=== PATIENT | female | born 1990 | race Caucasian/White ===

== ENCOUNTER → 2020-07-23 14:39 | Outpatient (CLI) | payer BC, MEDICAID, SELFPAY ==
--- NOTE | 2020-07-23 14:48 | RAD_ITS ---
STUDY: X-RAY - PELVIS REASON FOR EXAM: Female, 30 years old. CHECK IUD PLACEMENT TECHNIQUE: One view of the pelvis was obtained. COMPARISON: None. FINDINGS: There is a non-specific bowel gas pattern. Normal visualized soft tissue structures. IUD is noted in the mid pelvis. Normal bilateral iliac wings, sacroiliac joints and visualized sacrum. Normal visualized bilateral superior and inferior pubic rami. Normal pubic symphysis. Normal ischial tuberosities. Normal visualized right femoral head. Normal right acetabulum. Normal right hip joint. Normal visualized left femoral head. Normal left acetabulum. Normal left hip joint. RAD/Pelvis 1 or 2 Views IMPRESSION: IUD noted in the mid pelvis. Electronically Signed: Eamon Ham MD at 22:26 EDT , Service support ,
== END ==
PROVIDERS: PCP Nurse Practitioner Family; Referring Provider Obstetrics & Gynecology; Visit Provider Obstetrics & Gynecology
DX: T83.32XA Displacement of intrauterine contraceptive device, initial encounter (principal)
CPT/HCPCS: 72170

== ENCOUNTER → 2025-08-27 | Outpatient (CLI) | payer BC, SELFPAY ==
[2025-08-27 11:15] LABS: Hematocrit 39.8 % (37-47); Hemoglobin 12.7 g/dL (12.0-15.0); Mean Corp Hgb Conc 31.9 g/dL (32-36); Mean Corpuscular Volume 89.6 fL (81-99); Mean Platelet Vol. 10.9 fl (6.2-12.0); Platelet Count 305 K/mm3 (150-450); RBC Distribution Width CV 13.7 % (11.6-14.6); RBC Distribution Width SD 44.4 fl (35.1-43.9); Red Blood Count 4.44 M/mm3 (4.2-5.4); White Blood Count 8.4 K/mm3 (4.4-11.0)
[2025-08-27 11:50] LABS: AST(SGOT) 18 U/L (<=31); Alanine Aminotransfer ALT/SGPT 17 U/L (<=34); Albumin, Serum 3.8 g/dL (3.5-5.0); Alkaline Phosphatase 64 U/L (35-104); Anion Gap 12 (5-15); BUN 9 mg/dL (4-19); BUN/Creat Ratio 12.9 RATIO (10-20); Calcium,Total 9.4 mg/dL (7.6-11.0); Carbon Dioxide 22.8 mmol/L (21.0-32.0); Chloride 104 mmol/L (98-108); Globulin 3.3 g/dL (2.2-4.2); Glucose 113 mg/dL (70-99); Microalbumin,Random Urine < 12.0 mg/L (<20 mg/L); Potassium 4.2 mmol/L (3.3-5.1)
== END | disposition home or self-care (01) ==
LOC: VSLAB 09:45
PROVIDERS: PCP Nurse Practitioner Family; Visit Provider Nurse Practitioner Family
DX: I10 Essential (primary) hypertension (principal)
CPT/HCPCS: 36415; 80053; 82043; 84443; 85027

== ENCOUNTER → 2025-09-16 | Outpatient (CLI) | payer BC, SELFPAY ==
--- OUTSIDE RECORDS SUMMARY | 2025-09-16 13:35 | XMS RPT_ITS | CCD ---
Author Organization [facility] Care Team Providers Care Ball Point Splitter Name Role Phone ROSEMARIE CHAVEZ Consulting Unavailable ROSEMARIE CHAVZE Attending Unavailable PHYSICIAN, NOT RECORDED Primary Care Physician U vi PENNY MD, DR DAWNA Kothari Admitting Unavailable SUDHIR PLATA, DR DAWNA Kothari Attending Unavailable RODDY PIERCE DO Consulting Unavail able PHYSICIAN, NOT RECORDED Primary Care UnavailSASHA Briseno MD Consulting Unavailable MIKAYLA PLATA, SHARIF Bowman Consulting Unavailable JAMES BETANCOURT MD Consulting Unavailable Sharif Mcfarlane Consulting Unavailable ABBEY NEWTON MD Consulting Unavailable VICTORINO HERNANDEZ MD Consulting Unavailable PHYSICIAN, NOT RECORDED Primary Care UnavailSNEHA Loving MD Attending Unavailable REAGAN LARKIN DO Attending Unavailable PHYSICIAN, NOT RECORDED Primary Care Unavaila july PHYSICIAN, NOT RECORDED Primary Care UnavailSNEHA Loving MD Attending Unavailable Unavailable Primary Care Provider Unavailhernesto Hernandez BUCKLE STRAP PUNCHER, Lucía Primary Care Provider [phone] PAUL ALVARADO MD Attending Unavailable PAUL ALVARADO MD Primary Care Unavailable PAUL ALVARADO MD Admitting Unavailable SERA DUMONT DO Admitting Unavailable JANET BAUMAN CNP Consulting Unavailable SERA DUMONT DO Attending Unavailable SERA DUMONT DO Primary Care Unavailable PROVIDER, UNKNOWN Consulting Unavailable PROVIDER, UNKNOWN Consulting Unavailable JANET BAUMAN CNP Consulting Unavailable JANET BAUMAN CNP Primary Care Unavailable JANET BAUMAN CNP Admitting Unavailable JANET BAUMAN CNP Attending Unavailable PROVIDER, UNKNOWN Consulting Unavailable PROVIDER, UNKNOWN Consulting Unavailable JANET BAUMAN CNP Consulting Unavailable DENNIS BRADLEY Admitting Unavailable DENNIS BRADLEY Attending Unavailable DENNIS BRADLEY Primary Care Unavailable PROVIDER, UNKNOWN Consulting Unavailable PROVIDER, UNKNOWN Consulting Unavailable BRADLEY SUH DO Admitting Unavailable JANET BAUMAN CNP Consulting Unavailable JANET BAUMAN CNP Referring Unavailable BRADLEY SUH DO Attending Unavailable BRADLEY SUH DO Primary Care Unavailable PROVIDER, UNKNOWN Consulting Unavailable PROVIDER, UNKNOWN Consulting Unavailable JANET BAUMAN CNP Consulting Unavailable SYMONE ESCALANTE MD Admitting Unavailable SYMONE ESCALANTE MD Attending Unavailable SYMONE ESCALANTE MD Primary Care Unavailable PROVIDER, UNKNOWN Consulting Unavailable PROVIDER, UNKNOWN Consulting Unavailable BRYCE YOUSSEF Referring Unavailable PATRICIAMANDIELUCÍA [facility] Attending Unavailabl e [facility], Lucía Primary Care Unavailabl e Allergies Allergy Classification Reported Allergen(s) Allergy Type Date of Onset Reaction(s) Facility (3 sources) Morphine; Translations: [morphine] Drug Allergy 4 [facility] (disorder), [facility] (2 sources) Morphine Drug Allergy [facility] (2 sources) CONTRAST MEDIA, IODINE RELATED Drug allergy (disorder) [facility] (1 source) Morphine Drug Allergy 5 [facility] Rep[facility] Medications Current Medications Medication Drug Class(es) Dates Sig (Normalized) Sig (Original) Albuterol (3 sources) beta2-Adrenergic Agonist Start: 05-26-2022 ALBUTEROL INHALATION 0 Refill(s) 05/26/2022 Active Start: 05-26-2022 albuterol 0 Re fill(s) Start Date: 05/26/22 Status: Ordered cetirizine hydrochloride 10 mg oral tablet (1 source) Histamine-1 Receptor Antagonist Start: 05-26-2022 Zyrtec 10 mg oral tablet Dose : 10 mg = 1 tab(s), Oral, qDay, # 30 tab(s), 0 Refill(s) Start Date: 05/26/22 Status: Ordered 0.4 ml enoxaparin sodium 100 mg/ml prefilled syringe (1 source) Low Molecular Weight Heparin Start: 05-29-2022 End: 06-26-2022 Lovenox 40 mg/0.4 mL injectable solution Dose : 40 mg = 0.4 mL, Subcutaneous, q12h, Please supply sufficient quantity of needles, syringes, alcohol swabs and a sharps container, # 22.4 mL, 0 Refill(s), [id number] 170.2, cm, 05/24/22 18:25:00 EDT, Height, kg, 05/24/22 18:25... Start Date: 05/29/22 Stop Date: 06/26/22 Status: Ordered FLUoxetine 20 mg oral tablet (1 source) Serotonin Reuptake Inhibitor Start: 05-29-2022 FLUoxetine (Eqv-Sarafem) 20 mg oral tablet Dose : 20 mg = 1 tab(s), Oral, qDay, # 30 tab(s), 2 Refill(s), [id number], 170.2, cm, 05/24/22 18:25:00 EDT, Height, kg, 05/24/22 18:25:00 EDT, Dosing Weight Start Date: 05/29/22 Status: Ordered ibuprofen 600 mg oral tablet (1 source) Nonsteroidal Anti-inflammatory Drug Start: 05-29-2022 ibuprofen 600 mg oral tablet Dose : 600 mg = 1 tab(s), Oral, q6h, PRN Pain, scale 1-3, # 60 tab(s), 1 Refill(s), [id number] 170.2, cm, 05/24/22 18:25:00 EDT, Height, kg, 05/24/22 18:25:00 EDT, Dosing Weight Start Date: 05/29/22 Status: Ordered minocycline 100 mg injection (2 sources) Tetracycline-class Drug minocycline (MINOCIN) 100 mg injection Active NIFEdipine 30 mg osmotic 24 hr extended release oral tablet (1 source) Dihydropyridine Calcium Channel Abhinav Start: 05-29-2022 Procardia XL 30 mg oral tablet, extended release Dose : 30 mg = 1 tab(s), Oral, qDay, # 30 tab(s), 2 Refill(s), [id number] 170.2, cm, 05/24/22 18:25:00 EDT, Height, kg, 05/24/22 18:25:00 EDT, Dosing Weight Start Date: 05/29/22 Status: Ordered [place]-3 1000 mg oral capsule (1 source) Start: 05-26-2022 [place]-3 1000 mg oral capsule Dose : 1,000 mg = 1 cap(s), Oral, qDay, 0 Refill(s) Start Date: 05/26/22 Status: Ordered ondansetron 4 mg disintegrating oral tablet (1 source) Serotonin-3 Receptor Antagonist Start: 05-29-2022 ondansetron 4 mg oral tablet, disintegrating Dose : 4 mg = 1 tab(s), Oral, q6h, # 30 tab(s), 1 Refill(s), [facility]: [id number], 170.2, cm, 05/24/22 18:25:00 EDT, Height, kg, 05/24/22 18:25:00 EDT, Dosing Weight Start Date: 05/29/22 Status: Ordered oxyCODONE hydrochloride 5 mg oral tablet (1 source) Opioid Agonist Start: 05-29-2022 End: 06-05-2022 oxyCODONE 5 mg oral tablet ( IMMEDIATE release ) Dose : 5 mg = 1 tab(s), Oral, q4h, PRN Pain, scale 4-6, # 28 tab(s), 0 Refill(s), Pharmacy: [id number], Post-op pain, 170.2, cm, 05/24/22 18:25:00 EDT, Height, 198, kg, 05/24/22 18:25:00 EDT, Dosing Weight Start Date: 05/29/22 Stop Date: 06/05/22 Status: Ordered PARoxetine hydrochloride 10 mg oral tablet (2 sources) Serotonin Reuptake Inhibitor Start: 07-05-2024 PARoxetine (PAXIL) 10 mg tablet 07/05/2024 Active polyethylene glycol 3350 298443 mg / potassium chloride 2970 mg / sodium bicarbonate 6740 mg / sodium chloride 5860 mg / sodium sulfate 98392 mg powder for oral solution (2 sources) Osmotic Laxative Start: 07-12-2024 End: 07-12-2024 peg 3350-Electrolytes (GOLYTELY) 236-22.74-6.74 -5.86 gram suspension Indications: IBD (inflammatory bowel disease) Take 4,000 mL by mouth one time only for 1 dose. Refer to printed prep instructions from your provider. 4000 mL 0 07/12/2024 07/12/2024 Active Multivitamins with Vitamin B Complex, Vitamin C, Minerals and L-Methylfolate oral capsule (1 source) Start: 05-26-2022 take 1 capsule by mouth once daily Multivitamins with Vitamin B Complex, Vitamin C, Minerals and L-Methylfolate oral capsule Dose = 1 cap(s), Oral, Daily, 0 Refill(s) Start Date: 05/26/22 Status: Ordered sennosides, group home 8.6 mg oral tablet (1 source) Start: 05-29-2022 senna (sennosides) 8.6 mg oral tablet Dose : 8.6 mg = 1 tab(s), Oral, qHS, # 30 tab(s), 1 Refill(s), [facility]: [id number], 170.2, cm, 05/24/22 18:25:00 EDT, Height, kg, 05/24/22 18:25:00 EDT, Dosing Weight Start Date: 05/29/22 Status: Ordered sertraline 50 mg oral tablet (2 sources) Serotonin Reuptake Inhibitor Start: 05-03-2024 take 1 tablet by mouth once sertraline (ZOLOFT) 50 mg tablet Take 1 tablet by mouth every afternoon. 05/03/2024 Active spironolactone 100 mg oral tablet (2 sources) Aldosterone Antagonist Start: 01-06-2024 spironolactone (ALDACTONE) 100 mg tablet 01/06/2024 Active sulfamethoxazole 800 mg / trimethoprim 160 mg oral tablet (1 source) Dihydrofolate Reductase Inhibitor Antibacterial, Sulfonamide Antimicrobial Start: 05-29-2022 End: 06-05-2022 take 1 tablet by mouth twice daily sulfamethoxazole-t rimethoprim 800 mg-160 mg oral tablet Dose = 1 tab(s), Oral, BID, X 7 day(s), # 14 tab(s), 0 Refill(s), [facility]: [id number], 170.2, cm, 05/24/22 18:25:00 EDT, Height, 198, kg, 05/24/22 18:25:00 EDT, Dosing Weight Start Date: 05/29/22 Stop Date: 06/05/22 Status: Ordered Problems Active Problems Problem Classification Problem Date Documented Da te Episodic/Chronic Acute posthemorrhagic anemia (1 source) Acute posthemorrhagic anemia; Translations: [Acute posthemorrhagic anemia] Episodic Anxiety disorders (3 sources) Mixed anxiety and depressive disorder; Translations: [Anxiety disorder, unspecified] Onset: 07-24-2024 07-24-2024 Chronic Asthma (6 sources) Asthma; Translations: [Unspecified asthma, uncomplicated] Onset: 05-24-2022 Chronic Diabetes or abnormal glucose tolerance complicating ; childbirth; or the puerperium (5 sources) Gestational diabetes mellitus complicating ; Translations: [Gestational diabetes mellitus in , unspecified control] Onset: 05-24-2022 Episodic Fluid and electrolyte disorders (1 source) Acidosis; Translations: [Acidosis] Episodic Genitourinary symptoms and ill-defined conditions (3 sources) Dysuria; Translations: [Dysuria] Onset: 07-06-2025 Episodic Hypertension complicating ; childbirth and the puerperium (1 source) Pre-existing hypertension complicating AND/OR reason for care during ; Translations: [Unspecified pre-existing hypertension complicating , second trimester] Chronic Other complications of ; puerperium affecting management of mother (1 source) Obesity in mother complicating childbirth; Translations: [Obesity complicating childbirth] Chronic Other complications of ; puerperium affecting management of mother (1 source) Anemia in mother complicating childbirth; Translations: [Anemia complicating childbirth] Chronic Other complications of (2 sources) Finding related to ; Translations: [Other specified related conditions, unspecified trimester] Onset: 05-24-2022 Episodic Other complications of (3 sources) Placenta accreta; Translations: [Placenta accreta, unspecified trimester] Onset: 05-24-2022 Episodic Other complications of (1 source) Supervision of high risk done; Translations: [Supervision of with grand multiparity, second trimester] Episodic Other complications of (1 source) Vomiting of ; Translations: [Vomiting of , unspecified] Episodic Other connective tissue disease (1 source) Leg swelling symptom Onset: 03-18-2019 Episodic Other female genital disorders (1 source) Abnormal uterine bleeding; Translations: [Abnormal uterine and vaginal bleeding, unspecified] Chronic Other gastrointestinal disorders (1 source) Ascites; Translations: [Other ascites] Onset: 05-25-2022 Episodic Other nutritional; endocrine; and metabolic disorders (4 sources) Morbid obesity; Translations: [Morbid (severe) obesity due to excess calories] Onset: 03-08-2022 Chronic Other nutritional; endocrine; and metabolic disorders (2 sources) Body mass index 40+ - severely obese; Translations: [Body mass index (BMI) 60.0-69.9, adult] Chronic Other nutritional; endocrine; and metabolic disorders (1 source) Morbid (severe) obesity due to excess calories; Translations: [Morbid (severe) obesity due to excess calories] Onset: 02-14-2025 Chronic Regional enteritis and ulcerative colitis (3 sources) Crohn's disease; Translations: [Crohn's disease, unspecified, without complications] Onset: 05-24-2022 Chronic Residual codes; unclassified (1 source) Previous uterine surgical scar; Translations: [History of uterine scar from previous surgery] Onset: 05-24-2022 Episodic Respiratory failure; insufficiency; arrest (adult) (1 source) Acute respiratory failure; Translations: [Acute respiratory failure, unspecified whether with hypoxia or hypercapnia] Episodic Shock (1 source) Shock; Translations: [Other shock] Episodic Substance-related disorders (4 sources) Smoker; Translations: [Nicotine dependence, unspecified, uncomplicated] Onset: 07-24-2024 07-24-2024 Chronic Past or Other Problems Problem Classification Problem Date Documented Date Episodic/Chronic Hemorrhage during ; abruptio placenta; placenta previa (6 sources) Placenta previa without hemorrhage; Translations: [Complete placenta previa NOS or without hemorrhage, unspecified trimester] Onset: 05-24-2022 Episodic Immunizations and screening for infectious disease (2 sources) Encounter for screening for human papillomavirus (HPV); Translations: [Encounter for screening for human papillomavirus (HPV)] Onset: 05-10-2022 Episodic Noninfectious gastroenteritis (4 sources) Inflammatory bowel disease; Translations: [Noninfective gastroenteritis and colitis, unspecified] Onset: 07-24-2024 07-12-2024 Episodic Other aftercare (2 sources) Encounter for removal of sutures; Translations: [Encounter for removal of sutures] Onset: 06-04-2022 Episodic Other complications of (2 sources) Depressive disorder in mother complicating ; Translations: [Other mental disorders complicating , unspecified trimester] Onset: 03-08-2022 07-24-2024 Episodic Other and delivery including normal (1 source) Onset: 01-13-2022 05-24-2022 Episodic Other screening for suspected conditions (not mental disorders or infectious disease) (3 sources) Encounter for screening for malignant neoplasm of cervix; Translations: [Encounter for screening for lipoid disorders] Onset: 05-10-2022 Episodic Other skin disorders (3 sources) Hidradenitis suppurativa; Translations: [Hidradenitis suppurativa] Onset: 07-24-2024 07-24-2024 Episodic Results Test Name Value Interpretation Reference Range Facility CBC-Complete Blood Cnt No Di ffon 08-27-2025 Erythrocyte distribution width (RBC) [Ratio] 13.7 % Normal 11.6-14.6 [facility] Comment on above: Performed By: #### L 502.0500, L100.0500, L501.9520, L500.4050 #### [facility] [address] [place], [address] Hematocrit (Bld) [Volume fraction] 39.8 % Normal 37-47 [facility] Comment on above: Performed By: #### L 502.0500, L100.0500, L501.9520, L500.4050 #### [facility] [address] [place], [address] Hemoglobin (Bld) [Mass/Vol] 12.7 g/dL Normal 12.0-15.0 [facility] Comment on above: Performed By: #### L 502.0500, L100.0500, [id number], L500.4050 #### [facility] [address] [place], [address] MCH (RBC) [Entitic mass] 28.6 pg Normal 27.0-32.0 [facility] Comment on above: Performed By: #### L 502.0500, L100.0500, [id number], L500.4050 #### [facility] [address] [place], [address] MCHC (RBC) [Mass/Vol] 31.9 g/dL Low 32-36 [facility] Comment on above: Performed By: #### L 502.0500, L100.0500, [id number], L500.4050 #### [facility] [address] [place], [address] MCV (RBC) [Entitic vol] 89.6 fL Normal 81-99 [facility] Comment on above: Performed By: #### L 502.0500, L100.0500, L501.9520, L500.4050 #### [facility] [address] [place], [address] Platelet mean volume (Bld) [Entitic vol] 10.9 fL Normal 6.2-12.0 [facility] Comment on above: Performed By: #### L 502.0500, L100.0500, L501.9520, L500.4050 #### [facility] [address] [place], [address] Platelets (Bld) [#/Vol] 305 10*3/uL Normal 150-450 [facility] Comment on above: Performed By: #### L 502.0500, L100.0500, [id number], L500.4050 #### [facility] [address] [place], [address] RBC (Bld) [#/Vol] 4.44 10*6/uL Normal 4.2-5.4 [facility] Comment on above: Performed By: #### L 502.0500, L100.0500, [id number], L500.4050 #### [facility] [address] [place], [address] RDW SD 44.4 fl High 35.1-43.9 [facility] Comment on above: Performed By: #### L 502.0500, L100.0500, [id number], L500.4050 #### [facility] [address] [place], [address] WBC (Bld) [#/Vol] 8.4 10*3/uL Normal 4.4-11.0 [facility] Comment on above: Performed By: #### L 502.0500, L100.0500, [id number], L500.4050 #### [facility] [address] [place], [address] [facility] 08-27-2025 Albumin [Mass/Vol] 3.8 g/dL Normal 3.5-5.0 [facility] Comment on above: Performed By: #### L 502.0500, L100.0500, L501.9520, L500.4050 #### [facility] [address] [place], [address] Albumin/Globulin [Mass ratio] 1.2 {ratio} Normal 0.9-2.4 [facility] Comment on above: Performed By: #### L 502.0500, L100.0500, L501.9520, L500.4050 #### [facility] [address] [place], [address] ALK PHOS 64 U/L Normal 35-104 [facility] Comment on above: Performed By: #### L 502.0500, L100.0500, L501.9520, L500.4050 #### [facility] [address] [place], [address] ALT [Catalytic activity/Vol] 17 U/L Normal <=34 [facility] Comment on above: Performed By: #### L 502.0500, L100.0500, L501.9520, L500.4050 #### [facility] [address] [place], [address] AST [Catalytic activity/Vol] 18 U/L Normal <=31 [facility] Comment on above: Performed By: #### L 502.0500, L100.0500, L501.9520, L500.4050 #### [facility] [address] [place], [address] Bilirubin [Mass/Vol] 0.30 mg/dL Normal 0.00-1.30 [facility] Comment on above: Performed By: #### L 502.0500, L100.0500, L501.9520, L500.4050 #### [facility] [address] [place], [address] BUN/CRE 12.9 RATIO Normal 10-20 [facility] Comment on above: Performed By: #### L 502.0500, L100.0500, [id number], L500.4050 #### [facility] [address] [place], [address] Calcium [Mass/Vol] 9.4 mg/dL Normal 7.6-11.0 [facility] Comment on above: Performed By: #### L 502.0500, L100.0500, L501.9520, L500.4050 #### [facility] [address] [place], [address] Chloride [Moles/Vol] 104 mmol/L Normal 98-108 [facility] Comment on above: Performed By: #### L 502.0500, L100.0500, L501.9520, L500.4050 #### [facility] [address] [place], [address] CO2 [Moles/Vol] 22.8 mmol/L Normal 21.0-32.0 [facility] Comment on above: Performed By: #### L 502.0500, L100.0500, [id number], L500.4050 #### [facility] [address] [place], [address] Creatinine [Mass/Vol] 0.72 mg/dL Normal 0.70-1.20 [facility] Comment on above: Performed By: #### L 502.0500, L100.0500, L501.9520, L500.4050 #### [facility] [address] [place], [address] GAP 12 Normal 5-15 [facility] Comment on above: Performed By: #### L 502.0500, L100.0500, L501.9520, L500.4050 #### [facility] [address] [place], [address] GFR/1.73 sq M.predicted among non-blacks MDRD (S/P/Bld) [Vol rate/Area] 112 mL/min/{1.73_m2} Normal >60 [facility] Comment on above: Result Comment: mL/m in/1.73m2 CKD-EPI Creatinine Equation (2020) Performed By: #### L 502.0500, L100.0500, L501.9520, L500.4050 #### [facility] [address] [place], [address] Globulin (S) [Mass/Vol] 3.3 g/dL Normal 2.2-4.2 [facility] Comment on above: Performed By: #### L 502.0500, L100.0500, L501.9520, L500.4050 #### [facility] [address] [place], [address] Glucose [Mass/Vol] 113 mg/dL High 70-99 [facility] Comment on above: Performed By: #### L 502.0500, L100.0500, L501.9520, L500.4050 #### [facility] [address] [place], [address] Potassium [Moles/Vol] 4.2 mmol/L Normal 3.3-5.1 [facility] Comment on above: Performed By: #### L 502.0500, L100.0500, L501.9520, L500.4050 #### [facility] [address] [place], [address] Sodium [Moles/Vol] 139 mmol/L Normal 133-145 [facility] Comment on above: Performed By: #### L 502.0500, L100.0500, L501.9520, L500.4050 #### [facility] [address] [place], [address] T PROT 7.1 g/dL Normal 5.9-8.4 [facility] Comment on above: Performed By: #### L 502.0500, L100.0500, L501.9520, L500.4050 #### [facility] [address] [place], [address] Urea nitrogen [Mass/Vol] 9 mg/dL Normal 4-19 [facility] Comment on above: Performed By: #### L 502.0500, L100.0500, L501.9520, L500.4050 #### [facility] [address] [place], [address] Microalbumin,Random Urineon 08-27-2025 MICROALBUMIN,UR < 12.0 Normal <20 mg/L [facility] Comment on above: Performed By: #### L 502.0500, L100.0500, L501.9520, L500.4050 #### [facility] [address] [place], [address] Thyroid Stim Hormone (TSH)on 08-27-2025 TSH 2.130 uIU/mL Normal 0.300-4.200 [facility] Comment on above: Performed By: #### L 502.0500, L100.0500, L501.9520, L500.4050 #### [facility] [address] [place], [address] ED MED ADMINISTRATION DETAIL on 07-13-2025 ED MED ADMINISTRATION DETAIL City Controller - JUDE CARLSON : 1990, , Medication Administration Record [place] [address] [place] [address] [id number] 07/12/2025 Patient: JUDE CARLSON Sex: Female : 1990 Age: 35y MEASUREMENTS: Wt: 181.4 kg, Ht/Brendan: 68.0 in, BMI: 60.82 ALLERGIES: iv contrast, morphine Medication Ordered Medication Administration Date/Time IV NS 0.9 % 1000 22:15 07/12 IV NS 0.9 % 1000 mL started in bag#1 1000 mL at Started mL at 999 mL/hr 999 mL/hr via Site# 1. Allergies verified and confirmed 5 rights. IV 22:15 07/12/2025 (NOW x1) patency established. IV site checked: no pain, redness, or swelling. Korey Wagner IV flushed thoroughly pre-medication administration. Information E.M.T.-P. reviewed with patient. Verbalizes understanding. Completed per Stopped protocol. - 22:15 Maranda Bundy-P. 23:30 07/12/2025 Coby Dugan R.N. 23:30 07/12 Medication Discontinued: bag #1 infused. Total Scanned amount infused: 1000 mL. - 02:47 Coby Dugan R.N. KetorOLAC 22:17 08 KetorOLAC (Toradol) IVP 15 mg given via Site# 1. Given (Toradol) IVP 15 mg Allergies verified and confirmed 5 rights. IV patency established. IV 22:17 07/12/2025 (NOW x1) site checked: no pain, redness, or swelling. IV flushed thoroughly Korey Wagner pre-medication administration. IVP given by EMT-P. Information E.M.T.-P. reviewed with patient. Verbalizes understanding. Vitals: 22:12 Scanned 07/12/2025 BP: 162/90 MAP: 114 mmHg. HR: 75 bpm. Medication Wastage: 15 mg wasted. - 22:18 Suzanne BundyT.-P. 00:35 07/13 Medication Response: Pain is improving. Symptoms have improved. The patient feels better. - 00:35 Coby Dugan R.N. 1 of 3 City Controller - JUDE CARLSON, : 1990, , Medication Ordered Medication Administration Date/Time Ondansetron IVP 4 22:17 07/12 Ondansetron IVP 4 mg given via Site# 1. Allergies Given mg (NOW x1) verified and confirmed 5 rights. IV patency established. IV site 22:17 07/12/2025 checked: no pain, redness, or swelling. IV flushed thoroughly Korey Wagner, pre-medication administration. IVP given by EMT-P. Information E.M.T.-P. reviewed with patient. Verbalizes understanding. - 22:17 Marnada Miller-P. 00:40 07/13 Medication Response: No adverse reaction. Pain is improving. Symptoms have improved. The patient feels better. - 00:40 Coby Dugan R.N. Eye Kit 1 kit (place 23:52 07/12 Eye Kit 1 kit given. Given in the left eye. Allergies Given at bedside, NOW verified and confirmed 5 rights. Information reviewed with patient 23:52 07/12/2025 x1) including reason for taking this medication, signs of allergic reaction Marcie and precautions. Verbalizes understanding. - 00:17 Kaitlynn Hawthorne R.N. Not Scanned cefTRIAXone 23:42 07/12 cefTRIAXone (Rocephin) IVPB 1gm/50ml NS 1 g Started (Rocephin) IVPB started at 100 mL/hr diluted in sodium chloride IVPB 0.9 % 23:42 07/12/2025 1gm/50ml NS 1 g Minibag+ 50 mL via Site# 1. Allergies verified and confirmed 5 Marcie diluted in sodium rights. Via dial-a-flow. IV patency established. IV site checked: no Kaitlynn Grimes chloride IVPB 0.9 % pain, redness, or swelling. IV flushed thoroughly pre-medication Stopped Minibag+ 50 mL at administration. Information reviewed with patient including reason 00:34 07/13/2025 100 mL/hr (NOW x1) for taking this medication, signs of allergic reaction and precautions. Coby Dugan R.N. Verbalizes understanding. - 23:43 Marcie Grimes R.N. Scanned 00:34 07/13 Medication Discontinued: IV infused. Total amount infused: 50 mL. IV patency established. IV site checked: no pain, redness, or swelling. IV flushed thoroughly post-medication administration. - 00:34 Coby Dugan R.N. 2 of 3 City Controller - GLORIA JUDE, : 1990, , Medication Ordered Medication Administration Date/Time HYDROmorphone 23:56 07/12 HYDROmorphone (Dilaudid) IVP 0.5 mg given via Given (Dilaudid) IVP 0.5 Site# 1. Allergies verified and confirmed 5 rights. IV patency 23:56 07/12/2025 mg (NOW x1, HIGH established. IV site checked: no pain, redness, or swelling. IV Marcie ALERT flushed thoroughly pre-medication administration. IVP given by Kaitlynn Grimes MEDICATION) nurse. Information reviewed with patient including reason for taking Scanned this medication, signs of allergic reaction, precautions and sedative warning. Verbalizes understanding. Medication Wastage: 0.5 mg wasted. - 23:57 Marcie Grimes R.N. 01:00 07/13 Medication Response: Pain is improving. Symptoms have improved. - 02:48 Coby Dugan R.N. Erythromycin Eye 00:10 07/13 Erythromycin Eye Ointment 1 applic given. Given in Given Ointment 1 applic the left eye. Allergies verified and confirmed 5 rights. (more content not included)... [facility] ED NURSES CLINICAL NOTEon ED NURSES CLINICAL NOTE Nurse Narrative - JUDE CARLSON, : 1990, , Nurse Clinical Narrative [address] [place] [address] [phone] 07/12/2025 19:40:00 Patient: JUDE CARLSON Sex: Female : 1990 Age: 35y Disposition: Discharge to Home Disposition Decision Time: 02:17 07/13/2025 Departure Time: 02:45 07/13/2025 TRIAGE Arrived by private vehicle. Historian: (patient). Accompanied by friend. Primary physician (Chiquita/ Lucía Hernandez). ( urgent care on Tuesday, was given Cephalexin for UTI (7days). Blood vessel busted in left eye yesterday causing headache). Triage time: 19:48 07/12/2025. Acuity: LEVEL 4. Chief Complaint: EYE IRRITATION and BACK PAIN. The patient has had fever, weakness and difficulty breathing. Reports muscle aches. SEPSIS SCREEN: NEGATIVE. SIRS criteria negative. No possible sources of infection. -- 19:55 07/12/25 AJ Castro R.N. 19:51 07/12/25. BP: 155/90 MAP: 108 mmHg. HR: 87 bpm. -- 19:55 07/12/25 AJ Castro R.N. 19:55 07/12/25. HR: 86 bpm. O2 saturation: 98%. -- 19:55 07/12/25 AJ Castro R.N. 19:55 07/12/25. RR: 18. Temperature: 97.5 F. Pain level now 6/10. -- 19:55 07/12/25 AJ Castro R.N. Measurements: 19:54 07/12/25 Wt: 181.4 kg, Ht/Brendan: 68.0 in, BMI: 60.82 -- 19:54 07/12/25 AJ Castro R.N. Medications: hydrOXYzine pamoate 25 mg capsule: 25 mg twice a day as needed. -- 19:57 07/12/25 AJ Castro R.N. 1 of 5 Nurse Narrative - JUDE CARLSON, : 1990, , cephALEXin 500 mg capsule: 500 mg three times a day . -- 19:58 07/12/25 AJ Castro R.N. minocycline 100 mg tablet: 100 mg once a day . -- 19:59 07/12/25 AJ Castro R.N. PARoxetine 10 mg tablet: 10 mg once a day . -- 19:59 07/12/25 AJ Castro R.N. omeprazole 40 mg capsule,delayed release: 40 mg once a day . -- 20:00 07/12/25 AJ Castro R.N. loratadine 10 mg tablet: 10 mg once a day . -- 20:00 07/12/25 AJ Castro R.N. metFORMIN 500 mg tablet: 500 mg once a day . -- 20:00 07/12/25 AJ Castro R.N. spironolactone 100 mg tablet: 100 mg once a day . -- 20:00 07/12/25 AJ Castro R.N. Allergies: morphine -- 19:51 07/12/25 AJ Castro R.N. iv contrast -- 19:51 07/12/25 AJ Castro R.N. Problems: Crohn's Disease -- 19:51 07/12/25 AJ Castro R.N. Ulcerative Colitis -- 19:51 07/12/25 AJ Castro R.N. Gestational diabetes mellitus -- 19:52 07/12/25 AJ Castro R.N. Appendectomy (procedure) -- 19:52 07/12/25 AJ Castro R.N. pre-diabetic -- 19:53 07/12/25 AJ Castro R.N. Hidradenitis Suppurativa -- 20:02 07/12/25 AJ Castro R.N. Surgeries: Hysterectomy -- 19:52 07/12/25 AJ Castro R.N. -- 19:52 07/12/25 AJ Castro R.N. Cholecystectomy -- 19:52 07/12/25 AJ Castro R.N. History 19:48 07/12/25. SOCIAL HX: Light tobacco smoker (cigarette)- less than 1/2 a pack per day. No alcohol use or drug use. The patient has not traveled outside the [place] Infectious disease exposure: No infectious disease exposure. ABUSE ASSESSMENT: The patient answered "yes" to the question(s) "Do you feel safe in your home?" and "no" to the question(s) "Are you afraid to go home?". SELF HARM ASSESSMENT: Self harm assessment was performed. The patient answered "no" to the 2 of 5 Nurse Narrative - GLORIA JUDE, : 1990, , question(s) "Have you recently felt down, depressed, or hopeless?" and "Do you have thoughts of harming or killing yourself?". FALL RISK ASSESSMENT: Fall risk assessment completed. No risk factors identified. -- 19:55 07/12/25 EDT Yulissa Castro R.N. 19:55 07/12/25. PAST MEDICAL HX: LNMP: Last normal menstrual period unknown. Denies current . -- 19:55 07/12/25 JYOTHIT Yulissa Castro R.N. Interventions 19:48 07/12/25. Identification band and allergy band on patient. -- 19:55 07/12/25 JYOTHIT Yulissa Castro R.N. PHYSICAL ASSESSMENT 20:30 07/12/25. Ambulatory to room. GENERAL / NEURO / PSYCH: Alert. Oriented X 4. HEENT: Pupils equal, round and reactive to light. No facial asymmetry noted. RESPIRATORY: Respirations not labored. CVS: Pulses within normal limits. GI / : ( c/o pain to right flank area.). SKIN: Skin is warm and dry. -- 20:55 07/12/25 EDT Coby Dugan R.N. NURSING PROGRESS NOTES 21:54 07/12/25. Site #1 started in the right antecubital space with an 18g needle with aseptic technique and good blood return; 1 attempt. Blood drawn: rainbow set and soares tube(s). Labeled in the presence of the patient and sent to the lab. Saline lock flushed with 10 mL saline. -- 22:03 07/12/25 EDT Korey Wagner E.M.T.-P. 21:58 07/12/25. Patient ID band checked for patient name, birthdate and medi (more content not included)... [facility] ED ORDER SHEET (CPOE ONLY)on 07-13-2025 ED ORDER SHEET (CPOE ONLY) Order Sheet - JUDE CARLSON : 1990, , Order Sheet [address] [address] [id number] 07/12/2025 Patient: JUDE CARLSON Sex: Female : 1990 Age: 35y MEASUREMENTS: Wt: 181.4 kg, Ht/Brendan: 68.0 in, BMI: 60.82 ALLERGIES: iv contrast, morphine MEDICATION/IV/DRIP/FL UID ORDERS Order Description Priority Entered Acknowledged Completed IV NS 0.9 %1000 mL at 999 21:23 07/12/2025 21:40 22:15 mL/hr (NOW x1) Bradley Suh D.O. 07/12/2025 07/12/2025 Korey Hartley R.N. E.M.T.-P. KetorOLAC (Toradol) IVP15 mg 22:05 07/12/2025 22:06 22:18 (NOW x1) Bradley Suh D.O. 07/12/2025 07/12/2025 Korey Bundy E.M.T.-P. E.M.T.-P. Reason for ordering with alerts: Clinical consideration given --22:05 07/12/2025 Bradley Suh D.O. Ondansetron IVP4 mg (NOW x1) 22:05 07/12/2025 22:06 22:17 Bradley Suh D.O. 07/12/2025 07/12/2025 Korey Bundy E.M.T.-P. E.M.T.-P. Reason for ordering with alerts: Clinical consideration given --22:05 07/12/2025 Bradley Suh D.O. Eye Kit1 kit (place at bedside, 22:28 07/12/2025 22:31 00:17 1 of 4 Order Sheet - JUDE CARLSON DOB: 1990, , NOW x1) Bradley Suh D.O. 07/12/2025 07/13/2025 Marcie Bundy E.M.T.-P., R.N. cefTRIAXone (Rocephin) IVPB 23:11 07/12/2025 23:33 23:43 1gm/50ml NS1 g diluted in Bradley Suh D.O. 07/12/2025 07/12/2025 sodium chloride IVPB 0.9 % Marcie Hartley Minibag+ 50 mL at 100 mL/hr Kaitlynn Grimes, (NOW x1) Kaitlynn HYDROmorphone (Dilaudid) 23:51 07/12/2025 23:51 23:57 IVP0.5 mg (NOW x1, HIGH Bradley Suh D.O. 07/12/2025 07/12/2025 ALERT MEDICATION) Cornelio Guerrero R.NSantosh R.NSantosh Reason for ordering with alerts: Clinical consideration given --23:51 07/12/2025 Bradley Suh D.O. Erythromycin Eye Ointment1 23:57 07/12/2025 00:04 00:10 applic (NOW x1) Bradley Suh D.O. 07/13/2025 07/13/2025 Cornelio Guerrero R.NSantosh R.NSantosh LAB ORDERS Order Description Priority Entered Acknowledged Collected Completed CBC w Diff Stat Stat 21:23 07/12/2025 21:40 07/12/2025 21:41 07/12/2025 Stiven Craig Debra Schrock, R.N. R.NSantosh CMP Stat Stat 21:23 07/12/2025 21:40 07/12/2025 21:41 07/12/2025 Stiven Craig Debra Schrock, R.N. RSantoshN. Lactate, Serum Stat Stat 21:23 07/12/2025 21:40 07/12/2025 21:41 07/12/2025 Stiven Craig Debra Schrock, R.N. R.N. 2 of 4 Order Sheet - JUDE CARLSON, : 1990, , Urinalysis Stat Stat 21:23 07/12/2025 21:40 07/12/2025 21:41 07/12/2025 Stiven Craig Debra Schrock, R.N. R.N. HCG, Qual Serum Stat Stat 21:23 07/12/2025 21:40 07/12/2025 21:41 07/12/2025 Stiven Craig Debra Schrock, R.N. R.N. Flu Swab (Influenzae Stat 21:24 07/12/2025 21:40 07/12/2025 21:41 07/12/2025 AAg) Stat Stiven Craig Debra Schrock, R.N. R.N. Rapid COVID (SARS) Stat 21:24 07/12/2025 21:40 07/12/2025 21:41 07/12/2025 ANTIGEN TEST Stat Stiven Craig Debra Schrock, R.N. R.N. Urine Culture [CCL] Stat Stat 23:11 07/12/2025 23:31 07/12/2025 23:31 07/12/2025 Stiven Craig Deusenberry, R.N. REstephanie visual acuity 23:56 07/12/2025 00:23 07/13/2025 02:47 07/13/2025 Stiven Craig Debra Schrock, R.N. R.N. DIAGNOSTIC STUDY ORDERS Order Description Priority Entered Acknowledged Completed CT ABD/PEL w Cont Stat Stat 21:23 07/12/2025 Cancelled: Wrong Patient Bradley Suh D.O. 21:31 EDT Bradley Suh D.O. Reason for Study: low back pain CT ABD/PEL wo Cont Stat Stat 21:30 07/12/2025 21:40 21:41 Bradley Suh D.O. 07/12/2025 07/12/2025 Coby Hartley R.N. R.N. 3 of 4 Order Sheet - JUDE CARLSON, : 1990, , Reason for Study: low back pain STAFF ORDERS Order Description Priority Entered Acknowledged Collected Completed Vital Signs every 30 21:23 07/12/2025 21:40 07/12/2025 21:41 07/12/2025 minutes Stiven Craig Debra Schrock, R.N. R.N. Drip Molder 21:23 07/12/2025 21:40 07/12/2025 21:41 07/12/2025 Stiven Craig Debra Schrock, R.N. R.N. Oxygen titrate to 92% 21:23 07/12/2025 21:40 07/12/2025 21:41 07/12/2025 Stiven Craig Debra Schrock, R.N. R.N. [Electronically signed by Bradley Suh D.O. (07/13/2025 02:53 EDT)] 4 of 4 [facility] ED PHYSICIAN CLINICAL REPORT on 07-13-2025 ED PHYSICIAN CLINICAL REPORT Narrative - JUDE CARLSON, : 1990, , Physician Clinical Narrative [address] [address] [id number] 07/12/2025 19:40:00 Patient: JUDE CARLSON Sex: Female : 1990 Age: 35y Disposition: Discharge to Home Disposition Decision Time: 02:17 07/13/2025 Departure Time: 02:45 07/13/2025 Measurements Wt: 181.4 kg, Ht/Brendan: 68.0 in, BMI: 60.82 Initial Vital Sign Measured Time BP MAP HR RR O2Sat ETCO2 Temp Pain GCS RTS 19:50 07/12/2025 96 97% Time Seen: 20:56 07/12/2025. Arrived- By private vehicle. Historian- patient. HISTORY OF PRESENT ILLNESS Chief Complaint: BACK PAIN. It is described as being in the area of the right upper lumbar spine and right flank. Onset- 1 weeks ago; Was seen at [facility] proximally 5 days ago and diagnosed with a urinary tract infection. Put on Keflex but symptoms persist. Mainly his low back pain. and it is still present. No other injury. Similar symptoms previously. None. Recent medical care: The patient was seen recently in a clinic. REVIEW OF SYSTEMS 1 of 12 JUDE Amaya, : 1990, , CVS: No chest pain. RESPIRATORY: No cough. The patient has had difficulty breathing. THROAT: No sore throat. PSYCHIATRIC: No depression. CONSTITUTIONAL: The patient has had fever and chills. EYES: The patient has had eye irritation. : No difficulty with urination, urinary frequency or hematuria. NEUROLOGICAL: The patient has had a headache. GI: No abdominal pain, nausea, vomiting or diarrhea. PAST HISTORY See nurses notes. Appendectomy (procedure) Crohn's Disease Gestational diabetes mellitus Hidradenitis Suppurativa pre-diabetic Ulcerative Colitis Surgeries: Cholecystectomy Hysterectomy Medications: cephALEXin 500 mg capsule: 500 mg three times a day . hydrOXYzine pamoate 25 mg capsule: 25 mg twice a day as needed. loratadine 10 mg tablet: 10 mg once a day . metFORMIN 500 mg tablet: 500 mg once a day . minocycline 100 mg tablet: 100 mg once a day . omeprazole 40 mg capsule,delayed release: 40 mg once a day . PARoxetine 10 mg tablet: 10 mg once a day . spironolactone 100 mg tablet: 100 mg once a day . Allergies: iv contrast morphine SOCIAL HISTORY Heavy tobacco smoker- less than 1 pack per day. No alcohol use or drug use. 2 of 12 JUDE Amaya, : 1990, , ADDITIONAL NOTES The nursing notes have been reviewed. PHYSICAL EXAM Appearance: Alert. Appears to be in pain. Eyes: Pupils equal, round and reactive to light. ENT: (Some mild conjunctival injection noted to the lateral aspect of the left sclera. Pupils are equal and react to light. No hyphema. No periorbital redness or swelling. Extraocular muscles are intact. Tonometer reading left eye -- 35). Neck: Normal inspection. Neck nontender. Painless ROM. CVS: Heart sounds normal. Pulses normal. Respiratory: No respiratory distress. Painless inspiration. Breath sounds normal. Abdomen: No visible injury. Soft. Moderate tenderness in the right side of the abdomen with guarding present. No rebound tenderness. Bowel sounds normal. No organomegaly. No mass. Obese. Back: Moderate CVA tenderness on the right. Skin: Skin warm and dry. No rash. Extremities: Extremities exhibit normal ROM. Extremities nontender. Neuro: Oriented X 3. Mood/affect normal. No motor deficit. No sensory deficit. LABS, X-RAYS, AND EKG CT Abdomen, Pelvis: 7.2 cm right upper pole kidney exophytic fluid attenuating circumscribed lesions suggesting a cyst. Further evaluation with ultrasound may be obtained. Left lower pole kidney hypodense bilobed 4.5 cm lesion measuring fluid attenuation. No hydronephrosis or nephrolithiasis bilaterally. Surgically absent gallbladder. Appendix not appreciated. Abdomen - pelvic CT performed with IV contrast. The study was interpreted by the radiologist. Interpretation time: 23:41 07/13/2025. Laboratory Tests: CBC + DIFF Final MU: 07/12/2025 21:54:00 EDT MsgRcvd: 07/12/2025 22:35 EDT Lab Test Result Reference Status Received 3 of 12 Narrative - JUDE CARLSON, : 1990, , Lab Test Result Reference Status Received 07/12/2025 22:35 CBC + DIFF Final EDT CBC-COMPLETE BLOOD COUNT 07/12/2025 22:35 WBC 9.8 x 10/UL 4.5 - 10.8 Final EDT 07/12/2025 22:35 RBC 4.57 x 10/UL 4.10 - 5.30 Final EDT 07/12/2025 22:35 HEMOGLOBIN 13.9 g/dl 12.0 - 16.0 Final EDT 07/12/2025 22:35 HEMATOCRIT 39.7 % 34.0 - 46.0 Final EDT 07/12/2025 22:35 MCV 87 fl 80 - 99 Final EDT 07/12/2025 22:35 MCH 31 pg 27 - 33 Final EDT 07/12/2025 22:35 MCHC 35 X10 3 32 - 36 Final EDT 07/12/2025 22:35 (more content not included)... [facility] ED SUPER BILLon 07-13-2025 ED SUPER BILL [facility] - JUDE CARLSON, : 1990, , [place] [address] [place] [address] [phone] 07/12/2025 Patient: JUDE CARLSON Sex: Female : 1990 Age: 35y Item Facility Professional Category Description Code Code Quantity Fee Total Drugs Normal Saline 358201 1 $0.00 $0.00 1000cc (376161) Nurse/E/M EMERGENCY 287041 1 $0.00 $0.00 DEPARTMENT VISIT HIGH/URGENT SEVERITY (07293-33) Nurse/IV/IM/Infusions Drip/IVPB initial 593087 1 $0.00 $0.00 (45478) Nurse/IV/IM/Infusions Hydration 950673 1 $0.00 $0.00 additional hour (44182) Nurse/IV/IM/Infusions IVP additional 602668 3 $0.00 $0.00 push (48463) Grand Total $0.00 Providers Bradley Suh D.O. 1 of 2 [facility] JUDE CARLSON, : 1990, , Chief Complaint BACK PAIN. Principal Diagnosis Acute urinary tract infection with cystitis. No hematuria. Acute hemorrhagic conjunctivitis of the left eye. No mucopurulent conjunctivitis, atopic conjunctivitis or follicular conjunctivitis. (Bilateral kidney cysts.). ICD-10 Codes N30.90: Cystitis, unspecified without hematuria B30.3: Acute epidemic hemorrhagic conjunctivitis (enteroviral) 2 of 2 [facility] ED VISIT SUMMARYon ED VISIT SUMMARY Visit Overview - JUDE CARLSON, : 1990, , Visit Overview [place] [id number] [facility] [place] [address] [phone] 07/12/2025 Patient: JUDE CARLSON Sex: Female : 1990 Age: 35y 07/13/2025 02:53 AM EDT ED Arrival:19:40 07/12/2025 EDT Status:not Recent Travel:no Language:eng Adv Directive: Isolation Status: Ethnicity:N Fall Risk:no risk Infectious Disease Exposure:no Measurements:5'8" / 172.7 Self-Harm Status:risk Sepsis Screen:negative cm 400.0 lb / 181.4 kg Chief Complaint:BACK PAIN, EYE IRRITATION, ([place]/ Lucía Patricia ), and (urgent care on Tuesday, was given Cephalexin for UTI (7days). Blood vessel busted in left eye yesterday causing headache ) ALLERGIES iv contrast morphine HOME MEDICATIONS cephALEXin 500 mg capsule: 500 mg three times a day . 1 of 4 Visit Overview - JUDE CARLSON, : 1990, , hydrOXYzine pamoate 25 mg capsule: 25 mg twice a day as needed. loratadine 10 mg tablet: 10 mg once a day . metFORMIN 500 mg tablet: 500 mg once a day . minocycline 100 mg tablet: 100 mg once a day . omeprazole 40 mg capsule,delayed release: 40 mg once a day . PARoxetine 10 mg tablet: 10 mg once a day . spironolactone 100 mg tablet: 100 mg once a day . PAST MEDICAL HISTORY / PROBLEMS Appendectomy (procedure) Crohn's Disease Gestational diabetes mellitus Hidradenitis Suppurativa LNMP: Last normal menstrual period unknown pre-diabetic See nurses notes Ulcerative Colitis PAST SURGICAL HISTORY Cholecystectomy Hysterectomy SOCIAL HISTORY Smoking status: Yes Alcohol use: No Drug use: No ED COURSE MEDICATIONS GIVEN IN EMERGENCY DEPARTMENT 22:15 07/12/25 IV NS 0.9 % 1000 mL 999 mL/hr 22:17 07/12/25 Ondansetron IVP 4 mg 22:17 07/12/25 KetorOLAC (Toradol) IVP 15 mg 2 of 4 Visit Overview - JUDE CARLSON, : 1990, , cefTRIAXone (Rocephin) IVPB 1gm/50ml NS 1 g diluted in sodium chloride IVPB 0.9 % 23:42 07/12/25 Minibag+ 50 mL 100 mL/hr 23:52 07/12/25 Eye Kit 1 kit 23:56 07/12/25 HYDROmorphone (Dilaudid) IVP 0.5 mg 00:10 07/13/25 Erythromycin Eye Ointment 1 applic IV SITE INFORMATION INTAKE OUTPUT REASSESMENT (most recent) 01:11 07/13/25. ( Eye Acuity, Left eye 20/40, right eye 20/40, reported to Dr. Suh). VITAL SIGNS First Vitals Last Vitals Temp 19:50 07/12/25 Temp 01:00 07/13/25 BP 19:50 07/12/25 BP 01:00 07/13/25 HR 19:50 07/12/25 96 HR 01:00 07/13/25 77 RR 19:50 07/12/25 RR 01:00 07/13/25 O2 Sat 19:50 07/12/25 97% O2 Sat 01:00 07/13/25 94% Pain 19:50 07/12/25 Pain 01:00 07/13/25 ETCO2 19:50 07/12/25 ETCO2 01:00 07/13/25 GCS 19:50 07/12/25 GCS 01:00 07/13/25 RTS 19:50 07/12/25 RTS 01:00 07/13/25 PROCEDURES NURSING INTERVENTIONS LABS / STUDIES LABS / STUDIES ORDERED CBC w Diff CMP CT ABD/PEL wo Cont Flu Swab (Influenzae AAg) HCG, Qual Serum 3 of 4 Visit Overview - JUDE CARLSON, : 1990, , Lactate, Serum Rapid COVID (SARS) ANTIGEN TEST Urinalysis Urine Culture [CCL] visual acuity CLINICAL IMPRESSION ACUTE HEMORRHAGIC CONJUNCTIVITIS OF THE LEFT EYE. NO MUCOPURULENT CONJUNCTIVITIS, ATOPIC CONJUNCTIVITIS OR FOLLICULAR CONJUNCTIVITIS ACUTE URINARY TRACT INFECTION WITH CYSTITIS. NO HEMATURIA 4 of 4 Normal [facility] ED VITALS FLOW SHEETon 07-13 ED VITALS FLOW SHEET Vitals - JUDE CARLSON, : 1990, , Vital Sign Flow Sheet [place] [address] [place] [address] [id number] 07/12/2025 Patient: JUDE CARLSON Sex: Female : 1990 Age: 35y Measurements Wt: 181.4 kg, Ht/Brendan: 68.0 in, BMI: 60.82 Measured Time BP MAP HR RR O2Sat ETCO2 Temp Pain GCS RTS 01:00 07/13/2025 77 94% 00:55 07/13/2025 78 96% 00:50 07/13/2025 76 94% 00:45 07/13/2025 85 94% 00:40 07/13/2025 76 94% 00:35 07/13/2025 77 95% 00:30 07/13/2025 72 96% 00:25 07/13/2025 82 96% 00:20 07/13/2025 75 95% 00:15 07/13/2025 76 96% 00:10 07/13/2025 77 96% 00:05 07/13/2025 75 95% 00:00 07/13/2025 73 96% 23:55 07/12/2025 74 94% 23:50 07/12/2025 73 99% 1 of 4 Vitals - JUDE CARLSON, : 1990, , Measured Time BP MAP HR RR O2Sat ETCO2 Temp Pain GCS RTS 23:45 07/12/2025 71 97% 23:40 07/12/2025 70 96% 23:35 07/12/2025 74 96% 23:34 07/12/2025 151/72 98 72 23:30 07/12/2025 79 96% 23:25 07/12/2025 70 97% 23:20 07/12/2025 77 95% 23:15 07/12/2025 76 94% 23:10 07/12/2025 81 94% 23:05 07/12/2025 80 95% 23:00 07/12/2025 77 96% 22:45 07/12/2025 77 96% 22:40 07/12/2025 74 94% 22:35 07/12/2025 76 96% 22:34 07/12/2025 131/84 99 78 22:30 07/12/2025 83 96% 22:20 07/12/2025 78 97% 22:15 07/12/2025 74 97% 22:12 07/12/2025 162/90 114 75 22:10 07/12/2025 77 98% 22:05 07/12/2025 76 97% 22:00 07/12/2025 83 95% 21:57 07/12/2025 126/89 101 78 21:55 07/12/2025 74 99% 21:50 07/12/2025 75 98% 2 of 4 Vitals - JUDE CARLSON, : 1990, , Measured Time BP MAP HR RR O2Sat ETCO2 Temp Pain GCS RTS 21:45 07/12/2025 88 94% 21:40 07/12/2025 87 95% 21:35 07/12/2025 85 96% 21:30 07/12/2025 83 97% 21:25 07/12/2025 90 96% 21:20 07/12/2025 89 95% 21:15 07/12/2025 81 95% 21:10 07/12/2025 88 95% 21:05 07/12/2025 105/72 83 82 21:05 07/12/2025 86 97% 21:00 07/12/2025 86 97% 20:55 07/12/2025 82 97% 20:50 07/12/2025 85 96% 20:45 07/12/2025 86 96% 20:40 07/12/2025 86 95% 20:30 07/12/2025 81 95% 20:25 07/12/2025 91 95% 20:20 07/12/2025 84 95% 20:15 07/12/2025 87 95% 20:10 07/12/2025 84 97% 20:06 07/12/2025 133/79 89 83 20:05 07/12/2025 79 96% 20:00 07/12/2025 86 97% 19:55 07/12/2025 18 97.5 F 6 19:55 07/12/2025 86 98% 3 of 4 Vitals - JUDE CARLSON, : 1990, , Measured Time BP MAP HR RR O2Sat ETCO2 Temp Pain GCS RTS 19:51 07/12/2025 155/90 108 87 19:50 07/12/2025 96 97% 4 of 4 Normal [facility] Bacteria Ur Culton Bacteria identified Cx Nom (U) ORGANISM ID: 1 <10,000 CFU/ml Normal urogenital ginger Normal [facility] Comment on above: Performed By: #### 6 30-4 #### [facility] CLIA [id number] [address] [place] [address] STATES OF [facility] CBC + DIFFon 07-12-2025 Baso # 0.01 x10EE3/UL Normal 0.00 - 0.10 [facility] Comment on above: Performed By: #### 2 [id number] ####[facility],[address] [place] [id number] Basophils/100 WBC (Bld) 0.1 % Normal 0.0 - 2.0 [facility] Comment on above: Performed By: #### [id number] ####[facility],[address] [place], [place] [id number] CBC + DIFF Normal [facility] Comment on above: Result Comment: CBC- COMPLETE BLOOD COUNT Performed By: #### [id number] ####[facility],[address] [place] [id number] EO # 0.41 x10EE3/UL Normal 0.00 - 0.50 [facility] Comment on above: Performed By: #### 2 [id number] ####[facility],[address] [place], [place] [address] 20566 Eosinophils/100 WBC (Bld) 4.2 % Normal 0.0 - 7.0 [facility] Comment on above: Performed By: #### 2 60799 ####[facility],[address] [place] [address] Erythrocyte distribution width (RBC) [Ratio] 14.0 % Normal 12.0 - 15.6 [facility] Comment on above: Performed By: #### 2 02196 ####[facility],[address] [place] [address] Hematocrit (Bld) [Volume fraction] 39.7 % Normal 34.0 - 46.0 [facility] Comment on above: Performed By: #### 2 24833 ####[facility],[address] [place] [address] Hemoglobin (Bld) [Mass/Vol] 13.9 g/dL Normal 12.0 - 16.0 [facility] Comment on above: Performed By: #### 2 16249 ####[facility],[address] [place] [address] Lymph # 3.19 x10EE3/UL High 0.80 - 2.80 [facility] Comment on above: Performed By: #### 2 16199 ####[facility],[address] [place], [place] [id number] Lymphocytes/100 WBC (Bld) 32.5 % Normal 20.0 - 45.0 [facility] Comment on above: Performed By: #### 2 25459 ####[facility],[address] [place] [address] 69229 MANUAL DIFF N/A Normal [facility] Comment on above: Performed By: #### 2 42504 ####[facility],[address] [place] [address] 32392 MCH (RBC) [Entitic mass] 31 pg Normal 27 - 33 [facility] Comment on above: Performed By: #### 2 67117 ####[facility],[address] [place] [address] MCHC 35 X10 3 Normal 32 - 36 [facility] Comment on above: Performed By: #### 2 23671 ####[facility],[address] [place] [address] MCV (RBC) [Entitic vol] 87 fL Normal 80 - 99 [facility] Comment on above: Performed By: #### 2 80935 ####[facility],[address] [place] [address] Ciales # 0.38 x10EE3/UL Normal 0.20 - 1.00 [facility] Comment on above: Performed By: #### 2 83107 ####[facility],[address] [place] [address] MONOS % 3.9 % Normal 0.0 - 10.0 [facility] Comment on above: Performed By: #### 2 50486 ####[facility],[address] [place] [address] Morphology Lambert (Bld) [Interp] N/A Normal [facility] Comment on above: Performed By: #### 2 31539 ####[facility],[address] [place] [address] Neut # 5.84 x10EE3/UL Normal 1.50 - 7.10 [facility] Comment on above: Performed By: #### 2 13329 ####[facility],[address] [place] [address] Neutrophils/100 WBC (Bld) 59.4 % Normal 46.0 - 76.0 [facility] Comment on above: Performed By: #### 2 37877 ####[facility],[address] [place] [address] PLATELET 346 x10EE3/UL Normal 150 - 450 [facility] Comment on above: Performed By: #### 2 68469 ####[facility],[address] [place] [address] 41296 Platelet mean volume (Bld) [Entitic vol] 8.6 fL Normal 6.6 - 10.5 [facility] Comment on above: Result Comment: AUTO MATED DIFFERENTIAL Performed By: #### 2 03780 ####[facility],[address] [place] [address] 96618 RBC 4.57 x 10EE6/UL Normal 4.10 - 5.30 [facility] Comment on above: Performed By: #### 2 04359 ####[facility],[address] [place] [address] 57149 WBC 9.8 x 10EE3/UL Normal 4.5 - 10.8 [facility] Comment on above: Performed By: #### 2 12327 ####[facility],[address] [place] [address] 95367 CMP with eGFRon 07-12-2025 AGE 35 years Normal [facility] Comment on above: Performed By: #### 2 28921 #### [facility],[address] [place] [address] 22728 Albumin [Mass/Vol] 3.3 g/dL Low 3.4 - 5.0 [facility] Comment on above: Performed By: #### 2 68804 #### [facility],[address] [place] [address] 73139 Albumin/Globulin [Mass ratio] 0.8 {ratio} Low 0.9 - 1.6 [facility] Comment on above: Performed By: #### 2 03061 #### [facility],[address] [place] [address] 46710 ALK PHOS 74 U/L Normal 46 - 116 [facility] Comment on above: Performed By: #### 2 09998 #### [facility],[address] [place] [address] 48356 ALT [Catalytic activity/Vol] 27 U/L Normal 16 - 63 [facility] Comment on above: Performed By: #### 2 37038 #### [facility],[address] [place] [address] 30022 Anion gap [Moles/Vol] 11 mmol/L Normal 10 - 20 [facility] Comment on above: Performed By: #### 2 81722 #### [facility],[address] [place] [address] 99378 AST [Catalytic activity/Vol] 14 U/L Normal 13 - 39 [facility] Comment on above: Performed By: #### 2 13318 #### [facility],[address] [place] [address] 12165 B/C RATIO 12 ratio Normal 0 - 30 [facility] Comment on above: Performed By: #### 2 64697 #### [facility],[address] [place] [address] 17190 Bilirubin [Mass/Vol] 0.3 mg/dL Normal 0.2 - 1.0 [facility] Comment on above: Performed By: #### 2 25731 #### [facility],[address] [place] [address] 45943 Calcium [Mass/Vol] 9.1 mg/dL Normal 8.5 - 10.1 [facility] Comment on above: Performed By: #### 2 99272 #### [facility],[address] [place] [address] 04347 Chloride [Moles/Vol] 103 mmol/L Normal 98 - 107 [facility] Comment on above: Performed By: #### 2 01136 #### [facility],[address] [place] [address] 52359 CMP with eGFR Normal [facility] Comment on above: Result Comment: COMP REHENSIVE METABOLIC PANEL Performed By: #### 2 46361 #### [facility],[address] [place] [address] 75270 CO2 [Moles/Vol] 29.8 mmol/L Normal 21.0 - 32.0 [facility] Comment on above: Performed By: #### 2 09010 #### [facility],[address] [place] [address] 07169 Creatinine [Mass/Vol] 1.03 mg/dL High 0.55 - 1.02 [facility] Comment on above: Performed By: #### 2 90143 #### [facility],[address] [place] [address] 93958 GFR/1.73 sq M.predicted among non-blacks MDRD (S/P/Bld) [Vol rate/Area] mL/min/{1.73_m2} Normal 60 - 999 [facility] Comment on above: Performed By: #### 2 89743 #### [facility],[address] [place] [address] 64953 Result Comment: ACCO RDING TO THE NATIONAL KIDNEY DISEASE EDUCATION PROGRAM(NKDE), A NORMAL eGFR IS A VALUE GREATER THAN OR EQUAL TO 60 ML/MIN/1.73 SQ METERS. CHRONIC KIDNEY DISEASE: <60mL/MIN/1.73 SQ METERS KIDNEY FAILURE: <15mL/MIN/1.73 SQ METERS THIS TEST SHOULD ONLY BE USED FOR PATIENTS 18 YEARS OF AGE AND OLDER. Globulin (S) [Mass/Vol] 4.3 g/dL High 1.5 - 3.8 [facility] Comment on above: Performed By: #### 2 40679 #### [facility],[address] [place] [address] 30461 Glucose [Mass/Vol] 105 mg/dL Normal 74 - 106 [facility] Comment on above: Performed By: #### 2 42116 #### [facility],[address] [place] [address] 90867 Potassium [Moles/Vol] 3.8 mmol/L Normal 3.5 - 5.1 [facility] Comment on above: Performed By: #### 2 98446 #### [facility],[address] [place] [address] 24334 Protein [Mass/Vol] 7.6 g/dL Normal 6.4 - 8.2 [facility] Comment on above: Performed By: #### 2 05094 #### [facility],[address] [place] [address] 84125 Sodium [Moles/Vol] 140 mmol/L Normal 136 - 145 [facility] Comment on above: Performed By: #### 2 75091 #### [facility],[address] [place] [address] 45958 Urea nitrogen [Mass/Vol] 12 mg/dL Normal 7 - 18 [facility] Comment on above: Performed By: #### 2 32159 #### [facility],[address] [place] [address] ABDOMEN/PELVIS [facility] 07-12 CT ABDOMEN/PELVIS [place] [address] Patient: JUDE CARLSON Phone#: : 1990 Age: 35 Gender: F Pt. Type: ER Account: [id number] Location: [facility] Ordering: BRADLEY SUH Exam Date: 07/12/2025/22:49 Family Phys: JANET BAUMAN Charge Code: [id number] Physician: [place] Order #: [id number] Dose#: 27.5 PROCEDURE: CT ABDOMEN/PELVIS WITHOUT CONTRAST COMPARISON: [facility], CT, ABDOMEN/PELVIS W/O CON, 03/24/2024, 18:11. INDICATIONS: Abdominal pain. TECHNIQUE: CT images were created without intravenous contrast. All CT scans at this facility use dose modulation, iterative reconstruction, and/or weight based dosing when appropriate to reduce radiation dose to as low as reasonably achievable. IV CONTRAST: No IV contrast used,ml TOTAL DOSE: 27.5 CTDIvol(mGy) FINDINGS: Exam is limited by patient body habitus LIVER: Normal. No enlargement, atrophy, abnormal density, or significant focal lesion. BILIARY: The gallbladder is absent. PANCREAS: Normal. No lesion, fluid collection, ductal dilatation, or atrophy. SPLEEN: Normal. No enlargement or focal lesion. KIDNEYS: Bilateral hypoattenuating foci are present in the kidneys the largest on the right measuring 7.4 centimeters in diameter. There is no evidence of renal or ureteral calculi. ADRENALS: Normal. No mass or enlargement. AORTA/VASCULAR: Normal. No aneurysm. RETROPERITONEUM: Normal. No mass or adenopathy. BOWEL/MESENTERY: Normal. No visible mass, obstruction, or bowel wall thickening. ABDOMINAL WALL: Normal. No mass or hernia. URINARY BLADDER: Normal. No visible focal wall thickening, lesion, or calculus. PELVIC NODES: Normal. No adenopathy. PELVIC ORGANS: The uterus is absent. BONES: Normal. No bony lesion or fracture. LUNG BASES: Normal. No visible pulmonary or pleural disease. OTHER: Negative. CONCLUSION: Continued Report - Page 2 of 2 Patient: JUDE CARLSON Phone#: : 1990 Age: 35 Gender: F Pt. Type: ER Account: [id number] Location: [facility] Ordering: BRADLEY SUH Exam Date: 07/12/2025/22:49 Family Phys: JANET BAUMAN Charge Code: [id number] Physician: [place] Order #: [id number] Dose#: 27.5 1. There is no evidence of acute abdominal or pelvic abnormality. Dictated by: Dori Acevedo MD on 07/13/2025 at 21:28 Approved by: Dori Acevedo MD on 07/13/2025 at 21:35 Normal [facility] LACTATEon 07-12-2025 Lactate [Moles/Vol] 1.6 mmol/L Normal 0.4 - 2.0 [facility] Comment on above: Performed By: #### 2 02334 ####[facility],[address] [place] [address] SERUM QUALon 07-12 EXTERNAL QC DONE? YES Normal [facility] Comment on above: Performed By: #### 2 39400 #### [facility],[address] [place] [address] INTERNAL QC PASS Normal [facility] Comment on above: Performed By: #### 2 69024 #### [facility],[address] [place] [address] 65342 SER Negative Normal NEGATIVE [facility] Comment on above: Performed By: #### 2 58434 #### [facility],[address] [place] [address] 21542 URINALYSISon 07-12-2025 Amorphous NONE Normal [facility] Comment on above: Performed By: #### 2 55394 ####[facility],[address] [place] [address] 88551 Bacteria TRACE Normal [facility] Comment on above: Performed By: #### 2 23488 ####[facility],[address] [place] [address] 18805 Bilirubin Ql (U) Negative Normal NORMAL: NEGATIVE [facility] Comment on above: Performed By: #### 2 35837 ####[facility],[address] [place], [place] [id number] Casts NONE Normal [facility] Comment on above: Performed By: #### 2 73712 ####[facility],[address] [place] [address] 45515 Clarity (U) clear Normal NORMAL: CLEAR [facility] Comment on above: Performed By: #### 2 99173 ####[facility],[address] [place] [address] 53378 Color (U) yellow Normal NORMAL: YELLOW [facility] Comment on above: Performed By: #### 2 39423 ####[facility],[address] [place] [address] 44069 Crystals LM Nom (Urine sed) NONE Normal [facility] Comment on above: Performed By: #### 2 30238 ####[facility],[address] [place] [address] 26811 Epi Cells MODERATE Normal [facility] Comment on above: Performed By: #### 2 16736 ####[facility],[address] [place] [address] 57619 Glucose Ql (U) NORM Normal NORMAL: NORMAL [facility] Comment on above: Performed By: #### 2 41873 ####[facility],[address] [place] [address] 26284 Hemoglobin Ql (U) Negative Normal NORMAL: NEGATIVE [facility] Comment on above: Performed By: #### 2 69271 ####[facility],[address] [place] [address] 01003 Ketone Negative Normal NORMAL: NEGATIVE [facility] Comment on above: Performed By: #### 2 79590 ####[facility],[address] [place] [address] 70416 Leukocytes 100 Abnormal NORMAL: NEGATIVE [facility] Comment on above: Performed By: #### 2 40205 ####[facility],[address] [place], [place] [id number] Mucous NONE Normal [facility] Comment on above: Performed By: #### 2 95617 ####[facility],[address] [place] [address] 30455 Nitrite Ql (U) Negative Normal NORMAL: NEGATIVE [facility] Comment on above: Performed By: #### 2 40967 ####[facility],[address] [place] [address] 51516 pH (U) 6 [pH] Normal NORMAL: 5.0-8.0 [facility] Comment on above: Performed By: #### 2 99832 ####[facility],[address] [place] [address] 13347 Protein Ql (U) Negative Normal NORMAL: NEGATIVE [facility] Comment on above: Performed By: #### 2 05603 ####[facility],[address] [place] [address] 68685 Rbc NONE Normal 0-3/hpf [facility] Comment on above: Performed By: #### 2 54931 ####[facility],[address] [place] [address] 88408 Sp Hooks 1.020 Normal NORMAL: 1.010-1.030 [facility] Comment on above: Performed By: #### 2 87245 ####[facility],[address] [place] [address] Specimen Type R Normal [facility] Comment on above: Performed By: #### 2 63995 ####[facility],[address] [place] [address] Urinalysis dipstick W Reflex Microscopic panel (U) SEE BELOW Normal [facility] Comment on above: Result Comment: MICR OSCOPIC Performed By: #### 2 04021 ####[facility],[address] [place] [address] Urobilinog NORM Normal NORMAL: NORMAL [facility] Comment on above: Performed By: #### 2 70532 ####[facility],[address] [place] [address] Wbc 6-10 Normal 0-5/hpf [facility] Comment on above: Performed By: #### 2 30377 ####[facility],[address] [place] [address] Yeast NONE Normal [facility] Comment on above: Performed By: #### 2 90358 ####[facility],[address] [place], [place] [id number] URINE CULTURE [CCL]on 2024 Bacteria identified Cx Nom (U) URCUL See Results Below See Below CULTURE, URINE NORMAL UROGENITAL GINEGR <10,000 CFU/ml Normal urogenital ginger SOURCE: Urine (Nonspecific) [facility] [address] [place] [address] Marcial Tuttle III, M.D. [id number] Normal [facility] Comment on above: Performed By: #### 2 28713 ####[facility],[address] [place], [place] [id number] Bacteria Ur Culton Bacteria identified Cx Nom (U) ORGANISM ID: 1 10,000 -<50,000 CFU/ml Normal urogenital ginger Normal [facility] Comment on above: Performed By: #### 6 30-4 #### [facility] CLIA [id number] [address] [place] [address] [place] URINE CULTURE [CCL]on 2024 Bacteria identified Cx Nom (U) URCUL See Results Below See Below CULTURE, URINE NORMAL UROGENITAL GINGER 10,000 -<50,000 CFU/ml Normal urogenital ginger SOURCE: Urine (Nonspecific) [facility] [address] [place] [address] Marcial Tuttle III, M.D. [id number] Normal [facility] Comment on above: Performed By: #### 2 51324 ####[facility],[address] [place] [address] CBC + DIFFon 08-01-2024 Baso # 0.02 x10EE3/UL Normal 0.00 - 0.10 [facility] Comment on above: Performed By: #### 2 57704 #### [facility],[address] [place] [address] 49144 Basophils/100 WBC (Bld) 0.3 % Normal 0.0 - 2.0 [facility] Comment on above: Performed By: #### 2 41733 #### [facility],[address] [place] [address] CBC + DIFF Normal [facility] Comment on above: Result Comment: CBC- COMPLETE BLOOD COUNT Performed By: #### 2 60016 #### [facility],[address] [place] [address] 67300 EO # 0.10 x10EE3/UL Normal 0.00 - 0.50 [facility] Comment on above: Performed By: #### 2 37216 #### [facility],[address] [place] [address] 58918 Eosinophils/100 WBC (Bld) 1.5 % Normal 0.0 - 7.0 [facility] Comment on above: Performed By: #### 2 75467 #### [facility],[address] [place] [address] Erythrocyte distribution width (RBC) [Ratio] 13.9 % Normal 12.0 - 15.6 [facility] Comment on above: Performed By: #### 2 03931 #### [facility],[address] [place] [address] Hematocrit (Bld) [Volume fraction] 43.4 % Normal 34.0 - 46.0 [facility] Comment on above: Performed By: #### 2 47039 #### [facility],[address] [place] [address] Hemoglobin (Bld) [Mass/Vol] 14.7 g/dL Normal 12.0 - 16.0 [facility] Comment on above: Performed By: #### 2 10912 #### [facility],[address] [place] [address] Lymph # 1.97 x10EE3/UL Normal 0.80 - 2.80 [facility] Comment on above: Performed By: #### 2 52134 #### [facility],[address] [place] [address] Lymphocytes/100 WBC (Bld) 29.0 % Normal 20.0 - 45.0 [facility] Comment on above: Performed By: #### 2 01872 #### [facility],[address] [place], [place] [id number] MANUAL DIFF N/A Normal [facility] Comment on above: Performed By: #### 2 87422 #### [place] [address] MCH (RBC) [Entitic mass] 30 pg Normal 27 - 33 [facility] Comment on above: Performed By: #### 2 66426 #### [place] [address] MCHC 34 X10 3 Normal 32 - 36 [facility] Comment on above: Performed By: #### 2 64241 #### [place] [address] MCV (RBC) [Entitic vol] 88 fL Normal 80 - 99 [facility] Comment on above: Performed By: #### 2 05918 #### [facility],[address] [place] [address] Ciales # 0.12 x10EE3/UL Low 0.20 - 1.00 [facility] Comment on above: Performed By: #### 2 15727 #### [place] [address] MONOS % 1.8 % Normal 0.0 - 10.0 [facility] Comment on above: Performed By: #### 2 55740 #### [place] [address] Morphology Lambert (Bld) [Interp] N/A Normal [facility] Comment on above: Performed By: #### 2 81714 #### [place] [address] Neut # 4.60 x10EE3/UL Normal 1.50 - 7.10 [facility] Comment on above: Performed By: #### 2 96938 #### [place] [address] Neutrophils/100 WBC (Bld) 67.4 % Normal 46.0 - 76.0 [facility] Comment on above: Performed By: #### 2 41687 #### [place] [address] PLATELET 294 x10EE3/UL Normal 150 - 450 [facility] Comment on above: Performed By: #### 2 65302 #### [place] [address] Platelet mean volume (Bld) [Entitic vol] 8.6 fL Normal 6.6 - 10.5 [facility] Comment on above: Result Comment: AUTO MATED DIFFERENTIAL Performed By: #### 2 88373 #### [facility],[address] [place] [address] 69384 RBC 4.94 x 10EE6/UL Normal 4.10 - 5.30 [facility] Comment on above: Performed By: #### 2 39074 #### [facility],[address] [place] [address] 15417 WBC 6.8 x 10EE3/UL Normal 4.5 - 10.8 [facility] Comment on above: Performed By: #### 2 38970 #### [facility],[address] [place] [address] 99521 CHEST 1 VIEWon 08-01-2024 CHEST 1 VIEW [place] [address] Patient: JUDE CARLSON Phone#: : 1990 Age: 34 Gender: F Pt. Type: ER Account: [id number] Location: [facility] Ordering: DR. SYMONE ESCALANTE Exam Date: 08/01/2024/20:19 Family Phys: JANET BAUMAN Charge Code: [id number] Physician: [place] Order #: [id number] Dose#: PROCEDURE: X-RAY CHEST 1 VIEW COMPARISON: None. INDICATIONS: Dyspnea. FINDINGS: LUNGS: Normal. No significant pulmonary parenchymal abnormalities. VASCULATURE: Normal. Unremarkable pulmonary vasculature. CARDIAC: Normal. No cardiac silhouette abnormality or cardiomegaly. MEDIASTINUM: Normal. No visible mass or adenopathy. PLEURA: Normal. No effusion or pleural thickening. BONES: Normal. No fracture or visible bony lesion. OTHER: Negative. CONCLUSION: No acute disease. Dictated by: Dori Acevedo MD on 08/02/2024 at 3:37 Approved by: Dori Acevedo MD on 08/02/2024 at 3:38 Normal [facility] CMP with eGFRon 08-01-2024 AGE 34 years Normal [facility] Comment on above: Performed By: #### 2 13165 #### [facility],[address] [place] [address] 14304 Albumin [Mass/Vol] 3.6 g/dL Normal 3.4 - 5.0 [facility] Comment on above: Performed By: #### 2 71701 #### [facility],[address] [place], [place] [id number] Albumin/Globulin [Mass ratio] 0.7 {ratio} Low 0.9 - 1.6 [facility] Comment on above: Performed By: #### 2 11366 #### [facility],[address] [place] [address] 77007 ALK PHOS 70 U/L Normal 46 - 116 [facility] Comment on above: Performed By: #### 2 49947 #### [facility],[address] [place] [address] 90769 ALT [Catalytic activity/Vol] 35 U/L Normal 16 - 63 [facility] Comment on above: Performed By: #### 2 15285 #### [facility],[address] [place] [address] 80907 Anion gap [Moles/Vol] 12 mmol/L Normal 10 - 20 [facility] Comment on above: Performed By: #### 2 50322 #### [facility],[address] [place] [address] 90164 AST [Catalytic activity/Vol] 29 U/L Normal 13 - 39 [facility] Comment on above: Performed By: #### 2 33102 #### [facility],[address] [place] [address] 70747 B/C RATIO 8 ratio Normal 0 - 30 [facility] Comment on above: Performed By: #### 2 59588 #### [facility],[address] [place] [address] 41566 Bilirubin [Mass/Vol] 0.6 mg/dL Normal 0.2 - 1.0 [facility] Comment on above: Performed By: #### 2 30791 #### [facility],[address] [place] [address] 10270 Calcium [Mass/Vol] 9.3 mg/dL Normal 8.5 - 10.1 [facility] Comment on above: Performed By: #### 2 07381 #### [facility],[address] [place] [address] 05814 Chloride [Moles/Vol] 102 mmol/L Normal 98 - 107 [facility] Comment on above: Performed By: #### 2 64789 #### [facility],[address] [place] [address] 50807 CMP with eGFR Normal [facility] Comment on above: Result Comment: COMP REHENSIVE METABOLIC PANEL Performed By: #### 2 89874 #### [facility],[address] [place] [address] 01482 CO2 [Moles/Vol] 28.3 mmol/L Normal 21.0 - 32.0 [facility] Comment on above: Performed By: #### 2 37228 #### [facility],[address] [place] [address] 80326 Creatinine [Mass/Vol] 0.88 mg/dL Normal 0.55 - 1.02 [facility] Comment on above: Performed By: #### 2 34949 #### [facility],[address] [place] [address] 88978 GFR/1.73 sq M.predicted among non-blacks MDRD (S/P/Bld) [Vol rate/Area] mL/min/{1.73_m2} Normal 60 - 999 [facility] Comment on above: Performed By: #### 2 52894 #### [facility],[address] [place] [address] 64021 Result Comment: ACCO RDING TO THE NATIONAL KIDNEY DISEASE EDUCATION PROGRAM(NKDE), A NORMAL eGFR IS A VALUE GREATER THAN OR EQUAL TO 60 ML/MIN/1.73 SQ METERS. CHRONIC KIDNEY DISEASE: <60mL/MIN/1.73 SQ METERS KIDNEY FAILURE: <15mL/MIN/1.73 SQ METERS THIS TEST SHOULD ONLY BE USED FOR PATIENTS 18 YEARS OF AGE AND OLDER. Globulin (S) [Mass/Vol] 4.9 g/dL High 1.5 - 3.8 [facility] Comment on above: Performed By: #### 2 17290 #### [facility],[address] [place] [address] 72143 Glucose [Mass/Vol] 82 mg/dL Normal 74 - 106 [facility] Comment on above: Performed By: #### 2 98366 #### [facility],[address] [place] [address] 60172 Potassium [Moles/Vol] 3.7 mmol/L Normal 3.5 - 5.1 [facility] Comment on above: Performed By: #### 2 00403 #### [facility],[address] [place] [address] 62363 Protein [Mass/Vol] 8.5 g/dL High 6.4 - 8.2 [facility] Comment on above: Performed By: #### 2 99939 #### [facility],[address] [place] [address] 05430 Sodium [Moles/Vol] 139 mmol/L Normal 136 - 145 [facility] Comment on above: Performed By: #### 2 29873 #### [facility],[address] [place] [id number] Urea nitrogen [Mass/Vol] 7 mg/dL Normal 7 - 18 [facility] Comment on above: Performed By: #### 2 [id number] #### [facility],[address] [place] [id number] TROPONIN I, HIGH SENSITIVITY on 08-01-2024 HS TROPONIN <4.0 Normal 0.0 - 51.4 [facility] Comment on above: Performed By: #### 2 [id number] ####[facility],[address] [place] [address] HISTORY PHYSICALon HISTORY PHYSICAL HNO ID: [id number] Author: JAIME STEELE APRN.EKATERINA Service: ? Author Type: Nurse Practitioner Type: H&P Filed: 08/01/2024 11:35 Note Text: [facility] HISTORY AND PHYSICAL EXAMINATION SERVICE DATE: 07/24/2024 SERVICE TIME: 2:31 PM PRIMARY CARE PHYSICIAN: Lucía Hernandez NP Assessment Patient has the following medical conditions which may affect joshua-operative course: Current smoker Assessment: 0.5 PPD for the past 12 years, on an off but is currently smoking ~ 0.5 PPD Asthma Assessment: Patient uses albuterol ~ 2 times per month Anxiety and depression Assessment: on tx Morbid obesity (HCC) Assessment: BMI 63.25 Hidradenitis suppurativa Assessment: on aldactone and minocycline IBD (inflammatory bowel disease) Assessment: surgery scheduled 08/02 [place] Activity Status Index: METS: Climb a flight of stairs or walk up a hill (5.50 METs) DASI Score: 5.5 Patient denies any chest pain or undue shortness of breath with the above physical activity. Clinical Frailty Scale: 3. Well, with treated comorbid disease STOP-Bang Score: BMI greater than 35 kg/m2 Has a large neck Denies snoring loudly Denies feeling tired, fatigued, or sleepy during the daytime Has not been observed to stop breathing or choking/gasping during sleep Denies having high blood pressure Patient 50 years old or younger Non-male patient STOP-Bang Score: 2 ANESTHESIA FINDINGS: Intubation History: No abnormal airway history Significant Anesthesia Considerations: none Airway History: No abnormal airway history I - PHYSICAL EVALUATION AIRWAY Patient intubated: No. Tracheostomy tube not present Mallampati: II. TM distance: >3 FB. Neck ROM: full ROM without neurological symptoms. Mouth opening: adequate. Short neck: yes. Thick neck: yes DENTAL Dental findings: chipped. II - ANESTHESIA PLAN Anesthetic plan additional comments: *PACC/TCI - anesthesia choice. Beta Abhinav Monitoring Plan Post Procedure Analgesic Plan Prepared for Surgery: optimally prepared for surgery. CONSULTS: Patient does not require consults for optimization at this time Planned Anesthetic: anesthesia choice The Following Tests/Procedures Have Been Initiated: Orders Placed This Encounter ALBUTEROL INHALATION Si Refill(s) spironolactone (ALDACTONE) 100 mg tablet minocycline (MINOCIN) 100 mg injection PARoxetine (PAXIL) 10 mg tablet sertraline (ZOLOFT) 50 mg tablet Sig: Take 1 tablet by mouth every afternoon. REASON FOR VISIT: Jude Carlson is a 34 year old female who is scheduled for Colonoscopy diagnostic at the request of Dr. Bryce Youssef for consultation. My final recommendation will be communicated back to the requesting physician by way of shared medical record or letter. Subjective The patient has the following: COVID-19 Immunization Status Overdue - Covid-19 Vaccine ( season) Never done No completion, postpone, frequency change, or communication history exists for this topic. CHIEF COMPLAINT: preoperative evaulation HPI: This 34 year old female with history of IBD (inflammatory bowel disease) presents to the [facility] for pre-operative examination for the above mentioned procedure. Patient states that her stomach is flaring up". Patient complains of "bloody diarrhea" and stomach hurts every time I eat". Patient states that lastcolonoscopy was ~ 10-15 years ago This is a virtual visit. REVIEW OF SYSTEMS: General: +morbid obesity . No weight loss, malaise or fevers. Neurological: No history of TIA's, stroke, ACCOUNTS RECEIVABLE MANAGER tumor, impaired sensorium, hemiplegia, paraplegia or quadraplegia. No neurological symptoms or problems. Respiratory: Positive for: asthma and tobacco use. Negative for: COPD, pneumonia within 6 weeks, URI < 2 weeks and obstructive sleep apnea. Cardiovascular: No history of HTN requiring medication, no history of angina, CHF, ID, cardiac surgery or stents. Denies rest pain, gangrene or revascularization/amp utation for PVD. No history of cardiovascular symptoms or problems. GI: See HPI. : No history of dysuria, frequency or incontinence, stones or chronic kidney disease. No difficulty urinating, nocturia > 1 time per night or hematuria. 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 Has not taken steroids within the past 30 days. No history of endocrinological symptoms or problems. Hematology: No history of bleeding or clotting disorder. Patient is not taking anti-coagulation or platelet medications. No history of hematological symptoms or problems. Oncology: No history of CA metastasis, chemo within 30 days, or radiotherapy within 90 days. No history of oncological symptoms or problems. Psych: No history of psychiatric symptoms or problems. Musculoskeletal: Negative for joint pain or swelling, back pain or muscle pain. Skin: +HS No past medical history (more content not included)... [facility] 07-17-2024 CNPN Telephone (PAHCB1) JUDE CARLSON ([id number]) 1990 F Date Time Provider Department 07/17/24 JANET ROSAS [facility] During your visit today, we recorded the following information about you: Janet Rosas PA-C 07/17/2024 7:52 AM Signed Patient was scheduled for virtual PACC appt at 7:30 am today. Patient did not check in for visit. Called patient at 7:33 am to see if they needed any assistance logging in and left voicemail. This message routed to PACC schedulers to contact patient to reschedule [facility] appt. Allergies As of Date: 07/17/2024 (Not on File) Date Reviewed: Never Reviewed Reason for Visit: Appointment [186] Cmt: No show Problem List As Of Date: 07/17/2024 (None) Encounter Status:Closed by JANET ROSAS on 07/17/24 [facility] CNCOon 07-16-2024 CNCO Letter Text [facility] 07-09-2024 CNPN Telephone (UROUPD) JUDE CARLSON ([id number]) 1990 F Date Time Provider Department 07/09/24 PRAVIN GONZALES During your visit today, we recorded the following information about you: Berta Tobias 07/09/2024 3:04 PM Signed Left VM to contact the office to reschedule missed appointment. Allergies As of Date: 07/09/2024 (Not on File) Date Reviewed: Never Reviewed Reason for Visit: Appointment [186] Problem List As Of Date: 07/09/2024 (None) Encounter Status:Closed by OLEG TOBIASHER on 07/09/24 [facility] MR Abdomen WO and W contrast Soila 06-06-2024 IMPRESSION: Bilateral Bosniak I and II renal cysts, as described. No suspicious renal mass. Diffuse hepatic steatosis. Class A Lineman: RADHA Transcribe Date/Time: Jun 06 2024 11:17A Dictated by : JOSEPH HERNANDEZ DO This examination was interpreted and the report reviewed and electronically signed by: CELE STRONG MD on Jun 06 2024 1:10PM [facility] DIVISION OF RADIOLOGY * * *Final Report* * * DATE OF EXAM: Jun 06 2024 10:55AM [facility] 0689 - MRI ABDOMEN WO/W IVCON / PROCEDURE REASON: N28.89 * * * * Physician Interpretation * * * * MRI OF THE ABDOMEN WITHOUT AND WITH CONTRAST: . CLINICAL HISTORY: Renal mass characterization. COMPARISON: None. TECHNIQUE: A renal MRI was performed on a 1.5 T system utilizing the torso phased-array coil. Pulse sequences included: axial precontrast T1 weighted in- and [id number], axial and coronal HASTE, axial DWI with creation of ADC map; axial and coronal T1-VIBE before and after the administration of intravenous gadolinium chelate. Multiple post processing techniques were performed. Contrast: IV administration of 20 ml of Dotarem RESULT: Kidneys, adrenals and ureters: Right kidney: No mass. Multiple benign cysts (Bosniak 1), the largest measuring 7.3 x 6.5 x 8.1 cm (9:36) in the midpole. No suspicious enhancement. Right renal vasculature - renal artery(ies): single. No early branch (< 1cm). - renal vein(s): single. Right ureter: Single ureter. No hydronephrosis. Right adrenal: Normal, no nodules or thickening Left kidney: No mass. Multiple benign cysts (Bosniak 1 and 2), some with thin septations, for example: * A 3.5 x 2.7 x 4.5 cm in the lower pole (9:35), and just anteriorly, a 2.1 x 1.2 x 1 0.5 cm lesion (9:33). No suspicious enhancement or mural nodularity. Left renal vasculature - renal artery(ies): single. No early branch (< 1cm). - renal vein(s): conventional, anterior to the aorta. Left ureter: Single ureter. No hydronephrosis. Left adrenal: Normal, no nodules or thickening Abdomen and pelvis: Liver: No mass. Diffuse hepatic steatosis Biliary: No bile duct dilation. Cholecystectomy. Spleen: No mass. No splenomegaly. Pancreas: No mass or duct dilation. GI tract: No dilation or wall thickening. Lymph nodes: No abdominal or pelvic lymphadenopathy. Mesentery/Peritoneum: No ascites or mass. Vasculature: The celiac axis and SMA are patent. The portal vein and branches, splenic vein and SMV are patent. No aortic or iliac artery aneurysm. Bones/Soft Tissues: No suspicious osseous lesion. L1 vertebral body hemangioma. Lung Bases: Unremarkable. Localizer: Partially visualized 2.7 cm cystic lesion in the right lower quadrant is likely a physiologic right ovarian cyst (3:38). DIVISION OF RADIOLOGY Provider, [facility] - 06/06/2024 * * *Final Report* * * DATE OF EXAM: Jun 06 2024 10:55AM [facility] 0689 - MRI ABDOMEN WO/W IVCON / PROCEDURE REASON: N28.89 * * * * Physician Interpretation * * * * MRI OF THE ABDOMEN WITHOUT AND WITH CONTRAST: . CLINICAL HISTORY: Renal mass characterization. COMPARISON: None. TECHNIQUE: A renal MRI was performed on a 1.5 T system utilizing the torso phased-array coil. Pulse sequences included: axial precontrast T1 weighted in- and vzy-mb-kfzju, axial and coronal HASTE, axial DWI with creation of ADC map; axial and coronal T1-VIBE before and after the administration of intravenous gadolinium chelate. Multiple post processing techniques were performed. Contrast: IV administration of 20 ml of Dotarem RESULT: Kidneys, adrenals and ureters: Right kidney: No mass. Multiple benign cysts (Bosniak 1), the largest measuring 7.3 x 6.5 x 8.1 cm (9:36) in the midpole. No suspicious enhancement. Right renal vasculature - renal artery(ies): single. No early branch (< 1cm). - renal vein(s): single. Right ureter: Single ureter. No hydronephrosis. Right adrenal: Normal, no nodules or thickening Left kidney: No mass. Multiple benign cysts (Bosniak 1 and 2), some with thin septations, for example: * A 3.5 x 2.7 x 4.5 cm in the lower pole (9:35), and just anteriorly, a 2.1 x 1.2 x 1 0.5 cm lesion (9:33). No suspicious enhancement or mural nodularity. Left renal vasculature - renal artery(ies): single. No early branch (< 1cm). - renal vein(s): conventional, anterior to the aorta. Left ureter: Single ureter. No hydronephrosis. Left adrenal: Normal, no nodules or thickening Abdomen and pelvis: Liver: No mass. Diffuse hepatic steatosis Biliary: No bile duct dilation. Cholecystectomy. Spleen: No mass. No splenomegaly. Pancreas: No mass or duct dilation. GI tract: No dilation or wall thickening. Lymph nodes: No abdominal or pelvic lymphadenopathy. Mesentery/Peritoneum: No ascites or mass. Vasculature: The celiac axis and SMA are patent. The portal vein and branches, splenic vein and SMV are patent. No aortic or iliac artery aneurysm. Bones/Soft Tissues: No suspicious osseous lesion. L1 vertebral body hemangioma. Lung Bases: Unremarkable. Localizer: Partially visualized 2.7 cm cystic lesion in the right lower quadrant is likely a physiologic right ovarian cyst (3:38). IMPRESSION IMPRESSION: Bilateral Bosniak I and II renal cysts, as described. No suspicious renal mass. Diffuse hepatic steatosis. Class A Lineman: RADHA Transcribe Date/Time: Jun 06 2024 11:17A Dictated by : JOSEPH HERNANDEZ, DO This examination was interpreted and the report reviewed and electronically signed by: CELE STRONG MD on Jun 06 2024 1:10PM EST [facility] Radiology Study observation (narrative) [facility] MR Abdomen WO and W contrast IVOrdered By: Ccf Provider on 06-06-2024 [facility] .GFRon 05-28-2022 GFR >60 Normal [facility] ([place]) Comment on above: Result Comment: GFR Population mean for , Non- Americans Ages 20-29 = 116 mL/min/1.73 sq.m. Ages 30-39 = 107 mL/min/1.73 sq.m. Ages 40-49 = 99 mL/min/1.73 sq.m. Ages 50-59 = 93 mL/min/1.73 sq.m. Ages 60-69 = 85 mL/min/1.73 sq.m. Ages 70+ = 75 mL/min/1.73 sq.m. Chronic Kidney Disease: Less than 60 mL/min/1.73 square meters End Stage Renal Disease: Less than 15 mL/min/1.73 square meters Performed By: #### L D, GFR, CMP ####[place] [address] GFR Non- >60 Normal [facility] ([place]) Comment on above: Result Comment: GFR Population mean for , Non- Americans Ages 20-29 = 116 mL/min/1.73 sq.m. Ages 30-39 = 107 mL/min/1.73 sq.m. Ages 40-49 = 99 mL/min/1.73 sq.m. Ages 50-59 = 93 mL/min/1.73 sq.m. Ages 60-69 = 85 mL/min/1.73 sq.m. Ages 70+ = 75 mL/min/1.73 sq.m. Chronic Kidney Disease: Less than 60 mL/min/1.73 square meters End Stage Renal Disease: Less than 15 mL/min/1.73 square meters Performed By: #### L D, GFR, CMP ####[address] [address] .MDWon 05-28-2022 Monocyte Distribution Width Not performed Normal 0.00-20.00 [facility] ([place]) Comment on above: Result Comment: MDW testing performed only on adult ER patients between the ages of 18-89 years. Performed By: #### L D, GFR, CMP ####[place] [address] .Manual Diffon 05-28-2022 Basophil %, Manual 2.0 % Normal 0.0-2.5 [facility] ([place]) Comment on above: Performed By: #### L D, GFR, CMP ####[place] [address] Basophil, Abs Manual 0.2 10 3/mcL Normal 0.0-0.3 [facility] ([place]) Comment on above: Performed By: #### L D, GFR, CMP ####[place] [address] Eosinophil %, Manual 6.0 % Normal 0.0-6.0 [facility] ([place]) Comment on above: Performed By: #### L D, GFR, CMP ####[place] [address] Eosinophil, Abs Manual 0.6 10 3/mcL Normal 0.0-0.7 [facility] ([place]) Comment on above: Performed By: #### L D, GFR, CMP ####[place] [address] Lymphocyte %, Manual 25.0 % Normal 20.0-40.0 [facility] ([place]) Comment on above: Performed By: #### L D, GFR, CMP ####[place] [address] Lymphocyte, Abs Manual 2.5 10 3/mcL Normal 0.9-4.3 [facility] ([place]) Comment on above: Performed By: #### L D, GFR, CMP ####[place] [address] Monocyte %, Manual 7.0 % Normal 2.0-13.0 [facility] ([place]) Comment on above: Performed By: #### L D, GFR, CMP ####[place] [address] Monocyte, Abs Manual 0.7 10 3/mcL Normal 0.1-1.4 [facility] ([place]) Comment on above: Performed By: #### L D, GFR, CMP ####[place] [address] Neutrophil %, Manual 60.0 % Normal 50.0-75.0 [facility] ([place]) Comment on above: Performed By: #### L D, GFR, CMP ####[place] [address] Neutrophil, Abs Manual 6.0 10 3/mcL Normal 2.3-8.1 [facility] ([place]) Comment on above: Performed By: #### L D, GFR, CMP ####[place] [address] Nucleated RBC 0.0 /100 WBC Normal [facility] ([place]) Comment on above: Performed By: #### L D, GFR, CMP ####[place] [address] .Morphon 05-28-2022 Platelet Estimate Slt Decreased Normal [facility] ([place]) Comment on above: Performed By: #### L D, GFR, CMP ####[place] [address] Polychrom 1+ Normal [facility] ([place]) Comment on above: Performed By: #### L D, GFR, CMP ####[place] [address] CBCon 05-28-2022 Platelet 133 10 3/mcL Low 150-450 [facility] ([place]) Comment on above: Performed By: #### L D, GFR, CMP ####[place] [address] Platelet mean volume (Bld) [Entitic vol] 8.6 fL Normal 6.6-10.5 [facility] ([place]) Comment on above: Performed By: #### L D, GFR, CMP ####[place] [address] Erythrocyte distribution width (RBC) [Ratio] 14.9 % Normal 11.5-15.5 [facility] ([place]) Comment on above: Performed By: #### L D, GFR, CMP ####[place] [address] Hematocrit (Bld) [Volume fraction] 24.7 % Low 34.0-46.0 [facility] ([place]) Comment on above: Performed By: #### L D, GFR, CMP ####[place] [address] Hgb 8.6 G/dL Low 12.0-16.0 [facility] ([place]) Comment on above: Performed By: #### L D, GFR, CMP ####[place] [address] MCH (RBC) [Entitic mass] 30.6 pg Normal 27.0-33.0 [facility] ([place]) Comment on above: Performed By: #### L D, GFR, CMP ####[place] [address] MCHC 35.0 G/dL Normal 32.0-36.0 [facility] ([place]) Comment on above: Performed By: #### L D, GFR, CMP ####[place] [address] MCV (RBC) [Entitic vol] 87.4 fL Normal 80.0-99.0 [facility] ([place]) Comment on above: Performed By: #### L D, GFR, CMP ####[place] [address] RBC 2.83 10 6/mcL Low 4.10-5.30 [facility] ([place]) Comment on above: Performed By: #### L D, GFR, CMP ####[place] [address] WBC 10.0 10 3/mcL Normal 4.5-10.8 [facility] ([place]) Comment on above: Performed By: #### L D, GFR, CMP ####[place] [address] CMPon 05-28-2022 Albumin Level 2.0 G/dL Low 3.2-4.8 [facility] ([place]) Comment on above: Performed By: #### L D, GFR, CMP ####[address] [address] Albumin/Globulin [Mass ratio] 0.7 {ratio} Low 0.9-1.6 [facility] ([place]) Comment on above: Performed By: #### L D, GFR, CMP ####[address] [address] ALP [Catalytic activity/Vol] 48 U/L Normal 38-126 [facility] ([place]) Comment on above: Performed By: #### L D, GFR, CMP ####[address] [address] ALT [Catalytic activity/Vol] 83 U/L High 10-49 [facility] ([place]) Comment on above: Performed By: #### L D, GFR, CMP ####[address] [address] AST [Catalytic activity/Vol] 54 U/L High 8-34 [facility] ([place]) Comment on above: Performed By: #### L D, GFR, CMP ####[address] [address] Bili Total 0.30 mg/dL Normal 0.20-1.20 [facility] ([place]) Comment on above: Result Comment: Use of this assay is not recommended for patients undergoing treatment with eltrombopag due to the potential for falsely elevated results. Performed By: #### L D, GFR, CMP ####[address] [address] BUN/Creatinine Ratio 9.7 ratio Low 10.0-22.0 [facility] ([place]) Comment on above: Performed By: #### L D, GFR, CMP ####[address] [address] Calcium [Mass/Vol] 7.9 mg/dL Low 8.7-10.4 [facility] ([place]) Comment on above: Performed By: #### L D, GFR, CMP ####[address] [address] Chloride [Moles/Vol] 111 mmol/L High 98-110 [facility] ([place]) Comment on above: Performed By: #### L D, GFR, CMP ####[address] [address] CO2 [Moles/Vol] 28 mmol/L Normal 22-32 [facility] ([place]) Comment on above: Performed By: #### L D, GFR, CMP ####[address] [address] Creatinine [Mass/Vol] 0.62 mg/dL Normal 0.50-1.20 [facility] ([place]) Comment on above: Performed By: #### L D, GFR, CMP ####[address] [address] Electrolyte Balance 4.0 mEq/L Normal 4.0-15.0 [facility] ([place]) Comment on above: Performed By: #### L D, GFR, CMP ####[address] [address] Globulin 2.9 G/dL Normal 1.5-3.8 [facility] ([place]) Comment on above: Performed By: #### L D, GFR, CMP ####[place] [address] Glucose [Mass/Vol] 95 mg/dL Normal 70-110 [facility] ([place]) Comment on above: Performed By: #### L D, GFR, CMP ####[address] [address] Potassium [Moles/Vol] 3.6 mmol/L Normal 3.5-5.0 [facility] ([place]) Comment on above: Performed By: #### L D, GFR, CMP ####[address] [address] Sodium [Moles/Vol] 143 mmol/L Normal 136-145 [facility] ([place]) Comment on above: Performed By: #### L D, GFR, CMP ####[place] [id number] Total Protein 4.9 G/dL Low 5.7-8.2 [facility] ([place]) Comment on above: Result Comment: No te - New Reference Range in effect 20 Performed By: #### L D, GFR, CMP ####[address] [address] Urea nitrogen [Mass/Vol] 6.0 mg/dL Low 8.0-22.0 [facility] ([place]) Comment on above: Performed By: #### L D, GFR, CMP ####[place] [id number] [address] [place] [address] LABORATORYOrdered By: SYSTEM SYSTEM on 05-28-2022 Albumin BCP dye [Mass/Vol] 2.0 G/dL Invalid Interpretation Code 3.2 - 4.8 G/dL ADM SS Albumin/Globulin [Mass ratio] 0.7 {ratio} Invalid Interpretation Code 0.9 - 1.6 ratio ADM SS ALP [Catalytic activity/Vol] 48 U/L Invalid Interpretation Code 38 - 126 U/L ADM SS ALT No additional P-5'-P [Catalytic activity/Vol] 83 U/L Invalid Interpretation Code 10 - 49 U/L ADM SS AST [Catalytic activity/Vol] 54 U/L Invalid Interpretation Code 8 - 34 U/L ADM SS Basophils (Bld) [#/Vol] 0.2 103/mcL Invalid Interpretation Code 0.0 - 0.3 10^3/mcL Workflow SS Basophils/100 WBC (Bld) 2.0 % Invalid Interpretation Code 0.0 - 2.5 % Workflow SS Bilirubin [Mass/Vol] 0.30 mg/dL Invalid Interpretation Code 0.20 - 1.20 mg/dL ADM SS Calcium [Mass/Vol] 7.9 mg/dL Invalid Interpretation Code 8.7 - 10.4 mg/dL ADM SS Chloride [Moles/Vol] 111 mmol/L Invalid Interpretation Code 98 - 110 mEq/L ADM SS CO2 [Moles/Vol] 28 mmol/L Invalid Interpretation Code 22 - 32 mEq/L ADM SS Creatinine [Mass/Vol] 0.62 mg/dL Invalid Interpretation Code 0.50 - 1.20 mg/dL ADM SS Electrolyte Balance 4.0 mEq/L Invalid Interpretation Code 4.0 - 15.0 mEq/L ADM SS Eosinophils (Bld) [#/Vol] 0.6 103/mcL Invalid Interpretation Code 0.0 - 0.7 10^3/mcL Workflow SS Eosinophils/100 WBC (Bld) 6.0 % Invalid Interpretation Code 0.0 - 6.0 % Workflow SS Erythrocyte distribution width (RBC) [Ratio] 14.9 % Invalid Interpretation Code 11.5 - 15.5 % Workflow SS GFR/1.73 sq M.predicted among blacks MDRD (S/P/Bld) [Vol rate/Area] ml/min/1.73sqm Invalid Interpretation Code ADM SS GFR/1.73 sq M.predicted among non-blacks MDRD (S/P/Bld) [Vol rate/Area] ml/min/1.73sqm Invalid Interpretation Code ADM SS Globulin 2.9 G/dL Invalid Interpretation Code 1.5 - 3.8 G/dL ADM SS Glucose [Mass/Vol] 95 mg/dL Invalid Interpretation Code 70 - 110 mg/dL ADM SS Hematocrit (Bld) [Volume fraction] 24.7 % Invalid Interpretation Code 34.0 - 46.0 % Workflow SS Hemoglobin (Bld) [Mass/Vol] 8.6 G/dL Invalid Interpretation Code 12.0 - 16.0 G/dL Workflow SS LDH Lactate to pyruvate reaction [Catalytic activity/Vol] 210 1 Invalid Interpretation Code 120 - 246 U/L ADM SS Lymphocytes (Bld) [#/Vol] 2.5 103/mcL Invalid Interpretation Code 0.9 - 4.3 10^3/mcL Workflow SS Lymphocytes/100 WBC (Bld) 25.0 % Invalid Interpretation Code 20.0 - 40.0 % Workflow SS MCH (RBC) [Entitic mass] 30.6 pg Invalid Interpretation Code 27.0 - 33.0 pg Workflow SS MCHC 35.0 G/dL Invalid Interpretation Code 32.0 - 36.0 G/dL Workflow SS MCV (RBC) [Entitic vol] 87.4 fL Invalid Interpretation Code 80.0 - 99.0 fL Workflow SS Monocyte distribution width Auto (Bld) [Entitic vol] Not Performed 1 *NA* (05/28/22 8:46 AM) Invalid Interpretation Code 0.00 - 20.00 Hematology S Comment on above: Result Comment: MDW testing performed only on adult ER patients between the ages of 18-89 years. Monocytes (Bld) [#/Vol] 0.7 103/mcL Invalid Interpretation Code 0.1 - 1.4 10^3/mcL AH Workflow SS Monocytes/100 WBC (Bld) 7.0 % Invalid Interpretation Code 2.0 - 13.0 % AH Workflow SS Neutrophils (Bld) [#/Vol] 6.0 103/mcL Invalid Interpretation Code 2.3 - 8.1 10^3/mcL AH Workflow SS Neutrophils/100 WBC (Bld) 60.0 % Invalid Interpretation Code 50.0 - 75.0 % AH Workflow SS Nucleated RBC 0.0 /100 WBC Invalid Interpretation Code AH Workflow SS Platelet mean volume (Bld) [Entitic vol] 8.6 fL Invalid Interpretation Code 6.6 - 10.5 fL AH Workflow SS Platelets (Bld) [#/Vol] 133 103/mcL Invalid Interpretation Code 150 - 450 10^3/mcL AH Workflow SS Platelets LM Ql (Bld) Slt Decreased *NA* (05/28/22 8:46 AM) Invalid Interpretation Code AH Workflow SS Polychromasia LM Ql (Bld) 1+ *NA* (05/28/22 8:46 AM) Invalid Interpretation Code AH Workflow SS Potassium [Moles/Vol] 3.6 mmol/L Invalid Interpretation Code 3.5 - 5.0 mEq/L AH ADM SS Protein [Mass/Vol] 4.9 G/dL Invalid Interpretation Code 5.7 - 8.2 G/dL AH ADM SS RBC (Bld) [#/Vol] 2.83 106/mcL Invalid Interpretation Code 4.10 - 5.30 10^6/mcL AH Workflow SS Sodium [Moles/Vol] 143 mmol/L Invalid Interpretation Code 136 - 145 mEq/L AH ADM SS Urea nitrogen [Mass/Vol] 6.0 mg/dL Invalid Interpretation Code 8.0 - 22.0 mg/dL AH ADM SS Urea nitrogen/Creatinine [Mass ratio] 9.7 ratio Invalid Interpretation Code 10.0 - 22.0 ratio AH ADM SS WBC 10.0 103/mcL Invalid Interpretation Code 4.5 - 10.8 10^3/mcL AH Workflow SS LABORATORYOrdered By: Susan Mart on 05-28-2022 Blood Glucose Testing Reason Routine (05/28/22 12:00 AM) [facility] Glucose [Mass/Vol] 109 mg/dL Invalid Interpretation Code 70 - 110 mg/dL [facility] LDHon 05-28-2022 LDH 210 U/L Normal 120-246 [facility] ([place]) Comment on above: Performed By: #### L D, GFR, CMP ####[address] [address] .Auto Diffon 05-27-2022 Basophil, Absolute 0.0 10 3/mcL Normal 0.0-0.3 [facility] ([place]) Basophils/100 WBC (Bld) 0.4 % Normal 0.0-2.5 [facility] ([place]) Eosinophil, Absolute 0.0 10 3/mcL Normal 0.0-0.7 [facility] ([place]) Eosinophils/100 WBC (Bld) 0.3 % Normal 0.0-6.0 [facility] ([place]) Lymphocyte, Absolute 1.2 10 3/mcL Normal 0.9-4.3 [facility] ([place] Lymphocytes/100 WBC (Bld) 9.2 % Low 20.0-40.0 [facility] ([place] Monocyte, Absolute 0.4 10 3/mcL Normal 0.1-1.4 [facility] [place] Monocytes/100 WBC (Bld) 3.4 % Normal 2.0-13.0 [facility] [place] Neutrophils/100 WBC (Bld) 86.7 % High 50.0-75.0 [facility] ([place] Basophil, Absolute 0.0 10 3/mcL Normal 0.0-0.3 [facility] ([place] Comment on above: Performed By: #### G FR, LD, CMP ####[address] [address] Basophils/100 WBC (Bld) 0.2 % Normal 0.0-2.5 [facility] ([place]) Comment on above: Performed By: #### G FR, LD, CMP ####[place] [id number] [place] [address] Eosinophil, Absolute 0.0 10 3/mcL Normal 0.0-0.7 [facility] ([place]) Comment on above: Performed By: #### G FR, JEANNINE, CMP ####[address] [address] Eosinophils/100 WBC (Bld) 0.3 % Normal 0.0-6.0 [facility] ([place] Comment on above: Performed By: #### Krupa FR, LD, CMP ####[address] [address] Lymphocyte, Absolute 1.2 10 3/mcL Normal 0.9-4.3 [facility] ([place] Comment on above: Performed By: #### Krupa FR, JEANNINE, CMP ####[address] [address] Lymphocytes/100 WBC (Bld) 8.4 % Low 20.0-40.0 [facility] ([place] Comment on above: Performed By: #### Krupa PONCE, JEANNINE, CMP ####[address] [address] Monocyte, Absolute 0.4 10 3/mcL Normal 0.1-1.4 [facility] ([place]) Comment on above: Performed By: #### Krupa PONCE, JEANNINE, CMP ####[address] [address] Monocytes/100 WBC (Bld) 2.6 % Normal 2.0-13.0 [facility] ([place]) Comment on above: Performed By: #### Krupa FR, LD, CMP ####[address] [address] Neutrophils/100 WBC (Bld) 88.5 % High 50.0-75.0 [facility] ([place] Comment on above: Performed By: #### G FR, LD, CMP ####[address] [address] Basophil, Absolute 0.0 10 3/mcL Normal 0.0-0.3 [facility] ([place]) Basophils/100 WBC (Bld) 0.3 % Normal 0.0-2.5 [facility] ([place]) Eosinophil, Absolute 0.1 10 3/mcL Normal 0.0-0.7 [facility] ([place]) Eosinophils/100 WBC (Bld) 0.9 % Normal 0.0-6.0 [facility] ([place] Lymphocyte, Absolute 2.0 10 3/mcL Normal 0.9-4.3 [facility] [place] Lymphocytes/100 WBC (Bld) 15.1 % Low 20.0-40.0 [facility] ([place] Monocyte, Absolute 0.6 10 3/mcL Normal 0.1-1.4 [facility] [place] Monocytes/100 WBC (Bld) 4.8 % Normal 2.0-13.0 [facility] [place] Neutrophils/100 WBC (Bld) 78.9 % High 50.0-75.0 [facility] ([place]) .GFRon 05-27-2022 GFR Non- >60 Normal [facility] ([place]) Comment on above: Result Comment: GFR Population mean for , Non- Americans Ages 20-29 = 116 mL/min/1.73 sq.m. Ages 30-39 = 107 mL/min/1.73 sq.m. Ages 40-49 = 99 mL/min/1.73 sq.m. Ages 50-59 = 93 mL/min/1.73 sq.m. Ages 60-69 = 85 mL/min/1.73 sq.m. Ages 70+ = 75 mL/min/1.73 sq.m. Chronic Kidney Disease: Less than 60 mL/min/1.73 square meters End Stage Renal Disease: Less than 15 mL/min/1.73 square meters Performed By: #### G FR, LD, CMP ####[place] [address] GFR >60 Normal [facility] ([place]) Comment on above: Result Comment: GFR Population mean for , Non- Americans Ages 20-29 = 116 mL/min/1.73 sq.m. Ages 30-39 = 107 mL/min/1.73 sq.m. Ages 40-49 = 99 mL/min/1.73 sq.m. Ages 50-59 = 93 mL/min/1.73 sq.m. Ages 60-69 = 85 mL/min/1.73 sq.m. Ages 70+ = 75 mL/min/1.73 sq.m. Chronic Kidney Disease: Less than 60 mL/min/1.73 square meters End Stage Renal Disease: Less than 15 mL/min/1.73 square meters Performed By: #### G FR, LD, CMP ####[address] [address] GFR >60 Normal [facility] ([place]) Comment on above: Result Comment: GFR Population mean for , Non- Americans Ages 20-29 = 116 mL/min/1.73 sq.m. Ages 30-39 = 107 mL/min/1.73 sq.m. Ages 40-49 = 99 mL/min/1.73 sq.m. Ages 50-59 = 93 mL/min/1.73 sq.m. Ages 60-69 = 85 mL/min/1.73 sq.m. Ages 70+ = 75 mL/min/1.73 sq.m. Chronic Kidney Disease: Less than 60 mL/min/1.73 square meters End Stage Renal Disease: Less than 15 mL/min/1.73 square meters Performed By: #### C MP, GFR ####[place] [address] GFR Non- >60 Normal [facility] ([place] Comment on above: Result Comment: GFR Population mean for , Non- Americans Ages 20-29 = 116 mL/min/1.73 sq.m. Ages 30-39 = 107 mL/min/1.73 sq.m. Ages 40-49 = 99 mL/min/1.73 sq.m. Ages 50-59 = 93 mL/min/1.73 sq.m. Ages 60-69 = 85 mL/min/1.73 sq.m. Ages 70+ = 75 mL/min/1.73 sq.m. Chronic Kidney Disease: Less than 60 mL/min/1.73 square meters End Stage Renal Disease: Less than 15 mL/min/1.73 square meters Performed By: #### C MP, GFR ####[address] [address] .MDWon 05-27-2022 Monocyte Distribution Width Not performed Normal 0.00-20.00 [facility] ([place] Comment on above: Result Comment: MDW testing performed only on adult ER patients between the ages of 18-89 years. Monocyte Distribution Width Not performed Normal 0.00-20.00 [facility] ([place]) Comment on above: Result Comment: MDW testing performed only on adult ER patients between the ages of 18-89 years. Performed By: #### G JEANNINE PONCE, CMP ####[place] [address] Monocyte Distribution Width Not performed Normal 0.00-20.00 [facility] ([place]) Comment on above: Result Comment: MDW testing performed only on adult ER patients between the ages of 18-89 years. .NEUABSon 05-27-2022 Neutrophil, Absolute 11.2 10 3/mcL High 2.3-8.1 A [facility] ([place]) Neutrophil, Absolute 12.4 10 3/mcL High 2.3-8.1 A [facility] ([place]) Comment on above: Performed By: #### G JEANNINE PONCE, CMP ####[place] [address] Neutrophil, Absolute 10.5 10 3/mcL High 2.3-8.1 A [facility] ([place]) APTTon 05-27-2022 aPTT Coag (Bld) [Time] 22.1 s Low 25.0-35.0 [facility] ([place]) Comment on above: Result Comment: For Heparin anticoagulation therapy, the recommended therapeutic range is: 54-77 seconds (APTT Correlation with Anti-Xa therapeutic range of 0.3-0.7 units/ml). PLEASE REFERENCE THE PHARMACY PROTOCOL FOR DOSING. Performed By: #### F IB, PRO, APTT ####[place] [address] Heparin dose (APTT) None Normal [facility] ([place]) Comment on above: Performed By: #### F IB, PRO, APTT ####[place] [address] CBCon 05-27-2022 Erythrocyte distribution width (RBC) [Ratio] 14.6 % Normal 11.5-15.5 [facility] ([place] Hematocrit (Bld) [Volume fraction] 25.7 % Low 34.0-46.0 [facility] ([place] Hgb 8.6 G/dL Low 12.0-16.0 [facility] ([place] MCH (RBC) [Entitic mass] 29.6 pg Normal 27.0-33.0 [facility] [place] MCHC 33.5 G/dL Normal 32.0-36.0 [facility] [place] MCV (RBC) [Entitic vol] 88.2 fL Normal 80.0-99.0 [facility] ([place] Platelet 139 10 3/mcL Low 150-450 [facility] [place] Platelet mean volume (Bld) [Entitic vol] 7.9 fL Normal 6.6-10.5 [facility] [place] RBC 2.92 10 6/mcL Low 4.10-5.30 [facility] [place] WBC 12.9 10 3/mcL High 4.5-10.8 [facility] [place] Erythrocyte distribution width (RBC) [Ratio] 15.0 % Normal 11.5-15.5 [facility]) Comment on above: Performed By: #### JEANNINE MENDEZ, CMP ####[place] [address] Hematocrit (Bld) [Volume fraction] 25.4 % Low 34.0-46.0 [facility] ([place] Comment on above: Performed By: #### rKupa PONCE, JEANNINE, CMP ####[place] [address] Hgb 8.4 G/dL Low 12.0-16.0 [facility] ([place] Comment on above: Performed By: #### Krupa FR, LD, CMP ####[facility] [place] [address] MCH (RBC) [Entitic mass] 29.7 pg Normal 27.0-33.0 [facility] ([place] Comment on above: Performed By: #### G FR, LD, CMP ####[address] [address] MCHC 33.1 G/dL Normal 32.0-36.0 [facility] ([place] Comment on above: Performed By: #### G FR, LD, CMP ####[address] [address] MCV (RBC) [Entitic vol] 89.8 fL Normal 80.0-99.0 [facility] ([place] Comment on above: Performed By: #### Krupa FR, LD, CMP ####[address] [address] Platelet 145 10 3/mcL Low 150-450 [facility] ([place] Comment on above: Performed By: #### G FR, LD, CMP ####[place] [address] [place] [address] Platelet mean volume (Bld) [Entitic vol] 8.1 fL Normal 6.6-10.5 [facility] ([place] Comment on above: Performed By: #### Krupa FR, JEANNINE, CMP ####[address] [address] RBC 2.82 10 6/mcL Low 4.10-5.30 [facility] ([place] Comment on above: Performed By: #### Krupa FR, LD, CMP ####[address] [address] WBC 14.0 10 3/mcL High 4.5-10.8 [facility] ([place] Comment on above: Performed By: #### Krupa FR, JEANNINE, CMP ####[address] [address] Erythrocyte distribution width (RBC) [Ratio] 15.1 % Normal 11.5-15.5 [facility] ([place] Hematocrit (Bld) [Volume fraction] 23.5 % Low 34.0-46.0 [facility] ([place] Hgb 7.7 G/dL Low 12.0-16.0 [facility] [place] MCH (RBC) [Entitic mass] 29.3 pg Normal 27.0-33.0 [facility] [place] MCHC 32.8 G/dL Normal 32.0-36.0 [facility] [place] MCV (RBC) [Entitic vol] 89.4 fL Normal 80.0-99.0 [facility] ([place] Platelet 146 10 3/mcL Low 150-450 [facility] [place] Platelet mean volume (Bld) [Entitic vol] 7.9 fL Normal 6.6-10.5 [facility] ([place] RBC 2.63 10 6/mcL Low 4.10-5.30 [facility] ([place] WBC 13.3 10 3/mcL High 4.5-10.8 [facility] ([place] CMPon 05-27-2022 Albumin Level 2.1 G/dL Low 3.2-4.8 [facility]) Comment on above: Performed By: #### JEANNINE MENDEZ, CMP ####[address] [address] Albumin/Globulin [Mass ratio] 0.7 {ratio} Low 0.9-1.6 [facility] ([place] Comment on above: Performed By: #### JEANNINE MENDEZ, CMP ####[address] [address] ALP [Catalytic activity/Vol] 46 U/L Normal 38-126 [facility] ([place] Comment on above: Performed By: #### JEANNINE MENDEZ, CMP ####[address] [address] ALT [Catalytic activity/Vol] 56 U/L High 10-49 [facility] ([place] Comment on above: Performed By: #### JEANNINE MENDEZ, CMP ####[address] [address] AST [Catalytic activity/Vol] 33 U/L Normal 8-34 [facility] ([place] Comment on above: Performed By: #### JEANNINE MENDEZ, CMP ####[address] [address] Bili Total 0.30 mg/dL Normal 0.20-1.20 [facility] ([place]) Comment on above: Result Comment: Use of this assay is not recommended for patients undergoing treatment with eltrombopag due to the potential for falsely elevated results. Performed By: #### JEANNINE MENDEZ, CMP ####[address] [address] BUN/Creatinine Ratio 11.1 ratio Normal 10.0-22.0 [facility] ([place]) Comment on above: Performed By: #### JEANNINE MENDEZ, CMP ####[place] [address] Calcium [Mass/Vol] 7.8 mg/dL Low 8.7-10.4 [facility] ([place]) Comment on above: Performed By: #### JEANNINE MENDEZ, CMP ####[place] [address] Chloride [Moles/Vol] 113 mmol/L High 98-110 [facility] ([place] Comment on above: Performed By: #### JEANNINE MENDEZ, CMP ####[place] [address] CO2 [Moles/Vol] 26 mmol/L Normal 22-32 [facility] ([place] Comment on above: Performed By: #### JEANNINE MENDEZ, CMP ####[place] [address] Creatinine [Mass/Vol] 0.63 mg/dL Normal 0.50-1.20 [facility] ([place]) Comment on above: Performed By: #### JEANNINE MENDEZ, CMP ####[place] [address] Electrolyte Balance 1.0 mEq/L Low 4.0-15.0 [facility] ([place]) Comment on above: Performed By: #### JEANNINE MENDEZ, CMP ####[place] [address] Globulin 2.9 G/dL Normal 1.5-3.8 [facility] ([place] Comment on above: Performed By: #### JEANNINE MENDEZ, CMP ####[place] [address] Glucose [Mass/Vol] 136 mg/dL High 70-110 [facility] ([place]) Comment on above: Performed By: #### JEANNINE MENDEZ, CMP ####[place] [address] Potassium [Moles/Vol] 3.9 mmol/L Normal 3.5-5.0 [facility] ([place]) Comment on above: Performed By: #### JEANNINE MENDEZ, CMP ####[address] [address] Sodium [Moles/Vol] 140 mmol/L Normal 136-145 [facility] ([place]) Comment on above: Performed By: #### JEANNINE MENDEZ, CMP ####[address] [address] Total Protein 5.0 G/dL Low 5.7-8.2 [facility] ([place]) Comment on above: Result Comment: No te - New Reference Range in effect 20 Performed By: #### JEANNINE MENDEZ, CMP ####[address] [address] Urea nitrogen [Mass/Vol] 7.0 mg/dL Low 8.0-22.0 [facility] ([place] Comment on above: Performed By: #### JEANNINE MENDEZ, CMP ####[address] [address] Albumin Level 2.1 G/dL Low 3.2-4.8 [facility] ([place] Comment on above: Performed By: #### C MP, GFR ####[address] [address] Albumin/Globulin [Mass ratio] 0.8 {ratio} Low 0.9-1.6 [facility] ([place] Comment on above: Performed By: #### C MP, GFR ####[address] [address] ALP [Catalytic activity/Vol] 45 U/L Normal 38-126 [facility] ([place] Comment on above: Performed By: #### C MP, GFR ####[address] [address] ALT [Catalytic activity/Vol] 50 U/L High 10-49 [facility] ([place] Comment on above: Performed By: #### C MP, GFR ####[address] [address] AST [Catalytic activity/Vol] 29 U/L Normal 8-34 [facility] ([place] Comment on above: Performed By: #### C MP, GFR ####[place] [id number] Bili Total 0.30 mg/dL Normal 0.20-1.20 [facility] ([place] Comment on above: Result Comment: Use of this assay is not recommended for patients undergoing treatment with eltrombopag due to the potential for falsely elevated results. Performed By: #### C MP, GFR ####[place] [address] BUN/Creatinine Ratio 12.1 ratio Normal 10.0-22.0 [facility] ([place] Comment on above: Performed By: #### C MP, GFR ####[place] [id number] Calcium [Mass/Vol] 8.1 mg/dL Low 8.7-10.4 [facility] ([place]) Comment on above: Performed By: #### C MP, GFR ####[place] [id number] Chloride [Moles/Vol] 112 mmol/L High 98-110 [facility] ([place] Comment on above: Performed By: #### C MP, GFR ####[place] [id number] CO2 [Moles/Vol] 26 mmol/L Normal 22-32 [facility] ([place] Comment on above: Performed By: #### C MP, GFR ####[place] [address] Creatinine [Mass/Vol] 0.66 mg/dL Normal 0.50-1.20 [facility] ([place] Comment on above: Performed By: #### C MP, GFR ####[place] [address] Electrolyte Balance 1.0 mEq/L Low 4.0-15.0 [facility] ([place] Comment on above: Performed By: #### C MP, GFR ####[place] [id number] Globulin 2.8 G/dL Normal 1.5-3.8 [facility] ([place] Comment on above: Performed By: #### C MP, GFR ####[address] [address] Glucose [Mass/Vol] 98 mg/dL Normal 70-110 [facility] ([place] Comment on above: Performed By: #### C MP, GFR ####[address] [address] Potassium [Moles/Vol] 3.6 mmol/L Normal 3.5-5.0 [facility] ([place] Comment on above: Performed By: #### C MP, GFR ####[address] [address] Sodium [Moles/Vol] 139 mmol/L Normal 136-145 [facility] ([place] Comment on above: Performed By: #### C MP, GFR ####[address] [address] Total Protein 4.9 G/dL Low 5.7-8.2 [facility] ([place] Comment on above: Result Comment: No te - New Reference Range in effect 20 Performed By: #### C MP, GFR ####[address] [address] Urea nitrogen [Mass/Vol] 8.0 mg/dL Normal 8.0-22.0 [facility] ([place] Comment on above: Performed By: #### C MP, GFR ####[address] [address] [address] ABD/PELVIS W/ IV CONTRAST ONLYon 05-27-2022 CT ABD/PELVIS W/ IV CONTRAST ONLY ORIGINAL EXAMINATION: CT OF THE ABDOMEN AND PELVIS WITH CONTRAST 05/27/2022 1:35 am TECHNIQUE: CT of the abdomen and pelvis was performed with the administration of intravenous contrast. Multiplanar reformatted images are provided for review. Automated exposure control, iterative reconstruction, and/or weight based adjustment of the mA/kV was utilized to reduce the radiation dose to as low as reasonably achievable. COMPARISON: CT abdomen and pelvis on 05/25/2022. Ultrasound of abdomen wall on the 05/26/2022. HISTORY: ORDERING SYSTEM PROVIDED HISTORY: Reason for Exam: bleeding from incision Concern for incisional subcutaneous hematoma/bleed s/p surgery. s/p hysterectomy for demise/placenta increta/hemoperitoneu m/uterine rupture. FINDINGS: Lower Chest: There is minimal dependent atelectasis in both lungs. There is no pleural fluid. Organs: The liver, pancreas, spleen, adrenal glands, and kidneys show no sign of acute abnormality. Bilateral renal cysts are present with the largest on the right measuring 7.1 cm, and the largest left renal cyst 3.1 cm. These appear benign and imaging follow-up is not required. GI/Bowel: The stomach is partly distended and partly fluid-filled. There are several dilated loops of small intestine that contain air-fluid levels. There is no localized inflammation. The colon is not dilated and is nearly empty. There is no free intraperitoneal air. The hemoperitoneum seen on scan on 05/25/2022 has resolved. Pelvis: Scans through the pelvis demonstrate patient has had interval hysterectomy. Urinary bladder is empty with a [place] catheter in place. No pelvic hematoma or other abnormal fluid collection is present. Peritoneum/Retroperit oneum: Abdominal aorta and inferior vena cava are normal in size. There is no retroperitoneal hematoma. Bones/Soft Tissues: Attention to the anterior abdominal wall shows no sign of hematoma or hemorrhage. There is mild postoperative edema along the incision line a small amount of subcutaneous air. IMPRESSION: No evidence of incisional hemorrhage. New no hematoma detected. Dilated small intestine with multiple air-fluid levels is likely postoperative ileus. Obstruction is less likely. Interpreted by: Rohit Corbett MD Preliminary Report By: Rohit Corbett MD Electronically signed By Rohit Corbett MD Dictated Date: 05/27/2022 1:42:29 AM Prelim Date: 05/27/2022 1:53:09 AM Sign Date: 05/27/2022 1:53:09 AM Ordering Provider: YELENA TURNER Normal [facility] ([place] FIBon 05-27-2022 Fibrinogen >700 High 250-560 [facility] ([place] Comment on above: Performed By: #### F IB, PRO, APTT ####[place] [address] LABORATORYOrdered By: SYSTEM SYSTEM on 05-27-2022 Basophils (Bld) [#/Vol] 0.0 103/mcL Invalid Interpretation Code 0.0 - 0.3 10^3/mcL Workflow SS Basophils/100 WBC (Bld) 0.4 % Invalid Interpretation Code 0.0 - 2.5 % AH Workflow SS Eosinophils (Bld) [#/Vol] 0.0 103/mcL Invalid Interpretation Code 0.0 - 0.7 10^3/mcL Workflow SS Eosinophils/100 WBC (Bld) 0.3 % Invalid Interpretation Code 0.0 - 6.0 % Workflow SS Erythrocyte distribution width (RBC) [Ratio] 14.6 % Invalid Interpretation Code 11.5 - 15.5 % Workflow SS Hematocrit (Bld) [Volume fraction] 25.7 % Invalid Interpretation Code 34.0 - 46.0 % Workflow SS Hemoglobin (Bld) [Mass/Vol] 8.6 G/dL Invalid Interpretation Code 12.0 - 16.0 G/dL Workflow SS Lymphocytes (Bld) [#/Vol] 1.2 103/mcL Invalid Interpretation Code 0.9 - 4.3 10^3/mcL Workflow SS Lymphocytes/100 WBC (Bld) 9.2 % Invalid Interpretation Code 20.0 - 40.0 % Workflow SS MCH (RBC) [Entitic mass] 29.6 pg Invalid Interpretation Code 27.0 - 33.0 pg Workflow SS MCHC 33.5 G/dL Invalid Interpretation Code 32.0 - 36.0 G/dL Workflow SS MCV (RBC) [Entitic vol] 88.2 fL Invalid Interpretation Code 80.0 - 99.0 fL Workflow SS Monocyte distribution width Auto (Bld) [Entitic vol] Not Performed 2 *NA* (05/27/22 11:24 AM) Invalid Interpretation Code 0.00 - 20.00 Hematology S Comment on above: Result Comment: MDW testing performed only on adult ER patients between the ages of 18-89 years. Monocytes (Bld) [#/Vol] 0.4 103/mcL Invalid Interpretation Code 0.1 - 1.4 10^3/mcL Workflow SS Monocytes/100 WBC (Bld) 3.4 % Invalid Interpretation Code 2.0 - 13.0 % Workflow SS Neutrophils (Bld) [#/Vol] 11.2 103/mcL Invalid Interpretation Code 2.3 - 8.1 10^3/mcL AH Workflow SS Neutrophils/100 WBC (Bld) 86.7 % Invalid Interpretation Code 50.0 - 75.0 % AH Workflow SS Platelet mean volume (Bld) [Entitic vol] 7.9 fL Invalid Interpretation Code 6.6 - 10.5 fL AH Workflow SS Platelets (Bld) [#/Vol] 139 103/mcL Invalid Interpretation Code 150 - 450 10^3/mcL AH Workflow SS RBC (Bld) [#/Vol] 2.92 106/mcL Invalid Interpretation Code 4.10 - 5.30 10^6/mcL AH Workflow SS WBC 12.9 103/mcL Invalid Interpretation Code 4.5 - 10.8 10^3/mcL AH Workflow SS Albumin BCP dye [Mass/Vol] 2.1 G/dL Invalid Interpretation Code 3.2 - 4.8 G/dL ADM SS Albumin/Globulin [Mass ratio] 0.7 {ratio} Invalid Interpretation Code 0.9 - 1.6 ratio ADM SS ALP [Catalytic activity/Vol] 46 U/L Invalid Interpretation Code 38 - 126 U/L ADM SS ALT No additional P-5'-P [Catalytic activity/Vol] 56 U/L Invalid Interpretation Code 10 - 49 U/L AH ADM SS AST [Catalytic activity/Vol] 33 U/L Invalid Interpretation Code 8 - 34 U/L ADM SS Basophils (Bld) [#/Vol] 0.0 103/mcL Invalid Interpretation Code 0.0 - 0.3 10^3/mcL AH Workflow SS Basophils/100 WBC (Bld) 0.2 % Invalid Interpretation Code 0.0 - 2.5 % AH Workflow SS Bilirubin [Mass/Vol] 0.30 mg/dL Invalid Interpretation Code 0.20 - 1.20 mg/dL ADM SS Calcium [Mass/Vol] 7.8 mg/dL Invalid Interpretation Code 8.7 - 10.4 mg/dL ADM SS Chloride [Moles/Vol] 113 mmol/L Invalid Interpretation Code 98 - 110 mEq/L ADM SS CO2 [Moles/Vol] 26 mmol/L Invalid Interpretation Code 22 - 32 mEq/L ADM SS Creatinine [Mass/Vol] 0.63 mg/dL Invalid Interpretation Code 0.50 - 1.20 mg/dL AH ADM SS Electrolyte Balance 1.0 mEq/L Invalid Interpretation Code 4.0 - 15.0 mEq/L ADM SS Eosinophils (Bld) [#/Vol] 0.0 103/mcL Invalid Interpretation Code 0.0 - 0.7 10^3/mcL Workflow SS Eosinophils/100 WBC (Bld) 0.3 % Invalid Interpretation Code 0.0 - 6.0 % Workflow SS Erythrocyte distribution width (RBC) [Ratio] 15.0 % Invalid Interpretation Code 11.5 - 15.5 % Workflow SS GFR/1.73 sq M.predicted among blacks MDRD (S/P/Bld) [Vol rate/Area] ml/min/1.73sqm Invalid Interpretation Code ADM SS GFR/1.73 sq M.predicted among non-blacks MDRD (S/P/Bld) [Vol rate/Area] ml/min/1.73sqm Invalid Interpretation Code ADM SS Globulin 2.9 G/dL Invalid Interpretation Code 1.5 - 3.8 G/dL [facility] SS Glucose [Mass/Vol] 136 mg/dL Invalid Interpretation Code 70 - 110 mg/dL [facility] SS Hematocrit (Bld) [Volume fraction] 25.4 % Invalid Interpretation Code 34.0 - 46.0 % Workflow SS Hemoglobin (Bld) [Mass/Vol] 8.4 G/dL Invalid Interpretation Code 12.0 - 16.0 G/dL Workflow SS LDH Lactate to pyruvate reaction [Catalytic activity/Vol] 209 1 Invalid Interpretation Code 120 - 246 U/L [facility] SS Lymphocytes (Bld) [#/Vol] 1.2 103/mcL Invalid Interpretation Code 0.9 - 4.3 10^3/mcL Workflow SS Lymphocytes/100 WBC (Bld) 8.4 % Invalid Interpretation Code 20.0 - 40.0 % Workflow SS MCH (RBC) [Entitic mass] 29.7 pg Invalid Interpretation Code 27.0 - 33.0 pg Workflow SS MCHC 33.1 G/dL Invalid Interpretation Code 32.0 - 36.0 G/dL Workflow SS MCV (RBC) [Entitic vol] 89.8 fL Invalid Interpretation Code 80.0 - 99.0 fL Workflow SS Monocyte distribution width Auto (Bld) [Entitic vol] Not Performed 3 *NA* (05/27/22 6:36 AM) Invalid Interpretation Code 0.00 - 20.00 Hematology S Comment on above: Result Comment: MDW testing performed only on adult ER patients between the ages of 18-89 years. Monocytes (Bld) [#/Vol] 0.4 103/mcL Invalid Interpretation Code 0.1 - 1.4 10^3/mcL AH Workflow SS Monocytes/100 WBC (Bld) 2.6 % Invalid Interpretation Code 2.0 - 13.0 % AH Workflow SS Neutrophils (Bld) [#/Vol] 12.4 103/mcL Invalid Interpretation Code 2.3 - 8.1 10^3/mcL AH Workflow SS Neutrophils/100 WBC (Bld) 88.5 % Invalid Interpretation Code 50.0 - 75.0 % AH Workflow SS Platelet mean volume (Bld) [Entitic vol] 8.1 fL Invalid Interpretation Code 6.6 - 10.5 fL AH Workflow SS Platelets (Bld) [#/Vol] 145 103/mcL Invalid Interpretation Code 150 - 450 10^3/mcL AH Workflow SS Potassium [Moles/Vol] 3.9 mmol/L Invalid Interpretation Code 3.5 - 5.0 mEq/L ADM SS Protein [Mass/Vol] 5.0 G/dL Invalid Interpretation Code 5.7 - 8.2 G/dL AH ADM SS RBC (Bld) [#/Vol] 2.82 106/mcL Invalid Interpretation Code 4.10 - 5.30 10^6/mcL AH Workflow SS Sodium [Moles/Vol] 140 mmol/L Invalid Interpretation Code 136 - 145 mEq/L ADM SS Urea nitrogen [Mass/Vol] 7.0 mg/dL Invalid Interpretation Code 8.0 - 22.0 mg/dL ADM SS Urea nitrogen/Creatinine [Mass ratio] 11.1 ratio Invalid Interpretation Code 10.0 - 22.0 ratio AH ADM SS WBC 14.0 103/mcL Invalid Interpretation Code 4.5 - 10.8 10^3/mcL AH Workflow SS Albumin BCP dye [Mass/Vol] 2.1 G/dL Invalid Interpretation Code 3.2 - 4.8 G/dL ADM SS Albumin/Globulin [Mass ratio] 0.8 {ratio} Invalid Interpretation Code 0.9 - 1.6 ratio ADM SS ALP [Catalytic activity/Vol] 45 U/L Invalid Interpretation Code 38 - 126 U/L ADM SS ALT No additional P-5'-P [Catalytic activity/Vol] 50 U/L Invalid Interpretation Code 10 - 49 U/L AH ADM SS AST [Catalytic activity/Vol] 29 U/L Invalid Interpretation Code 8 - 34 U/L AH ADM SS Basophils (Bld) [#/Vol] 0.0 103/mcL Invalid Interpretation Code 0.0 - 0.3 10^3/mcL AH Workflow SS Basophils/100 WBC (Bld) 0.3 % Invalid Interpretation Code 0.0 - 2.5 % AH Workflow SS Bilirubin [Mass/Vol] 0.30 mg/dL Invalid Interpretation Code 0.20 - 1.20 mg/dL AH ADM SS Calcium [Mass/Vol] 8.1 mg/dL Invalid Interpretation Code 8.7 - 10.4 mg/dL ADM SS Chloride [Moles/Vol] 112 mmol/L Invalid Interpretation Code 98 - 110 mEq/L ADM SS CO2 [Moles/Vol] 26 mmol/L Invalid Interpretation Code 22 - 32 mEq/L AH ADM SS Creatinine [Mass/Vol] 0.66 mg/dL Invalid Interpretation Code 0.50 - 1.20 mg/dL AH ADM SS Electrolyte Balance 1.0 mEq/L Invalid Interpretation Code 4.0 - 15.0 mEq/L ADM SS Eosinophils (Bld) [#/Vol] 0.1 103/mcL Invalid Interpretation Code 0.0 - 0.7 10^3/mcL AH Workflow SS Eosinophils/100 WBC (Bld) 0.9 % Invalid Interpretation Code 0.0 - 6.0 % AH Workflow SS GFR/1.73 sq M.predicted among blacks MDRD (S/P/Bld) [Vol rate/Area] ml/min/1.73sqm Invalid Interpretation Code AH ADM SS GFR/1.73 sq M.predicted among non-blacks MDRD (S/P/Bld) [Vol rate/Area] ml/min/1.73sqm Invalid Interpretation Code AH ADM SS Globulin 2.8 G/dL Invalid Interpretation Code 1.5 - 3.8 G/dL ADM SS Glucose [Mass/Vol] 98 mg/dL Invalid Interpretation Code 70 - 110 mg/dL ADM SS LDH Lactate to pyruvate reaction [Catalytic activity/Vol] 201 1 Invalid Interpretation Code 120 - 246 U/L ADM SS Lymphocytes (Bld) [#/Vol] 2.0 103/mcL Invalid Interpretation Code 0.9 - 4.3 10^3/mcL AH Workflow SS Lymphocytes/100 WBC (Bld) 15.1 % Invalid Interpretation Code 20.0 - 40.0 % Workflow SS Monocytes (Bld) [#/Vol] 0.6 103/mcL Invalid Interpretation Code 0.1 - 1.4 10^3/mcL AH Workflow SS Monocytes/100 WBC (Bld) 4.8 % Invalid Interpretation Code 2.0 - 13.0 % Workflow SS Neutrophils (Bld) [#/Vol] 10.5 103/mcL Invalid Interpretation Code 2.3 - 8.1 10^3/mcL AH Workflow SS Neutrophils/100 WBC (Bld) 78.9 % Invalid Interpretation Code 50.0 - 75.0 % Workflow SS Potassium [Moles/Vol] 3.6 mmol/L Invalid Interpretation Code 3.5 - 5.0 mEq/L AH ADM SS Protein [Mass/Vol] 4.9 G/dL Invalid Interpretation Code 5.7 - 8.2 G/dL ADM SS Sodium [Moles/Vol] 139 mmol/L Invalid Interpretation Code 136 - 145 mEq/L ADM SS Urea nitrogen [Mass/Vol] 8.0 mg/dL Invalid Interpretation Code 8.0 - 22.0 mg/dL ADM SS Urea nitrogen/Creatinine [Mass ratio] 12.1 ratio Invalid Interpretation Code 10.0 - 22.0 ratio AH ADM SS LABORATORYOrdered By: Quynh Troncoso on 05-27-2022 Blood Glucose Testing Reason Routine (05/27/22 7:15 AM) [facility] Glucose [Mass/Vol] 136 mg/dL Invalid Interpretation Code 70 - 110 mg/dL [facility] LABORATORYOrdered By: Med Belcher on 05-27-2022 Blood Glucose Testing Reason Routine (05/27/22 3:10 AM) [facility] Glucose [Mass/Vol] 110 mg/dL Invalid Interpretation Code 70 - 110 mg/dL [facility] LABORATORYOrdered By: Lucho Castro on 05-27-2022 RBC Product Ready RBC Ready for Pickup (05/27/22 1:52 AM) Invalid Interpretation Code BB Manual SS LABORATORYOrdered By: Carine Eddy on 05-27-2022 aPTT Coag (PPP) [Time] 22.1 s Invalid Interpretation Code 25.0 - 35.0 seconds AH Auto Coag SS Fibrinogen Coag (PPP) [Mass/Vol] mg/dL Invalid Interpretation Code 250 - 560 mg/dL AH Auto Coag SS Heparin dose (APTT) None Invalid Interpretation Code AH Auto Coag SS INR Coag (PPP) [Relative time] 0.9 {INR} Invalid Interpretation Code AH Auto Coag SS PT Coag (PPP) [Time] 10.3 s Invalid Interpretation Code 9.0 - 14.9 seconds AH Auto Coag SS LDHon 05-27-2022 LDH 209 U/L Normal 120-246 [facility] ([place] Comment on above: Performed By: #### G FR, LD, CMP ####[place] [address] LDH 201 U/L Normal 120-246 [facility] ([place] Comment on above: Performed By: #### L D ####[place] [address] PROon 05-27-2022 INR Coag (PPP) [Relative time] 0.9 {INR} Normal [facility] ([place]) Comment on above: Result Comment: The [employer] (CHEST, 1992, 102:312S-25S) recommended therapeutic range for oral anticoagulant therapy is: LOW RISK: Prophylaxis of venous thrombosis INR: 2.0-3.0 Treatment of pulmonary embolism 2.0-3.0 Prevention of systemic embolism 2.0-3.0 HIGH RISK: Mechanical prosthetic valves 2.5-3.5 Performed By: #### F IB, PRO, APTT ####[place] [address] PT Coag (PPP) [Time] 10.3 s Normal 9.0-14.9 [facility] ([place]) Comment on above: Result Comment: Effe ctive 06/11/08, Protime results may be affected by some antibiotics (i.e. Ciprofloxacin, Azithromycin, Bactrim) which may potentiate the action of oral anticoagulants, with further increases in Protime/INR. Performed By: #### F IB, PRO, APTT ####[address] [address] RBC (Product)on 05-27-2022 RBC Product Ready RBC Ready for Pickup Normal [facility] ([place] Comment on above: Performed By: #### R BCP #### [address] [address] .Auto Diffon 05-26-2022 Basophil, Absolute 0.0 10 3/mcL Normal 0.0-0.3 [facility] ([place] Comment on above: Performed By: #### JEANNINE MENDEZ, CMP ####[address] [address] Basophils/100 WBC (Bld) 0.2 % Normal 0.0-2.5 [facility] ([place] Comment on above: Performed By: #### JEANNINE MENDEZ, CMP ####[address] [address] Eosinophil, Absolute 0.0 10 3/mcL Normal 0.0-0.7 [facility] ([place]) Comment on above: Performed By: #### JEANNINE MENDEZ, CMP ####[address] [address] Eosinophils/100 WBC (Bld) 0.0 % Normal 0.0-6.0 [facility] ([place] Comment on above: Performed By: #### JEANNINE MENDEZ, CMP ####[address] [address] Lymphocyte, Absolute 1.3 10 3/mcL Normal 0.9-4.3 [facility] ([place] Comment on above: Performed By: #### JEANNINE MENDEZ, CMP ####[address] [address] Lymphocytes/100 WBC (Bld) 10.0 % Low 20.0-40.0 [facility] ([place] Comment on above: Performed By: #### JEANNINE MENDEZ, CMP ####[address] [address] Monocyte, Absolute 0.8 10 3/mcL Normal 0.1-1.4 [facility] ([place] Comment on above: Performed By: #### JEANNINE MENDEZ, CMP ####[place] [address] [place] [address] Monocytes/100 WBC (Bld) 6.4 % Normal 2.0-13.0 [facility] ([place]) Comment on above: Performed By: #### G , JEANNINE, CMP ####[place] [address] [place] [address] Neutrophils/100 WBC (Bld) 83.4 % High 50.0-75.0 [facility] ([place] Comment on above: Performed By: #### Krupa PONCE, JEANNINE, CMP ####[address] [address] .GFRon 05-26-2022 GFR >60 Normal [facility] ([place] Comment on above: Result Comment: GFR Population mean for , Non- Americans Ages 20-29 = 116 mL/min/1.73 sq.m. Ages 30-39 = 107 mL/min/1.73 sq.m. Ages 40-49 = 99 mL/min/1.73 sq.m. Ages 50-59 = 93 mL/min/1.73 sq.m. Ages 60-69 = 85 mL/min/1.73 sq.m. Ages 70+ = 75 mL/min/1.73 sq.m. Chronic Kidney Disease: Less than 60 mL/min/1.73 square meters End Stage Renal Disease: Less than 15 mL/min/1.73 square meters Performed By: #### G JEANNINE PONCE, CMP ####[address] [address] GFR Non- >60 Normal [facility] ([place] Comment on above: Result Comment: GFR Population mean for , Non- Americans Ages 20-29 = 116 mL/min/1.73 sq.m. Ages 30-39 = 107 mL/min/1.73 sq.m. Ages 40-49 = 99 mL/min/1.73 sq.m. Ages 50-59 = 93 mL/min/1.73 sq.m. Ages 60-69 = 85 mL/min/1.73 sq.m. Ages 70+ = 75 mL/min/1.73 sq.m. Chronic Kidney Disease: Less than 60 mL/min/1.73 square meters End Stage Renal Disease: Less than 15 mL/min/1.73 square meters Performed By: #### G FRJEANNINE, CMP ####[place] [address] .MDWon 05-26-2022 Monocyte Distribution Width Not performed Normal 0.00-20.00 [facility] ([place] Comment on above: Result Comment: MDW testing performed only on adult ER patients between the ages of 18-89 years. Performed By: #### G FR, JEANNINE, CMP ####[place] [address] .NEUABSon 05-26-2022 Neutrophil, Absolute 10.6 10 3/mcL High 2.3-8.1 A [facility] ([place]) Comment on above: Performed By: #### G JEANNINE PONCE, CMP ####[place] [address] APTTon 05-26-2022 aPTT Coag (Bld) [Time] 21.7 s Low 25.0-35.0 [facility] ([place] Comment on above: Result Comment: For Heparin anticoagulation therapy, the recommended therapeutic range is: 54-77 seconds (APTT Correlation with Anti-Xa therapeutic range of 0.3-0.7 units/ml). PLEASE REFERENCE THE PHARMACY PROTOCOL FOR DOSING. Performed By: #### P RO, APTT, FIB ####[place] [address] Heparin dose (APTT) None Normal [facility] ([place] Comment on above: Performed By: #### P RO, APTT, FIB ####[place] [address] aPTT Coag (Bld) [Time] 20.9 s Low 25.0-35.0 [facility] ([place] Comment on above: Result Comment: For Heparin anticoagulation therapy, the recommended therapeutic range is: 54-77 seconds (APTT Correlation with Anti-Xa therapeutic range of 0.3-0.7 units/ml). PLEASE REFERENCE THE PHARMACY PROTOCOL FOR DOSING. Performed By: #### A PTT, FIB ####[place] [address] Heparin dose (APTT) Unknown Normal [facility] ([place] Comment on above: Performed By: #### A PTT, FIB ####[place] [address] Heparin dose (APTT) Unknown Normal [facility] ([place] Comment on above: Performed By: #### F IB, APTT ####[place] [address] aPTT Coag (Bld) [Time] 21.3 s Low 25.0-35.0 [facility] ([place] Comment on above: Result Comment: For Heparin anticoagulation therapy, the recommended therapeutic range is: 54-77 seconds (APTT Correlation with Anti-Xa therapeutic range of 0.3-0.7 units/ml). PLEASE REFERENCE THE PHARMACY PROTOCOL FOR DOSING. Performed By: #### F IB, APTT ####[place] [address] BGon 05-26-2022 Barometric Pressure 741 mmHg Normal [facility] ([place] Comment on above: Performed By: #### B G ####[place] [address] Base excess Calc (Bld) [Moles/Vol] -1.5000 mmol/L Normal [facility] ([place] Comment on above: Performed By: #### B G ####[place] [address] CO2 [Moles/Vol] 24.0 mmol/L Normal 22.0-30.0 [facility] ([place] Comment on above: Performed By: #### B G ####[place] [address] HCO3 (Bld) [Moles/Vol] 22.8 mmol/L Normal 21.0-29.0 A [facility] ([place]) Comment on above: Performed By: #### B G ####[place] [address] Oxygen (Bld) [Partial pressure] 65.5 mm[Hg] Low 74.0-108.0 [facility] ([place] Comment on above: Performed By: #### B G ####[address] [address] Oxygen saturation in Blood 93.1 % Normal 92.0-96.0 [facility] ([place] Comment on above: Performed By: #### B G ####[address] [address] pCO2 37.4 mmHg Normal 32.0-46.0 [facility] ([place] Comment on above: Performed By: #### B G ####[address] [address] pH (Bld) 7.403 [pH] Normal 7.380-7.460 [facility] ([place] Comment on above: Performed By: #### B G ####[address] [address] Barometric Pressure 711 mmHg Normal [facility] ([place] Comment on above: Performed By: #### Migue G ####[address] [address] Base excess Calc (Bld) [Moles/Vol] -3.4000 mmol/L Normal [facility] ([place] Comment on above: Performed By: #### B G ####[address] [address] CO2 [Moles/Vol] 22.8 mmol/L Normal 22.0-30.0 [facility] ([place] Comment on above: Performed By: #### B G ####[address] [address] HCO3 (Bld) [Moles/Vol] 21.6 mmol/L Normal 21.0-29.0 A [facility] ([place] Comment on above: Performed By: #### B G ####[address] [address] Oxygen (Bld) [Partial pressure] 63.2 mm[Hg] Low 74.0-108.0 [facility] ([place] Comment on above: Performed By: #### B G ####[address] [address] Oxygen saturation in Blood 91.2 % Low 92.0-96.0 [facility] ([place] Comment on above: Performed By: #### B G ####[place] [address] pCO2 38.1 mmHg Normal 32.0-46.0 [facility] ([place] Comment on above: Performed By: #### B G ####[place] [address] pH (Bld) 7.371 [pH] Low 7.380-7.460 [facility] ([place] Comment on above: Performed By: #### B G ####[place] [address] CBCon 05-26-2022 Erythrocyte distribution width (RBC) [Ratio] 15.2 % Normal 11.5-15.5 [facility] ([place] Comment on above: Performed By: #### G JEANNINE PONCE, CMP ####[place] [address] Hematocrit (Bld) [Volume fraction] 21.4 % Low 34.0-46.0 [facility] ([place] Comment on above: Performed By: #### G JEANNINE PONCE, CMP ####[place] [address] Hgb 7.4 G/dL Low 12.0-16.0 [facility] ([place] Comment on above: Performed By: #### G JEANNINE PONCE, CMP ####[place] [address] MCH (RBC) [Entitic mass] 30.5 pg Normal 27.0-33.0 [facility] ([place] Comment on above: Performed By: #### JEANNINE MENDEZ, CMP ####[place] [address] MCHC 34.5 G/dL Normal 32.0-36.0 [facility] ([place] Comment on above: Performed By: #### G FRJEANNINE, CMP ####[place] [address] MCV (RBC) [Entitic vol] 88.3 fL Normal 80.0-99.0 [facility] ([place] Comment on above: Performed By: #### JEANNINE MENDEZ, CMP ####[address] [address] Platelet 141 10 3/mcL Low 150-450 [facility] ([place] Comment on above: Performed By: #### JEANNINE MENDEZ, CMP ####[address] [address] Platelet mean volume (Bld) [Entitic vol] 8.4 fL Normal 6.6-10.5 [facility] ([place] Comment on above: Performed By: #### JEANNINE MENDEZ, CMP ####[address] [address] RBC 2.42 10 6/mcL Low 4.10-5.30 [facility] ([place] Comment on above: Performed By: #### JEANNINE MENDEZ, CMP ####[address] [address] WBC 12.7 10 3/mcL High 4.5-10.8 [facility] ([place] Comment on above: Performed By: #### JEANNINE MENDEZ, CMP ####[place] [address] CMPon 05-26-2022 Albumin Level 2.1 G/dL Low 3.2-4.8 [facility] ([place] Comment on above: Performed By: #### JEANNINE MENDEZ, CMP ####[address] [address] Albumin/Globulin [Mass ratio] 0.7 {ratio} Low 0.9-1.6 [facility] ([place] Comment on above: Performed By: #### JEANNINE MENDEZ, CMP ####[address] [address] ALP [Catalytic activity/Vol] 47 U/L Normal 38-126 [facility] ([place] Comment on above: Performed By: #### JEANNINE MENDEZ, CMP ####[address] [address] ALT [Catalytic activity/Vol] 51 U/L High 10-49 [facility] ([place] Comment on above: Performed By: #### JEANNINE MENDEZ, CMP ####[place] [address] AST [Catalytic activity/Vol] 27 U/L Normal 8-34 [facility] ([place] Comment on above: Performed By: #### JEANNINE MENDEZ, CMP ####[place] [address] Bili Total 0.40 mg/dL Normal 0.20-1.20 [facility] ([place]) Comment on above: Result Comment: Use of this assay is not recommended for patients undergoing treatment with eltrombopag due to the potential for falsely elevated results. Performed By: #### JEANNINE MENDEZ, CMP ####[place] [address] BUN/Creatinine Ratio 13.5 ratio Normal 10.0-22.0 [facility] ([place] Comment on above: Performed By: #### JEANNINE MENDEZ, CMP ####[place] [address] Calcium [Mass/Vol] 8.1 mg/dL Low 8.7-10.4 [facility] ([place]) Comment on above: Performed By: #### JEANNINE MENDEZ, CMP ####[place] [address] Chloride [Moles/Vol] 110 mmol/L Normal 98-110 [facility] ([place] Comment on above: Performed By: #### JEANNINE MENDEZ, CMP ####[place] [address] CO2 [Moles/Vol] 24 mmol/L Normal 22-32 [facility] ([place] Comment on above: Performed By: #### JEANNINE MENDEZ, CMP ####[place] [id number] Creatinine [Mass/Vol] 0.74 mg/dL Normal 0.50-1.20 [facility] ([place] Comment on above: Performed By: #### JEANNINE MENDEZ, CMP ####[place] [address] Electrolyte Balance 5.0 mEq/L Normal 4.0-15.0 [facility] ([place] Comment on above: Performed By: #### JEANNINE MENDEZ, CMP ####[address] [address] Globulin 2.9 G/dL Normal 1.5-3.8 [facility] ([place] Comment on above: Performed By: #### JEANNINE MENDEZ, CMP ####[place] [address] Glucose [Mass/Vol] 141 mg/dL High 70-110 [facility] ([place] Comment on above: Performed By: #### JEANNINE MENDEZ, CMP ####[place] [address] Potassium [Moles/Vol] 4.0 mmol/L Normal 3.5-5.0 [facility] ([place] Comment on above: Performed By: #### JEANNINE MENDEZ, CMP ####[place] [address] Sodium [Moles/Vol] 139 mmol/L Normal 136-145 [facility] ([place]) Comment on above: Performed By: #### JEANNINE MENDEZ, CMP ####[place] [address] Total Protein 5.0 G/dL Low 5.7-8.2 [facility] ([place]) Comment on above: Result Comment: No te - New Reference Range in effect 20 Performed By: #### JEANNINE MENDEZ, CMP ####[place] [id number] Urea nitrogen [Mass/Vol] 10.0 mg/dL Normal 8.0-22.0 [facility] ([place] Comment on above: Performed By: #### JEANNINE MENDEZ, CMP ####[address] [address] FIBon 05-26-2022 Fibrinogen 687 mg/dL High 250-560 [facility] ([place] Comment on above: Performed By: #### P RO, APTT, FIB ####[address] [address] Fibrinogen 667 mg/dL High 250-560 [facility] ([place] Comment on above: Performed By: #### A PTT, FIB ####[address] [address] Fibrinogen 605 mg/dL High 250-560 [facility] ([place] Comment on above: Performed By: #### F IB, APTT ####[address] [address] Hon 05-26-2022 Mat. Hemorrhage Negative Normal [facility] ([place] Comment on above: Performed By: #### F MH ####[place] [address] Final Surgical Pathology Rep [facility] 05-26-2022 Final Surgical Pathology Report . Pathology Reports Accession: Collected Date/Time: Received Date/Time: Pathologist: [id number] 05/25/2022 05:54 EDT 05/25/2022 07:39 EDT DEAN DRAPER MD Final Surgical Pathology Report DIAGNOSIS: UTERUS WITH PLACENTA, SUPRACERVICAL HYSTERECTOMY (670GRAMS) - PLACENTA INCRETA , LOWER UTERINE SEGMENT IMPLANTATION (SEE COMMENT). PLACENTAL FEATURES: UMBILICAL CORD: TRIVASCULAR. MEMBRANES: NO EVIDENCE OF CHORIOAMNIONITIS. PLACENTAL VILLI: THIRD TRIMESTER VILLOUS MATURATION; LARGE INTERVILLOUS THROMBUS; NO EVIDENCE OF VILLITIS OR VILLOUS EDEMA. UTERINE ENDOMETRIUM - GESTATIONAL/DECIDUALI ZED. Comment: Multiple sections from the lower uterine segment show placental villi nearly totally replacing the myometrial smooth muscle, with only a thin layer of decidual tissue and fibroconnective tissue the villous tissue from the external surface. CLINICAL INFORMATION: Procedure: EXPLORATORY LAPAROTOMY, SECTION, SUPRACERVICAL HYSTERECTOMY, CYSTOSCOPY, POSSIBLE HYSTERECTOMY Preoperative diagnosis: BLEEDING Postoperative diagnosis: BLEEDING SPECIMEN: A UTERUS WITH PLACENTA GROSS DESCRIPTION: A. Received in formalin, labeled with the patients name, Case #[id number], and uterus with placenta" is a supracervical uterus containing placenta Weight/dimensions-670 g and measures 16 x 9.5 x 7 cm [id number], smooth with multiple sutures and a defect located in the fundus Endometrium-is a endometrial cavity measuring 15 x 8 cm, the entire cavity is filled with adherent placenta. The extraplacental membrane is scant, li-pink, opaque. The portion of umbilical cord appears three-vessel measuring 5.5 cm in length with a diameter of 1 cm. Myometrium-sectioning reveals the placenta measuring up to 4 cm in thickness and many areas located 0.1 cm from the outer serosal surface. The placental tissue pushes towards the serosa but does not grossly penetrate through the serosa. The placenta centrally is remarkable for a yellow rubbery lesion measuring 1.5 x 1.5 x 1.5 cm and 2 hemorrhagic areas within the placenta ranging from 1 to 1.5 cm. The myometrium ranges from 0.2 up to 2.5 cm in thickness. The myometrium has no identified masses or nodules. RS-8 Cassette Summary: A1-extraplacental membranes and umbilical cord A2-A5 -placenta with closest serosal surface interface (A3 -A4- placenta with hemorrhagic lesion and closest serosa) A6 -yellow rubbery placenta lesion A7 -A8-endomyometrium Dictated by ASHLEE ROCK MICROSCOPIC DESCRIPTION: Slides reviewed. Pathology Reports Accession: Collected Date/Time: Received Date/Time: Pathologist: [id number] 05/25/2022 05:54 EDT 05/25/2022 07:39 EDT DEAN DRAPER MD Electronically Signed by Pathology Report verified by [facility] Electronically signed by DEAN DRAPER Sign out Date: 05/26/2022 17:10 Performing Lab: [facility], [address] [place] [address] Normal [facility] ([place]) [facility] 05-26-2022 Hematocrit (Bld) [Volume fraction] 23.1 % Low 34.0-46.0 [facility] [place] Hgb 7.6 G/dL Low 12.0-16.0 [facility] ([place]) Hematocrit (Bld) [Volume fraction] 22.4 % Low 34.0-46.0 [facility] ([place]) Comment on above: Performed By: #### A PTTBRANDON ####[place] [address] Hgb 7.7 G/dL Low 12.0-16.0 [facility] ([place]) Comment on above: Performed By: #### A PTT, FIB ####[place] [id number] [place] [address] Hematocrit (Bld) [Volume fraction] 22.0 % Low 34.0-46.0 [facility] ([place]) Comment on above: Performed By: #### F IB, APTT ####[facility] [place] [address] Hgb 7.3 G/dL Low 12.0-16.0 [facility] ([place]) Comment on above: Performed By: #### F IB, APTT ####[place] [address] [place] [address] LABORATORYOrdered By: Brett Larson on 05-26-2022 Blood Glucose Interventions Administered food/juice (05/26/22 11:46 PM) [facility] LABORATORYOrdered By: Shayla Culp on 05-26-2022 RBC Product Ready RBC Ready for Pickup (05/26/22 3:34 PM) Invalid Interpretation Code AH BB Manual SS LABORATORYOrdered By: Riaz Gale on 05-26-2022 aPTT Coag (PPP) [Time] 21.7 s Invalid Interpretation Code 25.0 - 35.0 seconds AH Auto Coag SS Fibrinogen Coag (PPP) [Mass/Vol] 687 mg/dL Invalid Interpretation Code 250 - 560 mg/dL AH Auto Coag SS Heparin dose (APTT) None Invalid Interpretation Code AH Auto Coag SS INR Coag (PPP) [Relative time] 0.9 {INR} Invalid Interpretation Code AH Auto Coag SS PT Coag (PPP) [Time] 10.9 s Invalid Interpretation Code 9.0 - 14.9 seconds AH Auto Coag SS LABORATORYOrdered By: Dary Hadley on 05-26-2022 aPTT Coag (PPP) [Time] 20.9 s Invalid Interpretation Code 25.0 - 35.0 seconds AH Auto Coag SS Fibrinogen Coag (PPP) [Mass/Vol] 667 mg/dL Invalid Interpretation Code 250 - 560 mg/dL AH Auto Coag SS Heparin dose (APTT) Unknown (05/26/22 7:45 AM) Invalid Interpretation Code AH Auto Coag SS LABORATORYOrdered By: Guerita Pittman on 05-26-2022 Barometric Pressure 741 mm[Hg] Invalid Interpretation Code Auto Chem SS Base excess Calc (Bld) [Moles/Vol] -1.5000 mmol/L Invalid Interpretation Code AH Auto Chem SS CO2 (Bld) [Partial pressure] 37.4 mm[Hg] Invalid Interpretation Code 32.0 - 46.0 mm Hg AH Auto Chem SS CO2 [Moles/Vol] 24.0 mmol/L Invalid Interpretation Code 22.0 - 30.0 mmol/L AH Auto Chem SS HCO3 (Bld) [Moles/Vol] 22.8 mmol/L Invalid Interpretation Code 21.0 - 29.0 mmol/L AH Auto Chem SS Oxygen (Bld) [Partial pressure] 65.5 mm[Hg] Invalid Interpretation Code 74.0 - 108.0 mm Hg AH Auto Chem SS pH (Bld) 7.403 [pH] Invalid Interpretation Code 7.380 - 7.460 Auto Chem SS LABORATORYOrdered By: Bradley Partida on 05-26-2022 cell screen Kyleigh test Ql (Bld) Negative (05/26/22 5:21 AM) Invalid Interpretation Code BB Manual SS RBC Product Ready RBC Ready for Pickup (05/26/22 2:40 AM) Invalid Interpretation Code BB Manual SS LABORATORYOrdered By: Elinor Reeves on 05-26-2022 Barometric Pressure 711 mm[Hg] Invalid Interpretation Code Auto Chem SS Base excess Calc (Bld) [Moles/Vol] -3.4000 mmol/L Invalid Interpretation Code Auto Chem SS CO2 (Bld) [Partial pressure] 38.1 mm[Hg] Invalid Interpretation Code 32.0 - 46.0 mm Hg AH Auto Chem SS CO2 [Moles/Vol] 22.8 mmol/L Invalid Interpretation Code 22.0 - 30.0 mmol/L AH Auto Chem SS HCO3 (Bld) [Moles/Vol] 21.6 mmol/L Invalid Interpretation Code 21.0 - 29.0 mmol/L AH Auto Chem SS Oxygen (Bld) [Partial pressure] 63.2 mm[Hg] Invalid Interpretation Code 74.0 - 108.0 mm Hg AH Auto Chem SS pH (Bld) 7.371 [pH] Invalid Interpretation Code 7.380 - 7.460 AH Auto Chem SS LDHon 05-26-2022 LDH 204 U/L Normal 120-246 [facility] ([place]) Comment on above: Performed By: #### G FR, LD, CMP ####[address] [address] PLTon 05-26-2022 Platelet 144 10 3/mcL Low 150-450 [facility] ([place]) Comment on above: Performed By: #### A PTT, FIB ####[place] [address] Platelet 161 10 3/mcL Normal 150-450 [facility] ([place]) Comment on above: Performed By: #### F IB, APTT ####[address] [address] PROon 05-26-2022 INR Coag (PPP) [Relative time] 0.9 {INR} Normal [facility] ([place]) Comment on above: Result Comment: [employer] (CHEST, 1991, 102:312S-25S) recommended therapeutic range for oral anticoagulant therapy is: LOW RISK: Prophylaxis of venous thrombosis INR: 2.0-3.0 Treatment of pulmonary embolism 2.0-3.0 Prevention of systemic embolism 2.0-3.0 HIGH RISK: Mechanical prosthetic valves 2.5-3.5 Performed By: #### P RO, APTT, FIB ####[address] [address] PT Coag (PPP) [Time] 10.9 s Normal 9.0-14.9 [facility] ([place]) Comment on above: Result Comment: Effe ctive 06/11/08, Protime results may be affected by some antibiotics (i.e. Ciprofloxacin, Azithromycin, Bactrim) which may potentiate the action of oral anticoagulants, with further increases in Protime/INR. Performed By: #### P RO, APTT, FIB ####[address] [address] INR Coag (PPP) [Relative time] 0.9 {INR} Normal [facility] ([place]) Comment on above: Result Comment: [employer] (CHEST, 1991, 102:312S-25S) recommended therapeutic range for oral anticoagulant therapy is: LOW RISK: Prophylaxis of venous thrombosis INR: 2.0-3.0 Treatment of pulmonary embolism 2.0-3.0 Prevention of systemic embolism 2.0-3.0 HIGH RISK: Mechanical prosthetic valves 2.5-3.5 Performed By: #### P RO ####[address] [address] PT Coag (PPP) [Time] 11.0 s Normal 9.0-14.9 [facility] ([place]) Comment on above: Result Comment: Effe ctive 06/11/08, Protime results may be affected by some antibiotics (i.e. Ciprofloxacin, Azithromycin, Bactrim) which may potentiate the action of oral anticoagulants, with further increases in Protime/INR. Performed By: #### P RO ####[place] [address] INR Coag (PPP) [Relative time] 1.0 {INR} Normal [facility] ([place]) Comment on above: Result Comment: [employer] (CHEST, 1991, 102:312S-25S) recommended therapeutic range for oral anticoagulant therapy is: LOW RISK: Prophylaxis of venous thrombosis INR: 2.0-3.0 Treatment of pulmonary embolism 2.0-3.0 Prevention of systemic embolism 2.0-3.0 HIGH RISK: Mechanical prosthetic valves 2.5-3.5 Performed By: #### R BCP #### [address] [address] PT Coag (PPP) [Time] 11.3 s Normal 9.0-14.9 [facility] ([place]) Comment on above: Result Comment: Effe ctive 06/11/08, Protime results may be affected by some antibiotics (i.e. Ciprofloxacin, Azithromycin, Bactrim) which may potentiate the action of oral anticoagulants, with further increases in Protime/INR. Performed By: #### R BCP #### [address] [address] PROOrdered By: Dary Mueller on on 05-26-2022 INR Coag (PPP) [Relative time] 1.0 {INR} Normal AH Auto Coag SS Comment on above: Result Comment: [employer] (CHEST, 1992, 102:312S-25S) recommended therapeutic range for oral anticoagulant therapy is: LOW RISK: Prophylaxis of venous thrombosis INR: 2.0-3.0 Treatment of pulmonary embolism 2.0-3.0 Prevention of systemic embolism 2.0-3.0 HIGH RISK: Mechanical prosthetic valves 2.5-3.5 Performed By: #### P RO ####[place] [address] PT Coag (PPP) [Time] 11.3 s Normal 9.0-14.9 AH A uto Coag SS Comment on above: Result Comment: Effe ctive 06/11/08, Protime results may be affected by some antibiotics (i.e. Ciprofloxacin, Azithromycin, Bactrim) which may potentiate the action of oral anticoagulants, with further increases in Protime/INR. Performed By: #### P RO ####[place] [address] RBC (Product)on 05-26-2022 RBC Product Ready RBC Ready for Pickup [facility]) Comment on above: Performed By: #### R BCP ####[place] [address] RBC Product Ready RBC Ready for Pickup [facility] ([place]) Comment on above: Performed By: #### R BCP ####[place] [address] US SOFT TISSUE Soraida 2021 US SOFT TISSUE MASS ORIGINAL EXAMINATION: SOFT TISSUE ULTRASOUND05/26/2022 3:40 pm COMPARISON: None HISTORY: ORDERING SYSTEM PROVIDED HISTORY: Reason for Exam: Post-op incisional drainage/bleeding FINDINGS: Scanning of the soft tissues around the midline incision shows no discrete fluid collection. There is minimal fluid underneath the incision. Some shadowing is present from the jacinto. IMPRESSION: There is no drainable fluid collection at the site of the incision. Interpreted by: Pro Sheridan MD Preliminary Report By: Pro Sheridan MD Electronically signed By Pro Sheridan MD Dictated Date: 05/26/2022 4:22:33 PM Prelim Date: 05/26/2022 4:23:41 PM Sign Date: 05/26/2022 4:23:41 PM Ordering Provider: SHAWNA NAVA Normal [facility] ([place]) .Auto Diffon 05-25-2022 Basophil, Absolute 0.0 10 3/mcL Normal 0.0-0.3 [facility] ([place]) Comment on above: Performed By: #### G FR, CMP, LAC, LD ####[address] [address] Basophils/100 WBC (Bld) 0.1 % Normal 0.0-2.5 [facility] ([place]) Comment on above: Performed By: #### G FR, CMP, LAC, LD ####[address] [address] Eosinophil, Absolute 0.0 10 3/mcL Normal 0.0-0.7 [facility] ([place]) Comment on above: Performed By: #### G FR, CMP, LAC, LD ####[address] [address] Eosinophils/100 WBC (Bld) 0.0 % Normal 0.0-6.0 [facility] ([place]) Comment on above: Performed By: #### G FR, CMP, LAC, LD ####[address] [address] Lymphocyte, Absolute 2.4 10 3/mcL Normal 0.9-4.3 [facility] ([place]) Comment on above: Performed By: #### G FR, CMP, LAC, LD ####[address] [address] Lymphocytes/100 WBC (Bld) 6.1 % Low 20.0-40.0 [facility] ([place]) Comment on above: Performed By: #### G FR, CMP, LAC, LD ####[address] [address] Monocyte, Absolute 1.8 10 3/mcL High 0.1-1.4 [facility] ([place]) Comment on above: Performed By: #### G FR, CMP, LAC, LD ####[address] [address] Monocytes/100 WBC (Bld) 4.4 % Normal 2.0-13.0 [facility] ([place]) Comment on above: Performed By: #### G FR, CMP, LAC, LD ####[place] [address] [place] [address] Neutrophils/100 WBC (Bld) 89.4 % High 50.0-75.0 [facility] ([place] Comment on above: Performed By: #### G FR, CMP, LAC, LD ####[address] [address] .GFRon 05-25-2022 GFR >60 Normal [facility] ([place]) Comment on above: Result Comment: GFR Population mean for , Non- Americans Ages 20-29 = 116 mL/min/1.73 sq.m. Ages 30-39 = 107 mL/min/1.73 sq.m. Ages 40-49 = 99 mL/min/1.73 sq.m. Ages 50-59 = 93 mL/min/1.73 sq.m. Ages 60-69 = 85 mL/min/1.73 sq.m. Ages 70+ = 75 mL/min/1.73 sq.m. Chronic Kidney Disease: Less than 60 mL/min/1.73 square meters End Stage Renal Disease: Less than 15 mL/min/1.73 square meters Performed By: #### A PTT, FIB, RFP, GFR ####[address] [address] GFR Non- >60 Normal [facility] ([place]) Comment on above: Result Comment: GFR Population mean for , Non- Americans Ages 20-29 = 116 mL/min/1.73 sq.m. Ages 30-39 = 107 mL/min/1.73 sq.m. Ages 40-49 = 99 mL/min/1.73 sq.m. Ages 50-59 = 93 mL/min/1.73 sq.m. Ages 60-69 = 85 mL/min/1.73 sq.m. Ages 70+ = 75 mL/min/1.73 sq.m. Chronic Kidney Disease: Less than 60 mL/min/1.73 square meters End Stage Renal Disease: Less than 15 mL/min/1.73 square meters Performed By: #### A PTT, FIB, RFP, GFR ####[place] [address] [place] [address] GFR Non- >60 Normal [facility] ([place]) Comment on above: Result Comment: GFR Population mean for , Non- Americans Ages 20-29 = 116 mL/min/1.73 sq.m. Ages 30-39 = 107 mL/min/1.73 sq.m. Ages 40-49 = 99 mL/min/1.73 sq.m. Ages 50-59 = 93 mL/min/1.73 sq.m. Ages 60-69 = 85 mL/min/1.73 sq.m. Ages 70+ = 75 mL/min/1.73 sq.m. Chronic Kidney Disease: Less than 60 mL/min/1.73 square meters End Stage Renal Disease: Less than 15 mL/min/1.73 square meters Performed By: #### G FR, CMP, LAC, LD ####[address] [address] GFR >60 Normal [facility] ([place]) Comment on above: Result Comment: GFR Population mean for , Non- Americans Ages 20-29 = 116 mL/min/1.73 sq.m. Ages 30-39 = 107 mL/min/1.73 sq.m. Ages 40-49 = 99 mL/min/1.73 sq.m. Ages 50-59 = 93 mL/min/1.73 sq.m. Ages 60-69 = 85 mL/min/1.73 sq.m. Ages 70+ = 75 mL/min/1.73 sq.m. Chronic Kidney Disease: Less than 60 mL/min/1.73 square meters End Stage Renal Disease: Less than 15 mL/min/1.73 square meters Performed By: #### G FR, CMP, LAC, LD ####[place] [address] [place] [address] GFR >60 Normal [facility] ([place]) Comment on above: Result Comment: GFR Population mean for , Non- Americans Ages 20-29 = 116 mL/min/1.73 sq.m. Ages 30-39 = 107 mL/min/1.73 sq.m. Ages 40-49 = 99 mL/min/1.73 sq.m. Ages 50-59 = 93 mL/min/1.73 sq.m. Ages 60-69 = 85 mL/min/1.73 sq.m. Ages 70+ = 75 mL/min/1.73 sq.m. Chronic Kidney Disease: Less than 60 mL/min/1.73 square meters End Stage Renal Disease: Less than 15 mL/min/1.73 square meters Performed By: #### R BCP #### [place] [address] GFR Non- >60 Normal [facility] ([place]) Comment on above: Result Comment: GFR Population mean for , Non- Americans Ages 20-29 = 116 mL/min/1.73 sq.m. Ages 30-39 = 107 mL/min/1.73 sq.m. Ages 40-49 = 99 mL/min/1.73 sq.m. Ages 50-59 = 93 mL/min/1.73 sq.m. Ages 60-69 = 85 mL/min/1.73 sq.m. Ages 70+ = 75 mL/min/1.73 sq.m. Chronic Kidney Disease: Less than 60 mL/min/1.73 square meters End Stage Renal Disease: Less than 15 mL/min/1.73 square meters Performed By: #### R BCP #### [place] [address] .MDWon 05-25-2022 Monocyte Distribution Width Not performed Normal 0.00-20.00 [facility] ([place]) Comment on above: Result Comment: MDW testing performed only on adult ER patients between the ages of 18-89 years. Performed By: #### G FR, CMP, LAC, LD ####[place] [address] Monocyte Distribution Width Not performed Normal 0.00-20.00 [facility] ([place]) Comment on above: Result Comment: MDW testing performed only on adult ER patients between the ages of 18-89 years. .Manual Diffon 05-25-2022 Bands 1.0 % Normal 0.0-5.0 [facility] ([place]) Basophil %, Manual 1.0 % Normal 0.0-2.5 [facility] ([place]) Basophil, Abs Manual 0.4 10 3/mcL High 0.0-0.3 [facility] ([place]) Eosinophil %, Manual 0.0 % Normal 0.0-6.0 [facility] ([place]) Eosinophil, Abs Manual 0.0 10 3/mcL Normal 0.0-0.7 [facility] ([place]) Lymphocyte %, Manual 8.0 % Low 20.0-40.0 [facility] ([place]) Lymphocyte, Abs Manual 3.0 10 3/mcL Normal 0.9-4.3 [facility] ([place]) Monocyte %, Manual 1.0 % Low 2.0-13.0 [facility] ([place]) Monocyte, Abs Manual 0.4 10 3/mcL Normal 0.1-1.4 [facility] ([place]) Neutrophil %, Manual 89.0 % High 50.0-75.0 [facility] ([place]) Neutrophil, Abs Manual 33.9 10 3/mcL High 2.3-8.1 [facility] ([place]) Nucleated RBC 0.0 /100 WBC Normal [facility] ([place]) .Morphon 05-25-2022 Anisocytosis Ql (Bld) 1+ Normal l [facility] ([place]) Comment on above: Performed By: #### G FR, CMP, LAC, LD ####[address] [address] Dohle Bodies 1+ Normal [facility] ([place] Comment on above: Performed By: #### G FR, CMP, LAC, LD ####[place] [address] Ovalocytes 1+ Normal [facility] ([place] Comment on above: Performed By: #### G FR, CMP, LAC, LD ####[place] [address] [place] [address] Platelet Estimate Normal Normal [facility] ([place] Comment on above: Performed By: #### G FR, CMP, LAC, LD ####[place] [address] Poik 1+ Normal [facility] ([place] Comment on above: Performed By: #### G FR, CMP, LAC, LD ####[address] [address] Polychrom 1+ Normal [facility] ([place] Comment on above: Performed By: #### G FR, CMP, LAC, LD ####[place] [id number] Toxic Gran 1+ Normal [facility] ([place] Comment on above: Performed By: #### G FR, CMP, LAC, LD ####[place] [id number] Anisocytosis Ql (Bld) 1+ Normal [facility] ([place]) Platelet Estimate Normal Normal [facility] ([place]) .NEUABSon 05-25-2022 Neutrophil, Absolute 35.8 10 3/mcL High 2.3-8.1 A [facility] ([place]) Comment on above: Performed By: #### G FR, CMP, LAC, LD ####[place] [address] APTTon 05-25-2022 aPTT Coag (Bld) [Time] 22.1 s Low 25.0-35.0 [facility] ([place]) Comment on above: Result Comment: For Heparin anticoagulation therapy, the recommended therapeutic range is: 54-77 seconds (APTT Correlation with Anti-Xa therapeutic range of 0.3-0.7 units/ml). PLEASE REFERENCE THE PHARMACY PROTOCOL FOR DOSING. Performed By: #### A PTT, FIB, RFP, GFR ####[place] [address] Heparin dose (APTT) Unknown Normal [facility] ([place]) Comment on above: Performed By: #### A PTT, FIB, RFP, GFR ####[place] [address] aPTT Coag (Bld) [Time] 20.3 s Low 25.0-35.0 [facility] ([place] Comment on above: Result Comment: For Heparin anticoagulation therapy, the recommended therapeutic range is: 54-77 seconds (APTT Correlation with Anti-Xa therapeutic range of 0.3-0.7 units/ml). PLEASE REFERENCE THE PHARMACY PROTOCOL FOR DOSING. Performed By: #### A PTT, FIB, PRO ####[place] [address] Heparin dose (APTT) Unknown Normal [facility] ([place] Comment on above: Performed By: #### A PTT, FIB, PRO ####[place] [id number] aPTT Coag (Bld) [Time] 20.0 s Low 25.0-35.0 [facility] ([place]) Comment on above: Result Comment: resu lts from redraw For Heparin anticoagulation therapy, the recommended therapeutic range is: 54-77 seconds (APTT Correlation with Anti-Xa therapeutic range of 0.3-0.7 units/ml). PLEASE REFERENCE THE PHARMACY PROTOCOL FOR DOSING. Performed By: #### F IB, PRO, APTT ####[place] [address] Heparin dose (APTT) Unknown Normal [facility] ([place] Comment on above: Performed By: #### F IB, PRO, APTT ####[place] [address] aPTT Coag (Bld) [Time] 24.0 s Low 25.0-35.0 [facility] ([place] Comment on above: Result Comment: For Heparin anticoagulation therapy, the recommended therapeutic range is: 54-77 seconds (APTT Correlation with Anti-Xa therapeutic range of 0.3-0.7 units/ml). PLEASE REFERENCE THE PHARMACY PROTOCOL FOR DOSING. Performed By: #### A PTT, FIB, PRO ####[place] [address] Heparin dose (APTT) None Normal [facility] ([place] Comment on above: Performed By: #### A PTT, FIB, PRO ####[place] [address] BGon 05-25-2022 Barometric Pressure 742 mmHg Normal [facility] ([place]) Comment on above: Performed By: #### B G ####[place] [address] Base excess Calc (Bld) [Moles/Vol] -4.6000 mmol/L Normal [facility] ([place] Comment on above: Performed By: #### B G ####[address] [address] CO2 [Moles/Vol] 20.3 mmol/L Low 22.0-30.0 [facility] ([place] Comment on above: Performed By: #### B G ####[place] [id number] HCO3 (Bld) [Moles/Vol] 19.3 mmol/L Low 21.0-29.0 A [facility] ([place]) Comment on above: Performed By: #### B G ####[place] [id number] Oxygen (Bld) [Partial pressure] 108.5 mm[Hg] High 74.0-108.0 [facility] ([place] Comment on above: Performed By: #### B G ####[place] [address] Oxygen saturation in Blood 98.0 % High 92.0-96.0 [facility] ([place] Comment on above: Performed By: #### B G ####[place] [address] pCO2 32.6 mmHg Normal 32.0-46.0 [facility] ([place] Comment on above: Performed By: #### B G ####[place] [id number] pH (Bld) 7.390 [pH] Normal 7.380-7.460 [facility] ([place] Comment on above: Performed By: #### B G ####[place] [address] Barometric Pressure 742 mmHg Normal [facility] ([place] Comment on above: Performed By: #### B G ####[place] [id number] Base excess Calc (Bld) [Moles/Vol] -9.2000 mmol/L Normal [facility] ([place] Comment on above: Performed By: #### B G ####[address] [address] CO2 [Moles/Vol] 18.0 mmol/L Low 22.0-30.0 [facility] ([place] Comment on above: Performed By: #### B G ####[address] [address] HCO3 (Bld) [Moles/Vol] 16.9 mmol/L Low 21.0-29.0 A [facility] ([place]) Comment on above: Performed By: #### B G ####[address] [address] Oxygen (Bld) [Partial pressure] 171.0 mm[Hg] High 74.0-108.0 [facility] ([place] Comment on above: Performed By: #### B G ####[place] [id number] Oxygen saturation in Blood 99.0 % High 92.0-96.0 [facility] ([place] Comment on above: Performed By: #### B G ####[address] [address] pCO2 37.2 mmHg Normal 32.0-46.0 [facility] ([place] Comment on above: Performed By: #### B G ####[address] [address] pH (Bld) 7.274 [pH] Low 7.380-7.460 [facility] ([place] Comment on above: Performed By: #### B G ####[address] [address] Barometric Pressure 714 mmHg Normal [facility] ([place] Comment on above: Performed By: #### K OR, NAOR, HCTOR, HGBOR, BGOH, CAOR, GLUOR, BG ####[address] [address] Base excess Calc (Bld) [Moles/Vol] -9.5000 mmol/L Normal [facility] ([place] Comment on above: Performed By: #### K OR, NAOR, HCTOR, HGBOR, BGOH, CAOR, GLUOR, BG ####[place] [address] CO2 [Moles/Vol] 19.7 mmol/L Low 22.0-30.0 [facility] ([place] Comment on above: Performed By: #### K OR, NAOR, HCTOR, HGBOR, BGOH, CAOR, GLUOR, BG ####[place] [id number] HCO3 (Bld) [Moles/Vol] 18.2 mmol/L Low 21.0-29.0 A [facility] ([place]) Comment on above: Performed By: #### K OR, NAOR, HCTOR, HGBOR, BGOH, CAOR, GLUOR, BG ####[place] [address] Oxygen (Bld) [Partial pressure] 317.1 mm[Hg] High 74.0-108.0 [facility] ([place] Comment on above: Performed By: #### K OR, NAOR, HCTOR, HGBOR, BGOH, CAOR, GLUOR, BG ####[place] [address] Oxygen saturation in Blood 99.6 % High 92.0-96.0 [facility] ([place] Comment on above: Performed By: #### K OR, NAOR, HCTOR, HGBOR, BGOH, CAOR, GLUOR, BG ####[place] [address] pCO2 48.2 mmHg High 32.0-46.0 [facility] ([place] Comment on above: Performed By: #### K OR, NAOR, HCTOR, HGBOR, BGOH, CAOR, GLUOR, BG ####[place] [address] pH (Bld) 7.195 [pH] Critically abnormal 7.380-7.460 [facility] ([place] Comment on above: Performed By: #### K OR, NAOR, HCTOR, HGBOR, BGOH, CAOR, GLUOR, BG ####[place] [address] Barometric Pressure 714 mmHg Normal [facility] ([place]) Comment on above: Performed By: #### C AOR, KOR, HGBOR, GLUOR, NAOR, BG, HCTOR, BGOH ####[address] [address] Base excess Calc (Bld) [Moles/Vol] -11.47819 mmol/L Normal [facility] ([place] Comment on above: Performed By: #### C AOR, KOR, HGBOR, GLUOR, NAOR, BG, HCTOR, BGOH ####[address] [address] CO2 [Moles/Vol] 19.0 mmol/L Low 22.0-30.0 [facility] ([place] Comment on above: Performed By: #### C AOR, KOR, HGBOR, GLUOR, NAOR, BG, HCTOR, BGOH ####[address] [address] HCO3 (Bld) [Moles/Vol] 17.3 mmol/L Low 21.0-29.0 A [facility] ([place]) Comment on above: Performed By: #### C AOR, KOR, HGBOR, GLUOR, NAOR, BG, HCTOR, BGOH ####[address] [address] Oxygen (Bld) [Partial pressure] 262.7 mm[Hg] High 74.0-108.0 [facility] ([place] Comment on above: Performed By: #### C AOR, KOR, HGBOR, GLUOR, NAOR, BG, HCTOR, BGOH ####[address] [address] Oxygen saturation in Blood 99.6 % High 92.0-96.0 [facility] ([place] Comment on above: Performed By: #### C AOR, KOR, HGBOR, GLUOR, NAOR, BG, HCTOR, BGOH ####[address] [address] pCO2 54.5 mmHg High 32.0-46.0 [facility] ([place]) Comment on above: Performed By: #### C AOR, KOR, HGBOR, GLUOR, NAOR, BG, HCTOR, BGOH ####[address] [address] pH (Bld) 7.120 [pH] Critically abnormal 7.380-7.460 [facility] ([place]) Comment on above: Performed By: #### C AOR, KOR, HGBOR, GLUOR, NAOR, BG, HCTOR, BGOH ####[address] [address] Barometric Pressure 711 mmHg Normal [facility] ([place]) Comment on above: Performed By: #### B G ####[address] [address] Base excess Calc (Bld) [Moles/Vol] -10.60328 mmol/L Normal [facility] ([place]) Comment on above: Performed By: #### B G ####[place] [id number] CO2 [Moles/Vol] 18.0 mmol/L Low 22.0-30.0 [facility] ([place]) Comment on above: Performed By: #### B G ####[place] [id number] HCO3 (Bld) [Moles/Vol] 16.6 mmol/L Low 21.0-29.0 A [facility] ([place]) Comment on above: Performed By: #### B G ####[address] [address] Oxygen (Bld) [Partial pressure] 165.9 mm[Hg] High 74.0-108.0 [facility] ([place] Comment on above: Performed By: #### B G ####[address] [address] Oxygen saturation in Blood 98.7 % High 92.0-96.0 [facility] ([place] Comment on above: Performed By: #### B G ####[address] [address] pCO2 45.8 mmHg Normal 32.0-46.0 [facility] ([place] Comment on above: Performed By: #### B G ####[address] [address] pH (Bld) 7.178 [pH] Critically abnormal 7.380-7.460 [facility] ([place] Comment on above: Performed By: #### Migue G ####[address] [address] Barometric Pressure 710 mmHg Normal [facility] ([place] Comment on above: Performed By: #### Migue G ####[address] [address] Base excess Calc (Bld) [Moles/Vol] -8.1000 mmol/L Normal [facility] ([place] Comment on above: Performed By: #### Migue G ####[address] [address] CO2 [Moles/Vol] 19.4 mmol/L Low 22.0-30.0 [facility] ([place] Comment on above: Performed By: #### Migue G ####[address] [address] HCO3 (Bld) [Moles/Vol] 18.2 mmol/L Low 21.0-29.0 A [facility] ([place]) Comment on above: Performed By: #### Migue G ####[address] [address] Oxygen (Bld) [Partial pressure] 308.5 mm[Hg] High 74.0-108.0 [facility] ([place] Comment on above: Performed By: #### Migue G ####[address] [address] Oxygen saturation in Blood 99.8 % High 92.0-96.0 [facility] ([place] Comment on above: Performed By: #### B G ####[place] 8[address]80 [address] [place] [address] pCO2 40.4 mmHg Normal 32.0-46.0 [facility] ([place] Comment on above: Performed By: #### Migue G ####[place] [address]75680 [address] [place] [address] pH (Bld) 7.271 [pH] Low 7.380-7.460 [facility] ([place] Comment on above: Performed By: #### B G ####[place] [address] BGOHon 05-25-2022 Patient Location OPEN [facility]ART [facility] ([place] Comment on above: Performed By: #### K OR, NAOR, HCTOR, HGBOR, BGOH, CAOR, GLUOR, BG ####[place] [address] Patient Location [facility] ([place] Comment on above: Performed By: #### C AOR, KOR, HGBOR, GLUOR, NAOR, BG, HCTOR, BGOH ####[place] [address] CAIONon 05-25-2022 Calcium Ionized 1.01 mmol/L Low 1.12-1.32 [facility] ([place] Comment on above: Performed By: #### C AION ####[place] [address] CAORon 05-25-2022 Calcium Ionized OR 1.10 mmol/L Low 1.12-1.32 [facility] ([place]) Comment on above: Performed By: #### K OR, NAOR, HCTOR, HGBOR, BGOH, CAOR, GLUOR, BG ####[place] [address] Calcium Ionized OR 1.01 mmol/L Low 1.12-1.32 [facility] ([place] Comment on above: Performed By: #### C AOR, KOR, HGBOR, GLUOR, NAOR, BG, HCTOR, BGOH ####[place] [address] CBCon 05-25-2022 Erythrocyte distribution width (RBC) [Ratio] 15.5 % Normal 11.5-15.5 [facility] ([place] Comment on above: Performed By: #### G FR, CMP, LAC, LD ####[place] [address] Hematocrit (Bld) [Volume fraction] 26.1 % Low 34.0-46.0 [facility] ([place] Comment on above: Performed By: #### G FR, CMP, LAC, LD ####[place] [address] Hgb 8.8 G/dL Low 12.0-16.0 [facility] ([place] Comment on above: Performed By: #### G FR, CMP, LAC, LD ####[place] [address] MCH (RBC) [Entitic mass] 29.3 pg Normal 27.0-33.0 [facility] ([place] Comment on above: Performed By: #### G , CMP, LAC, LD ####[place] [address] MCHC 33.9 G/dL Normal 32.0-36.0 [facility] ([place] Comment on above: Performed By: #### G FR, CMP, LAC, LD ####[place] [address] MCV (RBC) [Entitic vol] 86.4 fL Normal 80.0-99.0 [facility] ([place] Comment on above: Performed By: #### Krupa FR, CMP, LAC, LD ####[place] [address] Platelet 275 10 3/mcL Normal 150-450 [facility] ([place] Comment on above: Performed By: #### G FR, CMP, LAC, LD ####[place] [address] Platelet mean volume (Bld) [Entitic vol] 8.9 fL Normal 6.6-10.5 [facility] ([place] Comment on above: Performed By: #### G FR, CMP, LAC, LD ####[place] [address] RBC 3.02 10 6/mcL Low 4.10-5.30 [facility] ([place] Comment on above: Performed By: #### G FR, CMP, LAC, LD ####[place] [id number] [place] [address] WBC 40.1 10 3/mcL High 4.5-10.8 [facility] ([place] Comment on above: Performed By: #### G FR, CMP, LAC, LD ####[address] [address] Erythrocyte distribution width (RBC) [Ratio] 15.5 % Normal 11.5-15.5 [facility] ([place] Hematocrit (Bld) [Volume fraction] 18.8 % Low 34.0-46.0 [facility] ([place]) Hgb 6.1 G/dL Critically abnormal 12.0-16.0 [facility] [place] MCH (RBC) [Entitic mass] 29.1 pg Normal 27.0-33.0 [facility] ([place] MCHC 32.4 G/dL Normal 32.0-36.0 [facility] [place] MCV (RBC) [Entitic vol] 90.0 fL Normal 80.0-99.0 [facility] [place] Platelet 384 10 3/mcL Normal 150-450 [facility] [place] Platelet mean volume (Bld) [Entitic vol] 9.2 fL Normal 6.6-10.5 [facility] ([place] RBC 2.09 10 6/mcL Low 4.10-5.30 [facility] ([place] WBC 38.1 10 3/mcL High 4.5-10.8 [facility] ([place] CMPon 05-25-2022 Albumin Level 2.1 G/dL Low 3.2-4.8 [facility]) Comment on above: Performed By: #### G FR, CMP, LAC, LD ####[place] [address]80 [address] [place] [address] Albumin/Globulin [Mass ratio] 0.8 {ratio} Low 0.9-1.6 [facility] ([place] Comment on above: Performed By: #### G FR, CMP, LAC, LD ####[place] [address]80 [address] [place] [address] ALP [Catalytic activity/Vol] 54 U/L Normal 38-126 [facility] ([place] Comment on above: Performed By: #### G FR, CMP, LAC, LD ####[address] [address] ALT [Catalytic activity/Vol] 79 U/L High 10-49 [facility] ([place] Comment on above: Performed By: #### G FR, CMP, LAC, LD ####[address] [address] AST [Catalytic activity/Vol] 78 U/L High 8-34 [facility] ([place] Comment on above: Performed By: #### G FR, CMP, LAC, LD ####[address] [address] Bili Total 0.60 mg/dL Normal 0.20-1.20 [facility] ([place]) Comment on above: Result Comment: Use of this assay is not recommended for patients undergoing treatment with eltrombopag due to the potential for falsely elevated results. Performed By: #### G FR, CMP, LAC, LD ####[place] [address] BUN/Creatinine Ratio 12.2 ratio Normal 10.0-22.0 [facility] ([place]) Comment on above: Performed By: #### G FR, CMP, LAC, LD ####[address] [address] Calcium [Mass/Vol] 8.0 mg/dL Low 8.7-10.4 [facility] ([place]) Comment on above: Performed By: #### G FR, CMP, LAC, LD ####[address] [address] Chloride [Moles/Vol] 114 mmol/L High 98-110 [facility] ([place]) Comment on above: Performed By: #### G FR, CMP, LAC, LD ####[address] [address] CO2 [Moles/Vol] 21 mmol/L Low 22-32 [facility] ([place] Comment on above: Performed By: #### G FR, CMP, LAC, LD ####[address] [address] Creatinine [Mass/Vol] 0.90 mg/dL Normal 0.50-1.20 [facility] ([place]) Comment on above: Performed By: #### G FR, CMP, LAC, LD ####[address] [address] Electrolyte Balance 5.0 mEq/L Normal 4.0-15.0 [facility] ([place] Comment on above: Performed By: #### G FR, CMP, LAC, LD ####[address] [address] Globulin 2.7 G/dL Normal 1.5-3.8 [facility] ([place] Comment on above: Performed By: #### Krupa PONCE, CMP, LAC, LD ####[address] [address] Glucose [Mass/Vol] 156 mg/dL High 70-110 [facility] ([place]) Comment on above: Performed By: #### G FR, CMP, LAC, LD ####[place] [address] Potassium [Moles/Vol] 6.1 mmol/L Critically abnormal 3.5-5.0 [facility] ([place] Comment on above: Performed By: #### G FR, CMP, LAC, LD ####[address] [address] Sodium [Moles/Vol] 140 mmol/L Normal 136-145 [facility] ([place]) Comment on above: Performed By: #### G FR, CMP, LAC, LD ####[place] [address] Total Protein 4.8 G/dL Low 5.7-8.2 [facility] ([place]) Comment on above: Result Comment: No te - New Reference Range in effect 20 Performed By: #### G FR, CMP, LAC, LD ####[address] [address] Urea nitrogen [Mass/Vol] 11.0 mg/dL Normal 8.0-22.0 [facility] ([place] Comment on above: Performed By: #### G FR, CMP, LAC, LD ####[place] [address] Albumin Level 2.4 G/dL Low 3.2-4.8 [facility] ([place] Comment on above: Performed By: #### R BCP #### [place] [address] Albumin/Globulin [Mass ratio] 0.8 {ratio} Low 0.9-1.6 [facility] ([place] Comment on above: Performed By: #### R BCP #### [address] [address] ALP [Catalytic activity/Vol] 54 U/L Normal 38-126 [facility] ([place] Comment on above: Performed By: #### R BCP #### [place] [address] ALT [Catalytic activity/Vol] 84 U/L High 10-49 [facility] ([place] Comment on above: Performed By: #### R BCP #### [place] [id number] AST [Catalytic activity/Vol] 48 U/L High 8-34 [facility] ([place] Comment on above: Performed By: #### R BCP #### [place] [id number] Bili Total 0.20 mg/dL Normal 0.20-1.20 [facility] ([place] Comment on above: Result Comment: Use of this assay is not recommended for patients undergoing treatment with eltrombopag due to the potential for falsely elevated results. Performed By: #### R BCP #### [place] [id number] BUN/Creatinine Ratio 11.1 ratio Normal 10.0-22.0 [facility] ([place]) Comment on above: Performed By: #### R BCP #### [place] [id number] Calcium [Mass/Vol] 7.5 mg/dL Low 8.7-10.4 [facility] ([place]) Comment on above: Performed By: #### R BCP #### [address] [address] Chloride [Moles/Vol] 112 mmol/L High 98-110 [facility] ([place] Comment on above: Performed By: #### R BCP #### [address] [address] CO2 [Moles/Vol] 18 mmol/L Low 22-32 [facility] ([place] Comment on above: Performed By: #### R BCP #### [address] [address] Creatinine [Mass/Vol] 0.81 mg/dL Normal 0.50-1.20 [facility] ([place]) Comment on above: Performed By: #### R BCP #### [address] [address] Electrolyte Balance 7.0 mEq/L Normal 4.0-15.0 [facility] ([place]) Comment on above: Performed By: #### R BCP #### [address] [address] Globulin 3.2 G/dL Normal 1.5-3.8 [facility] ([place] Comment on above: Performed By: #### R BCP #### [address] [address] Glucose [Mass/Vol] 164 mg/dL High 70-110 [facility] ([place]) Comment on above: Performed By: #### R BCP #### [address] [address] Potassium [Moles/Vol] 5.9 mmol/L High 3.5-5.0 [facility] ([place]) Comment on above: Performed By: #### R BCP #### [address] [address] Sodium [Moles/Vol] 137 mmol/L Normal 136-145 [facility] ([place]) Comment on above: Performed By: #### R BCP #### [place] [id number] Total Protein 5.6 G/dL Low 5.7-8.2 [facility] ([place] Comment on above: Result Comment: No te - New Reference Range in effect 20 Performed By: #### R BCP #### [address] [address] Urea nitrogen [Mass/Vol] 9.0 mg/dL Normal 8.0-22.0 [facility] ([place] Comment on above: Performed By: #### R BCP #### [facility] [address] [place] [address] [address] ABD/PELVIS W/ IV CONTRAST ONLYon 05-25-2022 CT ABD/PELVIS W/ IV CONTRAST ONLY ORIGINAL EXAMINATION: CT OF THE ABDOMEN AND PELVIS WITH CONTRAST 05/25/2022 1:05 am TECHNIQUE: CT of the abdomen and pelvis was performed with the administration of intravenous contrast. Multiplanar reformatted images are provided for review. Automated exposure control, iterative reconstruction, and/or weight based adjustment of the mA/kV was utilized to reduce the radiation dose to as low as reasonably achievable. COMPARISON: CT chest on 05/24/2022 HISTORY: ORDERING SYSTEM PROVIDED HISTORY: Reason for Exam: htn, abn cta chest, abd cramping, pt intubated Fluid in the abdomen, concern for hepatic hemorrhage, HELLP syndrome vs. abscess FINDINGS: Lower Chest: There is mild atelectasis at both lung bases in the dependent portion which has increased since scan done 7 hours earlier. No pleural fluid is present. Organs: The liver is normal in size and enhancing normally. Gallbladder has been removed. The pancreas is normal. The spleen is normal in size and enhancing normally. The liver and spleen are surrounded by fluid with intermediate attenuation of approximately 25 Hounsfield units. Adrenal glands are normal. The kidneys are enhancing normally with no hydronephrosis. There are bilateral renal cysts that appear benign. The largest is in the upper half of the right kidney and measures 7.7 cm. Imaging follow-up of the renal cysts is not required. GI/Bowel: There is no intestinal obstruction. No inflammation of the intestine is detected. There is no free intraperitoneal air. Pelvis: Gravid uterus is present with single fetus in cephalic presentation. There is moderate hematoma around the uterus. No active bleeding is detected. There is subjectively normal amount of amniotic fluid. [place] catheter is in the urinary bladder and the urinary bladder is empty. Peritoneum/Retroperit oneum: There is no retroperitoneal hematoma. No lymph node enlargement is present. Abdominal aorta is normal in diameter. Bones/Soft Tissues: No acute or aggressive osseous lesions. IMPRESSION: Moderate to large hemoperitoneum with densest hematoma around the gravid uterus suggesting this is source of hemorrhage. No active hemorrhage is detected. No abscess or free intraperitoneal air. Single intrauterine fetus. Interpreted by: Rohit Corbett MD Preliminary Report By: Rohit Corbett MD Electronically signed By Rohit Corbett MD Dictated Date: 05/25/2022 1:07:24 AM Prelim Date: 05/25/2022 1:26:02 AM Sign Date: 05/25/2022 1:26:02 AM Ordering Provider: YELENA TURNER [facility] ([place]) FIBon 05-25-2022 Fibrinogen 544 mg/dL Normal 250-560 [facility]) Comment on above: Performed By: #### A PTT, FIB, RFP, GFR ####[address] [address] Fibrinogen 448 mg/dL Normal 250-560 [facility] ([place] Comment on above: Performed By: #### A PTT, FIB, PRO ####[address] [address] Fibrinogen 488 mg/dL Normal 250-[address] [place] [address] ([place]) Comment on above: Performed By: #### F IB, PRO, APTT ####[address] [address] Fibrinogen 580 mg/dL High 250-560 [facility] ([place] Comment on above: Performed By: #### A PTT, FIB, PRO ####[address] [address] GLUORon 05-25-2022 Glucose [Mass/Vol] 184 mg/dL High 70-110 [facility]) Comment on above: Performed By: #### K OR, NAOR, HCTOR, HGBOR, BGOH, CAOR, GLUOR, BG ####[address] [address] Glucose [Mass/Vol] 233 mg/dL High 70-110 [facility] ([place]) Comment on above: Performed By: #### C AOR, KOR, HGBOR, GLUOR, NAOR, BG, HCTOR, BGOH ####[place] [address] HCTORon 05-25-2022 Hematocrit (Bld) [Volume fraction] 28.0 % Low 37.0-47.0 [facility] ([place] Comment on above: Performed By: #### K OR, NAOR, HCTOR, HGBOR, BGOH, CAOR, GLUOR, BG ####[place] [address] Hematocrit (Bld) [Volume fraction] 22.0 % Low 37.0-47.0 [facility] ([place] Comment on above: Performed By: #### C AOR, KOR, HGBOR, GLUOR, NAOR, BG, HCTOR, BGOH ####[place] [address] HFPon 05-25-2022 Bili Indirect 0.2 mg/dL Normal 0.1-10.0 [facility] ([place] Comment on above: Result Comment: Calc ulated by Rule Performed By: #### R BCP #### [place] [address] Albumin Level 1.9 G/dL Low 3.2-4.8 [facility] ([place] Comment on above: Performed By: #### R BCP #### [place] [id number] Albumin/Globulin [Mass ratio] 0.8 {ratio} Low 0.9-1.6 [facility] ([place] Comment on above: Performed By: #### R BCP #### [address] [address] ALP [Catalytic activity/Vol] 46 U/L Normal 38-126 [facility] ([place] Comment on above: Performed By: #### R BCP #### [address] [address] ALT [Catalytic activity/Vol] 66 U/L High 10-49 [facility] ([place] Comment on above: Performed By: #### R BCP #### [place] [address] AST [Catalytic activity/Vol] 51 U/L High 8-34 [facility] ([place] Comment on above: Performed By: #### R BCP #### [place] [address] Bili Direct 0.1 mg/dL Normal 0.0-0.4 [facility] ([place]) Comment on above: Result Comment: Use of this assay is not recommended for patients undergoing treatment with eltrombopag due to the potential for falsely elevated results. Performed By: #### R BCP #### [place] [address] Bili Total 0.30 mg/dL Normal 0.20-1.20 [facility] ([place] Comment on above: Result Comment: Use of this assay is not recommended for patients undergoing treatment with eltrombopag due to the potential for falsely elevated results. Performed By: #### R BCP #### [place] [address] Globulin 2.4 G/dL Normal 1.5-3.8 [facility] ([place] Comment on above: Performed By: #### R BCP #### [place] [address] Total Protein 4.3 G/dL Low 5.7-8.2 [facility] ([place]) Comment on above: Result Comment: No te - New Reference Range in effect 20 Performed By: #### R BCP #### [place] [address] HGBORon 05-25-2022 Hemoglobin OR 9.4 G/dL Low 12.0-16.0 [facility] ([place] Comment on above: Performed By: #### K OR, NAOR, HCTOR, HGBOR, BGOH, CAOR, GLUOR, BG ####[place] [address] Hemoglobin OR 7.6 G/dL Low 12.0-16.0 [facility] ([place]) Comment on above: Performed By: #### C AOR, KOR, HGBOR, GLUOR, NAOR, BG, HCTOR, BGOH ####[place] [id number] [facility] 05-25-2022 Hematocrit (Bld) [Volume fraction] 19.7 % Low 34.0-46.0 [facility] ([place] Comment on above: Performed By: #### A PTT, FIB, RFP, GFR ####[place] [address] Hgb 6.7 G/dL Critically abnormal 12.0-16.0 [facility] ([place] Comment on above: Performed By: #### A PTT, FIB, RFP, GFR ####[place] [address] Hematocrit (Bld) [Volume fraction] 22.5 % Low 34.0-46.0 [facility] ([place] Comment on above: Performed By: #### R BCP #### [place] [address] Hgb 7.6 G/dL Low 12.0-16.0 [facility] ([place] Comment on above: Performed By: #### R BCP #### [place] [address] Hematocrit (Bld) [Volume fraction] 25.0 % Low 34.0-46.0 [facility] ([place] Comment on above: Performed By: #### A PTT, FIB, PRO ####[place] [address] Hgb 8.5 G/dL Low 12.0-16.0 [facility] ([place] Comment on above: Performed By: #### A PTT, FIB, PRO ####[place] [address] [place] 05-25-2022 Potassium [Moles/Vol] 4.6 mmol/L Normal 3.5-5.0 [facility] ([place]) Comment on above: Performed By: #### K ####[place] [address] KORon 05-25-2022 Potassium [Moles/Vol] 5.7 mmol/L High 3.5-5.0 [facility] ([place]) Comment on above: Performed By: #### K OR, NAOR, HCTOR, HGBOR, BGOH, CAOR, GLUOR, BG ####[address] [address] Potassium [Moles/Vol] 5.5 mmol/L High 3.5-5.0 [facility] ([place]) Comment on above: Performed By: #### C AOR, KOR, HGBOR, GLUOR, NAOR, BG, HCTOR, BGOH ####[place] [address] LABORATORYOrdered By: SYSTEM SYSTEM on 05-25-2022 Phosphate [Mass/Vol] 4.6 mg/dL Invalid Interpretation Code 2.4 - 5.1 mg/dL ADM SS Magnesium [Mass/Vol] 1.9 mg/dL Invalid Interpretation Code 1.6 - 2.4 mg/dL ADM SS Phosphate [Mass/Vol] 5.1 mg/dL Invalid Interpretation Code 2.4 - 5.1 mg/dL ADM SS Anisocytosis Ql (Bld) 1+ *NA* (05/25/22 6:07 AM) Invalid Interpretation Code AH Workflow SS Dohle body LM Ql (Bld) 1+ *NA* (05/25/22 6:07 AM) Invalid Interpretation Code AH Workflow SS Ovalocytes LM Ql (Bld) 1+ *NA* (05/25/22 6:07 AM) Invalid Interpretation Code AH Workflow SS Platelets LM Ql (Bld) Normal *NA* (05/25/22 6:07 AM) Invalid Interpretation Code AH Workflow SS Poikilocytosis LM Ql (Bld) 1+ *NA* (05/25/22 6:07 AM) Invalid Interpretation Code AH Workflow SS Polychromasia LM Ql (Bld) 1+ *NA* (05/25/22 6:07 AM) Invalid Interpretation Code AH Workflow SS Toxic Gran 1+ *NA* (05/25/22 6:07 AM) Invalid Interpretation Code AH Workflow SS Anisocytosis Ql (Bld) 1+ *NA* (05/25/22 2:06 AM) Invalid Interpretation Code AH Workflow SS Band form neutrophils/100 WBC (Bld) 1.0 % Invalid Interpretation Code 0.0 - 5.0 % AH Workflow SS Basophils (Bld) [#/Vol] 0.4 103/mcL Invalid Interpretation Code 0.0 - 0.3 10^3/mcL AH Workflow SS Basophils/100 WBC (Bld) 1.0 % Invalid Interpretation Code 0.0 - 2.5 % AH Workflow SS Eosinophils (Bld) [#/Vol] 0.0 103/mcL Invalid Interpretation Code 0.0 - 0.7 10^3/mcL AH Workflow SS Eosinophils/100 WBC (Bld) 0.0 % Invalid Interpretation Code 0.0 - 6.0 % Workflow SS Lymphocytes (Bld) [#/Vol] 3.0 103/mcL Invalid Interpretation Code 0.9 - 4.3 10^3/mcL AH Workflow SS Lymphocytes/100 WBC (Bld) 8.0 % Invalid Interpretation Code 20.0 - 40.0 % Workflow SS Monocytes (Bld) [#/Vol] 0.4 103/mcL Invalid Interpretation Code 0.1 - 1.4 10^3/mcL Workflow SS Monocytes/100 WBC (Bld) 1.0 % Invalid Interpretation Code 2.0 - 13.0 % Workflow SS Neutrophils (Bld) [#/Vol] 33.9 103/mcL Invalid Interpretation Code 2.3 - 8.1 10^3/mcL Workflow SS Neutrophils/100 WBC (Bld) 89.0 % Invalid Interpretation Code 50.0 - 75.0 % Workflow SS Nucleated RBC 0.0 /100 WBC Invalid Interpretation Code Workflow SS Platelets LM Ql (Bld) Normal *NA* (05/25/22 2:06 AM) Invalid Interpretation Code Workflow SS LABORATORYOrdered By: Guerita Pittman on 05-25-2022 Bili Indirect 0.2 mg/dL Invalid Interpretation Code 0.1 - 10.0 mg/dL Chemistry S Bilirubin.conjugated [Mass/Vol] 0.1 mg/dL Invalid Interpretation Code 0.0 - 0.4 mg/dL ADM SS LABORATORYOrdered By: Deya Sarkar on 05-25-2022 Barometric Pressure 742 mm[Hg] Invalid Interpretation Code Auto Chem SS Base excess Calc (Bld) [Moles/Vol] -4.6000 mmol/L Invalid Interpretation Code Auto Chem SS CO2 (Bld) [Partial pressure] 32.6 mm[Hg] Invalid Interpretation Code 32.0 - 46.0 mm Hg Auto Chem SS CO2 [Moles/Vol] 20.3 mmol/L Invalid Interpretation Code 22.0 - 30.0 mmol/L Auto Chem SS HCO3 (Bld) [Moles/Vol] 19.3 mmol/L Invalid Interpretation Code 21.0 - 29.0 mmol/L Auto Chem SS Oxygen (Bld) [Partial pressure] 108.5 mm[Hg] Invalid Interpretation Code 74.0 - 108.0 mm Hg Auto Chem SS pH (Bld) 7.390 [pH] Invalid Interpretation Code 7.380 - 7.460 Auto Chem SS LABORATORYOrdered By: Ras Wynn on 05-25-2022 Lactate [Moles/Vol] 2.3 mmol/L Invalid Interpretation Code 0.2 - 2.0 mmol/L Auto Chem SS Calcium.ionized (Bld) [Mass/Vol] 1.01 mmol/L Invalid Interpretation Code 1.12 - 1.32 mmol/L Auto Chem SS Lactate [Moles/Vol] 2.6 mmol/L Invalid Interpretation Code 0.2 - 2.0 mmol/L Auto Chem SS LABORATORYOrdered By: Carine Eddy on 05-25-2022 Calcium.ionized (Bld) [Mass/Vol] 1.10 mmol/L Invalid Interpretation Code 1.12 - 1.32 mmol/L Auto Chem SS Glucose [Mass/Vol] 184 mg/dL Invalid Interpretation Code 70 - 110 mg/dL Auto Chem SS Hematocrit (Bld) [Volume fraction] 28.0 % Invalid Interpretation Code 37.0 - 47.0 % Auto Chem SS Hemoglobin (Bld) [Mass/Vol] 9.4 G/dL Invalid Interpretation Code 12.0 - 16.0 G/dL Auto Chem SS Patient Location [facility] (05/25/22 4:15 AM) Invalid Interpretation Code Auto Chem SS Potassium [Moles/Vol] 5.7 mmol/L Invalid Interpretation Code 3.5 - 5.0 mEq/L Auto Chem SS Sodium [Moles/Vol] 137 mmol/L Invalid Interpretation Code 136 - 145 mEq/L Auto Chem SS Calcium.ionized (Bld) [Mass/Vol] 1.01 mmol/L Invalid Interpretation Code 1.12 - 1.32 mmol/L AH Auto Chem SS Glucose [Mass/Vol] 233 mg/dL Invalid Interpretation Code 70 - 110 mg/dL AH Auto Chem SS Hematocrit (Bld) [Volume fraction] 22.0 % Invalid Interpretation Code 37.0 - 47.0 % AH Auto Chem SS Hemoglobin (Bld) [Mass/Vol] 7.6 G/dL Invalid Interpretation Code 12.0 - 16.0 G/dL AH Auto Chem SS Patient Location [facility] (05/25/22 3:26 AM) Invalid Interpretation Code AH Auto Chem SS Potassium [Moles/Vol] 5.5 mmol/L Invalid Interpretation Code 3.5 - 5.0 mEq/L AH Auto Chem SS Sodium [Moles/Vol] 136 mmol/L Invalid Interpretation Code 136 - 145 mEq/L AH Auto Chem SS Lactate [Moles/Vol] 4.5 mmol/L Invalid Interpretation Code 0.2 - 2.0 mmol/L AH Auto Chem SS LABORATORYOrdered By: Amber Arvizu on 05-25-2022 Appearance (U) Hazy *ABN* (05/25/22 12:16 AM) Invalid Interpretation Code Clear Auto Urine SS Bacteria LM.HPF (Urine sed) [#/Area] Trace /HPF Invalid Interpretation Code Negative/HPF Auto Urine SS Bilirubin Ql (U) Negative (05/25/22 12:16 AM) Invalid Interpretation Code Neg-Trace Auto Urine SS Color (U) Yellow (05/25/22 12:16 AM) Invalid Interpretation Code Auto Urine SS Glucose Test strip (U) [Mass/Vol] Negative Invalid Interpretation Code Negativemg/d L Auto Urine SS Hemoglobin Auto test strip (U) [Mass/Vol] Negative (05/25/22 12:16 AM) Invalid Interpretation Code Neg-Trace Auto Urine SS Ketones Ql (U) Trace mg/dL Invalid Interpretation Code Neg-Tracemg/ dL Auto Urine SS UA Hyal Cast 0-2 /LPF Invalid Interpretation Code Auto Urine SS UA Leuk Est Negative (05/25/22 12:16 AM) Invalid Interpretation Code Negative Auto Urine SS UA Mucous Trace /HPF Invalid Interpretation Code Auto Urine SS UA Nitrite Negative (05/25/22 12:16 AM) Invalid Interpretation Code Negative Auto Urine SS UA pH 5.5 (05/25/22 12:16 AM) Invalid Interpretation Code 5.0 - 8.0 AH Auto Urine SS UA Protein 30 mg/dL Invalid Interpretation Code Negativemg/d L AH Auto Urine SS UA RBC Rare /HPF Invalid Interpretation Code 0-2/HPF AH Auto Urine SS UA Spec Grav >=1.030 *ABN* (05/25/22 12:16 AM) Invalid Interpretation Code 1.006-1.029 AH Auto Urine SS UA Specimen Type Clean Catch (05/25/22 12:16 AM) Invalid Interpretation Code Auto Urine SS UA Squam Epithelial 0-2 /HPF Invalid Interpretation Code 0-20/HPF AH Auto Urine SS UA Urobilinogen 0.2 E.U./dL Invalid Interpretation Code 0.2-1.0E.U./ dL AH Auto Urine SS WBC LM.HPF (Urine sed) [#/Area] 0-2 /HPF Invalid Interpretation Code 0-5/HPF AH Auto Urine SS LABORATORYOrdered By: Elinor Reeves on 05-25-2022 Creatinine (U) [Mass/Vol] 121.9 mg/dL Invalid Interpretation Code ADM SS Protein (U) [Mass/Vol] 62.5 mg/dL Invalid Interpretation Code AH ADM SS U Ratio Prot/Creat 0.5 ratio Invalid Interpretation Code AH ADM SS Comment on above: Result Comment: Unab le to calculate this test result accurately. Results used to calculate this test are outside the reportable range. LACon 05-25-2022 Lactic Acid Lvl 2.3 mmol/L High 0.2-2.0 [facility] ([place]) Comment on above: Performed By: #### P HOS, LAC, MG ####[address] [address] Lactic Acid Lvl 2.6 mmol/L High 0.2-2.0 [facility] ([place]) Comment on above: Performed By: #### G FR, CMP, LAC, LD ####[address] [address] Lactic Acid Lvl 4.5 mmol/L High 0.2-2.0 [facility] ([place]) Comment on above: Performed By: #### L AC ####[address] [address] Lactic Acid Lvl 2.1 mmol/L High 0.2-2.0 [facility] ([place]) Comment on above: Order Comment: Order ed secondary to Lactic Acid result greater than or equal to 2.0 Performed By: #### L AC ####[address] [address] LDHon 05-25-2022 LDH 329 U/L High 120-246 [facility] ([place]) Comment on above: Performed By: #### G FR, CMP, LAC, LD ####[place] [address] MGon 05-25-2022 Magnesium [Mass/Vol] 1.9 mg/dL Normal 1.6-2.4 [facility] ([place]) Comment on above: Performed By: #### P HOS, LAC, MG ####[place] [address] NAORon 05-25-2022 Sodium [Moles/Vol] 137 mmol/L Normal 136-145 [facility] ([place]) Comment on above: Performed By: #### K OR, NAOR, HCTOR, HGBOR, BGOH, CAOR, GLUOR, BG ####[place] [address] Sodium [Moles/Vol] 136 mmol/L Normal 136-145 [facility] ([place]) Comment on above: Performed By: #### C AOR, KOR, HGBOR, GLUOR, NAOR, BG, HCTOR, BGOH ####[address] [address] No Panel Informationon 05-25 Microscopic examination of blood, culture Culture has been received in lab and is no growth to date. Routine cultures are held for 5 days. [facility] Culture Urine <10,000 cfu/ml. No Significant growth. Sensitivity not indicated. [facility] PHOSon 05-25-2022 Phosphate [Mass/Vol] 5.1 mg/dL Normal 2.4-5.1 [facility] ([place]) Comment on above: Result Comment: No te - New Reference Range in effect 20 Performed By: #### P HOS, LAC, MG ####[facility] [place] [address] PLTon 05-25-2022 Platelet 152 10 3/mcL Normal 150-450 [facility] ([place]) Comment on above: Performed By: #### A PTT, FIB, RFP, GFR ####[place] [address] [place] [address] Platelet 204 10 3/mcL Normal 150-450 [facility] ([place]) Comment on above: Performed By: #### R BCP #### [facility] [address] [place] [address] PROon 05-25-2022 INR Coag (PPP) [Relative time] 1.0 {INR} Normal [facility] ([place]) Comment on above: Result Comment: [employer] (CHEST, 1991, 102:312S-25S) recommended therapeutic range for oral anticoagulant therapy is: LOW RISK: Prophylaxis of venous thrombosis INR: 2.0-3.0 Treatment of pulmonary embolism 2.0-3.0 Prevention of systemic embolism 2.0-3.0 HIGH RISK: Mechanical prosthetic valves 2.5-3.5 Performed By: #### R BCP #### [address] [address] PT Coag (PPP) [Time] 11.4 s Normal 9.0-14.9 [facility] ([place]) Comment on above: Result Comment: Effe ctive 06/11/08, Protime results may be affected by some antibiotics (i.e. Ciprofloxacin, Azithromycin, Bactrim) which may potentiate the action of oral anticoagulants, with further increase in Protime/INR. Performed By: #### R BCP #### [address] [address] INR Coag (PPP) [Relative time] 0.9 {INR} Normal [facility] ([place]) Comment on above: Order Comment: praveen real for redraw to check short aptt05/25/2022 06:39:20 EDT Result Comment: [employer] (CHEST, 1991, 102:312S-25S) recommended therapeutic range for oral anticoagulant therapy is: LOW RISK: Prophylaxis of venous thrombosis INR: 2.0-3.0 Treatment of pulmonary embolism 2.0-3.0 Prevention of systemic embolism 2.0-3.0 HIGH RISK: Mechanical prosthetic valves 2.5-3.5 Performed By: #### F IB, PRO, APTT ####[address] [address] PT Coag (PPP) [Time] 11.2 s Normal 9.0-14.9 [facility] ([place]) Comment on above: Order Comment: praveen real for redraw to check short aptt05/25/2022 06:39:20 EDT Result Comment: Effe ctive 06/11/08, Protime results may be affected by some antibiotics (i.e. Ciprofloxacin, Azithromycin, Bactrim) which may potentiate the action of oral anticoagulants, with further increases in Protime/INR. Performed By: #### F IB, PRO, APTT ####[address] [address] INR Coag (PPP) [Relative time] 0.9 {INR} Normal [facility] ([place]) Comment on above: Result Comment: [employer] (CHEST, 1992, 102:312S-25S) recommended therapeutic range for oral anticoagulant therapy is: LOW RISK: Prophylaxis of venous thrombosis INR: 2.0-3.0 Treatment of pulmonary embolism 2.0-3.0 Prevention of systemic embolism 2.0-3.0 HIGH RISK: Mechanical prosthetic valves 2.5-3.5 Performed By: #### A PTT, FIB, PRO ####[address] [address] PT Coag (PPP) [Time] 11.2 s Normal 9.0-14.9 [facility] ([place]) Comment on above: Result Comment: Effe ctive 06/11/08, Protime results may be affected by some antibiotics (i.e. Ciprofloxacin, Azithromycin, Bactrim) which may potentiate the action of oral anticoagulants, with further increases in Protime/INR. Performed By: #### A PTT, FIB, PRO ####[address] [address] RBC (Product)on 05-25-2022 RBC Product Ready RBC Ready for Pickup Normal [facility] ([place] Comment on above: Performed By: #### R BCP ####[place] [address] RBC Product Ready RBC Ready for Pickup Normal [facility] ([place] Comment on above: Performed By: #### R BCP ####[place] [address] RBC Product Ready RBC Ready for Pickup Normal [facility] ([place] Comment on above: Order Comment: 2 uni ts on hold please Performed By: #### R BCP ####[place] [address] RFPon 05-25-2022 Albumin Level 2.1 G/dL Low 3.2-4.8 [facility] ([place]) Comment on above: Performed By: #### A PTT, FIB, RFP, GFR ####[place] [address] BUN/Creatinine Ratio 11.4 ratio Normal 10.0-22.0 [facility] ([place]) Comment on above: Performed By: #### A PTT, FIB, RFP, GFR ####[place] [address] Calcium [Mass/Vol] 8.1 mg/dL Low 8.7-10.4 [facility] ([place]) Comment on above: Performed By: #### A PTT, FIB, RFP, GFR ####[place] [address] Chloride [Moles/Vol] 112 mmol/L High 98-110 [facility] ([place]) Comment on above: Performed By: #### A PTT, FIB, RFP, GFR ####[place] [address] CO2 [Moles/Vol] 23 mmol/L Normal 22-32 [facility] ([place]) Comment on above: Performed By: #### A PTT, FIB, RFP, GFR ####[place] [address] Creatinine [Mass/Vol] 0.88 mg/dL Normal 0.50-1.20 [facility] ([place]) Comment on above: Performed By: #### A PTT, FIB, RFP, GFR ####[place] [address] Electrolyte Balance 5.0 mEq/L Normal 4.0-15.0 [facility] ([place]) Comment on above: Performed By: #### A PTT, FIB, RFP, GFR ####[place] [address] Glucose [Mass/Vol] 129 mg/dL High 70-110 [facility] ([place]) Comment on above: Performed By: #### A PTT, FIB, RFP, GFR ####[place] [address] Phosphate [Mass/Vol] 4.6 mg/dL Normal 2.4-5.1 [facility] ([place]) Comment on above: Result Comment: No te - New Reference Range in effect 20 Performed By: #### A PTT, FIB, RFP, GFR ####[place] [address] Potassium [Moles/Vol] 4.2 mmol/L Normal 3.5-5.0 [facility] ([place]) Comment on above: Performed By: #### A PTT, FIB, RFP, GFR ####[place] [address] Sodium [Moles/Vol] 140 mmol/L Normal 136-145 [facility] ([place]) Comment on above: Performed By: #### A PTT, FIB, RFP, GFR ####[place] [address] Urea nitrogen [Mass/Vol] 10.0 mg/dL Normal 8.0-22.0 [facility] ([place] Comment on above: Performed By: #### A PTT, FIB, RFP, GFR ####[place] [address] RPCURon 05-25-2022 U Creatinine 121.9 mg/dL Normal [facility] ([place] Comment on above: Performed By: #### R PCUR ####[place] [address] U Protein 62.5 mg/dL Normal [facility] ([place] Comment on above: Performed By: #### R PCUR ####[place] [address] U Ratio Prot/Creat 0.5 ratio Normal [facility] ([place]) Comment on above: Result Comment: Unab le to calculate this test result accurately. Results used to calculate this test are outside the reportable range. result calculated by rule GL_[id number]_PROT_[id number]_OLD (U Protein/U Creatinine) Performed By: #### R PCUR ####[place] [address] UAon 05-25-2022 Color (U) Yellow Normal [facility] ([place] Comment on above: Performed By: #### U A, UAMIC ####[place] [address] Glucose (U) [Mass/Vol] Negative Normal Negative [facility] ([place]) Comment on above: Performed By: #### U A, UAMIC ####[place] [address] Ketones Ql (U) Trace Normal Neg-Trace [facility] ([place] Comment on above: Performed By: #### U A, UAMIC ####[place] [address] UA Appear Hazy Abnormal Clear [facility] ([place] Comment on above: Performed By: #### U A, UAMIC ####[place] [address] UA Blood Negative Normal Neg-Trace [facility] ([place] Comment on above: Performed By: #### U A, UAMIC ####[place] [address] UA Leuk Est Negative Normal Negative [facility] ([place] Comment on above: Performed By: #### U A, UAMIC ####[place] [address] UA Nitrite Negative Normal Negative [facility] ([place] Comment on above: Performed By: #### U A, UAMIC ####[place] [address] UA pH 5.5 Normal 5.0 - 8.0 [facility] ([place] Comment on above: Performed By: #### U A, UAMIC ####[place] [address] UA Protein 30 mg/dL Normal Negative [facility] ([place] Comment on above: Performed By: #### U A, UAMIC ####[place] [address] UA Spec Grav >=1.030 Abnormal 1.006-1.029 [facility] ([place] Comment on above: Performed By: #### U A UAMIC ####[place] [address] UA Specimen Type Clean Catch Normal [facility] ([place] Comment on above: Performed By: #### U A, UAMIC ####[place] [address] UA Urobilinogen 0.2 E.U./dL Normal 0.2-1.0 [facility] ([place] Comment on above: Performed By: #### U A, UAMIC ####[place] [address] Urobilinogen (U) [Mass/Vol] Negative Normal Neg-Trace [facility] ([place] Comment on above: Performed By: #### U A, UAMIC ####[place] [address] UAMICon 05-25-2022 UA Bacteria Trace Abnormal Negative [facility] ([place] Comment on above: Performed By: #### U A, UAMIC ####[place] [address] UA Hyal Cast 0-2 Abnormal [facility] ([place] Comment on above: Performed By: #### U A, UAMIC ####[place] [address] UA Mucous Trace Normal [facility] ([place] Comment on above: Performed By: #### U A, UAMIC ####[place] [address] [place] [address] UA RBC Rare Normal 0-2 [facility] ([place] Comment on above: Performed By: #### U A, UAMIC ####[facility] [place] [address] UA Squam Epithelial 0-2 Normal 0-20 [facility] ([place]) Comment on above: Performed By: #### U A, UAMIC ####[facility] [place] [address] UA WBC 0-2 Normal 0-5 [facility] ([place] Comment on above: Performed By: #### U A, UAMIC ####[facility] [place] [address] XR CHEST 1 VIEWon 05-25-2022 XR CHEST 1 VIEW ORIGINAL EXAMINATION: ONE XRAY VIEW OF THE CHEST 05/25/2022 7:14 am COMPARISON: Chest x-ray 05/25/2022 HISTORY: ORDERING SYSTEM PROVIDED HISTORY: Reason for Exam: Respiratory failure FINDINGS: The endotracheal tube terminates 3.7 cm above the kyaw. The enteric tube extends below the diaphragm in terminates in the proximal stomach, however the tip is difficult to visualize. A right internal jugular approach central venous catheter with the distal tip overlying the mid SVC is stable in position. There are low lung volumes. No consolidation or significant vascular congestion. No pneumothorax or pleural effusion. No acute osseous abnormality. IMPRESSION: Low lung volumes, otherwise no acute radiographic process. Lines and tubes as above. I have personally reviewed the images of this examination, and agree with the resident's findings and interpretation. Interpreted by: Rohit Crobett MD Preliminary Report By: Herbert Martin Electronically signed By Rohit Corbett MD Dictated Date: 05/25/2022 7:19:03 AM Prelim Date: 05/25/2022 7:26:10 AM Sign Date: 05/25/2022 7:26:10 AM Ordering Provider: SHARIF OLMOS [facility] ([place]) XR CHEST 1 VIEW ORIGINAL EXAMINATION: ONE XRAY VIEW OF THE CHEST05/24/2022 11:50 pm COMPARISON: Examinations from earlier same day HISTORY: ORDERING SYSTEM PROVIDED HISTORY: Reason for Exam: Central Line Placement FINDINGS: There is a right IJ approach central venous catheter with the distal tip overlying the expected location of the mid SVC. Endotracheal tube appears to be in satisfactory position. Lung volumes are low. Unchanged cardiomediastinal silhouette. No visible pneumothorax. No large pleural effusion. No definite focal pulmonary consolidation. Osseous structures are unchanged. IMPRESSION: Interval right IJ approach central venous catheter placement with distal tip overlying the expected location of the mid SVC. There is no visible pneumothorax. I have personally reviewed the images of this examination, and agree with the resident's findings and interpretation. Interpreted by: Rohit Corbett MD Preliminary Report By: Bhanu Dee Electronically signed By Rohit Corbett MD Dictated Date: 05/24/2022 11:55:17 PM Prelim Date: 05/24/2022 11:59:34 PM Sign Date: 05/25/2022 12:05:10 AM Ordering Provider: SHARIF OLMOS [facility]) XR CHEST 1 VIEW ORIGINAL EXAMINATION: ONE XRAY VIEW OF THE CHEST05/24/2022 10:11 pm CHEST ONE VIEW AP/PA COMPARISON: None HISTORY: ORDERING SYSTEM PROVIDED HISTORY: Reason for Exam: ET placement FINDINGS: The endotracheal tube is approximately 3.3 cm above level the kyaw. The cardiomediastinal contours are normal. There are low lung volumes with hypoventilatory changes. There is no focal consolidation, pleural effusion, or pneumothorax. No acute osseous abnormality. IMPRESSION: Endotracheal tube at its expected location. Low lung volumes with hypoventilatory changes. Interpreted by: Bradley Mahoney MD Preliminary Report By: Bradley Mahoney MD Electronically signed By Bradley Mahoney MD Dictated Date: 05/24/2022 10:38:44 PM Prelim Date: 05/24/2022 10:41:50 PM Sign Date: 05/24/2022 10:41:50 PM Ordering Provider: SHARIF OLMOS [facility] ([place]) .Auto Diffon 05-24-2022 Basophil, Absolute 0.1 10 3/mcL Normal 0.0-0.3 [facility] ([place]) Comment on above: Performed By: #### G FR, LD, CMP, TROPHS ####[address] [address] Basophils/100 WBC (Bld) 0.4 % Normal 0.0-2.5 [facility] ([place]) Comment on above: Performed By: #### G FR, LD, CMP, TROPHS ####[address] [address] Eosinophil, Absolute 0.3 10 3/mcL Normal 0.0-0.7 [facility] ([place]) Comment on above: Performed By: #### G FR, LD, CMP, TROPHS ####[address] [address] Eosinophils/100 WBC (Bld) 0.8 % Normal 0.0-6.0 [facility] ([place]) Comment on above: Performed By: #### G FR, LD, CMP, TROPHS ####[address] [address] Lymphocyte, Absolute 4.8 10 3/mcL High 0.9-4.3 [facility] ([place]) Comment on above: Performed By: #### G FR, LD, CMP, TROPHS ####[address] [address] Lymphocytes/100 WBC (Bld) 14.1 % Low 20.0-40.0 [facility] ([place]) Comment on above: Performed By: #### G FR, LD, CMP, TROPHS ####[address] [address] Monocyte, Absolute 0.8 10 3/mcL Normal 0.1-1.4 [facility] ([place]) Comment on above: Performed By: #### G FR, LD, CMP, TROPHS ####[address] [address] Monocytes/100 WBC (Bld) 2.4 % Normal 2.0-13.0 [facility] ([place]) Comment on above: Performed By: #### G FR, LD, CMP, TROPHS ####[address] [address] Neutrophils/100 WBC (Bld) 82.3 % High 50.0-75.0 [facility] ([place]) Comment on above: Performed By: #### G FR, LD, CMP, TROPHS ####[address] [address] .GFRon 05-24-2022 GFR >60 Normal [facility] ([place]) Comment on above: Result Comment: GFR Population mean for , Non- Americans Ages 20-29 = 116 mL/min/1.73 sq.m. Ages 30-39 = 107 mL/min/1.73 sq.m. Ages 40-49 = 99 mL/min/1.73 sq.m. Ages 50-59 = 93 mL/min/1.73 sq.m. Ages 60-69 = 85 mL/min/1.73 sq.m. Ages 70+ = 75 mL/min/1.73 sq.m. Chronic Kidney Disease: Less than 60 mL/min/1.73 square meters End Stage Renal Disease: Less than 15 mL/min/1.73 square meters Performed By: #### A PTT, FIB, HAPTO, PRO, LAC, PHOS, GFR, LD, CMP, MG ####[address] [address] GFR Non- >60 Normal [facility] ([place]) Comment on above: Result Comment: GFR Population mean for , Non- Americans Ages 20-29 = 116 mL/min/1.73 sq.m. Ages 30-39 = 107 mL/min/1.73 sq.m. Ages 40-49 = 99 mL/min/1.73 sq.m. Ages 50-59 = 93 mL/min/1.73 sq.m. Ages 60-69 = 85 mL/min/1.73 sq.m. Ages 70+ = 75 mL/min/1.73 sq.m. Chronic Kidney Disease: Less than 60 mL/min/1.73 square meters End Stage Renal Disease: Less than 15 mL/min/1.73 square meters Performed By: #### A PTT, FIB, HAPTO, PRO, LAC, PHOS, GFR, LD, CMP, MG ####[address] [address] GFR >60 Normal [facility] ([place]) Comment on above: Result Comment: GFR Population mean for , Non- Americans Ages 20-29 = 116 mL/min/1.73 sq.m. Ages 30-39 = 107 mL/min/1.73 sq.m. Ages 40-49 = 99 mL/min/1.73 sq.m. Ages 50-59 = 93 mL/min/1.73 sq.m. Ages 60-69 = 85 mL/min/1.73 sq.m. Ages 70+ = 75 mL/min/1.73 sq.m. Chronic Kidney Disease: Less than 60 mL/min/1.73 square meters End Stage Renal Disease: Less than 15 mL/min/1.73 square meters Performed By: #### G FR, LD, CMP, TROPHS ####[place] [address] GFR Non- >60 Normal [facility] ([place]) Comment on above: Result Comment: GFR Population mean for , Non- Americans Ages 20-29 = 116 mL/min/1.73 sq.m. Ages 30-39 = 107 mL/min/1.73 sq.m. Ages 40-49 = 99 mL/min/1.73 sq.m. Ages 50-59 = 93 mL/min/1.73 sq.m. Ages 60-69 = 85 mL/min/1.73 sq.m. Ages 70+ = 75 mL/min/1.73 sq.m. Chronic Kidney Disease: Less than 60 mL/min/1.73 square meters End Stage Renal Disease: Less than 15 mL/min/1.73 square meters Performed By: #### G FR, LD, CMP, TROPHS ####[place] [address] .MDWon 05-24-2022 Monocyte Distribution Width Not performed Normal 0.00-20.00 [facility] ([place]) Comment on above: Result Comment: MDW testing performed only on adult ER patients between the ages of 18-89 years. Performed By: #### A PTT, FIB, HAPTO, PRO, LAC, PHOS, GFR, LD, CMP, MG ####[place] [address] Monocyte Distribution Width Not performed Normal 0.00-20.00 [facility] ([place]) Comment on above: Result Comment: MDW testing performed only on adult ER patients between the ages of 18-89 years. Performed By: #### G FR, LD, CMP, TROPHS ####[place] [address] .Manual Diffon 05-24-2022 Bands 2.0 % Normal 0.0-5.0 [facility] ([place]) Comment on above: Performed By: #### A PTT, FIB, HAPTO, PRO, LAC, PHOS, GFR, LD, CMP, MG ####[place] [address] Basophil %, Manual 0.0 % Normal 0.0-2.5 [facility] ([place]) Comment on above: Performed By: #### A PTT, FIB, HAPTO, PRO, LAC, PHOS, GFR, LD, CMP, MG ####[place] [address] Basophil, Abs Manual 0.0 10 3/mcL Normal 0.0-0.3 [facility] ([place]) Comment on above: Performed By: #### A PTT, FIB, HAPTO, PRO, LAC, PHOS, GFR, LD, CMP, MG ####[place] [address] Eosinophil %, Manual 0.0 % Normal 0.0-6.0 [facility] ([place]) Comment on above: Performed By: #### A PTT, FIB, HAPTO, PRO, LAC, PHOS, GFR, LD, CMP, MG ####[place] [address] Eosinophil, Abs Manual 0.0 10 3/mcL Normal 0.0-0.7 [facility] ([place] Comment on above: Performed By: #### A PTT, FIB, HAPTO, PRO, LAC, PHOS, GFR, LD, CMP, MG ####[place] [address] Lymphocyte %, Manual 6.0 % Low 20.0-40.0 [facility] ([place]) Comment on above: Performed By: #### A PTT, FIB, HAPTO, PRO, LAC, PHOS, GFR, LD, CMP, MG ####[place] [address] Lymphocyte, Abs Manual 1.3 10 3/mcL Normal 0.9-4.3 [facility] ([place] Comment on above: Performed By: #### A PTT, FIB, HAPTO, PRO, LAC, PHOS, GFR, LD, CMP, MG ####[place] [address] Monocyte %, Manual 1.0 % Low 2.0-13.0 [facility] ([place]) Comment on above: Performed By: #### A PTT, FIB, HAPTO, PRO, LAC, PHOS, GFR, LD, CMP, MG ####[place] [address] Monocyte, Abs Manual 0.2 10 3/mcL Normal 0.1-1.4 [facility] ([place]) Comment on above: Performed By: #### A PTT, FIB, HAPTO, PRO, LAC, PHOS, GFR, LD, CMP, MG ####[place] [address] Neutrophil %, Manual 91.0 % High 50.0-75.0 [facility] ([place]) Comment on above: Performed By: #### A PTT, FIB, HAPTO, PRO, LAC, PHOS, GFR, LD, CMP, MG ####[place] [address] Neutrophil, Abs Manual 20.0 10 3/mcL High 2.3-8.1 [facility] ([place]) Comment on above: Performed By: #### A PTT, FIB, HAPTO, PRO, LAC, PHOS, GFR, LD, CMP, MG ####[place] [address] Nucleated RBC 1.0 /100 WBC Normal [facility] ([place]) Comment on above: Performed By: #### A PTT, FIB, HAPTO, PRO, LAC, PHOS, GFR, LD, CMP, MG ####[place] [address] .Morphon 05-24-2022 Anisocytosis Ql (Bld) 1+ Normal [facility] ([place]) Comment on above: Performed By: #### A PTT, FIB, HAPTO, PRO, LAC, PHOS, GFR, LD, CMP, MG ####[place] [address] Platelet Estimate Normal Normal [facility] ([place]) Comment on above: Performed By: #### A PTT, FIB, HAPTO, PRO, LAC, PHOS, GFR, LD, CMP, MG ####[place] [address] Polychrom 1+ Normal [facility] ([place]) Comment on above: Performed By: #### A PTT, FIB, HAPTO, PRO, LAC, PHOS, GFR, LD, CMP, MG ####[place] [address] Anisocytosis Ql (Bld) 1+ Normal [facility] ([place]) Comment on above: Performed By: #### G FR, LD, CMP, TROPHS ####[place] [address] Platelet Estimate Normal Normal [facility] ([place]) Comment on above: Performed By: #### G FR, LD, CMP, TROPHS ####[place] [address] Polychrom 1+ Normal [facility] ([place]) Comment on above: Performed By: #### G FR, LD, CMP, TROPHS ####[place] [address] .NEUABSon 05-24-2022 Neutrophil, Absolute 28.1 10 3/mcL High 2.3-8.1 A [facility] ([place]) Comment on above: Performed By: #### G FR, LD, CMP, TROPHS ####[place] [address] A1Con 05-24-2022 HbA1c (Bld) [Mass fraction] 5.2 % Normal 4.0-6.0 [facility] ([place]) Comment on above: Performed By: #### A 1C ####[place] [address] ABO/Rh (Gel)on 06-27-2022 ABO/Rh Interp Negative Invalid Interpretation Code [facility] ([place]) Comment on above: Performed By: #### A MYLA ESTES DATIGG ####[place] [id number] ABS (Gel)on 05-24-2022 ABSC Interp (Gel) Negative Normal [facility] ([place]) Comment on above: Performed By: #### A MYLA ESTES DATIGG ####[place] [address] AMYon 05-24-2022 Amylase [Catalytic activity/Vol] 36 U/L Normal 30-118 [facility] ([place]) Comment on above: Result Comment: No te - New Reference Range in effect 20 Performed By: #### L DACIA ELY ####[place] [address] APTTon 05-24-2022 aPTT Coag (Bld) [Time] 22.0 s Low 25.0-35.0 [facility] ([place]) Comment on above: Result Comment: For Heparin anticoagulation therapy, the recommended therapeutic range is: 54-77 seconds (APTT Correlation with Anti-Xa therapeutic range of 0.3-0.7 units/ml). PLEASE REFERENCE THE PHARMACY PROTOCOL FOR DOSING. Performed By: #### A PTT, FIB, HAPTO, PRO, LAC, PHOS, GFR, LD, CMP, MG ####[place] [address] Heparin dose (APTT) None Normal [facility] ([place]) Comment on above: Performed By: #### A PTT, FIB, HAPTO, PRO, LAC, PHOS, GFR, LD, CMP, MG ####[place] [id number] CBCon 05-24-2022 Erythrocyte distribution width (RBC) [Ratio] 15.7 % High 11.5-15.5 [facility] ([place]) Comment on above: Performed By: #### A PTT, FIB, HAPTO, PRO, LAC, PHOS, GFR, LD, CMP, MG ####[place] [address] Hematocrit (Bld) [Volume fraction] 25.1 % Low 34.0-46.0 [facility] ([place]) Comment on above: Performed By: #### A PTT, FIB, HAPTO, PRO, LAC, PHOS, GFR, LD, CMP, MG ####[place] [address] Hgb 8.4 G/dL Low 12.0-16.0 [facility] ([place]) Comment on above: Performed By: #### A PTT, FIB, HAPTO, PRO, LAC, PHOS, GFR, LD, CMP, MG ####[place] [address] MCH (RBC) [Entitic mass] 29.9 pg Normal 27.0-33.0 [facility] ([place]) Comment on above: Performed By: #### A PTT, FIB, HAPTO, PRO, LAC, PHOS, GFR, LD, CMP, MG ####[place] [address] MCHC 33.6 G/dL Normal 32.0-36.0 [facility] ([place]) Comment on above: Performed By: #### A PTT, FIB, HAPTO, PRO, LAC, PHOS, GFR, LD, CMP, MG ####[place] [address] MCV (RBC) [Entitic vol] 89.1 fL Normal 80.0-99.0 [facility] ([place]) Comment on above: Performed By: #### A PTT, FIB, HAPTO, PRO, LAC, PHOS, GFR, LD, CMP, MG ####[place] [address] Platelet 251 10 3/mcL Normal 150-450 [facility] ([place]) Comment on above: Performed By: #### A PTT, FIB, HAPTO, PRO, LAC, PHOS, GFR, LD, CMP, MG ####[place] [address] Platelet mean volume (Bld) [Entitic vol] 8.9 fL Normal 6.6-10.5 [facility] ([place]) Comment on above: Performed By: #### A PTT, FIB, HAPTO, PRO, LAC, PHOS, GFR, LD, CMP, MG ####[place] [address] RBC 2.81 10 6/mcL Low 4.10-5.30 [facility] ([place]) Comment on above: Performed By: #### A PTT, FIB, HAPTO, PRO, LAC, PHOS, GFR, LD, CMP, MG ####[place] [address] WBC 22.0 10 3/mcL High 4.5-10.8 [facility] ([place]) Comment on above: Performed By: #### A PTT, FIB, HAPTO, PRO, LAC, PHOS, GFR, LD, CMP, MG ####[place] [address] Erythrocyte distribution width (RBC) [Ratio] 15.3 % Normal 11.5-15.5 [facility] ([place]) Comment on above: Performed By: #### G FR, LD, CMP, TROPHS ####[place] [address] Hematocrit (Bld) [Volume fraction] 31.0 % Low 34.0-46.0 [facility] ([place]) Comment on above: Performed By: #### G FR, LD, CMP, TROPHS ####[place] [address] Hgb 10.4 G/dL Low 12.0-16.0 [facility] ([place]) Comment on above: Performed By: #### G FR, LD, CMP, TROPHS ####[place] [address] MCH (RBC) [Entitic mass] 29.8 pg Normal 27.0-33.0 [facility] ([place]) Comment on above: Performed By: #### G FR, LD, CMP, TROPHS ####[place] [address] MCHC 33.4 G/dL Normal 32.0-36.0 [facility] ([place]) Comment on above: Performed By: #### G FR, LD, CMP, TROPHS ####[place] [address] MCV (RBC) [Entitic vol] 89.3 fL Normal 80.0-99.0 [facility] ([place]) Comment on above: Performed By: #### G FR, LD, CMP, TROPHS ####[place] [address] Platelet 438 10 3/mcL Normal 150-450 [facility] ([place]) Comment on above: Performed By: #### G FR, LD, CMP, TROPHS ####[place] [address] Platelet mean volume (Bld) [Entitic vol] 9.7 fL Normal 6.6-10.5 [facility] ([place]) Comment on above: Performed By: #### G FR, LD, CMP, TROPHS ####[place] [address] RBC 3.48 10 6/mcL Low 4.10-5.30 [facility] ([place]) Comment on above: Performed By: #### G FR, LD, CMP, TROPHS ####[place] [address] WBC 34.1 10 3/mcL High 4.5-10.8 [facility] ([place]) Comment on above: Performed By: #### G FR, LD, CMP, TROPHS ####[place] [address] CKon 05-24-2022 CK [Catalytic activity/Vol] 39 U/L Normal 7-185 [facility] ([place]) Comment on above: Performed By: #### C K ####[place] [address] CMPon 05-24-2022 Albumin Level 2.4 G/dL Low 3.2-4.8 [facility] ([place]) Comment on above: Performed By: #### A PTT, FIB, HAPTO, PRO, LAC, PHOS, GFR, LD, CMP, MG ####[place] [address] Albumin/Globulin [Mass ratio] 0.8 {ratio} Low 0.9-1.6 [facility] ([place]) Comment on above: Performed By: #### A PTT, FIB, HAPTO, PRO, LAC, PHOS, GFR, LD, CMP, MG ####[address] [address] ALP [Catalytic activity/Vol] 52 U/L Normal 38-126 [facility] ([place]) Comment on above: Performed By: #### A PTT, FIB, HAPTO, PRO, LAC, PHOS, GFR, LD, CMP, MG ####[place] [id number] ALT [Catalytic activity/Vol] 77 U/L High 10-49 [facility] ([place]) Comment on above: Performed By: #### A PTT, FIB, HAPTO, PRO, LAC, PHOS, GFR, LD, CMP, MG ####[place] [id number] AST [Catalytic activity/Vol] 41 U/L High 8-34 [facility] ([place]) Comment on above: Performed By: #### A PTT, FIB, HAPTO, PRO, LAC, PHOS, GFR, LD, CMP, MG ####[place] [address] Bili Total 0.30 mg/dL Normal 0.20-1.20 [facility] ([place]) Comment on above: Result Comment: Use of this assay is not recommended for patients undergoing treatment with eltrombopag due to the potential for falsely elevated results. Performed By: #### A PTT, FIB, HAPTO, PRO, LAC, PHOS, GFR, LD, CMP, MG ####[place] [address] BUN/Creatinine Ratio 10.3 ratio Normal 10.0-22.0 [facility] ([place]) Comment on above: Performed By: #### A PTT, FIB, HAPTO, PRO, LAC, PHOS, GFR, LD, CMP, MG ####[place] [id number] Calcium [Mass/Vol] 8.3 mg/dL Low 8.7-10.4 [facility] ([place]) Comment on above: Performed By: #### A PTT, FIB, HAPTO, PRO, LAC, PHOS, GFR, LD, CMP, MG ####[place] [address] Chloride [Moles/Vol] 111 mmol/L High 98-110 [facility] ([place]) Comment on above: Performed By: #### A PTT, FIB, HAPTO, PRO, LAC, PHOS, GFR, LD, CMP, MG ####[place] [id number] CO2 [Moles/Vol] 20 mmol/L Low 22-32 [facility] ([place]) Comment on above: Performed By: #### A PTT, FIB, HAPTO, PRO, LAC, PHOS, GFR, LD, CMP, MG ####[place] [address] Creatinine [Mass/Vol] 0.78 mg/dL Normal 0.50-1.20 [facility] ([place]) Comment on above: Performed By: #### A PTT, FIB, HAPTO, PRO, LAC, PHOS, GFR, LD, CMP, MG ####[place] [address] Electrolyte Balance 9.0 mEq/L Normal 4.0-15.0 [facility] ([place]) Comment on above: Performed By: #### A PTT, FIB, HAPTO, PRO, LAC, PHOS, GFR, LD, CMP, MG ####[place] [address] Globulin 3.2 G/dL Normal 1.5-3.8 [facility] ([place]) Comment on above: Performed By: #### A PTT, FIB, HAPTO, PRO, LAC, PHOS, GFR, LD, CMP, MG ####[place] [address] Glucose [Mass/Vol] 136 mg/dL High 70-110 [facility] ([place]) Comment on above: Performed By: #### A PTT, FIB, HAPTO, PRO, LAC, PHOS, GFR, LD, CMP, MG ####[address] [address] Potassium [Moles/Vol] 4.6 mmol/L Normal 3.5-5.0 [facility] ([place]) Comment on above: Performed By: #### A PTT, FIB, HAPTO, PRO, LAC, PHOS, GFR, LD, CMP, MG ####[address] [address] Sodium [Moles/Vol] 140 mmol/L Normal 136-145 [facility] ([place]) Comment on above: Performed By: #### A PTT, FIB, HAPTO, PRO, LAC, PHOS, GFR, LD, CMP, MG ####[address] [address] Total Protein 5.6 G/dL Low 5.7-8.2 [facility] ([place]) Comment on above: Result Comment: No te - New Reference Range in effect 20 Performed By: #### A PTT, FIB, HAPTO, PRO, LAC, PHOS, GFR, LD, CMP, MG ####[address] [address] Urea nitrogen [Mass/Vol] 8.0 mg/dL Normal 8.0-22.0 [facility] ([place]) Comment on above: Performed By: #### A PTT, FIB, HAPTO, PRO, LAC, PHOS, GFR, LD, CMP, MG ####[address] [address] Albumin Level 2.6 G/dL Low 3.2-4.8 [facility] ([place]) Comment on above: Performed By: #### G FR, LD, CMP, TROPHS ####[address] [address] Albumin/Globulin [Mass ratio] 0.7 {ratio} Low 0.9-1.6 [facility] ([place]) Comment on above: Performed By: #### G FR, LD, CMP, TROPHS ####[address] [address] ALP [Catalytic activity/Vol] 63 U/L Normal 38-126 [facility] ([place]) Comment on above: Performed By: #### G FR, LD, CMP, TROPHS ####[address] [address] ALT [Catalytic activity/Vol] 81 U/L High 10-49 [facility] ([place]) Comment on above: Performed By: #### G FR, LD, CMP, TROPHS ####[address] [address] AST [Catalytic activity/Vol] 43 U/L High 8-34 [facility] ([place]) Comment on above: Performed By: #### Krupa FR, LD, CMP, TROPHS ####[address] [address] Bili Total 0.30 mg/dL Normal 0.20-1.20 [facility] ([place]) Comment on above: Result Comment: Use of this assay is not recommended for patients undergoing treatment with eltrombopag due to the potential for falsely elevated results. Performed By: #### G FR, LD, CMP, TROPHS ####[address] [address] BUN/Creatinine Ratio 11.1 ratio Normal 10.0-22.0 [facility] ([place]) Comment on above: Performed By: #### G FR, LD, CMP, TROPHS ####[address] [address] Calcium [Mass/Vol] 8.9 mg/dL Normal 8.7-10.4 [facility] ([place]) Comment on above: Performed By: #### G FR, LD, CMP, TROPHS ####[address] [address] Chloride [Moles/Vol] 109 mmol/L Normal 98-110 [facility] ([place]) Comment on above: Performed By: #### G FR, LD, CMP, TROPHS ####[address] [address] CO2 [Moles/Vol] 16 mmol/L Low 22-32 [facility] ([place]) Comment on above: Performed By: #### G FR, LD, CMP, TROPHS ####[address] [address] Creatinine [Mass/Vol] 0.90 mg/dL Normal 0.50-1.20 [facility] ([place]) Comment on above: Performed By: #### G FR, LD, CMP, TROPHS ####[address] [address] Electrolyte Balance 16.0 mEq/L High 4.0-15.0 [facility] ([place]) Comment on above: Performed By: #### G FR, LD, CMP, TROPHS ####[address] [address] Globulin 3.5 G/dL Normal 1.5-3.8 [facility] ([place] Comment on above: Performed By: #### G FR, LD, CMP, TROPHS ####[place] [address] Glucose [Mass/Vol] 224 mg/dL High 70-110 [facility] ([place]) Comment on above: Performed By: #### G FR, LD, CMP, TROPHS ####[address] [address] Potassium [Moles/Vol] 4.1 mmol/L Normal 3.5-5.0 [facility] ([place]) Comment on above: Performed By: #### G FR, LD, CMP, TROPHS ####[address] [address] Sodium [Moles/Vol] 141 mmol/L Normal 136-145 [facility] ([place]) Comment on above: Performed By: #### G FR, LD, CMP, TROPHS ####[address] [address] Total Protein 6.1 G/dL Normal 5.7-8.2 [facility] ([place]) Comment on above: Result Comment: No te - New Reference Range in effect 20 Performed By: #### G FR, LD, CMP, TROPHS ####[address] [address] Urea nitrogen [Mass/Vol] 10.0 mg/dL Normal 8.0-22.0 [facility] ([place]) Comment on above: Performed By: #### G , JEANNINE, MARISSA, NOLBERTO ####[facility] [place] [address] [address] ANGIOGRAPHY CHEST W/CONTR Gabby 05-24-2022 CT ANGIOGRAPHY CHEST W/CONTRAST ORIGINAL EXAMINATION: CTA OF THE CHEST05/24/2022 5:40 pm TECHNIQUE: CTA of the chest was performed after the administration of intravenous contrast. Multiplanar reformatted images are provided for review. MIP images are provided for review. Automated exposure control, iterative reconstruction, and/or weight based adjustment of the mA/kV was utilized to reduce the radiation dose to as low as reasonably achievable. COMPARISON: None. HISTORY: ORDERING SYSTEM PROVIDED HISTORY: Reason for Exam: 23 WKS PREG, SOB, CHEST PAIN RIGHT SIDE, RIGHT ABD PAIN Chest pain, shortness of breath, , obesity FINDINGS: The exam is degraded by patient body habitus and respiratory motion. There is adequate contrast opacification of the pulmonary arterial vasculature. There is no filling defect or vessel cutoff to indicate pulmonary embolus to the level of the segmental arteries. The thoracic aorta is normal in caliber. The heart is normal in size. No pericardial effusion or thickening. The trachea is normal. There is no lymphadenopathy. The lungs are clear. No pneumothorax or pleural fluid. The visualized osseous structures are intact. There is a large amount of free fluid throughout the abdomen measuring approximately 25-30 Hounsfield units IMPRESSION: No pulmonary emboli to the level of the segmental arteries. Moderate to large amount of abdominal ascites measuring slightly above simple fluid at 25-30 Hounsfield units. Interpreted by: Bradley Mahoney MD Preliminary Report By: Bradley Mahoney MD Electronically signed By Bradley Mahoney MD Dictated Date: 05/24/2022 5:51:17 PM Prelim Date: 05/24/2022 6:00:17 PM Sign Date: 05/24/2022 6:00:17 PM Ordering Provider: QUAN MIMS Normal [facility] ([place]) DATIGGon 05-24-2022 RAINA IgG Interp (Gel) Negative Normal [facility] ([place]) Comment on above: Order Comment: Order ed by Discern Performed By: #### A MYLA ESTES, HERB ####[place] [address] [address] [place] [address] FIBon 05-24-2022 Fibrinogen 568 mg/dL High 250-560 [facility] ([place]) Comment on above: Performed By: #### A PTT, FIB, HAPTO, PRO, LAC, PHOS, GFR, LD, CMP, MG ####[address] [address] HAPTOon 05-24-2022 Haptoglobin 67 mg/dL Normal 40-280 [facility] ([place]) Comment on above: Result Comment: No te - New Reference Range in effect 20 Performed By: #### A PTT, FIB, HAPTO, PRO, LAC, PHOS, GFR, LD, CMP, MG ####[address] [address] LABORATORYOrdered By: SYSTEM SYSTEM on 05-24-2022 Haptoglobin [Mass/Vol] 67 mg/dL Invalid Interpretation Code 40 - 280 mg/dL ADM SS Amylase [Catalytic activity/Vol] 36 U/L Invalid Interpretation Code 30 - 118 U/L ADM SS Anisocytosis Ql (Bld) 1+ *NA* (05/24/22 7:44 PM) Invalid Interpretation Code Workflow SS Band form neutrophils/100 WBC (Bld) 2.0 % Invalid Interpretation Code 0.0 - 5.0 % Workflow SS Basophils (Bld) [#/Vol] 0.0 103/mcL Invalid Interpretation Code 0.0 - 0.3 10^3/mcL Workflow SS Basophils/100 WBC (Bld) 0.0 % Invalid Interpretation Code 0.0 - 2.5 % Workflow SS Eosinophils (Bld) [#/Vol] 0.0 103/mcL Invalid Interpretation Code 0.0 - 0.7 10^3/mcL Workflow SS Eosinophils/100 WBC (Bld) 0.0 % Invalid Interpretation Code 0.0 - 6.0 % Workflow SS HbA1c (Bld) [Mass fraction] 5.2 % Invalid Interpretation Code 4.0 - 6.0 % Auto Chem SS Lipase [Catalytic activity/Vol] 31 U/L Invalid Interpretation Code 12 - 53 U/L AH ADM SS Lymphocytes (Bld) [#/Vol] 1.3 103/mcL Invalid Interpretation Code 0.9 - 4.3 10^3/mcL AH Workflow SS Lymphocytes/100 WBC (Bld) 6.0 % Invalid Interpretation Code 20.0 - 40.0 % AH Workflow SS Magnesium [Mass/Vol] 2.3 mg/dL Invalid Interpretation Code 1.6 - 2.4 mg/dL AH ADM SS Monocytes (Bld) [#/Vol] 0.2 103/mcL Invalid Interpretation Code 0.1 - 1.4 10^3/mcL AH Workflow SS Monocytes/100 WBC (Bld) 1.0 % Invalid Interpretation Code 2.0 - 13.0 % AH Workflow SS Neutrophils (Bld) [#/Vol] 20.0 103/mcL Invalid Interpretation Code 2.3 - 8.1 10^3/mcL AH Workflow SS Neutrophils/100 WBC (Bld) 91.0 % Invalid Interpretation Code 50.0 - 75.0 % AH Workflow SS Nucleated RBC 1.0 /100 WBC Invalid Interpretation Code Workflow SS Phosphate [Mass/Vol] 4.1 mg/dL Invalid Interpretation Code 2.4 - 5.1 mg/dL ADM SS Polychromasia LM Ql (Bld) 1+ *NA* (05/24/22 7:44 PM) Invalid Interpretation Code Workflow SS CK [Catalytic activity/Vol] 39 U/L Invalid Interpretation Code 7 - 185 U/L ADM SS Magnesium [Mass/Vol] 2.6 mg/dL Invalid Interpretation Code 1.6 - 2.4 mg/dL AH ADM SS Troponin I.cardiac DL <= 0.01 ng/mL [Mass/Vol] 22.02 ng/L Invalid Interpretation Code 0.00 - 34.00 ng/L ADM SS LABORATORYOrdered By: Shayla Culp on 05-24-2022 ABO and Rh group Nom (Bld) Blood group B Rh(D) negative Invalid Interpretation Code BB Auto SS Blood group antibody screen Ql NEG (05/24/22 7:44 PM) Invalid Interpretation Code BB Auto SS Direct antiglobulin test.IgG specific reagent Ql (RBC) NEG (05/24/22 7:44 PM) Invalid Interpretation Code BB Auto SS LABORATORYOrdered By: Fortino Dennis on 05-24-2022 Natriuretic peptide.B prohormone N-Terminal [Mass/Vol] 221 pg/mL Invalid Interpretation Code 0 - 450 pg/mL AH Auto Chem SS LACon 05-24-2022 Lactic Acid Lvl 3.3 mmol/L High 0.2-2.0 [facility] ([place]) Comment on above: Performed By: #### A PTT, FIB, HAPTO, PRO, LAC, PHOS, GFR, LD, CMP, MG ####[place] [address] Lactic Acid Lvl 5.7 mmol/L High 0.2-2.0 [facility] ([place]) Comment on above: Performed By: #### L AC ####[place] [address] LDHon 05-24-2022 LDH 161 U/L Normal 120-246 [facility] ([place]) Comment on above: Performed By: #### A PTT, FIB, HAPTO, PRO, LAC, PHOS, GFR, LD, CMP, MG ####[place] [address] LDH 198 U/L Normal 120-246 [facility] ([place]) Comment on above: Performed By: #### G FR, LD, CMP, TROPHS ####[place] [address] LIPon 05-24-2022 Lipase Level 31 U/L Normal 12-53 [facility] ([place]) Comment on above: Result Comment: No te - New Reference Range in effect 20 Performed By: #### L IP, DACIA ####[place] [address] MGon 05-24-2022 Magnesium [Mass/Vol] 2.3 mg/dL Normal 1.6-2.4 [facility] ([place]) Comment on above: Performed By: #### A PTT, FIB, HAPTO, PRO, LAC, PHOS, GFR, LD, CMP, MG ####[place] [address] Magnesium [Mass/Vol] 2.6 mg/dL High 1.6-2.4 [facility] ([place]) Comment on above: Performed By: #### R BCP #### [facility] [address] [place] [address] No Panel Informationon 05-24 Microscopic examination of blood, culture Culture has been received in lab and is no growth to date. Routine cultures are held for 5 days. [facility] No Panel InformationOrdered By: Anabella Pena on 05-24-2022 Culture Respiratory with Gram Stain Normal respiratory ginger present. Sensitivity testing not indicated. [facility] Comment on above: Requests for Mycopla sma, Legionella, Fungi, Mycobacteria, Chlamydia, and Viruses require ordering of those individual tests. GS No organisms seen. [facility] Comment on above: Requests for Mycopla sma, Legionella, Fungi, Mycobacteria, Chlamydia, and Viruses require ordering of those individual tests. PBNPon 05-24-2022 Natriuretic peptide B (Bld) [Mass/Vol] 221 pg/mL Normal 0-450 [facility] ([place]) Comment on above: Result Comment: NT-p roBNP results of less than 300 pg/mL effectively rules out acute congestive heart failure with 99% negative predictive value. Performed By: #### P BNP ####[place] [address] [place] [address] PHOSon 05-24-2022 Phosphate [Mass/Vol] 4.1 mg/dL Normal 2.4-5.1 [facility] ([place]) Comment on above: Result Comment: No te - New Reference Range in effect 20 Performed By: #### A PTT, FIB, HAPTO, PRO, LAC, PHOS, GFR, LD, CMP, MG ####[place] [address] [place] [address] PROon 05-24-2022 INR Coag (PPP) [Relative time] 0.9 {INR} Normal [facility] ([place]) Comment on above: Result Comment: [employer] (CHEST, 1992, 102:[id number]) recommended therapeutic range for oral anticoagulant therapy is: LOW RISK: Prophylaxis of venous thrombosis INR: 2.0-3.0 Treatment of pulmonary embolism 2.0-3.0 Prevention of systemic embolism 2.0-3.0 HIGH RISK: Mechanical prosthetic valves 2.5-3.5 Performed By: #### A PTT, FIB, HAPTO, PRO, LAC, PHOS, GFR, LD, CMP, MG ####[place] [address] [place] [address] PT Coag (PPP) [Time] 11.1 s Normal 9.0-14.9 [facility] ([place]) Comment on above: Result Comment: Effe ctive 06/11/08, Protime results may be affected by some antibiotics (i.e. Ciprofloxacin, Azithromycin, Bactrim) which may potentiate the action of oral anticoagulants, with further increases in Protime/INR. Performed By: #### A PTT, FIB, HAPTO, PRO, LAC, PHOS, GFR, LD, CMP, MG ####[address] [address] TROPHSon 05-24-2022 Troponin I High Sensitivity 22.02 ng/L Normal 0.00-34.00 [facility] ([place]) Comment on above: Result Comment: If t he High Sensitive Troponin result is below the 99th percentile value (<45 ng/L) at the first blood draw, at least two additional blood samples should be drawn before results are interpreted as negative for AMI. Performed By: #### G FR, LD, CMP, TROPHS ####[address] [address] [facility] Reporton 2021 [facility] . Pathology Reports Accession: Collected Date/Time: Received Date/Time: Pathologist: [id number] 05/10/2022 10:19 EDT 05/10/2022 18:00 EDT [facility] SPECIMEN: Specimen Description: Liquid Prep w/ HPV Specimen: Cervical Screening or Diagnostic: Screening RELEVANT HISTORY: LMP: NOT GIVEN SPECIMEN ADEQUACY: SATISFACTORY FOR EVALUATION ENDOCERVICAL/TRANSFOR MATIONAL ZONE COMPONENT ABSENT/INSUFFICIENT INTERPRETATION/RESULT S: NEGATIVE FOR INTRAEPITHELIAL LESION OR MALIGNANCY HIGH RISK HPV TESTING: High Risk HPV Typing: Negative HPV Types 16, 18, 31, 33, 35, 39, 45, 51, 52, 56, 58, 59, 66 and 68 DNA were undetectable or be low the pre-set threshold. The chloe High-Risk HPV DNA Test is not intended for use as a screening device for Pap normal women under age 30 and is not intended to substitute for regular Pap screening. The chloe High-Risk HPV DNA Test is designed to augment existing methods for the detection of cervical disease and should be used in conjunction with clinical information derived from [facility] diagnostic and screening tests, physical examinations and full medical history in accordance with appropriate patient management procedures. NOTE: A negative result does not preclude the presence of HPV infection because results depend on adequate specimen collection, absence of inhibitors and sufficient DNA to be detected. COMMENT: This Pap Test was successfully processed and evaluated with the assistance of the AccuVein Thin Prep Test Imaging System. Electronically Signed by Pathology report verified by [facility] Screened by: GL Electronically signed by Jessa Adam Sign-Out Date: 05/14/2022 14:49 Performing Lab: [facility], [address] [place] [address] Disclaimer The Pap test is a screening test for cervical cancer. As evidenced by published data, it is sub ject to both inherent false negative and false positive results. Your patient's results should be interpreted in context with pertinent clinical history including gynecological examination. Normal [facility] [place] HPVon 05-14-2022 HPV Interp Normal See Interp HPVN [facility] [place] Comment on above: Order Comment: Order placed by AP_HPV_ORDER rule from [id number] Result Comment: High Risk HPV Typing: NEGATIVE HPV types 16, 18, 31, 33, 35, 39, 45, 51, 52, 56, 58, 59, 66 and 68 DNA were undetectable or below the pre-set threshold. The chloe High-Risk HPV DNA Test is not intended for use as a screening device for Pap normal women under age 30 and is not intended to substitute for regular Pap screening. The chloe High-Risk HPV DNA Test is designed to augment existing methods for the detection of cervical disease and should be used in conjunction with clinical information derived from other diagnostic and screening tests, physical examinations and full medical history in accordance with appropriate patient management procedures. NOTE: A negative result does not preclude the presence of HPV infection because results depend on adequate specimen collection, absence of inhibitors and sufficient DNA to be detected. See Interp HPVN Performed By: #### H PV ####[place] [address] HPV Source Cervix Normal [facility] [place] Comment on above: Order Comment: Order placed by AP_HPV_ORDER rule from [id number] Performed By: #### H ####[place] [address] LABORATORYOrdered By: [employer] on 03-26-2022 Glucose [Mass/Vol] 154 mg/dL Invalid Interpretation Code 70 - 139 mg/dL AH ADM SS LABORATORYOrdered By: Sasha Matos on 03-26-2022 HIV 1/2 Ab Non-Reactive (03/26/22 1:10 PM) Invalid Interpretation Code Non-Reactive AH ADM SS HIV 1/2 Ab Int Negative Invalid Interpretation Code AH Chemistry S GC/Chlamydia Amp, Uron 10-30 Chlamydia Amplif, Ur Normal [facility] Reference Lab Comment on above: Result Comment: Nega tive for For screening asymptomatic women, a vaginal swab specimen (APTIMA vaginal swab 107900) is optimal. Urine specimens have reduced sensitivity for Chlamydia trachomatis or Neisseria gonorrhoeae infection in female patients without symptoms. This test was developed and its performance characteristics determined by [facility] [place] ([facility]). It has not been cleared or approved by the FDA. [facility] is regulated under CLIA as qualified to perform high complexity testing. This test is used for clinical purposes. It should not be regarded as investigational or for research. Chlamydia For screening asymptomatic women, a vaginal swab specimen (APTIMA vaginal swab 073086) is optimal. Urine specimens have reduced sensitivity for Chlamydia trachomatis or Neisseria gonorrhoeae infection in female patients without symptoms. This test was developed and its performance characteristics determined by [facility] Pathology [facility] Laboratory [facility] [place] ([facility]). It has not been cleared or approved by the FDA. [facility] is regulated under CLIA as qualified to perform high complexity testing. This test is used for clinical purposes. It should not be regarded as investigational or for research. trachomatis by For screening asymptomatic women, a vaginal swab specimen (APTIMA vaginal swab 556157) is optimal. Urine specimens have reduced sensitivity for Chlamydia trachomatis or Neisseria gonorrhoeae infection in female patients without symptoms. This test was developed and its performance characteristics determined by [facility]'s [facility] [place] ([facility]). It has not been cleared or approved by the FDA. [facility] is regulated under CLIA as qualified to perform high complexity testing. This test is used for clinical purposes. It should not be regarded as investigational or for research. amplification. For screening asymptomatic women, a vaginal swab specimen (APTIMA vaginal swab 910491) is optimal. Urine specimens have reduced sensitivity for Chlamydia trachomatis or Neisseria gonorrhoeae infection in female patients without symptoms. This test was developed and its performance characteristics determined by [facility] [place] ([facility]). It has not been cleared or approved by the FDA. [facility] is regulated under CLIA as qualified to perform high complexity testing. This test is used for clinical purposes. It should not be regarded as investigational or for research. Performed By: #### U GCCT #### [facility] Routine Lab [address] [place] [phone] GC Amplification, Ur NGNEG Normal [facility] Reference Lab Comment on above: Performed By: #### U GCCT #### [facility] Routine Lab [address] [place] [phone] RPRon 10-30-2020 Reagin Ab RPR Ql (S) NR Normal Non Reactive [facility] Reference Lab Comment on above: Performed By: #### R PA #### [facility] Immunology [address] [place] [phone] #### AHCV1B #### [facility] Routine Lab [address] [place] [phone] Hep C Ab IA w/Confon 020 Hepatitis C Ab IA NEGAT Normal Negative [facility] Reference Lab Comment on above: Performed By: #### R PA #### [facility] Immunology [address] [place] [phone] #### AHCV1B #### [facility] Routine Lab [address] [place] [address] EMERGENCY DEPARTMENT REPORTo n 03-19-2019 EMERGENCY [place] [address] HEALTH INFORMATION MANAGEMENT EMERGENCY DEPARTMENT REPORT Patient: JUDE CARLSON ROSEMARIE CHAVEZ D.O. [id number] [age] F Status: [facility] ED Date of Service: 03/17/19 CHIEF COMPLAINT A 29-year-old. Chief complaint: Right leg pain and swelling for a week. HISTORY OF PRESENT ILLNESS The patient says she is actually here for foot and ankle pain. She denies any injury. She has just started a new job, and so after a few shifts she noticed that she was having foot and ankle pain, but then her mother noticed that her calf was swollen on the right compared to the left. She is not having any chest symptoms. MEDICATIONS She is on no meds. ALLERGIES She has no allergies. PHYSICAL EXAMINATION Jude is the 5 feet 8 inch, 188 kg lady. No distress. She complains of pain in her ankle and lateral foot with palpation, but she feels like her right calf is bigger than the left. I honestly cannot tell. The calf is nontender but she is very certain that it is swollen. Dorsalis pedis pulse is bounding. Sensation is intact. Achilles tendon is intact. No signs of trauma to the lower extremity. I do not appreciate any focal deficits. Her skin is warm and dry. EMERGENCY DEPARTMENT COURSE I did do a D-dimer. It came back elevated, so we will set her up for an ultrasound in the morning. I gave her a dose of Lovenox to cover her for tonight. I did plain films of her foot and ankle. I do not see any abnormalities there. She is wearing some really flimsy flip-flops and I told that she probably needs a better supportive shoe, especially in her new job. So hopefully with that suggestion she will get more supportive footwear and she can follow up with her primary care physician. IMPRESSION 03/27/19 2306 ROSEMARIE CHAVEZ D.O. cc: ROSEMARIE CHAVEZ D.O. << Signature on File>> Reported By: ROSEMARIE CHAVEZ D.O. Signed By: ROSEMARIE CHAVEZ D.O. Tests performed at: [place] [address] Normal [facility] ANKLE 3 VIEWSon 03-18-2019 ANKLE 3 VIEWS [place] [address] Name: LA CARLSONYENNE Heather Phys: ROSEMARIE CAHVEZ D.O. : 91 Age: 29 Sex: F Acct: [id number] Loc: ED Exam Date: 03/18/19 Status: DEP ER Radiology No.: [id number] Unit Number: [id number] Exam # Type/Exam [id number] RAD / ANKLE 3 VIEWS RT 3 views right ankle Clinical statement: Edema and pain Comparison study: None Findings: The alignment is normal. Prominent calcaneal enthesophyte seen. There is an os trigonum. No fracture identified. Impression: Prominent calcaneal enthesopathy Professional interpretation provided by [facility] [place], [place] on [facility] [place]-PC-97. Thank you for this referral. < > Reported By: MARILYN SANCHEZ M.D. Signed In NovaPro By: MARILYN SANCHEZ M.D. << Signature on File>> Reported By: MARILYN SANCHEZ M.D. Signed By: MARILYN SANCHEZ M.D. Tests performed at: [place] [address] Normal [facility] D-DIMERon 03-18-2019 D-DIMER 247 ng/mLDDU High 0-230 [facility] Comment on above: Result Comment: The cut-off level recommended for the exclusion of pulmonary embolism(PE) or deep vein thrombosis(DVT) is <=230ng/mL DDU. Performed By: #### L 200.1660 #### [facility] [address] [place] [address] FOOT 3 VIEWSon 03-18-2019 FOOT 3 VIEWS [place] [address] Name: GLORIAJUDE Phys: ROSEMARIE CHAVEZ D.O. : 91 Age: 29 Sex: F Acct: [id number] Loc: ED Exam Date: 03/18/19 Status: [facility] Radiology No.: [id number] Unit Number: [id number] Exam # Type/Exam [id number] RAD / FOOT 3 VIEWS RT Three-view evaluation right foot Clinical statement: Pain and edema Comparison study: None Findings: Prominent calcaneal enthesophytes visualized. There is no fracture or malalignment. Benign-appearing sclerotic density in the first distal phalanx is likely a bone island. Impression: Calcaneal enthesopathy Professional interpretation provided by [facility] [place] on [facility] [place]-PC-97. Thank you for this referral. < > Reported By: MARILYN SANCHEZ M.D. Signed In NovaPro By: MARILYN SANCHEZ M.D. << Signature on File>> Reported By: MARILYN SANCHEZ M.D. Signed By: MARILYN SANCHEZ M.D. Tests performed at: [address] [id number] Normal [facility] VENOUS DUPLEX OF SINGLE LEGo n 03-18-2019 VENOUS [place]UPLEX [place] [address] Vascular Lab - [facility] Accredited in: Extracranial Cerebrovascular, Visceral Vascular, Vascular Screening & Peripheral Arterial & Venous Testing [employer] REPORT Patient: JUDE CARLSON Heather Hernandez Dr: ROSEMARIE CHAVEZ D.O. [id number] [age] F Status: REG CLI CARD Reason for Visit: LEG PAIN Service Date: 03/18/19 Access#: [id number] Procedure: VENOUS DUPLEX OF SINGLE LEG Conclusions: Right 1. Within the limits of today's study there appears to be no obvious deep or superficial vein thrombosis. 2. Limited views of the distal femoral, post tibial, and peroneal veins due to vessel depth. Abbreviated Final Report. Full Report available via Link to [employer] in [employer]Wi[employer] Image Viewer . Electronically Signed by: Heather CASTRO M.D. 03/22/19 0904 Heather CASTRO M.D. cc: ROSEMARIE CHAVEZ D.O. << Signature on File>> Reported By: Heather CASTRO M.D. Signed By: Heather CASTRO M.D. Tests performed at: [address] [address] Normal [facility] Vital Signs Date Time Vital Sign Value Performing Clinician Facility 07-24-2024 14:14-0400 Body height 172.7 cm [facility] Work Phone: [facility] 07-24-2024 14:14-0400 Body mass index (BMI) [Ratio] 63.25 kg/m2 [facility] Work Phone: [facility] 07-24-2024 14:14-0400 Body weight 188.7 kg [facility] Work Phone: [facility] 07-24-2024 14:14-0400 Heart rate 78 /min [facility] Work Phone: [facility] 05-29-2022 15:42-0400 Body temperature 98.42 [degF] DR DAWNA PENNY MD [facility] 05-29-2022 15:42-0400 Diastolic blood pressure 78 mm[Hg] DR DAWNA PENNY MD [facility] 05-29-2022 15:42-0400 Heart rate 78 /min DR DAWNA PENNY MD [facility] 05-29-2022 15:42-0400 Mean blood pressure 101 mm[Hg] DR DAWNA PENNY MD [facility] 05-29-2022 15:42-0400 Reason For Taking VItal Signs DR DAWNA PENNY MD [facility] 05-29-2022 15:42-0400 Respiratory rate 20 /min DR DAWNA PENNY MD [facility] 05-29-2022 15:42-0400 Systolic blood pressure 147 mm[Hg] DR DAWNA PENNY MD [facility] 05-29-2022 07:41-0400 Body temperature 98.6 [degF] DR DAWNA PENNY MD [facility] 05-29-2022 07:41-0400 Diastolic blood pressure 64 mm[Hg] DR DAWNA PENNY MD [facility] 05-29-2022 07:41-0400 Heart rate 81 /min DR DAWNA PENNY MD [facility] 05-29-2022 07:41-0400 Respiratory rate 18 /min DR DAWNA PENNY MD [facility] 05-29-2022 07:41-0400 Systolic blood pressure 124 mm[Hg] DR DAWNA PENNY MD [facility] 05-28-2022 23:20-0400 Body temperature 97.88 [degF] DR DAWNA PENNY MD [facility] 05-28-2022 23:20-0400 Diastolic blood pressure 81 mm[Hg] DR DAWNA PENNY MD [facility] 05-28-2022 23:20-0400 Heart rate 82 /min DR DAWNA PENNY MD [facility] 05-28-2022 23:20-0400 Reason For Taking VItal Signs DR DAWNA PENNY MD [facility] 05-28-2022 23:20-0400 Respiratory rate 18 /min DR DAWNA PENNY MD [facility] 05-28-2022 23:20-0400 Systolic blood pressure 147 mm[Hg] DR DAWNA PENNY MD [facility] 05-28-2022 17:13-0400 Mean blood pressure 92 mm[Hg] DR DAWNA PENNY MD [facility] 05-28-2022 17:13-0400 Reason For Taking VItal Signs DR DAWNA PENNY MD [facility] 05-28-2022 12:00-0400 Diastolic Blood Pressure NBP [address] DAWNA PENNY MD [facility] 05-28-2022 12:00-0400 Mean blood pressure 88 mm[Hg] DR DAWNA PENNY MD [facility] 05-28-2022 12:00-0400 Systolic Blood Pressure NBP [address] DAWNA PENNY MD [facility] 05-28-2022 07:35-0400 Diastolic Blood Pressure NBP [address] DAWNA PENNY MD [facility] 05-28-2022 07:35-0400 Mean blood pressure 95 mm[Hg] DR DAWNA PENNY MD [facility] 05-28-2022 07:35-0400 Systolic Blood Pressure NBP [address] DAWNA PENNY MD [facility] 05-28-2022 05:33-0400 Diastolic Blood Pressure NBP [address] DAWNA PENNY MD [facility] 05-28-2022 05:33-0400 Mean blood pressure 72 mm[Hg] DR DAWNA PENNY MD [facility] 05-28-2022 05:33-0400 Systolic Blood Pressure NBP [address] DAWNA PENNY MD [facility] 05-28-2022 03:22-0400 Mean blood pressure 80 mm[Hg] DR DAWNA PENNY MD [facility] 05-27-2022 08:54-0400 Signs/Symptoms Transfusion Reaction DR DAWNA PENNY MD [facility] 05-27-2022 07:54-0400 Signs/Symptoms Transfusion Reaction No DR DAWNA PENNY MD [facility] 05-27-2022 07:54-0400 Heart rate 86 /min DR DAWNA PENNY MD [facility] 05-27-2022 07:45-0400 Signs/Symptoms Transfusion Reaction DR DAWNA PENNY MD [facility] 05-27-2022 06:28-0400 Heart rate 94 /min DR DAWNA PENNY MD [facility] 05-27-2022 04:48-0400 Heart rate 107 /min DR DAWNA PENNY MD [facility] 05-27-2022 04:04-0400 Inspected Blood Donor Unit Appearance DR DAWNA PENNY MD [facility] 05-27-2022 04:04-0400 Transfusion Documentation Started/Paper DR DAWNA PENNY MD [facility] 05-26-2022 09:34-0400 Diastolic blood pressure 66 mm[Hg] DR DAWNA PENNY MD [facility] 05-26-2022 09:34-0400 Mean blood pressure 88 mm[Hg] DR DAWNA PENNY MD [facility] 05-26-2022 09:34-0400 Systolic blood pressure 135 mm[Hg] DR DAWNA PENNY MD [facility] 05-26-2022 07:36-0400 Diastolic blood pressure 67 mm[Hg] DR DAWNA PENNY MD [facility] 05-26-2022 07:36-0400 Mean blood pressure 88 mm[Hg] DR DAWNA PENNY MD [facility] 05-26-2022 07:36-0400 Systolic blood pressure 135 mm[Hg] DR DAWNA PENNY MD [facility] 05-26-2022 05:54-0400 Diastolic blood pressure 68 mm[Hg] DR DAWNA PENNY MD [facility] 05-26-2022 05:54-0400 Mean blood pressure 90 mm[Hg] DR DAWNA PENNY MD [facility] 05-26-2022 05:54-0400 Systolic blood pressure 138 mm[Hg] DR DAWNA PENNY MD [facility] 05-26-2022 05:21-0400 SaO2% (BldA) [Mass fraction] 93.1 % DR DAWNA PENNY MD [facility] 05-26-2022 01:36-0400 SaO2% (BldA) [Mass fraction] 91.2 % DR DAWNA PENNY MD [facility] 05-25-2022 19:21-0400 Inspected Blood Donor Unit Appearance DR DAWNA PENNY MD [facility] 05-25-2022 09:11-0400 SaO2% (BldA) [Mass fraction] 98.0 % DR DAWNA PENNY MD [facility] 05-25-2022 05:35-0400 Body temperature 97.43 [degF] DR DAWNA PENNY MD [facility] 05-25-2022 05:30-0400 Body temperature 97.43 [degF] DR DAWNA PENNY MD [facility] 05-25-2022 05:25-0400 Body temperature 97.38 [degF] DR DAWNA PENNY MD [facility] 05-24-2022 18:25-0400 Body height 170.[address] DAWNA PENNY MD [facility] 05-24-2022 18:25-0400 Body weight [address] DAWNA PENNY MD [facility] 05-24-2022 18:25-0400 Body weight 68.35 kg/m2 DR DAWNA PENNY MD [facility] Encounters Encounter Date Encounter Type Care Provider Facility Start: 08-27-2025 ambulatory Lucía Madera in [facility] Facility:[facility] Start: 07-12-2025 End: 07-13-2025 Emergency department patient visit BRADLEY BEE VIKASH [facility] Start: 07-06-2025 End: 07-06-2025 ambulatory JANET EKATERINA MITUL [facility] Start: 02-14-2025 ambulatory SERA MCFARLANE [facility] Start: 01-16-2025 End: 01-17-2025 E-mail encounter from caregiver Bryce Youssef MD Work Phone: Gastroenterology Start: 01-16-2025 End: 01-17-2025 Patient encounter procedure Bryce Youssef MD Work Phone: Gastroenterology Comment on above: Appointment Request Start: 08-01-2024 End: 08-01-2024 Emergency department patient visit PAUL PLATA [facility] Start: 07-24-2024 End: 07-24-2024 Admission to establishment [facility] Work Phone: Pre Anesthesia Start: 07-24-2024 End: 07-24-2024 Anesthesia consultation [facility] Work Phone: Pre Anesthesia Comment on above: Pre-op evaluation (P rimary Dx); IBD (inflammatory bowel disease); Current smoker; Asthma, unspecified asthma severity, unspecified whether complicated, unspecified whether persistent; Anxiety and depression; Morbid obesity (HCC); Hidradenitis suppurativa Start: 07-24-2024 End: 07-24-2024 Evaluation and management of inpatient BRYCE YOUSSEF Facility:[facility] Start: 07-24-2024 End: 07-24-2024 Preprocedural examination done [facility] Work Phone: [facility] Work Phone: Start: 07-17-2024 End: 07-17-2024 Telephone encounter Janet Rosas PA-C Work Phone: Pre Anesthesia Comment on above: Appointment (No show ) Start: 07-12-2024 Telephone encounter Bryce bhatia MD Work Phone: Gastroenterology Comment on above: Patient Update Start: 07-12-2024 End: 07-12-2024 ambulatory Bryce Youssef MD Work Phone: Gastroenterology Comment on above: IBD (inflammatory michael wel disease) (Primary Dx) Start: 07-12-2024 End: 07-12-2024 Telemedicine consultation with patient Bryce Youssef MD Work Phone: Gastroenterology Start: 07-09-2024 Telephone encounter Pravin Haether Horton DO Work Phone: [facility] Comment on above: Appointment Start: 06-06-2024 End: 06-06-2024 Subsequent hospital visit by physician [facility] Wstr (I-Stat/1.5t) Work Phone: Radiology Start: 06-04-2022 End: 06-09-2022 ambulatory REAGAN LARKIN DO Facility:[facility] Obstet rics Start: 05-24-[address] DAWNA PENNY MD [facility] Start: 05-24-2022 End: 05-29-2022 Evaluation and management of inpatient DR DAWNA PENNY MD Facility:[facility] Start: 05-24-2022 End: 05-29-2022 Evaluation and management of inpatient DR DAWNA PENNY MD [facility] Start: 05-14-2022 ambulatory NOT RECORDED PHYSICIAN Facility:[facility] Start: 05-10-2022 End: 05-15-2022 ambulatory NOT RECORDED PHYSICIAN Facility:[facility] Obstetrics Start: 03-26-2022 End: 03-26-2022 Patient encounter procedure REAGANGABRIEL LARKIN DO [facility] Start: 03-18-2019 Patient encounter procedure ROSEMARIE CHAVEZ Facility:[facility] Start: 03-18-2019 End: 03-18-2019 Emergency department patient visit ROSEMARIE CHAVEZ Facility:[facility] Procedures Date Procedure Procedure Detail Performing Clinician Start: 07-12-2025 Urinalysis SERA MIKE HERNANDEZ Comment on above: Result Comment: URIN ALYSIS Performed By: #### 2 [id number] ####[facility],[address] [place], [place] [id number] Start: 06-06-2024 Mri abdomen w/o & w/contrast material [facility] Provider H/O: section History of section( Confirmed ) DR DAWNA PENNY MD Plan of Treatment Date Care Activity Detail Author Start: 08-02-2024 End: 08-02-2024 Patient encounter procedure 08/02/2024 1:15 PM EDT Appointment [facility] [address] [place] [id number] Bryce Youssef MD [place] [id number] IBD (inflammatory bowel disease) [K52.9] [facility] Comment on above: IBD (inflammatory bowel disease) [K52.9] Start: 07-29-2024 Covid-19 Vaccine ( season) Covid-19 Vaccine ( season) [facility] Start: 07-29-2024 Influenza vaccination Influenza Vaccine (#1) [facility] Start: 07-12-2024 End: 07-12-2024 [facility] 07/12/2024 11:00 AM EDT [facility] Gastroenterology [address] [address] Bryce Youssef MD [facility] [address] [address] Received a REFER A PATIENT FAX from Lucía Hernandez's office referring the patient to be seen in Gastroenterology/Hepatol ogy for CPT Rectal Bleeding History of crohn's/ IBS Uncontrolled reflux. Referral and/or order can be found in Scan Document dated 06/12. Gastroenterology Comment on above: Received a REFER A PATIENT FAX from Lucía Amaral's office referring the patient to be seen in Gastroenterology/Hepatology for CPT Rectal Bleeding History of crohn's/ IBS Uncontrolled reflux. Referral and/or order can be found in Scan Document dated 06/12. Start: 11-28-2023 Behavioral Health Screening Behavioral Health Screening [facility] Start: 07-29-2023 Covid-19 Vaccine ( season) Covid-19 Vaccine () [facility] Start: 02-19-2012 Screening for malignant neoplasm of cervix Cervical Cancer Screening [facility] Start: 2010 Hepatitis B Vaccine (1 of 3 - 19+ 3-dose series) Hepatitis B Vaccine (1 of 3 - 19+ 3-dose series) [facility] Start: 2010 Pneumococcal vaccination Pneumococcal Vaccine (1 of 2 - PCV) [facility] Start: 2010 Urine microalbumin profile DTaP,Tdap,Td Vaccine (1 - Tdap) [facility] Start: 2009 Annual PCP Team Chronic Disease Visit Annual PCP Team Chronic Disease Visit [facility] Start: 2009 Anxiety Screening Anxiety Screening [facility] Start: 2009 Depression Screening Depression Screening [facility] Start: 2009 HIV screening HIV Screening [facility] Start: 2009 Spirometry Spirometry [facility] Start: 1997 Pneumococcal vaccination Pneumococcal Vaccine (1 of 2 - PCV) [facility] End: 07-12-2025 Flexible sigmoidoscopy study COLONOSCOPY DIAGNOSTIC Endoscopy Routine IBD (inflammatory bowel disease) 1 Occurrences starting 07/12/2024 until 07/12/2025 [facility] Work Phone: Comment on above: 1 Occurrences starting 07/12/2024 until 07/12/2025 Payers Date Payer Category Payer Self-pay 2025 Unknown [id number] 2024 Blue Cross Blue [facility] BLUE CARD PPO OOS [id number] 2021 Unknown [id number] 1991 Unknown [id number] 627 1991 Unknown [id number]. 627 1991 Unknown [id number]. 627 1991 Unknown [id number]. 627 1991 Unknown [id number] [id number]. 651 1991 Unknown [id number] [id number]. 651 1991 Unknown [id number] [id number]. 651 1991 Unknown [id number]. 651 Unknown [id number]. 283 Unknown [id number]. 283 Unknown [id number] Unknown [id number] 462 Social History Date Type Detail Facility [facility] smoking consumption unknown [facility] Start: 1990 Sex Assigned At Not on file [facility] Start: 07-09-2024 End: 07-24-2024 Gender identity Not on file [facility] Start: 07-09-2024 End: 07-24-2024 History of Social function [facility] National Score (1-10 0), lower number is lower risk 50 [facility] Start: 11-28-2011 Tobacco smoking stat us NHIS Smokes tobacco daily [facility] Start: 11-28-2011 History of tobacco use Cigarette Smo ker [facility] Start: 07-24-2024 Tobacco use and exposure Smokeless t obacco non-user [facility] Start: 07-24-2024 Alcoholic beverage intake Ex-drinker (finding) [facility] Functional Status Date Assessment Result Facility 05-29-2022 Functional Status bilateral knee high [facility] 05-29-2022 Functional Status [facility] 05-29-2022 Functional Status Min A 7 [facility] 05-29-2022 Functional Status [facility] 05-29-2022 Functional Status [facility] 05-29-2022 Functional Status Sitting in bed [facility] 05-28-2022 Functional Status [facility] 05-28-2022 Functional Status Demonstrates Correct Ca ll Light Use Yes [facility] 05-28-2022 Functional Status Identified as high risk [facility] 05-28-2022 Functional Status Has a very sup portive family who are arranging for 24 hour assist upon discharge. [facility] 05-28-2022 Functional Status [facility] 05-28-2022 Functional Status [facility] 05-27-2022 Functional Status Patient Identified Iden tification band [facility] 05-26-2022 Functional Status COVID 19 Surge in Effec t Yes [facility] 05-26-2022 Functional Status Done [facility] 05-25-2022 Functional Status Moderate assistance [facility] 05-25-2022 Functional Status [facility] 05-25-2022 Functional Status [facility] 05-25-2022 Functional Status [facility] 05-24-2022 Functional Status Sensory Deficits None A [facility] Mental Status Date Assessment Result Facility 05-29-2022 [facility] 05-28[facility]22 [facility] Clinical Notes 05-24-2022 to 07-24-2024 Patient InstructionsJaime Steele APRN.EKATERINA - 07/24/2024 2:11 PM EDTSJaime keller APRN.EKATERINA - 07/24/2024 2:11 PM EDTTelephone Encounter - Janet Rosas PA-C - 07/17/2024 7:51 AM EDT Note Date & Type Note Facility 07-24-2024 Instructions Jaime Steele APRN.EKATERINA - 07/24/2024 2:26 PM EDT PATIENT PREOPERATIVE INSTRUCTIONS Bryce Youssef MD has scheduled you for your procedure at this surgery center: [facility]: [phone] -- [place] [address]. Please read below carefully for your personalized instructions. Dietary Restrictions: - Follow bowel prep instructions: clear liquids need to be stopped 2 hours prior to schedule arrival at facility Medications: Unless instructed differently below, stay on all of your medications until your surgery. If you start any new medications after today's visit, please contact your surgeon. Pre-Surgery Med Instructions Medication Instructions ALBUTEROL INHALATION Take the day of surgery with a small sip of water spironolactone (ALDACTONE) 100 mg tablet Do not take the day of surgery minocycline (MINOCIN) 100 mg injection Do not take the day of surgery PARoxetine (PAXIL) 10 mg tablet Take the day of surgery with a small sip of water sertraline (ZOLOFT) 50 mg tablet Take the day of surgery with a small sip of water If you start any new medications after today's visit, please contact the surgeon's office. Blood Thinning Medications: - Stop NSAIDS (Ibuprofen, Advil, Aleve, Motrin, Celebrex, Mobic, etc.) 7 days before surgery, as directed by your surgeon. - Stop Aspirin 7 days before surgery, as directed by your surgeon. - Stop Vitamin E, ALL multi-vitamins, herbals and dietary supplements 14 days before surgery. - You may take Tylenol (Acetaminophen) or any of your pain medications that do not contain aspirin or NSAIDS as needed. Important Reminders: - Candy, mints, and tobacco products are NOT permitted the morning of surgery. - Hearing aids, dentures and glasses may be worn the morning of surgery. - NO jewelry, body piercings, makeup, hairpins or contacts are to be worn the day of surgery. If you develop symptoms such as a fever, cold, or flu, or have other changes to your health within TWO DAYS of scheduled surgery or the morning of surgery, please contact the surgery center above. Personal Belongings: -Please have photo ID and insurance cards. -If you do not have a copy of advance directives on file with us, please bring a copy with you on the day of surgery. - Leave ALL valuables and money at home or with family members. For Outpatient Procedures: - YOU MUST HAVE A RESPONSIBLE CUT FILER TAKE YOU HOME. A SHROUDMAN OR ANDROID ARCHITECT CANNOT BE MADE A RESPONSIBLE CUT FILER. - We recommend that a responsible person stays with you overnight to take care of you. - You cannot stay in a hotel alone after outpatient surgery. You will not be permitted to have your surgery, if you do not have someone to take care of you. Arrival Time for Surgery: - The Surgery Center or hospital where you are having surgery will call the afternoon before surgery (or Tuesday for Tuesday surgery) with a scheduled arrival time. - If you have not heard by 4 pm, please contact the surgery center above. Please be aware that emergency situations arise, which may delay or change your surgical time. If this happens, we will notify you as soon as possible and regret any inconvenience. If you already have an Advance Directive, please fax a copy to [phone] or email to for it to be added to your chart. If you do not have an Advance Directive, you can find the appropriate form and more information at [email or web address]. We recommend that you complete the Advance Directive form found on the website and bring it with you the day of your surgery. It can be witnessed and scanned into your chart that day. Jaime Steele APRN.CNP documented in this encounter [facility] 07-24-2024 History and physical note Images from the original note were not included. [facility] HISTORY AND PHYSICAL EXAMINATION SERVICE DATE: 07/24/2024 SERVICE TIME: 2:31 PM PRIMARY CARE PHYSICIAN: Lucía Hernandez NP Assessment Patient has the following medical conditions which may affect joshua-operative course: Current smoker Assessment: 0.5 PPD for the past 12 years, on an off but is currently smoking ~ 0.5 PPD Asthma Assessment: Patient uses albuterol ~ 2 times per month Anxiety and depression Assessment: on tx Morbid obesity (HCC) Assessment: BMI 63.25 Hidradenitis suppurativa Assessment: on aldactone and minocycline IBD (inflammatory bowel disease) Assessment: surgery scheduled 08/02 [place] Activity Status Index: METS: Climb a flight of stairs or walk up a hill (5.50 METs) DASI Score: 5.5 Patient denies any chest pain or undue shortness of breath with the above physical activity. Clinical Frailty Scale: 3. Well, with treated comorbid disease STOP-Bang Score: BMI greater than 35 kg/m^2 Has a large neck Denies snoring loudly Denies feeling tired, fatigued, or sleepy during the daytime Has not been observed to stop breathing or choking/gasping during sleep Denies having high blood pressure Patient 50 years old or younger Non-male patient STOP-Bang Score: 2 ANESTHESIA FINDINGS: Intubation History: No abnormal airway history Significant Anesthesia Considerations: none Airway History: No abnormal airway history I - PHYSICAL EVALUATION AIRWAY Patient intubated: No. Tracheostomy tube not present Mallampati: II. TM distance: >3 FB. Neck ROM: full ROM without neurological symptoms. Mouth opening: adequate. Short neck: yes. Thick neck: yes DENTAL Dental findings: chipped. II - ANESTHESIA PLAN Anesthetic plan additional comments: *[facility]/TCI - anesthesia choice. Beta Abhinav Monitoring Plan Post Procedure Analgesic Plan Prepared for Surgery: optimally prepared for surgery, pending [see comment]. Email sent to anesthesia team to clarify if patient can proceed at [facility] based on BMI and tobacco uise CONSULTS: Patient does not require consults for optimization at this time Planned Anesthetic: anesthesia choice The Following Tests/Procedures Have Been Initiated: Orders Placed This Encounter ALBUTEROL INHALATION Si Refill(s) spironolactone (ALDACTONE) 100 mg tablet minocycline (MINOCIN) 100 mg injection PARoxetine (PAXIL) 10 mg tablet sertraline (ZOLOFT) 50 mg tablet Sig: Take 1 tablet by mouth every afternoon. REASON FOR VISIT: Jude Carlson is a 34 year old female who is scheduled for Colonoscopy diagnostic at the request of Dr. Bryce Youssef for consultation. My final recommendation will be communicated back to the requesting physician by way of shared medical record or letter. Subjective The patient has the following: COVID-19 Immunization Status Overdue - Covid-19 Vaccine ( season) Never done No completion, postpone, frequency change, or communication history exists for this topic. CHIEF COMPLAINT: preoperative evaulation HPI: This 34 year old female with history of IBD (inflammatory bowel disease) presents to the [facility] for pre-operative examination for the above mentioned procedure. Patient states that her "stomach is flaring up". Patient complains of "bloody diarrhea" and "stomach hurts every time I eat". Patient states that last colonoscopy was ~ 10-15 years ago This is a virtual visit. REVIEW OF SYSTEMS: General: +morbid obesity . No weight loss, malaise or fevers. Neurological: No history of TIA's, stroke, ACCOUNTS RECEIVABLE MANAGER tumor, impaired sensorium, hemiplegia, paraplegia or quadraplegia. No neurological symptoms or problems. Respiratory: Positive for: asthma and tobacco use. Negative for: COPD, pneumonia within 6 weeks, URI < 2 weeks and obstructive sleep apnea. Cardiovascular: No history of HTN requiring medication, no history of angina, CHF, ID, cardiac surgery or stents. Denies rest pain, gangrene or revascularization/amputation for PVD. No history of cardiovascular symptoms or problems. GI: See HPI. : No history of dysuria, frequency or incontinence, stones or chronic kidney disease. No difficulty urinating, nocturia > 1 time per night or hematuria. 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 Has not taken steroids within the past 30 days. No history of endocrinological symptoms or problems. Hematology: No history of bleeding or clotting disorder. Patient is not taking anti-coagulation or platelet medications. No history of hematological symptoms or problems. Oncology: No history of CA metastasis, chemo within 30 days, or radiotherapy within 90 days. No history of oncological symptoms or problems. Psych: No history of psychiatric symptoms or problems. Musculoskeletal: Negative for joint pain or swelling, back pain or muscle pain. Skin: +HS No past medical history on file. PAST SURGICAL HISTORY No date: APPENDECTOMY HX No date: COLONSCOPY SCREENING HIGH RISK No date: PAST SURGICAL HISTORY OF Comment: c sections x4 No date: REMOVAL GALLBLADDER No date: VAGINAL HYSTERECTOMY History reviewed. No pertinent family history. Social History Tobacco Use Smoking status: Every Day Current packs/day: 0.50 Average packs/day: 0.5 packs/day for 12.7 years (6.3 ttl pk-yrs) Types: Cigarettes Start date: 2011 Smokeless tobacco: Never Substance Use Topics Alcohol use: Not Currently Drug use: Not Currently Prior to Admission medications as of 07/24/24 1420 Medication Sig Last Dose Taking ALBUTEROL INHALATION 0 Refill(s) Taking Yes spironolactone (ALDACTONE) 100 mg tablet Taking Yes minocycline (MINOCIN) 100 mg injection Taking Yes PARoxetine (PAXIL) 10 mg tablet Taking Yes sertraline (ZOLOFT) 50 mg tablet Take 1 tablet by mouth every afternoon. Taking Yes No medication comments found. ALLERGIES Allergen Reactions Morphine Hives Objective PHYSICAL EXAM: (if completed, exam performed via video enabled technology) General: alert and oriented, healthy appearance and morbidly obese. Pertinent negatives noted - not distressed. Skin: normal color, no rash or lesions. HEENT: Eyes; No injection and visual acuity is grossly normal. Neck; Normal ROM. Cardiovascular: Self palpated radial pulse, regular when counted out loud by patient. Respiratory: Breathing non labored, equal chest rise with normal respiratory effort. Abdomen: Extremities: Neurological: normal cognition and motor skills. PAIN ASSESSMENT: VITALS: Pulse 78 Ht 5' 8" (1.73m) Wt 416 lb (188.7kg) BMI 63.27 kg/(m^2). Diagnostic tests reviewed for today's visit: Lab Value Units Date High Low HB 13.9 g/dL 06/21/2024 15.5 11.5 HCT 42.2 % 06/21/2024 46.0 36.0 WBC 11.32 k/uL 06/21/2024 11.00 3.70 PLT 266 k/uL 06/21/2024 400 150 NA 138 mmol/L 05/03/2024 144 136 K 4.2 mmol/L 05/03/2024 5.1 3.7 GLUC 128 mg/dL 05/03/2024 99 74 BUN 9 mg/dL 05/03/2024 21 7 CREAT 0.79 mg/dL 05/03/2024 0.96 0.58 PTSEC No results within date range. INR No results within date range. APTT No results within date range. ALT 15 U/L 05/03/2024 38 7 AST 19 U/L 05/03/2024 35 13 TBILI 0.2 mg/dL 05/03/2024 1.3 0.2 TSH 5.840 mIU/L 05/03/2024 4.200 0.270 Lab Value Units Date High Low HCGQT No results within date range. UHCG No results within date range. HCG, BODY* No results within date range. Lab Value Units Date High Low ABORHD No results within date range. ABSCREEN No results within date range. Hemoglobin A1C (%) Date Value 05/03/2024 5.9 09/14/2022 5.6 No results found for this or any previous visit (from the past 8760 hour(s)). No results found for this or any previous visit (from the past 98196 hour(s)). Instructions Given to Patient: Instructions located in the after visit summary. Patient given verbal and written preop instructions and voices comprehension and compliance. SIGNATURE: Jaime Steele APRN.CNP PATIENT NAME: Jude Carlson DATE: July 24, 2024 TIME: 2:11 PM PAGER/CONTACT #: [facility] 07-24-2024 History and physical note Images from the original note were not included. [facility] Pre[facility]est[facility] Consultation Clinic HISTORY AND PHYSICAL EXAMINATION SERVICE DATE: 07/24/2024 SERVICE TIME: 2:31 PM PRIMARY CARE PHYSICIAN: Lucía Hernandez NP Assessment Patient has the following medical conditions which may affect joshua-operative course: Current smoker Assessment: 0.5 PPD for the past 12 years, on an off but is currently smoking ~ 0.5 PPD Asthma Assessment: Patient uses albuterol ~ 2 times per month Anxiety and depression Assessment: on tx Morbid obesity (HCC) Assessment: BMI 63.25 Hidradenitis suppurativa Assessment: on aldactone and minocycline IBD (inflammatory bowel disease) Assessment: surgery scheduled 08/02 [place] Activity Status Index: METS: Climb a flight of stairs or walk up a hill (5.50 METs) DASI Score: 5.5 Patient denies any chest pain or undue shortness of breath with the above physical activity. Clinical Frailty Scale: 3. Well, with treated comorbid disease STOP-Bang Score: BMI greater than 35 kg/m^2 Has a large neck Denies snoring loudly Denies feeling tired, fatigued, or sleepy during the daytime Has not been observed to stop breathing or choking/gasping during sleep Denies having high blood pressure Patient 50 years old or younger Non-male patient STOP-Bang Score: 2 ANESTHESIA FINDINGS: Intubation History: No abnormal airway history Significant Anesthesia Considerations: none Airway History: No abnormal airway history I - PHYSICAL EVALUATION AIRWAY Patient intubated: No. Tracheostomy tube not present Mallampati: II. TM distance: >3 FB. Neck ROM: full ROM without neurological symptoms. Mouth opening: adequate. Short neck: yes. Thick neck: yes DENTAL Dental findings: chipped. II - ANESTHESIA PLAN Anesthetic plan additional comments: *[facility]ACC/TCI - anesthesia choice. Beta Abhinav Monitoring Plan Post Procedure Analgesic Plan Prepared for Surgery: optimally prepared for surgery, pending [see comment]. Email sent to anesthesia team to clarify if patient can proceed at [facility] based on BMI and tobacco uise CONSULTS: Patient does not require consults for optimization at this time Planned Anesthetic: anesthesia choice The Following Tests/Procedures Have Been Initiated: Orders Placed This Encounter ALBUTEROL INHALATION Si Refill(s) spironolactone (ALDACTONE) 100 mg tablet minocycline (MINOCIN) 100 mg injection PARoxetine (PAXIL) 10 mg tablet sertraline (ZOLOFT) 50 mg tablet Sig: Take 1 tablet by mouth every afternoon. REASON FOR VISIT: Jude Carlson is a 34 year old female who is scheduled for Colonoscopy diagnostic at the request of Dr. Bryce Youssef for consultation. My final recommendation will be communicated back to the requesting physician by way of shared medical record or letter. Subjective The patient has the following: COVID-19 Immunization Status Overdue - Covid-19 Vaccine ( season) Never done No completion, postpone, frequency change, or communication history exists for this topic. CHIEF COMPLAINT: preoperative evaulation HPI: This 34 year old female with history of IBD (inflammatory bowel disease) presents to the [facility] for pre-operative examination for the above mentioned procedure. Patient states that her "stomach is flaring up". Patient complains of "bloody diarrhea" and "stomach hurts every time I eat". Patient states that last colonoscopy was ~ 10-15 years ago This is a virtual visit. REVIEW OF SYSTEMS: General: +morbid obesity . No weight loss, malaise or fevers. Neurological: No history of TIA's, stroke, ACCOUNTS RECEIVABLE MANAGER tumor, impaired sensorium, hemiplegia, paraplegia or quadraplegia. No neurological symptoms or problems. Respiratory: Positive for: asthma and tobacco use. Negative for: COPD, pneumonia within 6 weeks, URI < 2 weeks and obstructive sleep apnea. Cardiovascular: No history of HTN requiring medication, no history of angina, CHF, ID, cardiac surgery or stents. Denies rest pain, gangrene or revascularization/amputation for PVD. No history of cardiovascular symptoms or problems. GI: See HPI. : No history of dysuria, frequency or incontinence, stones or chronic kidney disease. No difficulty urinating, nocturia > 1 time per night or hematuria. 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 Has not taken steroids within the past 30 days. No history of endocrinological symptoms or problems. Hematology: No history of bleeding or clotting disorder. Patient is not taking anti-coagulation or platelet medications. No history of hematological symptoms or problems. Oncology: No history of CA metastasis, chemo within 30 days, or radiotherapy within 90 days. No history of oncological symptoms or problems. Psych: No history of psychiatric symptoms or problems. Musculoskeletal: Negative for joint pain or swelling, back pain or muscle pain. Skin: +HS No past medical history on file. PAST SURGICAL HISTORY No date: APPENDECTOMY HX No date: COLONSCOPY SCREENING HIGH RISK No date: PAST SURGICAL HISTORY OF Comment: c sections x4 No date: REMOVAL GALLBLADDER No date: VAGINAL HYSTERECTOMY History reviewed. No pertinent family history. Social History Tobacco Use Smoking status: Every Day Current packs/day: 0.50 Average packs/day: 0.5 packs/day for 12.7 years (6.3 ttl pk-yrs) Types: Cigarettes Start date: 2011 Smokeless tobacco: Never Substance Use Topics Alcohol use: Not Currently Drug use: Not Currently Prior to Admission medications as of 07/24/24 1420 Medication Sig Last Dose Taking ALBUTEROL INHALATION 0 Refill(s) Taking Yes spironolactone (ALDACTONE) 100 mg tablet Taking Yes minocycline (MINOCIN) 100 mg injection Taking Yes PARoxetine (PAXIL) 10 mg tablet Taking Yes sertraline (ZOLOFT) 50 mg tablet Take 1 tablet by mouth every afternoon. Taking Yes No medication comments found. ALLERGIES Allergen Reactions Morphine Hives Objective PHYSICAL EXAM: (if completed, exam performed via video enabled technology) General: alert and oriented, healthy appearance and morbidly obese. Pertinent negatives noted - not distressed. Skin: normal color, no rash or lesions. HEENT: Eyes; No injection and visual acuity is grossly normal. Neck; Normal ROM. Cardiovascular: Self palpated radial pulse, regular when counted out loud by patient. Respiratory: Breathing non labored, equal chest rise with normal respiratory effort. Abdomen: Extremities: Neurological: normal cognition and motor skills. PAIN ASSESSMENT: VITALS: Pulse 78 Ht 5' 8" (1.73m) Wt 416 lb (188.7kg) BMI 63.27 kg/(m^2). Diagnostic tests reviewed for today's visit: Lab Value Units Date High Low HB 13.9 g/dL 06/21/2024 15.5 11.5 HCT 42.2 % 06/21/2024 46.0 36.0 WBC 11.32 k/uL 06/21/2024 11.00 3.70 PLT 266 k/uL 06/21/2024 400 150 NA 138 mmol/L 05/03/2024 144 136 K 4.2 mmol/L 05/03/2024 5.1 3.7 GLUC 128 mg/dL 05/03/2024 99 74 BUN 9 mg/dL 05/03/2024 21 7 CREAT 0.79 mg/dL 05/03/2024 0.96 0.58 PTSEC No results within date range. INR No results within date range. APTT No results within date range. ALT 15 U/L 05/03/2024 38 7 AST 19 U/L 05/03/2024 35 13 TBILI 0.2 mg/dL 05/03/2024 1.3 0.2 TSH 5.840 mIU/L 05/03/2024 4.200 0.270 Lab Value Units Date High Low HCGQT No results within date range. UHCG No results within date range. HCG, BODY* No results within date range. Lab Value Units Date High Low ABORHD No results within date range. ABSCREEN No results within date range. Hemoglobin A1C (%) Date Value 05/03/2024 5.9 09/14/2022 5.6 No results found for this or any previous visit (from the past 8760 hour(s)). No results found for this or any previous visit (from the past 32755 hour(s)). Instructions Given to Patient: Instructions located in the after visit summary. Patient given verbal and written preop instructions and voices comprehension and compliance. SIGNATURE: Jaime Steele APRN.CNP PATIENT NAME: Jude Carlson DATE: July 24, 2024 TIME: 2:11 PM PAGER/CONTACT #: documented in this encounter [facility] 07-17-2024 Telephone encounter Note Patient was scheduled for virtual PACC appt at 7:30 am today. Patient did not check in for visit. Called patient at 7:33 am to see if they needed any assistance logging in and left voicemail. This message routed to PACC schedulers to contact patient to reschedule PACC appt. [facility] 07-17-2024 Miscellaneous Notes Patient was scheduled for virtual PACC appt at 7:30 am today. Patient did not check in for visit. Called patient at 7:33 am to see if they needed any assistance logging in and left voicemail. This message routed to PACC schedulers to contact patient to reschedule PACC appt. documented in this encounter [facility] 07-12-2024 Telephone encounter Note Called patient and left VM to call office for message below from Dr. Mikael PLATA. . Office phone number given. [employer] message also sent. Briana Martinez RN July 12, 2024 11:41 AM [facility] 07-12-2024 Miscellaneous Notes Called patient and left VM to call office for message below from Dr. Mikael PLATA. . Office phone number given. [employer] message also sent. Briana Martinez RN July 12, 2024 11:41 AM Our virtual visit abruptly ended today for unclear reason. Can you please let the patient know that I have ordered a colonoscopy for further evaluation of her Crohn's disease. She is planning to pay out of pocket for the testing, which can be expensive. I suggest that she reach out to [facility] financial assistance for help and then determine the timing of when she would like to get the procedure done. Pending colonoscopy results, we can proceed with next steps. Thank you, Bryce Youssef MD documented in this encounter [facility] 07-12-2024 Telephone encounter Note Our virtual visit abruptly ended today for unclear reason. Can you please let the patient know that I have ordered a colonoscopy for further evaluation of her Crohn's disease. She is planning to pay out of pocket for the testing, which can be expensive. I suggest that she reach out to [facility] financial assistance for help and then determine the timing of when she would like to get the procedure done. Pending colonoscopy results, we can proceed with next steps. Thank you, Bryce Youssef MD [facility] 07-12-2024 Instructions Bryce Youssef MD - 07/12/2024 11:17 AM EDT Images from the original note were not included. Bowel Preparation Instructions for: Golytely, Nulytely, Trilyte or Colyte (polyethylene glycol 3350 and electrolytes) IF YOU DO NOT FOLLOW THESE DIRECTIONS, YOUR COLONOSCOPY WILL BE CANCELLED. Albert Instructions: Your bowel must be empty so that your doctor can clearly view your colon. Follow all of the instructions in this handout EXACTLY as they are written. Do NOT eat any solid food the ENTIRE day before your colonoscopy. Drink only clear liquids. Buy your bowel preparation at least 5 days before your colonoscopy. TRANSPORTATION on the Day of Your Exam A responsible person MUST be present with you at Check In prior to your colonoscopy and REMAIN in the endoscopy area until you are discharged. You are NOT ALLOWED to drive, take a taxi or bus, or leave the Endoscopy Center ALONE. If you do not have a responsible delivery route driver (family member or friend) with you to take you home, your exam cannot be done with sedation and will be cancelled. Please bring a list of all of your current medications, including any Over-the Counter medications with you. Medications If you take insulin, diabetic medications or blood thinners such as Coumadin (warfarin), Plavix (clopidogrel), Ticlid (ticlopidine hydrochloride), Agrylin (anagrelide), Xarelto (Rivaroxaban), Pradaxa (Dabigatran), Eliquis (Apixaban), and Effient (Prasugrel). You MUST call the doctors who orders those medicines for instructions on altering the dosage before your colonoscopy. All other medications should be taken the day of the exam with a sip of water including ASPIRIN. Five (5) Days Before Your Colonoscopy Do NOT take medicines that stop diarrhea - such as Imodium, Kaopectate, or Pepto Bismol. Do NOT take fiber supplements - such as Metamucil, Citrucel, or Perdiem. Do NOT take products that contain iron - such as multi-vitamins (the label lists what is in the products). Do NOT take Vitamin E. Buy the prescription bowel preparation solution at your local pharmacy or drugstore pharmacy. 1 10/2019 Bowel Preparation Instructions for: Golytely, Nulytely, Trilyte or Colyte (polyethylene glycol 3350 and electrolytes) Three (3) Days Before Your Colonoscopy Do NOT eat high-fiber foods - such as popcorn, beans, seeds (flax, sunflower, quinoa), multigrain bread, nuts, salad/vegetables, or fresh and dried fruit. One (1) Day Before Your Colonoscopy Only drink clear liquids the ENTIRE DAY before your colonoscopy. Do NOT eat any solid foods. Drink at least 8 ounces of clear liquids every hour after waking up. The clear liquids you can drink include: Clear Liquid (NO RED LIQUIDS) DO NOT DRINK Gatorade, Pedialyte or Powerade Clear broth or bouillon Coffee or tea (no milk or non-dairy creamer) Carbonated and non-carbonated soft drinks Richard-Aid or other fruit flavored drinks Strained fruit juices (no pulp) Jell-O, popsicles, hard candy Water Alcohol Milk or non-dairy creamers Noodles or vegetables in soup Juice with pulp Liquid you cannot see through Do not use tobacco/vaping products The bowel preparation solution will be consumed in two parts. Mix the solution the evening before your colonoscopy and refrigerate before drinking. You may add the flavor pack that came with the bowel preparation. Do NOT add ice, sugar or any other flavorings to the solution. Part 1 At 6:00 PM - Evening before your colonoscopy Drink an 8-oz glass of bowel preparation every 10 minutes for a total of 8 glasses. You may continue to drink clear liquids until midnight. Part 2 On the day of your colonoscopy you may drink clear liquids up to (three) 3 hours before your procedure. 4 1/2 hours before your colonoscopy Drink an 8-oz glass of bowel preparation every 10 minutes for a total of 8 glasses. Fifteen (15) minutes later, drink an 8-oz glass of clear liquids every 15 minutes for a total of 2 glasses. You may continue to drink clear liquids up to (three) 3 hours before your exam. 2 10/2019 documented in this encounter [facility] 07-12-2024 History of Presen t illness Narrative Images from the original note were not included. DEPARTMENT OF GASTROENTEROLOGY AND HEPATOLOGY [facility] Patient: Jude Carlson Medical Record: [id number] Reason for visit: IBS Jude Carlson is a 34 year old female who is scheduled at the request of Lucía Hernandez NP for IBS. My final recommendations will be communicated back to the requesting physician by the way of the shared medical record, fax, or via US Mail. This is a virtual visit using HIPAA compliant video platform. It required patient-provider interaction for the medical decision making as documented. I have communicated my name and active licensure. The patient's identity and physical location were verified at the time of this visit. Either the patient or their legal technical support representative has been informed of the risks and benefits of VV and alternatives to VV treatment through a remote evaluation and consents to proceed with the evaluation remotely. HPI Jude Carlson is a 34 year old female presented for a virtual gastroenterology clinic visit for "IBS". 10 years ago- she was seeing someone (doesn't know the name) She reports that she has Crohn's She had 2 colonoscopies- was told she has Crohn's and IBS Stools are very bloody Has flares with whatever she eats Abdominal pain + in the left abdomen Too many BMs a day to count Last colonoscopy - 5-10 years ago Lost insurance and was lost to follow up Review Of Systems Trouble swallowing, heartburn, regurgitation, chest pain, early satiety-, nausea+, vomiting-, abdominal pain+, bloating, bloody stool+, constipation, diarrhea+, night sweats, fevers, or changes in weight-. AMB ROOMING INTAKE FLOWSHEET DATA Risk Screening Do you have concerns about personal safety or safety in the home?: No No past medical history on file. No past surgical history on file. Information obtained for care everywhere from 2021 Condition Effective Dates Status Health Status Informant Asthma(Confirmed) Active Obesity, Class III, BMI 40-49.9 (morbid obesity)(Confirmed) Active Crohn's disease(Confirmed) Active Gestational diabetes mellitus (GDM)(Confirmed) Active History of section(Confirmed) Active Placenta accreta(Confirmed) Active Placenta previa(Confirmed) Active (Confirmed) 01/13/22 Active Rh negative, maternal(Confirmed) No family history on file. No current outpatient medications on file. No current facility-administered medications for this visit. albuterol FLUoxetine (Eqv-Sarafem) 20 mg oral tablet ibuprofen 600 mg oral tablet Lovenox 40 mg/0.4 mL injectable solution [place]-3 1000 mg oral capsule ondansetron 4 mg oral tablet, disintegrating oxyCODONE 5 mg oral tablet ( IMMEDIATE release ) Multivitamins with Vitamin B Complex, Vitamin C, Minerals and L-Methylfolate oral capsule Procardia XL 30 mg oral tablet, extended release senna (sennosides) 8.6 mg oral tablet sulfamethoxazole-trimethoprim 800 mg-160 mg oral tablet Zyrtec 10 mg oral tablet ALLERGIES Not on File Physical Exam Vital Signs deferred as visit conducted virtually. General: No acute distress, smiling and interactive, cooperative HEENT: head normocephalic, extraocular movements intact, no scleral icterus Pulm: Breathing unlabored Card: No JVD appreciated GI: non tender to patient palpation Extremities: full range of motion Skin: abnormal lesions not appreciated Neuro: alert and oriented to time person place situation Recent labs and imaging reviewed TSH Date Value Ref Range Status 05/03/2024 5.840 (H) 0.270 - 4.200 mIU/L Final Comment: If the patient is , TSH reference range varies by gestational period: First Trimester (weeks 9-12): 0.180-2.990 mIU/L Second Trimester: 0.110-3.980 mIU/L Third Trimester: 0.480-4.710 mIU/L Serge Kothari et al. A Practical Approach for the Verifications and Determination of Site- and Trimester-Specific Reference Intervals for Thyroid Function tests in . Thyroid, 2019:29:3:412-420. David Chaudhari, et al. 2017 Guidelines of the [place] [employer] Association for the Diagnosis and Management of Thyroid Disease during and the . Thyroid, 2017:27:3:315-389. Endoscopy reviewed - none available for review Assessment and Recommendations Ms. Carlson is a 34 year old year old female with history of Asthma, Obesity, Crohns disease- per patient who presents for further evaluation of crohn's disease. Her symptoms include abdominal pain and blood in BMs. No weight loss. Recent labs including CBC, CMP are normal. - discussed workup including CT/ MR enterography, Colonoscopy, blood and stool testing for further evaluation - she currently does not have insurance and is paying out of pocket for everything - will order colonoscopy for now and hold other testing pending confirmation of IBD diagnosis - recommended to reach out to [facility] and then schedule the procedure as able Plan is to follow up in three months. or sooner if clinically indicated. I spent 30 minutes in the visit, with more than 50% of the total [id number] time of the visit in counseling / coordination of care. Bryce Youssef MD [employer] documented in this encounter [facility] 07-09-2024 Telephone encounter Note Left VM to contact the office to reschedule missed appointment. [facility] 07-09-2024 Miscellaneous Notes Left VM to contact the office to reschedule missed appointment. documented in this encounter [facility] 06-06-2024 History of Presen t illness Narrative Radiology Service Progress Note DATE OF SERVICE: June 06, 2024 TIME: 10:33 AM PATIENT IDENTITY VERIFICATION COMPLETED USING TWO (2) STANDARD IDENTIFIERS: Name and Date of confirmed by patient verbally. FALL SCREENING: Has the patient had 2 falls in the last year or 1 fall with injury or currently using an Ambulatory Assistive Device (Walker, Cane, Wheelchair, Crutches, etc.)? No PATIENT GENDER DATA: Female. status: : No status: NO. 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 EXAM: MRI - CONTRAST TYPE: GROUP II PERIPHERAL IV DATA: Ambulatory: A peripheral IV was started in the Left upper extremity with a Angio cath: 22 gauge. RADIOLOGY DEPARTMENT: MR; Exam(s) Completed: Body: Renal SIGNATURE: RT Rhonda(R) PATIENT NAME: Jude Carlson DATE: June 06, 2024 TIME: 10:33 AM documented in this encounter [facility] 06-09-2022 Note . MICRO - Microbiology PROCEDURE: Culture Wound Deep Aerobe/Anaerobe w Gram Stain [O1 *1] SOURCE: Wound (deep) BODY SITE: Abdomen COLLECTED DATE/TIME: 06/04/2022 13:00 EDT RECEIVED DATE/TIME: 06/04/2022 19:16 EDT START DATE/TIME: 06/04/2022 19:18 EDT FREE TEXT SOURCE: FINAL REPORTS Final Report [] Verified Date/Time/Personnel: 06/09/2022 12:05 EDT Light Normal skin ginger present. Sensitivity testing not indicated. No anaerobes isolated at 5 days. PRELIMINARY REPORTS Preliminary Report [] Verified Date/Time/Personnel: 06/06/2022 09:06 EDT Light Normal skin ginger present. Sensitivity testing not indicated. Final report to follow. Preliminary Report [] Verified Date/Time/Personnel: 06/05/2022 13:16 EDT Culture results pending. STAINS GS [] Verified Date/Time/Personnel: 06/04/2022 20:30 EDT No organisms seen. Order Comments O1: Culture Wound Deep Aerobe/Anaerobe w Gram Stain Collection date & time on specimen label Performing Locations *1: This test was performed at: [address], [address] [place] [address] ([place] 05-30-2022 Note . MICRO - Microbiology PROCEDURE: Blood Culture (bacterial) [*1] SOURCE: Blood BODY SITE: COLLECTED DATE/TIME: 05/25/2022 06:07 EDT RECEIVED DATE/TIME: 05/25/2022 06:11 EDT START DATE/TIME: 05/25/2022 06:11 EDT FREE TEXT SOURCE: FINAL REPORTS Final Report [] Verified Date/Time/Personnel: 05/30/2022 06:59 EDT Blood Culture: No Growth at 5 days. PRELIMINARY REPORTS Preliminary Report [] Verified Date/Time/Personnel: 05/25/2022 06:59 EDT Culture has been received in lab and is no growth to date. Routine cultures are held for 5 days. Performing Locations *1: This test was performed at: [address], [address] [place] [address] ([place]) 05-30-2022 Note . MICRO - Microbiology PROCEDURE: Blood Culture (bacterial) [*1] SOURCE: Blood BODY SITE: COLLECTED DATE/TIME: 05/24/2022 23:54 EDT RECEIVED DATE/TIME: 05/25/2022 00:00 EDT START DATE/TIME: 05/25/2022 00:00 EDT FREE TEXT SOURCE: FINAL REPORTS Final Report [] Verified Date/Time/Personnel: 05/30/2022 01:59 EDT Blood Culture: No Growth at 5 days. PRELIMINARY REPORTS Preliminary Report [] Verified Date/Time/Personnel: 05/25/2022 01:59 EDT Culture has been received in lab and is no growth to date. Routine cultures are held for 5 days. Performing Locations *1: This test was performed at: [facility], [address] [place] [address], [id number] , [facility] ([place]) 05-29-2022 Hospital Discharg e instructions Patient Education 05/29/2022 17:47:37 Pain Relief Before and After Surgery Pain Relief Before and After Surgery Pain relief is an important part of your overall care before, during, and after surgery. You and your health care provider will work together to make a plan to manage pain that you have before surgery (preoperative) and after surgery (postoperative). Addressing pain before surgery lessens the pain that you will have after surgery. Make sure that you fully understand and agree with your pain relief plan. If you have questions or concerns, it is important to discuss them with your health care provider. If you have pain that is not controlled by medicine, tell your health care provider. Severe pain after surgery may: Prevent sleep. Decrease your ability to breathe deeply and to cough. This can result in pneumonia or upper airway infections. Cause your heart to beat more quickly. Cause your blood pressure to be higher. Increase your risk for stomach and digestive problems. Slow down wound healing. Lead to depression, anxiety, and feelings of helplessness. Your health care provider may use more than one method at a time to help relieve your pain. Using this approach may allow you to eat, move around, and possibly leave the hospital sooner. What are options for managing pain before and after surgery? Oral pain medicines Pain medicines taken by mouth (orally) include: Non-narcotic medicines: ?Acetaminophen. ?NSAIDs, such as ibuprofen and naproxen. Muscle relaxants. These may relieve pain caused by muscle spasms. Anticonvulsants. These medicines are usually used to treat seizures. They may help to lessen nerve pain. Opioids. These medicines relieve pain by binding to pain receptors in the brain and spinal cord (narcotic pain medicines). Opioids may help relieve short-term (acute) postoperative pain that is moderate to moderately severe. ?Opioids are often combined with non-narcotic medicines to improve pain relief, lower the risk of side effects, and lower the chance of addiction. ?To help prevent addiction, opioids are given for short periods of time in careful doses. If you follow instructions from your health care provider and you do not have a history of substance abuse, your risk of becoming addicted to opioids is low. Some of these medicines may be available in injectable form. They may be given through an IV if you are unable to eat or drink. As-needed pain control You can receive pain medicine when you need it, through an IV or as a pill or liquid. When you tell your health care provider that you are having pain, he or she will give you the proper pain medicine. Medicine that numbs an area You may be given pain medicine that numbs an area (local anesthetic): As an injection near your painful area (local infiltration). As an injection near the nerve that provides feeling to a specific part of your body (peripheral nerve block). As an injection in your spine (spinal block). Through a local anesthetic reservoir pump. For this method, one or more catheters are inserted into your incision at the end of your procedure. These catheters are connected to a device that is filled with a non-narcotic pain medicine. Medicine gradually empties into your incision area over the next several days. Continuous epidural pain control With this method, you receive pain medicine through a small, thin tube (catheter) that is inserted into your back, near your spinal cord. Medicine flows through the catheter to lessen pain in areas of your body that are below the catheter. The catheter is usually put into the back shortly before surgery. It may be left in until you can eat, take medicine by mouth, pass urine, and have a bowel movement. This method may be recommended if you are having surgery on your abdomen, hip area, or legs. This method of pain relief may help you heal faster because you may be able to do these things sooner: Regain normal bowel and bladder function. Return to eating. Get up and walk. IV patient-controlled analgesia (BOOK CUTTER) pump With this method, you receive pain medicine through an IV that is connected to a BOOK CUTTER pump. The BOOK CUTTER pump gives you a specific amount of medicine when you push a button. This lets you control how much medicine you receive. You are the only person who should push this button. The pump is set up so that you cannot accidentally give yourself too much medicine. You will be able to start using your BOOK CUTTER pump in the recovery room after your procedure. Tell your health care provider: If you are having too much pain. If you cannot push the button. If you are feeling too sleepy or nauseous. Other pain control methods Other methods of pain relief after surgery include: Heat and cold therapy. Massage. Topical analgesics. These are patches, creams, and gels that can be applied on the skin. Steroid medicines. These medicines may be given to lessen swelling. Physical therapy. A physical therapist will work with you to meet goals, such as feeling and functioning better. Physical therapy usually includes specific exercises that are tailored to your needs. Transcutaneous electrical nerve stimulation (TENS). This method sends electrical signals through the skin to interrupt pain signals. Cognitive behavioral therapy (CBT). This therapy helps you learn coping skills for dealing with pain. What are some questions to ask my health care provider? What pain relief options would be best for me? What are the risks of each option? What are the benefits of each option? How long will I need pain relief after surgery? Summary A plan to manage pain that you may have before surgery (preoperative) and after surgery (postoperative) is an important part of your overall care. Pain management options include medicines and non-medical therapies, such as physical therapy, massage, and heat or cold therapy. Pain management medicines include opioids and non-narcotic medicines such as NSAIDs, steroids, or local anesthetics. Pain medicines can have side effects. Side effects of opioids include constipation, nausea, excessive sleepiness, and risk of addiction. Your health care provider will work with you to prevent or manage these side effects and risks. This information is not intended to replace advice given to you by your health care provider. Make sure you discuss any questions you have with your health care provider. Document Released: 02/04/2004 Document Revised: 11/17/2018 Document Reviewed: 02/24/2018 [employer] Patient Education 2020 [employer]. 05/29/2022 17:47:16 Crohn's Disease Crohn's Disease Crohn's disease is a long-lasting (chronic) disease that affects the gastrointestinal (GI) tract. Crohn's disease often causes irritation and inflammation in the small intestine and the beginning of the large intestine, but it can affect any part of the GI tract. Crohn's disease is part of a group of illnesses that are known as inflammatory bowel disease (IBD). Crohn's disease may start slowly and get worse over time. Symptoms may come and go. They may also go away for months or even years at a time (remission). What are the causes? The exact cause of this condition is not known. It may involve a response that causes your body's disease-fighting (immune) system to attack healthy cells and tissues (autoimmune response). Bacteria, genes, and your environment may also play a role. What increases the risk? The following factors may make you more likely to develop this condition: Having a family member who has Crohn's disease, another IBD, or an autoimmune condition. Using products that contain nicotine or tobacco, such as cigarettes and e-cigarettes. Being in your 20s. Having Eastern ancestry. What are the signs or symptoms? The main symptoms of this condition involve your GI tract. These include: Diarrhea. Pain or cramping in the abdomen. This is commonly felt in the lower right side of the abdomen. Frequent watery or bloody stools. Constipation. This may mean having: ?Fewer bowel movements in a week than normal. ?Difficulty having a bowel movement. ?Stools that are dry, hard, or larger than normal. Rectal bleeding. Rectal pain. An urgent need to have a bowel movement. The feeling that you are not finished having a bowel movement. Other symptoms may include: Unexplained weight loss. Fatigue. Fever. Nausea. Loss of appetite. Joint pain. Vision changes. Red bumps or sores on the skin. Sores inside the mouth. How is this diagnosed? This condition may be diagnosed based on: Your symptoms and your medical history. A physical exam. Tests, which may include: ?Blood tests. ?Stool sample tests. ?Imaging tests, such as X-rays and CT scans. ?Tests to examine the inside of your intestines using a long, flexible tube that has a light and a camera on the end (endoscopy or colonoscopy). ?A procedure to remove tissue samples from inside your bowel for testing (biopsy). You may need to work with a health care provider who specializes in diseases of the digestive tract (supervisor boatbuilders wood). How is this treated? There is no cure for this condition, but treatment can help you manage your symptoms. Crohn's disease affects each person differently. Your treatment may include: Resting your bowels. This involves having a period of healing time when your bowels are not passing stools. This may be done by: ?Drinking only clear liquids. These are liquids that you can see through, such as water, black coffee, fruit juice without pulp, broth, gelatin, and ice pops. ?Getting nutrition through an IV for a period of time. Medicines. These may be used by themselves or with other treatments (combination therapy). These may include antibiotic medicines. You may be given medicines that help to: ?Reduce inflammation. ?Control your immune system activity. ?Fight infections. ?Relieve cramps and prevent diarrhea. ?Control your pain. Surgery. You may need surgery if: ?Medicines and other treatments are not working anymore. ?You develop complications from severe Crohn's disease. ?A section of your intestine becomes so damaged that it needs to be removed. Follow these instructions at home: Medicines Take dpjl-qpe-qguvcin and prescription medicines only as told by your health care provider. If you were prescribed an antibiotic, take it as told by your health care provider. Do not stop taking the antibiotic even if you start to feel better. Avoid taking ibuprofen or other NSAID medicines if possible, these can make Crohn's disease worse. Eating and drinking Talk with your health care provider or a diet and bilingual customer service specialist (registered dietitian) about what diet is best for you. Drink enough fluid to keep your urine pale yellow. If you are taking steroids to reduce inflammation, get plenty of calcium in your diet to help keep your bones healthy. You may also consider taking a calcium supplement with vitamin D. Keep a food diary to identify foods that make your symptoms better or worse. Avoid foods that cause symptoms. Follow instructions from your health care provider about eating or drinking restrictions if you have worsening symptoms (flare-up). Limit alcohol intake to no more than 1 drink a day for non women and 2 drinks a day for men. One drink equals 12 oz of beer, 5 oz of wine, or 1 oz of hard liquor. General instructions Make sure you get all the vaccines that your health care provider recommends, especially pneumonia (pneumococcal) and flu (influenza) vaccines. Do not use any products that contain nicotine or tobacco, such as cigarettes and e-cigarettes. If you need help quitting, ask your health care provider. Exercise every day, or as often told by your health care provider. Keep all follow-up visits as told by your health care provider. This is important. Contact a health care provider if: You have diarrhea, cramps in your abdomen, and other GI problems that are present almost all the time. Your symptoms do not improve with treatment. You continue to lose weight. You develop a rash or sores on your skin. You develop eye problems. You have a fever. Your symptoms get worse. You develop new symptoms. Get help right away if: You have bloody diarrhea. You have severe pain in your abdomen. You cannot pass stools. Summary Crohn's disease affects each person differently. There are multiple treatment options that can help you manage the condition. Talk with your health care provider or diet and bilingual customer service specialist (registered dietitian) about what diet is best for you. Make sure you get all the vaccines that your health care provider recommends, especially pneumonia (pneumococcal) and flu (influenza) vaccines. This information is not intended to replace advice given to you by your health care provider. Make sure you discuss any questions you have with your health care provider. Document Released: 08/24/2006 Document Revised: 07/17/2018 Document Reviewed: 07/17/2018 [employer] Interactive Patient Education 2019 [employer] 05/29/2022 17:45:49 Abdominal Hysterectomy, Care After, Ugcu-vd-Wqkr Abdominal Hysterectomy, Care After This sheet gives you information about how to care for yourself after your procedure. Your doctor may also give you more specific instructions. If you have problems or questions, contact your doctor. Follow these instructions at home: Bathing Do not take baths, swim, or use a hot tub until your doctor says it is okay. Ask your doctor if you can take showers. You may only be allowed to take sponge baths for bathing. Keep the bandage (dressing) dry until your doctor says it can be taken off. Surgical cut (incision) care Follow instructions from your doctor about how to take care of your cut from surgery. Make sure you: ?Wash your hands with soap and water before you change your bandage (dressing). If you cannot use soap and water, use hand film archivist. ?Change your bandage as told by your doctor. ?Leave stitches (sutures), skin glue, or skin tape (adhesive) strips in place. They may need to stay in place for 2 weeks or longer. If tape strips get loose and curl up, you may trim the loose edges. Do not remove tape strips completely unless your doctor says it is okay. Check your surgical cut area every day for signs of infection. Check for: ?Redness, swelling, or pain. ?Fluid or blood. ?Warmth. ?Pus or a bad smell. Activity Do gentle, daily exercise as told by your doctor. You may be told to take short walks every day and go farther each time. Do not lift anything that is heavier than 10 lb (4.5 kg), or the limit that your doctor tells you, until he or she says that it is safe. Do not drive or use heavy machinery while taking prescription pain medicine. Do not drive for 24 hours if you were given a medicine to help you relax (sedative). Follow your doctor's advice about exercise, driving, and general activities. Ask your doctor what activities are safe for you. Lifestyle Do not douche, use tampons, or have sex for at least 6 weeks or as told by your doctor. Do not drink alcohol until your doctor says it is okay. Drink enough fluid to keep your pee (urine) clear or pale yellow. Try to have someone at home with you for the first 1 2 weeks to help. Do not use any products that contain nicotine or tobacco, such as cigarettes and e-cigarettes. These can slow down healing. If you need help quitting, ask your doctor. General instructions Take jmyj-nfj-afpyetd and prescription medicines only as told by your doctor. Do not take aspirin or ibuprofen. These medicines can cause bleeding. To prevent or treat constipation while you are taking prescription pain medicine, your doctor may suggest that you: ?Drink enough fluid to keep your urine clear or pale yellow. ?Take ymbx-seq-ieuyoda or prescription medicines. ?Eat foods that are high in fiber, such as: ?Fresh fruits and vegetables. ?Whole grains. ?Beans. ?Limit foods that are high in fat and processed sugars, such as fried and sweet foods. Keep all follow-up visits as told by your doctor. This is important. Contact a doctor if: You have chills or fever. You have redness, swelling, or pain around your cut. You have fluid or blood coming from your cut. Your cut feels warm to the touch. You have pus or a bad smell coming from your cut. Your cut breaks open. You feel dizzy or light-headed. You have pain or bleeding when you pee. You keep having watery poop (diarrhea). You keep feeling sick to your stomach (nauseous) or keep throwing up (vomiting). You have unusual fluid (discharge) coming from your vagina. You have a rash. You have a reaction to your medicine. Your pain medicine does not help. Get help right away if: You have a fever and your symptoms get worse all of a sudden. You have very bad belly (abdominal) pain. You are short of breath. You pass out (faint). You have pain, swelling, or redness of your leg. You bleed a lot from your vagina and notice clumps of blood (clots). Summary Do not take baths, swim, or use a hot tub until your doctor says it is okay. Ask your doctor if you can take showers. You may only be allowed to take sponge baths for bathing. Follow your doctor's advice about exercise, driving, and general activities. Ask your doctor what activities are safe for you. Do not lift anything that is heavier than 10 lb (4.5 kg), or the limit that your doctor tells you, until he or she says that it is safe. Try to have someone at home with you for the first 1 2 weeks to help. This information is not intended to replace advice given to you by your health care provider. Make sure you discuss any questions you have with your health care provider. Document Released: 08/23/2009 Document Revised: 01/17/2020 Document Reviewed: 11/02/2017 [employer] Patient Education 2020 [employer]. Follow Up Care 05/24/2022 14:47:13 With:[facility] Address: [address] [place] [address] (Mon-Fri from 8:30am - 5:00pm) [place] [address]- When:07/10/2022 Comments:Follow-up as scheduled [facility] 05-29-2022 Nurse Progress note Pt's mother, Leonardo, was taught to give pt Lovenox injection Digitally Signed by Evelina Gagnon RN on 05/29/2022 06:00 PM [facility] 05-29-2022 Note Discharge Instructions Thank you for allowing [facility] to assist you with your healthcare needs. The following is important discharge information regarding your hospital visit. Your Care Team PHYSICIAN, NOT RECORDED Your Diagnosis Intra-abdominal fluid Abdominal pain in , Rh negative, maternal Placenta previa Placenta accreta Gestational diabetes mellitus (GDM) History of section Crohn's disease Obesity, Class III, BMI 40-49.9 (morbid obesity) Asthma Post-op pain What to do next Follow Up Appointments Follow Up with [facility] When In 6 weeks 07/10/2022 EDT Why: Follow-up as scheduled Where: [address] (Tue-Tue from 8:30am - 5:00pm) [place] [id number]- Someone Will Contact You Regarding These Home Health Referrals No home referrals have been ordered for you. No one will call you. The Following Activity and Diet Have Been Ordered for You Discharge Activity - Ordered -- May Shower, No sexual intercourse or anything inside of the vagina x 6 wks. No tub baths x 2 wks, No lifting >15lbs x 6 wks, Don't operate a vehicle for 2 wks and until pain free,, 05/29/22 17:20:00 EDT Discharge Diet - Ordered -- Type of Diet: Regular, No changes were made to your diet during your hospital stay. Please resume your pre hospitalization diet on discharge., 05/29/22 17:20:00 EDT The Following Equipment Has Been Ordered for You Discharge Home Equipment Discharge Wound Care - Ordered -- Dressing Type: Open to Air, call the office if exp a temp >100.4, Increase in Bleeding, Increase in Pain, or Increase in foul odors, 05/29/22 17:20:00 EDT The Following Treatments Have Been Arranged for You Discharge Labs No qualifying data available. Discharge Radiology No qualifying data available. Other Therapies Discharge Outpatient to Other Therapy/Tests - Ordered -- Your therapy ordered is: PTOT, Relevant Diagnosis: morbid obesity, Reason for therapy: deconditioned and morbid obesity, 05/29/22 9:22:00 EDT Allergies morphine (Hives) Medications Please ask your primary doctor or pharmacist before taking any other medication not listed, including over the counter drugs, herbal medications, vitamins and or supplements as they may interact with your home medications. What How Much When Why Instructions Last Dose New enoxaparin (Lovenox 40 mg/ 0.4 mL injectable solution) 0.4 Milliliter Subcutaneous Every 12 hours Duration: 4 week(s) Please supply sufficient quantity of needles, syringes, alcohol swabs and a sharps container Pickup at [facility] [address] New FLUoxetine (FLUoxetine (Eqv-Sarafem) 20 mg oral tablet) 1 tab(s) by mouth Once a day Refills: 2 Pickup at [facility] 172 New ibuprofen (ibuprofen 600 mg oral tablet) 1 tab(s) by mouth Every 6 hours as needed for Pain, scale 1-3 Refills: 1 Pickup at [facility] 172 New ondansetron (ondansetron 4 mg oral tablet, disintegrating) 1 tab(s) by mouth Every 6 hours Refills: 1 Pickup at [facility] 1724 New oxyCODONE (oxyCODONE 5 mg oral tablet ( IMMEDIATE release )) 1 tab(s) by mouth Every 4 hours as needed for Pain, scale 4-6 Post-op pain Duration: 7 Days Pickup at [facility] 172 New senna (senna (sennosides) 8.6 mg oral tablet) 1 tab(s) by mouth Daily at bedtime Refills: 1 Pickup at [facility] 1724 New sulfamethoxazole-trimethoprim (sulfamethoxazole-trimethoprim 800 mg-160 mg oral tablet) 1 tab(s) by mouth Two (2) times a day Duration: 7 Days Pickup at [facility] 172 Unchanged albuterol Unchanged cetirizine (Zyrtec 10 mg oral tablet) 1 tab(s) by mouth Once a day Unchanged multivitamin, ( Multivitamins with Vitamin B Complex, Vitamin C, Minerals and L-Methylfolate oral capsule) 1 cap by mouth Every day Unchanged NIFEdipine (Procardia XL 30 mg oral tablet, extended release) 1 tab(s) by mouth Once a day Pickup at [facility]24 Unchanged omega-3 polyunsaturated fatty acids ([place]-3 1000 mg oral capsule) 1 cap by mouth Once a day Pharmacy Information [facility] 1724: [address], [place] [id number] [phone] Please take this list to your next doctor s visit. Bring all medications you take, including over the counter medications, herbals and other supplements with you to your doctor s visit. Patients and families are reminded to discard old lists and to update any records with all medication providers or retail pharmacies. Education Materials Pain Relief Before and After Surgery Pain relief is an important part of your overall care before, during, and after surgery. You and your health care provider will work together to make a plan to manage pain that you have before surgery (preoperative) and after surgery (postoperative). Addressing pain before surgery lessens the pain that you will have after surgery. Make sure that you fully understand and agree with your pain relief plan. If you have questions or concerns, it is important to discuss them with your health care provider. If you have pain that is not controlled by medicine, tell your health care provider. Severe pain after surgery may: Prevent sleep. Decrease your ability to breathe deeply and to cough. This can result in pneumonia or upper airway infections. Cause your heart to beat more quickly. Cause your blood pressure to be higher. Increase your risk for stomach and digestive problems. Slow down wound healing. Lead to depression, anxiety, and feelings of helplessness. Your health care provider may use more than one method at a time to help relieve your pain. Using this approach may allow you to eat, move around, and possibly leave the hospital sooner. What are options for managing pain before and after surgery? Oral pain medicines Pain medicines taken by mouth (orally) include: Non-narcotic medicines: ? Acetaminophen. ? NSAIDs, such as ibuprofen and naproxen. Muscle relaxants. These may relieve pain caused by muscle spasms. Anticonvulsants. These medicines are usually used to treat seizures. They may help to lessen nerve pain. Opioids. These medicines relieve pain by binding to pain receptors in the brain and spinal cord (narcotic pain medicines). Opioids may help relieve short-term (acute) postoperative pain that is moderate to moderately severe. ? Opioids are often combined with non-narcotic medicines to improve pain relief, lower the risk of side effects, and lower the chance of addiction. ? To help prevent addiction, opioids are given for short periods of time in careful doses. If you follow instructions from your health care provider and you do not have a history of substance abuse, your risk of becoming addicted to opioids is low. Some of these medicines may be available in injectable form. They may be given through an IV if you are unable to eat or drink. As-needed pain control You can receive pain medicine when you need it, through an IV or as a pill or liquid. When you tell your health care provider that you are having pain, he or she will give you the proper pain medicine. Medicine that numbs an area You may be given pain medicine that numbs an area (local anesthetic): As an injection near your painful area (local infiltration). As an injection near the nerve that provides feeling to a specific part of your body (peripheral nerve block). As an injection in your spine (spinal block). Through a local anesthetic reservoir pump. For this method, one or more catheters are inserted into your incision at the end of your procedure. These catheters are connected to a device that is filled with a non-narcotic pain medicine. Medicine gradually empties into your incision area over the next several days. Continuous epidural pain control With this method, you receive pain medicine through a small, thin tube (catheter) that is inserted into your back, near your spinal cord. Medicine flows through the catheter to lessen pain in areas of your body that are below the catheter. The catheter is usually put into the back shortly before surgery. It may be left in until you can eat, take medicine by mouth, pass urine, and have a bowel movement. This method may be recommended if you are having surgery on your abdomen, hip area, or legs. This method of pain relief may help you heal faster because you may be able to do these things sooner: Regain normal bowel and bladder function. Return to eating. Get up and walk. IV patient-controlled analgesia (BOOK CUTTER) pump With this method, you receive pain medicine through an IV that is connected to a BOOK CUTTER pump. The BOOK CUTTER pump gives you a specific amount of medicine when you push a button. This lets you control how much medicine you receive. You are the only person who should push this button. The pump is set up so that you cannot accidentally give yourself too much medicine. You will be able to start using your BOOK CUTTER pump in the recovery room after your procedure. Tell your health care provider: If you are having too much pain. If you cannot push the button. If you are feeling too sleepy or nauseous. Other pain control methods Other methods of pain relief after surgery include: Heat and cold therapy. Massage. Topical analgesics. These are patches, creams, and gels that can be applied on the skin. Steroid medicines. These medicines may be given to lessen swelling. Physical therapy. A physical therapist will work with you to meet goals, such as feeling and functioning better. Physical therapy usually includes specific exercises that are tailored to your needs. Transcutaneous electrical nerve stimulation (TENS). This method sends electrical signals through the skin to interrupt pain signals. Cognitive behavioral therapy (CBT). This therapy helps you learn coping skills for dealing with pain. What are some questions to ask my health care provider? What pain relief options would be best for me? What are the risks of each option? What are the benefits of each option? How long will I need pain relief after surgery? Summary A plan to manage pain that you may have before surgery (preoperative) and after surgery (postoperative) is an important part of your overall care. Pain management options include medicines and non-medical therapies, such as physical therapy, massage, and heat or cold therapy. Pain management medicines include opioids and non-narcotic medicines such as NSAIDs, steroids, or local anesthetics. Pain medicines can have side effects. Side effects of opioids include constipation, nausea, excessive sleepiness, and risk of addiction. Your health care provider will work with you to prevent or manage these side effects and risks. This information is not intended to replace advice given to you by your health care provider. Make sure you discuss any questions you have with your health care provider. Document Released: 02/04/2004 Document Revised: 11/17/2018 Document Reviewed: 02/24/2018 [employer] Patient Education 2020 [employer] Crohn's Disease Crohn's disease is a long-lasting (chronic) disease that affects the gastrointestinal (GI) tract. Crohn's disease often causes irritation and inflammation in the small intestine and the beginning of the large intestine, but it can affect any part of the GI tract. Crohn's disease is part of a group of illnesses that are known as inflammatory bowel disease (IBD). Crohn's disease may start slowly and get worse over time. Symptoms may come and go. They may also go away for months or even years at a time (remission). What are the causes? The exact cause of this condition is not known. It may involve a response that causes your body's disease-fighting (immune) system to attack healthy cells and tissues (autoimmune response). Bacteria, genes, and your environment may also play a role. What increases the risk? The following factors may make you more likely to develop this condition: Having a family member who has Crohn's disease, another IBD, or an autoimmune condition. Using products that contain nicotine or tobacco, such as cigarettes and e-cigarettes. Being in your 20s. Having Eastern ancestry. What are the signs or symptoms? The main symptoms of this condition involve your GI tract. These include: Diarrhea. Pain or cramping in the abdomen. This is commonly felt in the lower right side of the abdomen. Frequent watery or bloody stools. Constipation. This may mean having: ? Fewer bowel movements in a week than normal. ? Difficulty having a bowel movement. ? Stools that are dry, hard, or larger than normal. Rectal bleeding. Rectal pain. An urgent need to have a bowel movement. The feeling that you are not finished having a bowel movement. Other symptoms may include: Unexplained weight loss. Fatigue. Fever. Nausea. Loss of appetite. Joint pain. Vision changes. Red bumps or sores on the skin. Sores inside the mouth. How is this diagnosed? This condition may be diagnosed based on: Your symptoms and your medical history. A physical exam. Tests, which may include: ? Blood tests. ? Stool sample tests. ? Imaging tests, such as X-rays and CT scans. ? Tests to examine the inside of your intestines using a long, flexible tube that has a light and a camera on the end (endoscopy or colonoscopy). ? A procedure to remove tissue samples from inside your bowel for testing (biopsy). You may need to work with a health care provider who specializes in diseases of the digestive tract (supervisor boatbuilders wood). How is this treated? There is no cure for this condition, but treatment can help you manage your symptoms. Crohn's disease affects each person differently. Your treatment may include: Resting your bowels. This involves having a period of healing time when your bowels are not passing stools. This may be done by: ? Drinking only clear liquids. These are liquids that you can see through, such as water, black coffee, fruit juice without pulp, broth, gelatin, and ice pops. ? Getting nutrition through an IV for a period of time. Medicines. These may be used by themselves or with other treatments (combination therapy). These may include antibiotic medicines. You may be given medicines that help to: ? Reduce inflammation. ? Control your immune system activity. ? Fight infections. ? Relieve cramps and prevent diarrhea. ? Control your pain. Surgery. You may need surgery if: ? Medicines and other treatments are not working anymore. ? You develop complications from severe Crohn's disease. ? A section of your intestine becomes so damaged that it needs to be removed. Follow these instructions at home: Medicines Take lyht-tvf-glahtji and prescription medicines only as told by your health care provider. If you were prescribed an antibiotic, take it as told by your health care provider. Do not stop taking the antibiotic even if you start to feel better. Avoid taking ibuprofen or other NSAID medicines if possible, these can make Crohn's disease worse. Eating and drinking Talk with your health care provider or a diet and bilingual customer service specialist (registered dietitian) about what diet is best for you. Drink enough fluid to keep your urine pale yellow. If you are taking steroids to reduce inflammation, get plenty of calcium in your diet to help keep your bones healthy. You may also consider taking a calcium supplement with vitamin D. Keep a food diary to identify foods that make your symptoms better or worse. Avoid foods that cause symptoms. Follow instructions from your health care provider about eating or drinking restrictions if you have worsening symptoms (flare-up). Limit alcohol intake to no more than 1 drink a day for non women and 2 drinks a day for men. One drink equals 12 oz of beer, 5 oz of wine, or 1 oz of hard liquor. General instructions Make sure you get all the vaccines that your health care provider recommends, especially pneumonia (pneumococcal) and flu (influenza) vaccines. Do not use any products that contain nicotine or tobacco, such as cigarettes and e-cigarettes. If you need help quitting, ask your health care provider. Exercise every day, or as often told by your health care provider. Keep all follow-up visits as told by your health care provider. This is important. Contact a health care provider if: You have diarrhea, cramps in your abdomen, and other GI problems that are present almost all the time. Your symptoms do not improve with treatment. You continue to lose weight. You develop a rash or sores on your skin. You develop eye problems. You have a fever. Your symptoms get worse. You develop new symptoms. Get help right away if: You have bloody diarrhea. You have severe pain in your abdomen. You cannot pass stools. Summary Crohn's disease affects each person differently. There are multiple treatment options that can help you manage the condition. Talk with your health care provider or diet and bilingual customer service specialist (registered dietitian) about what diet is best for you. Make sure you get all the vaccines that your health care provider recommends, especially pneumonia (pneumococcal) and flu (influenza) vaccines. This information is not intended to replace advice given to you by your health care provider. Make sure you discuss any questions you have with your health care provider. Document Released: 08/24/2006 Document Revised: 07/17/2018 Document Reviewed: 07/17/2018 [employer] Interactive Patient Education 2019 [employer]. Abdominal Hysterectomy, Care After This sheet gives you information about how to care for yourself after your procedure. Your doctor may also give you more specific instructions. If you have problems or questions, contact your doctor. Follow these instructions at home: Bathing Do not take baths, swim, or use a hot tub until your doctor says it is okay. Ask your doctor if you can take showers. You may only be allowed to take sponge baths for bathing. Keep the bandage (dressing) dry until your doctor says it can be taken off. Surgical cut (incision) care Follow instructions from your doctor about how to take care of your cut from surgery. Make sure you: ? Wash your hands with soap and water before you change your bandage (dressing). If you cannot use soap and water, use hand film archivist. ? Change your bandage as told by your doctor. ? Leave stitches (sutures), skin glue, or skin tape (adhesive) strips in place. They may need to stay in place for 2 weeks or longer. If tape strips get loose and curl up, you may trim the loose edges. Do not remove tape strips completely unless your doctor says it is okay. Check your surgical cut area every day for signs of infection. Check for: ? Redness, swelling, or pain. ? Fluid or blood. ? Warmth. ? Pus or a bad smell. Activity Do gentle, daily exercise as told by your doctor. You may be told to take short walks every day and go farther each time. Do not lift anything that is heavier than 10 lb (4.5 kg), or the limit that your doctor tells you, until he or she says that it is safe. Do not drive or use heavy machinery while taking prescription pain medicine. Do not drive for 24 hours if you were given a medicine to help you relax (sedative). Follow your doctor's advice about exercise, driving, and general activities. Ask your doctor what activities are safe for you. Lifestyle Do not douche, use tampons, or have sex for at least 6 weeks or as told by your doctor. Do not drink alcohol until your doctor says it is okay. Drink enough fluid to keep your pee (urine) clear or pale yellow. Try to have someone at home with you for the first 1 2 weeks to help. Do not use any products that contain nicotine or tobacco, such as cigarettes and e-cigarettes. These can slow down healing. If you need help quitting, ask your doctor. General instructions Take wkfc-ycs-wqvrggi and prescription medicines only as told by your doctor. Do not take aspirin or ibuprofen. These medicines can cause bleeding. To prevent or treat constipation while you are taking prescription pain medicine, your doctor may suggest that you: ? Drink enough fluid to keep your urine clear or pale yellow. ? Take yjbz-dob-zjtfmlp or prescription medicines. ? Eat foods that are high in fiber, such as: ? Fresh fruits and vegetables. ? Whole grains. ? Beans. ? Limit foods that are high in fat and processed sugars, such as fried and sweet foods. Keep all follow-up visits as told by your doctor. This is important. Contact a doctor if: You have chills or fever. You have redness, swelling, or pain around your cut. You have fluid or blood coming from your cut. Your cut feels warm to the touch. You have pus or a bad smell coming from your cut. Your cut breaks open. You feel dizzy or light-headed. You have pain or bleeding when you pee. You keep having watery poop (diarrhea). You keep feeling sick to your stomach (nauseous) or keep throwing up (vomiting). You have unusual fluid (discharge) coming from your vagina. You have a rash. You have a reaction to your medicine. Your pain medicine does not help. Get help right away if: You have a fever and your symptoms get worse all of a sudden. You have very bad belly (abdominal) pain. You are short of breath. You pass out (faint). You have pain, swelling, or redness of your leg. You bleed a lot from your vagina and notice clumps of blood (clots). Summary Do not take baths, swim, or use a hot tub until your doctor says it is okay. Ask your doctor if you can take showers. You may only be allowed to take sponge baths for bathing. Follow your doctor's advice about exercise, driving, and general activities. Ask your doctor what activities are safe for you. Do not lift anything that is heavier than 10 lb (4.5 kg), or the limit that your doctor tells you, until he or she says that it is safe. Try to have someone at home with you for the first 1 2 weeks to help. This information is not intended to replace advice given to you by your health care provider. Make sure you discuss any questions you have with your health care provider. Document Released: 08/23/2009 Document Revised: 01/17/2020 Document Reviewed: 11/02/2017 [employer] Patient Education 2020 [employer] Additional Information VACCINATE! IT SAVES LIVES! Members of the community who have not yet received the COVID-19 vaccine and would like to receive it can visit one of [facility] vaccine clinics. There are many vaccine clinic locations within the [facility]. For locations and available times, please visit [email or web address]. It is important to note that some COVID mobile vaccine clinics are held outdoors and may be canceled in rainy or stormy conditions. To learn more about pediatric vaccinations (ages 5-11), we invite you to visit the [facility] webpage. [email or web address] To learn more about the COVID-19 vaccine, we invite you to visit the [facility] website for a list of frequently asked questions. [email or web address] [facility] Patient Portal Access Instructions: Stay connected with your healthcare team and access your personal medical information anytime with the [facility].If you would like a full copy of your medical records, please contact the [facility] Medical Records Department, Tuesday through Tuesday between 8a.m. and 4:30p.m. Please follow the directions below to access the portal: 1.Access the email account you provided upon registration to the [facility].2.Look for an invitation email from [facility].3.Open the email and access the invitation link: Accept Invitation to [facility]4.Fill in the required soto to create your account. Sign into [email or web address] with your username and password that you created in the above steps to stay up to date. You can then view a summary of results, a summary of your visits, and the ability to download your summaries to your computer or send the information securely to a physician. Remember that your healthcare information is confidential, so carefully consider who you will allow to register on the [facility] Patient Portal for access to your information. You can also access the [facility] Patient Portal on the [employer] lux. Simply click on "Health Records" under "Health Data" and then click on the [facility] logo. HOW TO SAFELY DISPOSE OF PRESCRIPTION MEDICATIONS Please use one of the following methods to safely dispose of your unused medications. 1.Use a drug disposal kit: the drug disposal pouch allows you to safely discard your old and unused drugs. Ask your nurse to give you one when you are discharged.2.Visit a local take-back location: Many local pharmacies and police departments have programs that collect old and unwanted prescription drugs. Call your local pharmacy or go to http://bit.ly/1F2Ju7g to find one close to you.3.Make use of household items: Use cat litter or old coffee grounds to dispose medications if other options are not available. Mix your drugs with these household products, seal them in an airtight container and throw it into the garbage. Call [facility]: [phone] to be sure your drugs can be disposed of in this way. Some medicines may require a different approach.4.Never flush your medications down the toilet. IF YOU HAVE BEEN PRESCRIBED AN OPIOID FOR PAIN If you have been prescribed an opioid (such as hydrocodone, oxycodone or morphine), it is critical to understand the possible side effects and risks of opioid pain medications. Even when taken as directed, opioids can have several side effects including: Tolerance, meaning you might need to take more of a medication for the same pain relief. Nausea, vomiting and/or constipation. Sleepiness, dizziness, dry mouth, confusion, depression or itching. Physical dependence, meaning you have withdrawal symptoms when a medication is stopped, can develop within a few days. KNOW YOUR RESPONSIBILITIES It is important to know exactly how much and how often to take the opioid pain medications you are prescribed. Never take opioids in higher amounts or more often than prescribed. Do not combine opioids with alcohol or other drugs that cause drowsiness, such as benzodiazepines, also known as benzos, including diazepam and alprazolam, muscle relaxants or sleep aids. Never sell or share prescription opioids. This is illegal. Store opioids in a secure place and out of reach of others (including children, family, friends and visitors). The last page of this document has been signed and retained as a CHART COPY Signatures Patient Education Materials Pain Relief Before and After Surgery Crohn's Disease Abdominal Hysterectomy, Care After, Hhog-qy-Khyk Medication Leaflets My discharge plan and instructions have been reviewed and explained to me and IGLORIA CHEYENNE M understand my current condition and have read and understand these discharge instructions. I have received a written copy of the plan/instructions. If I have questions, I am aware that I should contact my doctor. 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 Signature: Date/Time: Relationship to Patient: Witness Name/Signature: Date/Time: [facility] 05-29-2022 Nurse Progress note trudy delay waiting on pt mom to get here so she can be taught to give shot at home Digitally Signed by Evelina Gagnon RN on 05/29/2022 04:13 PM [facility] 05-29-2022 Nurse Progress note Email message sent to [email or web address] regarding order for PT/OT for pt Carla Carlson requesting that they contact pt at home on their next day of work Digitally Signed by Evelina Gagnon RN on 05/29/2022 11:31 AM [facility] 05-28-2022 Note Date of Service 05/28/22 Subjective This is ICU day #5 for Ms. Carlson, a 32-year-old female past medical history significant for hypertension, obesity BMI 68, Crohn's, gestational diabetes and history of 3 previous C-sections G8, P3 who presented to the hospital via EMS with hypotension and abdominal cramping. When EMS arrived she was a difficult extraction, was stuck between the wall and noncompliance. She was given 4 g of IV magnesium for self-reported preeclampsia and placenta previa. She follows with maternal- medicine. She was taken to labor delivery triage where heart tones were reassuring. She then became dyspneic with chest pain and blood pressure dropped to the 90s over 70s so rapid response was called. She went for CTA which was negative for PE but showed a large amount of abdominal free fluid. She was having abdominal pain located in her right upper quadrant and radiating to her back. Ultimately she required intubation, pH was 7.2 with a PCO2 of 46 and a PO2 of 165. This is primarily metabolic in nature. Her hemoglobin dropped 2 g from 10.4-8.4 and then finally to 6.1. Her potassium was elevated at 5.9 with a lactic acid of 5.7 which trended down to 2.1 but back up to 4.5. She was transfused 3 units packed red blood cells and taken to the OR for emergent exploratory laparotomy with hysterectomy and cystoscopy. She is now postoperative day #1 status post return to the OR for bleeding from her abdominal wound and underwent cauterization of multiple subcutaneous vessels. She is now status post a total of 9 units of packed red blood cells. She is now down to room air. She did have a bout of emesis last night felt secondary to ileus and was made n.p.o., now on clears. ELMER drain put out 75 mL in the past 24 hours Objective Vitals and Measurements T: 36.7 C (Oral) TMIN: 36.4 C (Oral) TMAX: 36.7 C (Oral) HR: 87(Monitored) RR: 16 BP: 141/83 SpO2: 97% Intake and Output 7AM Yesterday to 7AM Today Intake and Output (Last 24 hours) Intake Administration Information 879.17 Output Surgical Drain, Tube Output: 110.00 Urinary Catheter Output: 2275.00 Stool Count 0.00 Emesis Count 1.00 Total Summary Total Intake 879.17 Total Output 2385.00 Fluid Balance -1505.83 Physical Exam General-Alert oriented. Not in distress HEENT-normocephalic, atraumatic, extraocular movements intact Pulmonary-relatively clear, no active wheeze Cardiovascular-tachycardic, no appreciable murmurs, gallops or rubs Abdomen-soft, obese, mildly tender to palpation, bowel sounds positive, midline incision site clean dry and intact, ELMER drain in place Extremities-no significant cyanosis, clubbing or edema Neurologic-grossly nonfocal Weight Dosing Weight: 198 kg (05/24/22) Medications Medications (16) Active Scheduled: (5) ampicillin-sulbactam MB+ 3 gram(s) 100 mL, IV Piggyback, q6h heparin 5,000 units/mL (1 mL) vial 5,000 unit(s) 1 mL, Subcutaneous, q8h loratadine 10 mg Tablet 10 mg 1 tab(s), Oral, qDay [id number] ethyl esters 1000 mg capsule 1,000 mg 1 cap(s), Oral, qDay pantoprazole 40 mg EC tablet 40 mg 1 tab(s), Oral, qDayAC Continuous: (3) HYDROmorphone BOOK CUTTER in 50mL NS 10 mg 10 mg 50 mL, Intravenous insulin regular 100 unit(s) + NS Premix Diluent 100 mL 100 mL, Intravenous Lactated Ringers 1,000 mL 1,000 mL, Intravenous, 100 mL/hr PRN: (8) albuterol - ipratropium 2.5 mg-0.5 mg/3 mL Inhal Bertha UD 3 mL, Inhalation, q6hRT calcium carbonate 500 mg Chewable 1,000 mg 2 tab(s), Chewed, q4h chewing gum, sugar-free 1 EA, Oral, AsDirected dextrose 50% Solution Disp syringe 50 mL 25 g 50 mL, IV Push, AsDirected docusate sodium 100 mg Capsule 100 mg 1 cap(s), Oral, BID insulin regular human recombinant 100 units/mL (3 mL) Soln sliding scale insulin, Subcutaneous, q4h naloxone 0.4 mg/mL (1mL) vial 0.2 mg 0.5 mL, IV Push, AsDirected ondansetron 2 mg/ 1 mL 2 mL INJ 4 mg 2 mL, IV Push, q4h Lab Results 05/28 08:46 Glucose Level: 95 Sodium Level: 143 Potassium Level: 3.6 BUN: 6.0 L Creatinine Lvl (s): 0.62 05/27 11:24 WBC: 12.9 H Hgb: 8.6 L Hct: 25.7 L Platelet: 139 L Neutrophil %: 86.7 H 05/27 06:36 WBC: 14.0 H Hgb: 8.4 L Hct: 25.4 L Platelet: 145 L Neutrophil %: 88.5 H Glucose Level: 136 H Sodium Level: 140 Potassium Level: 3.9 BUN: 7.0 L Creatinine Lvl (s): 0.63 05/27 00:47 WBC: 13.3 H Hgb: 7.7 L Hct: 23.5 L Platelet: 146 L Neutrophil %: 78.9 H Protime: 10.3 PT International Ratio: 0.9 Glucose Level: 98 Sodium Level: 139 Potassium Level: 3.6 BUN: 8.0 Creatinine Lvl (s): 0.66 EKG No qualifying data available. Assessment/Plan 1. Postoperative day #3 status post exploratory laparotomy with total abdominal hysterectomy and cystoscopy secondary to uterine rupture with demise and placenta previa, now postoperative day #1 status post reexploration for bleeding with cauterization of multiple subcutaneous vessels 2. Acute respiratory failure now extubated 3. morbid obesity BMI 68 4. Crohn's disease 5. Gestational diabetes 6. Hypertension 7. Asthma 8. Hyperkalemia with mild metabolic acidosis 9. Hemorrhagic shock with mild elevation in transaminases 10. Acute blood loss anemia in setting of uterine rupture with evacuation of approximately 3-1/2 L of blood intraoperatively with reexploration and ligation of multiple bleeding vessels and subcutaneous tissue Plan: 1. Stable on room air 2. Hemoglobin stable at 8.6 this morning status post 2 units packed red blood cells yesterday 3. Transaminases uptrended slightly today 4. Continue glycemic protocol 5. Continue Unasyn 6. Pain control with BOOK CUTTER 7. On SCDs for DVT prophylaxis, heparin ordered by primary service today. Will need to monitor H&H closely 8. Activity as tolerated 9. On clear liquid diet Time Spent 25 minutes, stable for transfer out of ICU with no follow-up by pulmonary required Digitally Signed by JAMES BETANCOURT MD on 05/28/2022 09:20 AM [facility] 05-27-2022 Note . MICRO - Microbiology PROCEDURE: Urine Culture [*1] SOURCE: Urine BODY SITE: COLLECTED DATE/TIME: 05/25/2022 00:16 EDT RECEIVED DATE/TIME: 05/25/2022 07:10 EDT START DATE/TIME: 05/25/2022 07:10 EDT FREE TEXT SOURCE: FINAL REPORTS Final Report [] Verified Date/Time/Personnel: 05/27/2022 07:25 EDT <10,000 cfu/ml. No Significant growth. Sensitivity not indicated. PRELIMINARY REPORTS Preliminary Report [] Verified Date/Time/Personnel: 05/26/2022 09:01 EDT No growth to date Performing Locations *1: This test was performed at: [facility], [address] [place] [address], [facility] , [facility] ([place]) 05-27-2022 Note Date of Service 05/27/22 Subjective This is ICU day #4 for Ms. Carlson, a 32-year-old female past medical history significant for hypertension, obesity BMI 68, Crohn's, gestational diabetes and history of 3 previous C-sections G8, P3 who presented to the hospital via EMS with hypotension and abdominal cramping. When EMS arrived she was a difficult extraction, was stuck between the wall and noncompliance. She was given 4 g of IV magnesium for self-reported preeclampsia and placenta previa. She follows with maternal- medicine. She was taken to labor delivery triage where heart tones were reassuring. She then became dyspneic with chest pain and blood pressure dropped to the 90s over 70s so rapid response was called. She went for CTA which was negative for PE but showed a large amount of abdominal free fluid. She was having abdominal pain located in her right upper quadrant and radiating to her back. Ultimately she required intubation, pH was 7.2 with a PCO2 of 46 and a PO2 of 165. This is primarily metabolic in nature. Her hemoglobin dropped 2 g from 10.4-8.4 and then finally to 6.1. Her potassium was elevated at 5.9 with a lactic acid of 5.7 which trended down to 2.1 but back up to 4.5. She was transfused 3 units packed red blood cells and taken to the OR for emergent exploratory laparotomy with hysterectomy and cystoscopy. Over the last 24 hours she returned to the OR for bleeding from her abdominal wound and underwent cauterization of multiple subcutaneous vessels. She is now status post a total of 8 units of packed red blood cells. She was able to be extubated postop and is currently on 5 L nasal cannula. Objective Vitals and Measurements T: 37.2 C (Oral) TMIN: 36.4 C (Oral) TMAX: 37.3 C (Oral) HR: 86 RR: 16 BP: 132/69 BP: 135/66(Line) SpO2: 95% Intake and Output 7AM Yesterday to 7AM Today Intake and Output (Last 24 hours) Intake Diastolic Blood Pressure 69.00 Oxygen Saturation 95.00 Respiratory Rate 16.00 Red Blood Cells Amount Transfused 1190.00 Systolic Blood Pressure 132.00 Administration Information 995.08 Peripheral Pulse Rate 86.00 Output Surgical Drain, Tube Output: 50.00 Urinary Catheter Output: 1500.00 Stool Count 0.00 Emesis Count 0.00 Total Summary Total Intake 2583.08 Total Output 1550.00 Fluid Balance 1033.08 Physical Exam General-Alert oriented. Not in distress HEENT-normocephalic, atraumatic, extraocular movements intact Pulmonary-relatively clear, no active wheeze Cardiovascular-tachycardic, no appreciable murmurs, gallops or rubs Abdomen-soft, obese, mildly tender to palpation, bowel sounds hypoactive, midline incision site clean dry and intact, ELMER drain in place Extremities-no significant cyanosis, clubbing or edema Neurologic-grossly nonfocal Weight Dosing Weight: 198 kg (05/24/22) Medications Medications (16) Active Scheduled: (5) ampicillin-sulbactam MB+ 3 gram(s) 100 mL, IV Piggyback, q6h heparin 5,000 units/mL (1 mL) vial 5,000 unit(s) 1 mL, Subcutaneous, q8h loratadine 10 mg Tablet 10 mg 1 tab(s), Oral, qDay xdout-6-zyoz ethyl esters 1000 mg capsule 1,000 mg 1 cap(s), Oral, qDay pantoprazole 40 mg VIAL 40 mg, IV Push, qDayAC Continuous: (3) HYDROmorphone BOOK CUTTER in 50mL NS 10 mg 10 mg 50 mL, Intravenous insulin regular 100 unit(s) + NS Premix Diluent 100 mL 100 mL, Intravenous Lactated Ringers 1,000 mL 1,000 mL, Intravenous, 125 mL/hr PRN: (8) albuterol - ipratropium 2.5 mg-0.5 mg/3 mL Inhal Bertha UD 3 mL, Inhalation, q6hRT chewing gum, sugar-free 1 EA, Oral, AsDirected dextrose 50% Solution Disp syringe 50 mL 25 g 50 mL, IV Push, AsDirected docusate sodium 100 mg Capsule 100 mg 1 cap(s), Oral, BID insulin regular human recombinant 100 units/mL (3 mL) Soln sliding scale insulin, Subcutaneous, q4h naloxone 0.4 mg/mL (1mL) vial 0.2 mg 0.5 mL, IV Push, AsDirected ondansetron 2 mg/ 1 mL 2 mL INJ 4 mg 2 mL, IV Push, q4h RHo (D) immune globulin 300 mcg/2 mL Soln 300 mcg 2 mL, Intramuscular, Once Lab Results 05/27 06:36 WBC: 14.0 H Hgb: 8.4 L Hct: 25.4 L Platelet: 145 L Neutrophil %: 88.5 H Glucose Level: 136 H Sodium Level: 140 Potassium Level: 3.9 BUN: 7.0 L Creatinine Lvl (s): 0.63 05/27 00:47 WBC: 13.3 H Hgb: 7.7 L Hct: 23.5 L Platelet: 146 L Neutrophil %: 78.9 H Protime: 10.3 PT International Ratio: 0.9 Glucose Level: 98 Sodium Level: 139 Potassium Level: 3.6 BUN: 8.0 Creatinine Lvl (s): 0.66 05/26 14:44 Hgb: 7.6 L Hct: 23.1 L Protime: 10.9 PT International Ratio: 0.9 05/26 08:00 Protime: 11.3 PT International Ratio: 1.0 05/26 07:45 Hgb: 7.7 L Hct: 22.4 L Platelet: 144 L 05/26 05:21 WBC: 12.7 H Hgb: 7.4 L Hct: 21.4 L Platelet: 141 L Neutrophil %: 83.4 H Glucose Level: 141 H Sodium Level: 139 Potassium Level: 4.0 BUN: 10.0 Creatinine Lvl (s): 0.74 05/26 01:36 Hgb: 7.3 L Hct: 22.0 L Platelet: 161 Protime: 11.0 PT International Ratio: 0.9 EKG EKG - Completed -- 05/24/22 15:01:00 EDT EKG - Completed -- 05/25/22 1:12:00 EDT Assessment/Plan 1. Postoperative day #2 status post exploratory laparotomy with total abdominal hysterectomy and cystoscopy secondary to uterine rupture with demise and placenta previa, now postoperative day #0 status post reexploration for bleeding with cauterization of multiple subcutaneous vessels 2. Acute respiratory failure now extubated 3. morbid obesity BMI 68 4. Crohn's disease 5. Gestational diabetes 6. Hypertension 7. Asthma 8. Hyperkalemia with mild metabolic acidosis 9. Hemorrhagic shock with mild elevation in transaminases 10. Acute blood loss anemia in setting of uterine rupture with evacuation of approximately 3-1/2 L of blood intraoperatively with reexploration and ligation of multiple bleeding vessels and subcutaneous tissue Plan: 1. Tolerating nasal cannula at 5 L/min 2. Hemoglobin stable at 8.4 on recheck this morning 3. Transaminases continue to downtrend 4. Continue glycemic protocol 5. Continue Unasyn 6. Pain control 7. On SCDs for DVT prophylaxis, heparin ordered by primary service today. Will need to monitor H&H closely 8. Activity as tolerated 9. On clear liquid diet Time Spent 25 minutes Digitally Signed by JAMES BETANCOURT MD on 05/27/2022 08:59 AM [facility] 05-27-2022 Anesthesiology Consult note Patient: JUDE CARLSON Age: 32 years Sex: Female : 1990 Associated Diagnoses: None Author: SHARIF DEGROOT MD Preoperative Information Time of last food or liquid consumption: 05/26/2022 13:00:00 Anesthesia history Patient's history: negative. Family's history: negative. Health Status Allergies: Allergic Reactions (Selected) Severity Not Documented Morphine- Hives., Allergies (1) ActiveReaction morphineHives Current medications: (Selected) Inpatient Medications Ordered Chewing gum (sugar-free): 1 EA, Oral, AsDirected, PRN: post op ileus prophylaxis Claritin: 10 mg, 1 tab(s), Oral, qDay Colace: 100 mg, 1 cap(s), Oral, BID, PRN: Constipation Dextrose: 25 g, 50 mL, IV Push, AsDirected, PRN: Low blood sugar Dilaudid BOOK CUTTER (0.2mg/1 mL) 10 mg: BOOK CUTTER, Intravenous DuoNeb: 3 mL, Inhalation, q6hRT, PRN: Shortness of breath (SOB) HumuLIN R: sliding scale insulin, Subcutaneous, q4h, PRN: Protocol, glycemic control Insulin Regular for IV 100 unit(s) + NS Premix Diluent 100 mL: Sliding Scale Insulin, Intravenous LR 1,000 mL: 75 mL/hr, Intravenous Narcan: 0.2 mg, 0.5 mL, IV Push, AsDirected, PRN: Control symptoms Protonix: 40 mg, IV Push, qDayAC Rhophylac: 300 mcg, 2 mL, Intramuscular, Once, PRN: if Rh factor neg per policy Unasyn: 3 gram(s), 100 mL, 300 mL/hr, IV Piggyback, q6h Zofran: 4 mg, 2 mL, IV Push, q4h, PRN: Nausea/Vomiting omega-3 polyunsaturated fatty acids ethyl esters 1000 mg oral capsule: 1,000 mg, 1 cap(s), Oral, qDay tranexamic acid 1 g / 100 mL 0.7% NaCl PMX: 1 gram(s), 100 mL, 300 mL/hr, IV Piggyback, AsDirected, PRN: Other (see order comments) Documented Medications Documented [place]-3 1000 mg oral capsule: 1,000 mg, 1 cap(s), Oral, qDay, 0 Refill(s) Multivitamins with Vitamin B Complex, Vitamin C, Minerals and L-Methylfolate oral capsule...: 1 cap(s), Oral, Daily, 0 Refill(s) Procardia XL 30 mg oral tablet, extended release: 30 mg, 1 tab(s), Oral, qDay, 30 tab(s), 0 Refill(s) Zyrtec 10 mg oral tablet: 10 mg, 1 tab(s), Oral, qDay, 30 tab(s), 0 Refill(s) albuterol: 0 Refill(s), Medications (16) Active Scheduled: (4) ampicillin-sulbactam MB+ 3 gram(s) 100 mL, IV Piggyback, q6h loratadine 10 mg Tablet 10 mg 1 tab(s), Oral, qDay nmigx-0-bscq ethyl esters 1000 mg capsule 1,000 mg 1 cap(s), Oral, qDay pantoprazole 40 mg VIAL 40 mg, IV Push, qDayAC Continuous: (3) HYDROmorphone BOOK CUTTER in 50mL NS 10 mg 10 mg 50 mL, Intravenous insulin regular 100 unit(s) + NS Premix Diluent 100 mL 100 mL, Intravenous Lactated Ringers 1,000 mL 1,000 mL, Intravenous, 75 mL/hr PRN: (9) albuterol - ipratropium 2.5 mg-0.5 mg/3 mL Inhal Bertha UD 3 mL, Inhalation, q6hRT chewing gum, sugar-free 1 EA, Oral, AsDirected dextrose 50% Solution Disp syringe 50 mL 25 g 50 mL, IV Push, AsDirected docusate sodium 100 mg Capsule 100 mg 1 cap(s), Oral, BID insulin regular human recombinant 100 units/mL (3 mL) Soln sliding scale insulin, Subcutaneous, q4h naloxone 0.4 mg/mL (1mL) vial 0.2 mg 0.5 mL, IV Push, AsDirected ondansetron 2 mg/ 1 mL 2 mL INJ 4 mg 2 mL, IV Push, q4h RHo (D) immune globulin 300 mcg/2 mL Soln 300 mcg 2 mL, Intramuscular, Once tranexamic acid PMX 1 gram(s) 100 mL, IV Piggyback, AsDirected Problem list: Medical Asthma / SNOMED CT 008883032 / Confirmed Obesity, Class III, BMI 40-49.9 (morbid obesity) / SNOMED CT 8260036801 / Confirmed Crohn's disease / SNOMED CT 37259563 / Confirmed Gestational diabetes mellitus (GDM) / SNOMED CT 69367569 / Confirmed History of section / SNOMED CT 215863522 / Confirmed Placenta accreta / SNOMED CT 367110191 / Confirmed Placenta previa / SNOMED CT 12629664 / Confirmed / SNOMED CT 957218109 / Confirmed Rh negative, maternal / SNOMED CT 5654063565 / Confirmed, Active Problems (10) Asthma Crohn's disease Gestational diabetes Gestational diabetes mellitus (GDM) History of section Obesity, Class III, BMI 40-49.9 (morbid obesity) Placenta accreta Placenta previa Rh negative, maternal Histories Past Medical History: Resolved ([id number]): Onset on 04/22/2014 at 24 years. Resolved on 01/20/2015 at 24 years. ([id number]): Onset on 02/26/2013 at 23 years. Resolved on 11/26/2013 at 23 years. ([id number]): Onset on 09/15/2010 at 20 years. Resolved on 06/15/2011 at 21 years. Family History: Diabetes Grandparent Procedure history: No active procedure history items have been selected or recorded. Social History Social & Psychosocial Habits No Data Available . Physical Examination Vital Signs 05/27/2022 2:04 EDT Heart Rate Monitored 108 bpm HI Systolic Blood Pressure NBP 133 mmHg Diastolic Blood Pressure NBP 72 mmHg Mean Arterial Pressure (NBP) 84 mmHg Reason For Taking VItal Signs Routine 05/26/2022 23:46 EDT Temperature Oral 36.9 DegC Heart Rate Monitored 105 bpm HI Respiratory Rate 20 br/min Systolic Blood Pressure NBP 126 mmHg Diastolic Blood Pressure NBP 64 mmHg Mean Arterial Pressure (NBP) 77 mmHg Reason For Taking VItal Signs Routine 05/26/2022 21:45 EDT Heart Rate Monitored 118 bpm HI Respiratory Rate 20 br/min Systolic Blood Pressure NBP 113 mmHg Diastolic Blood Pressure NBP 69 mmHg Mean Arterial Pressure (NBP) 81 mmHg Reason For Taking VItal Signs Routine 05/26/2022 21:02 EDT Heart Rate Monitored 96 bpm Systolic Blood Pressure NBP 125 mmHg Diastolic Blood Pressure NBP 60 mmHg Mean Arterial Pressure (NBP) 75 mmHg 05/26/2022 20:49 EDT Temperature Oral 36.7 DegC Heart Rate Monitored 89 bpm Respiratory Rate 20 br/min Systolic Blood Pressure NBP 126 mmHg Diastolic Blood Pressure NBP 61 mmHg Mean Arterial Pressure (NBP) 76 mmHg Reason For Taking VItal Signs 1 hour post transfusion Signs/Symptoms Transfusion Reaction No 05/26/2022 19:49 EDT Temperature Oral 36.7 DegC Peripheral Pulse Rate 89 bpm Heart Rate Monitored 92 bpm Respiratory Rate 20 br/min Systolic Blood Pressure 136 mmHg Diastolic Blood Pressure 66 mmHg Mean Arterial Pressure 89 mmHg Systolic Blood Pressure NBP 136 mmHg Diastolic Blood Pressure NBP 66 mmHg Mean Arterial Pressure (NBP) 79 mmHg Reason For Taking VItal Signs Routine 05/26/2022 19:48 EDT Signs/Symptoms Transfusion Reaction No 05/26/2022 19:24 EDT Heart Rate Monitored 86 bpm Systolic Blood Pressure NBP 131 mmHg Diastolic Blood Pressure NBP 67 mmHg Mean Arterial Pressure (NBP) 82 mmHg Signs/Symptoms Transfusion Reaction No 05/26/2022 18:54 EDT Heart Rate Monitored 86 bpm Respiratory Rate 16 br/min Systolic Blood Pressure NBP 136 mmHg Diastolic Blood Pressure NBP 63 mmHg Mean Arterial Pressure (NBP) 78 mmHg 05/26/2022 18:24 EDT Heart Rate Monitored 87 bpm Respiratory Rate 18 br/min Systolic Blood Pressure NBP 129 mmHg Diastolic Blood Pressure NBP 69 mmHg Mean Arterial Pressure (NBP) 84 mmHg Signs/Symptoms Transfusion Reaction No 05/26/2022 17:54 EDT Heart Rate Monitored 84 bpm Respiratory Rate 20 br/min Systolic Blood Pressure NBP 126 mmHg Diastolic Blood Pressure NBP 70 mmHg Mean Arterial Pressure (NBP) 79 mmHg Signs/Symptoms Transfusion Reaction No 05/26/2022 17:39 EDT Heart Rate Monitored 90 bpm Respiratory Rate 20 br/min Systolic Blood Pressure NBP 129 mmHg Diastolic Blood Pressure NBP 66 mmHg Mean Arterial Pressure (NBP) 80 mmHg Reason For Taking VItal Signs 15 min post start of transfusion Signs/Symptoms Transfusion Reaction No 05/26/2022 17:00 EDT Temperature Oral 36.4 DegC Heart Rate Monitored 93 bpm Respiratory Rate 20 br/min Systolic Blood Pressure NBP 124 mmHg Diastolic Blood Pressure NBP 51 mmHg LOW Mean Arterial Pressure (NBP) 69 mmHg Reason For Taking VItal Signs Pre-transfusion 05/26/2022 16:51 EDT Temperature Oral 36.4 DegC Heart Rate Monitored 95 bpm Respiratory Rate 20 br/min Systolic Blood Pressure NBP 139 mmHg Diastolic Blood Pressure NBP 69 mmHg Mean Arterial Pressure (NBP) 84 mmHg Reason For Taking VItal Signs Pre-transfusion 05/26/2022 15:44 EDT Temperature Oral 36.4 DegC Heart Rate Monitored 93 bpm Respiratory Rate 20 br/min Systolic Blood Pressure NBP 123 mmHg Diastolic Blood Pressure NBP 77 mmHg Mean Arterial Pressure (NBP) 87 mmHg Reason For Taking VItal Signs Routine 05/26/2022 15:20 EDT Heart Rate Monitored 87 bpm 05/26/2022 13:35 EDT Heart Rate Monitored 101 bpm HI Respiratory Rate 22 br/min HI Systolic Blood Pressure NBP 122 mmHg Diastolic Blood Pressure NBP 59 mmHg LOW Mean Arterial Pressure (NBP) 74 mmHg Reason For Taking VItal Signs Routine 05/26/2022 12:37 EDT Heart Rate Monitored 99 bpm 05/26/2022 11:37 EDT Temperature Oral 37.3 DegC Heart Rate Monitored 107 bpm HI Respiratory Rate 18 br/min Systolic Blood Pressure NBP 129 mmHg Diastolic Blood Pressure NBP 65 mmHg Mean Arterial Pressure (NBP) 74 mmHg Reason For Taking VItal Signs Routine 05/26/2022 10:30 EDT Heart Rate Monitored 99 bpm Respiratory Rate 15 br/min 05/26/2022 9:34 EDT Heart Rate Monitored 111 bpm HI Respiratory Rate 18 br/min Systolic Blood Pressure Invasive 135 mmHg Diastolic Blood Pressure Invasive 66 mmHg Mean Arterial Pressure (Line) 88 mmHg Reason For Taking VItal Signs Routine 05/26/2022 8:30 EDT Heart Rate Monitored 107 bpm [place] 05/26/2022 8:06 EDT Peripheral Pulse Rate 117 bpm HI Respiratory Rate 27 br/min [place] 05/26/2022 7:36 EDT Temperature Oral 37.0 DegC Heart Rate Monitored 107 bpm HI Respiratory Rate 19 br/min Systolic Blood Pressure NBP 154 mmHg HI Diastolic Blood Pressure NBP 73 mmHg Mean Arterial Pressure (NBP) 81 mmHg Systolic Blood Pressure Invasive 135 mmHg Diastolic Blood Pressure Invasive 67 mmHg Mean Arterial Pressure (Line) 88 mmHg Reason For Taking VItal Signs Routine 05/26/2022 5:54 EDT Temperature Oral 36.8 DegC Heart Rate Monitored 102 bpm HI Respiratory Rate 14 br/min Systolic Blood Pressure Invasive 138 mmHg Diastolic Blood Pressure Invasive 68 mmHg Mean Arterial Pressure (Line) 90 mmHg Reason For Taking VItal Signs 1 hour post transfusion Signs/Symptoms Transfusion Reaction No 05/26/2022 5:27 EDT Heart Rate Monitored 100 bpm Respiratory Rate 14 br/min Systolic Blood Pressure Invasive 136 mmHg Diastolic Blood Pressure Invasive 67 mmHg Mean Arterial Pressure (Line) 88 mmHg Reason For Taking VItal Signs Routine 05/26/2022 4:54 EDT Signs/Symptoms Transfusion Reaction No 05/26/2022 4:54 EDT Temperature Oral 37.0 DegC Peripheral Pulse Rate 108 bpm HI Respiratory Rate 18 br/min Systolic Blood Pressure 137 mmHg Diastolic Blood Pressure 66 mmHg 05/26/2022 4:40 EDT Signs/Symptoms Transfusion Reaction No 05/26/2022 4:10 EDT Signs/Symptoms Transfusion Reaction No 05/26/2022 3:40 EDT Temperature Oral 37.3 DegC Heart Rate Monitored 106 bpm HI Respiratory Rate 14 br/min Systolic Blood Pressure NBP 140 mmHg HI Diastolic Blood Pressure NBP 63 mmHg Mean Arterial Pressure (NBP) 79 mmHg Systolic Blood Pressure Invasive 133 mmHg Diastolic Blood Pressure Invasive 66 mmHg Mean Arterial Pressure (Line) 87 mmHg Reason For Taking VItal Signs 15 min post start of transfusion Signs/Symptoms Transfusion Reaction No 05/26/2022 3:25 EDT Temperature Oral 37.1 DegC Heart Rate Monitored 107 bpm HI Respiratory Rate 14 br/min Systolic Blood Pressure Invasive 136 mmHg Diastolic Blood Pressure Invasive 68 mmHg Mean Arterial Pressure (Line) 90 mmHg Reason For Taking VItal Signs Routine 05/26/2022 3:10 EDT Temperature Oral 37.1 DegC Heart Rate Monitored 107 bpm HI Respiratory Rate 16 br/min (Modified) Systolic Blood Pressure NBP 141 mmHg HI Diastolic Blood Pressure NBP 75 mmHg Mean Arterial Pressure (NBP) 86 mmHg Systolic Blood Pressure Invasive 133 mmHg Diastolic Blood Pressure Invasive 65 mmHg Mean Arterial Pressure (Line) 86 mmHg Reason For Taking VItal Signs Pre-transfusion 05/26/2022 1:29 EDT Heart Rate Monitored 124 bpm HI Respiratory Rate 19 br/min Systolic Blood Pressure Invasive 136 mmHg Diastolic Blood Pressure Invasive 70 mmHg Mean Arterial Pressure (Line) 91 mmHg Reason For Taking VItal Signs Routine 05/26/2022 0:12 EDT Temperature Oral 37.1 DegC Heart Rate Monitored 110 bpm HI Respiratory Rate 18 br/min Systolic Blood Pressure NBP 133 mmHg Diastolic Blood Pressure NBP 69 mmHg Mean Arterial Pressure (NBP) 83 mmHg Systolic Blood Pressure Invasive 153 mmHg HI Diastolic Blood Pressure Invasive 83 mmHg Mean Arterial Pressure (Line) 105 mmHg Reason For Taking VItal Signs 1 hour post transfusion Signs/Symptoms Transfusion Reaction No Vital Signs(last 24 hrs) Last Charted Temp Oral36.9 DegC (MAY 26 23:46) Heart Rate MonitoredH 108bpm (MAY 27 02:04) Resp Rate 20 br/min (MAY 26 23:46) DCN809 mmHg (MAY 27 02:04) DBP72 mmHg (MAY 27 02:04) Pain assessment: Pain Assessment 05/27/2022 2:04 EDT Primary Pain Location Abdomen Primary Pain Intensity 4 Primary Pain Pharma Intervention BOOK CUTTER Pump Primary Pain Nonverbal Response Nods Yes Pain Scale Type 0-10 Pain scale 05/26/2022 23:46 EDT Primary Pain Intensity 0 Primary Pain Pharma Intervention BOOK CUTTER Pump Pain Scale Type 0-10 Pain scale 05/26/2022 21:45 EDT Primary Pain Intensity 4 Primary Pain Pharma Intervention BOOK CUTTER Pump Primary Pain Nonverbal Response Nods Yes Pain Scale Type 0-10 Pain scale 05/26/2022 19:49 EDT Primary Pain Location Abdomen Primary Pain Intensity 4 Primary Pain Pharma Intervention BOOK CUTTER Pump Primary Pain Non-Pharma Intervention Splinting, Rest Primary Pain Nonverbal Response Nods Yes Pain Scale Type 0-10 Pain scale 05/26/2022 17:39 EDT Primary Pain Location Abdomen Abdominal Pain Location LLQ, LUQ, RLQ, RUQ Primary Pain Intensity 5 Primary Pain Pharma Intervention BOOK CUTTER Pump Primary Pain Non-Pharma Intervention Splinting, Cold therapy Primary Pain Nonverbal Response Nods Yes Pain Scale Type 0-10 Pain scale 05/26/2022 15:44 EDT Primary Pain Location Abdomen Abdominal Pain Location LLQ, LUQ, RLQ, RUQ Primary Pain Intensity 5 Primary Pain Pharma Intervention BOOK CUTTER Pump Primary Pain Non-Pharma Intervention Cold therapy Primary Pain Nonverbal Response Nods Yes Pain Scale Type 0-10 Pain scale 05/26/2022 13:35 EDT Primary Pain Location Abdomen Primary Pain Intensity 4 Primary Pain Pharma Intervention BOOK CUTTER Pump Primary Pain Nonverbal Response Nods Yes Pain Scale Type 0-10 Pain scale 05/26/2022 11:37 EDT Primary Pain Intensity 0 Primary Pain Nonverbal Response Nods No Pain Scale Type 0-10 Pain scale 05/26/2022 9:34 EDT Primary Pain Location Abdomen Primary Pain Intensity 4 Primary Pain Pharma Intervention BOOK CUTTER Pump Primary Pain Nonverbal Response Nods Yes Pain Scale Type 0-10 Pain scale 05/26/2022 7:36 EDT Primary Pain Location Abdomen Primary Pain Intensity 4 Primary Pain Pharma Intervention BOOK CUTTER Pump Primary Pain Nonverbal Response Nods Yes Pain Scale Type 0-10 Pain scale 05/26/2022 5:27 EDT Primary Pain Location Abdomen Primary Pain Intensity 3 Primary Pain Pharma Intervention BOOK CUTTER Pump Primary Pain Non-Pharma Intervention Repositioning Primary Pain Nonverbal Response Nods Yes Pain Scale Type 0-10 Pain scale 05/26/2022 3:25 EDT Primary Pain Intensity 0 Primary Pain Pharma Intervention BOOK CUTTER Pump Primary Pain Non-Pharma Intervention Repositioning Primary Pain Nonverbal Response Nods No Pain Scale Type 0-10 Pain scale 05/26/2022 1:29 EDT Primary Pain Location Abdomen Primary Pain Intensity 5 Primary Pain Pharma Intervention BOOK CUTTER Pump Primary Pain Non-Pharma Intervention Repositioning Primary Pain Nonverbal Response Nods Yes Pain Scale Type 0-10 Pain scale . General: Alert and oriented. Airway: Mallampati classification: III (soft palate, base of uvula visible). Dentition Evaluation: Own teeth. Respiratory: Lungs are clear to auscultation. Cardiovascular: Normal rate. Heart Sounds: Normal. Review / Management Results review: Labs (Last four charted values) WBC H 13.3(LORENE 30)H 12.7(LORENE 29)H 40.1(LORENE 28)H 38.1(LORENE 28) Hgb L 7.7(LORENE 30)L 7.6(LORENE 29)L 7.7(LORENE 29)L 7.4(LORENE 29) Hct L 23.5(LORENE 30)L 23.1(LORENE 29)L 22.4(LORENE 29)L 21.4(LORENE 29) Plt L 146(LORENE 30)L 144(LORENE 29)L 141(LORENE 29)161(LORENE 29) Na 139(LORENE 30)139(LORENE 29)140(LORENE 28)140(LORENE 28) K 3.6(LORENE 30)4.0(LORENE 29)4.2(LORENE 28)4.6(LORENE 28) CO2 26(LORENE 30)24(LORENE 29)23(LORENE 28)L 21(LORENE 28) Cl H 112(LORENE 30)110(LORENE 29)H 112(LORENE 28)H 114(LORENE 28) Cr 0.66(LORENE 30)0.74(APR 29)0.88(MAY 25)0.90(MAY 25) BUN 8.0(APR 30)10.0(MAY 26)10.0(MAY 25)11.0(MAY 25) Glucose 98(APR 30)H 141(APR 29)H 129(MAY 25)H 156(MAY 25) Mg 1.9(MAY 25)2.3(MAY 24)H 2.6(MAY 24) Phos 4.6(MAY 25)5.1(MAY 25)4.1(MAY 24) Ca L 8.1(MAY 27)L 8.1(MAY 26)L 8.1(MAY 25)L 8.0(MAY 25) PT 10.3(MAY 27)10.9(MAY 26)11.3(MAY 26)11.0(MAY 26) INR 0.9(APR 30)0.9(MAY 26)1.0(MAY 26)0.9(MAY 26) PTT L 22.1(MAY 27)L 21.7(MAY 26)L 20.9(MAY 26)L 21.3(MAY 26) Total CK 39(MAY 24) , Lab results 05/27/2022 2:35 EDT SN - TDC - Device Type DRAIN BRANDON FLAT [id number] 3/4IN SN - TDC - DC'd at End of Case No 05/27/2022 2:32 EDT SN - TDC - Device Type TRAY MADERA CATH 16F W/BAG 10/CA [id number] SN - TDC - DC'd at End of Case No 05/27/2022 2:31 EDT SN - Assess - Post-op Skin Integrity Other See Comments SN - Assess - Abnormality Location PRIOR TO OR TINY BLISTERS UNDER TAPE ON BILATERAL LOWER ABDOMEN. PREVIOUS MIDLINE JACINTO REMOVED INTRAOPERATIVELY. 05/27/2022 2:28 EDT SN - SP - Prep Agents Chloraprep SN - SP - HR - Method N/A 05/27/2022 2:25 EDT SN - GCD - ASA Class 4E 05/27/2022 2:25 EDT SN - CTm - Surgery Start 05/27/2022 2:24 05/27/2022 2:25 EDT Set Rate Anes 12 br/min br/min 05/27/2022 2:24 EDT SN - CTm - Surgery Start Surgery Start 05/27/2022 2:20 EDT Set Rate Anes 12 br/min br/min 05/27/2022 2:15 EDT midazolam 2 mg mg 05/27/2022 2:11 EDT Mechanical VTE Prophylaxis Education Not Done: Task Duplication (Not Done) Mechanical VTE Prophylaxis Education Not Done: Task Duplication (Not Done) Sequential Compression Device Form Not Done (Not Done) Sequential Compression Device Form Not Done (Not Done) 05/27/2022 2:09 EDT SN - CTm - Anesthesia Start Time Anesthesia Start 05/27/2022 2:06 EDT SN - Proc - Anesthesia Type General SN - Proc - Actual Procedure UNSPECIFIED BLEEDING, EXPANDED SUBCUTANEOUS HEMATOMA 05/27/2022 2:06 EDT SN - Assess - LOC Alert, Awake SN - Assess - Orientation Oriented X 3 05/27/2022 2:06 EDT SN - PP - Body Position Supine Standard Intra-op 05/27/2022 2:05 EDT SN - PTCare - Thermals Forced Air Warming Device Upper Body SN - [facility]TC[facility] - Anti-thromboembolism Marissa Sequential Compression Device (SCD) 05/27/2022 2:04 EDT Heart Rate Monitored 108 bpm HI Systolic Blood Pressure NBP 133 mmHg Diastolic Blood Pressure NBP 72 mmHg Mean Arterial Pressure (NBP) 84 mmHg Reason For Taking VItal Signs Routine Primary Pain Location Abdomen Primary Pain Intensity 4 Primary Pain Pharma Intervention BOOK CUTTER Pump Primary Pain Nonverbal Response Nods Yes Pain Scale Type 0-10 Pain scale Narcotic Mode of Delivery BOOK CUTTER Pump Narcotic Assessment Type Routine check Number of Actual Injections 7 Shift Total of Narcotic (mg) 1.4 mg Remaining Narcotic Volume 8.16 mg Narcotic Verification Items Correct medication, Correct Concentration, Correct Dose, Correct Delay, Correct Lockout, Correct Basal Rate Oxygen Therapy Humidification, Nasal cannula 0L-6L Oxygen Saturation 97 % Oxygen Flow Rate 2 Accompanied By Staff Physician, Anesthesia Out of Room Sent to Current Location Surgery Transport via Bed Activity Status ADL Awake Standard Safety Safety level maintained High Risk Safety Room check performed Demonstrates Correct Call Light Use Yes 05/27/2022 2:02 EDT SN - GCD - Post-operative Diagnosis UNSPECIFIED BLEEDING, EXPANDED SUBCUTANEOUS HEMATOMA 05/27/2022 1:52 EDT RBC Product Ready RBC Ready for Pickup 05/27/2022 1:[address] Abd/Pelvis w/ IV Contrast Only CT ABD/PELVIS W/ IV CONTRAST ONLY 05/27/2022 1:15 EDT SN - GCD - Case Level Level 3 05/27/2022 1:15 EDT SN - CAt - Case Attendee SN - CAt - Case Attendee SN - CAt - Case Attendee SN - CAt - Case Attendee SN - CAt - Case Attendee SN - CAt - Case Attendee SN - CAt - Case Attendee SN - CAt - Case Attendee SN - CAt - Case Attendee SN - CAt - Case Attendee SN - CAt - Case Attendee SN - CAt - Case Attendee SN - CAt - Case Attendee SN - CAt - Case Attendee SN - CAt - Role Performed Primary Surgeon SN - CAt - Role Performed Anesthesiologist SN - CAt - Role Performed SECURITY MONITOR SN - CAt - Role Performed Resident 1 SN - CAt - Role Performed Scrub 1 SN - CAt - Role Performed Bag Filler 1 SN - CAt - Role Performed Bag Filler 2 05/27/2022 1:00 EDT Reason for PRN medication Nausea and/or vomiting PRN Med for Nausea/Vomiting Effective Yes PRN Medication Effectiveness Evaluation PRN Medication Effectiveness Evaluation 05/27/2022 0:47 EDT WBC 13.3 10^3/mcL HI RBC 2.63 10^6/mcL LOW Hgb 7.7 G/dL LOW Hct 23.5 % LOW MCV 89.4 fL MCH 29.3 pg MCHC 32.8 G/dL RDW 15.1 % Platelet 146 10^3/mcL LOW MPV 7.9 fL Monocyte Distribution Width Not Performed Neutrophil % 78.9 % HI Lymphocyte % 15.1 % LOW Monocyte % 4.8 % Eosinophil % 0.9 % Basophil % 0.3 % Neutrophil, Absolute 10.5 10^3/mcL HI Lymphocyte, Absolute 2.0 10^3/mcL Monocyte, Absolute 0.6 10^3/mcL Eosinophil, Absolute 0.1 10^3/mcL Basophil, Absolute 0.0 10^3/mcL Heparin dose (APTT) None APTT 22.1 seconds LOW Protime 10.3 seconds PT International Ratio 0.9 ratio NA Fibrinogen >700 mg/dL HI Glucose Level 98 mg/dL Sodium Level 139 mEq/L Potassium Level 3.6 mEq/L Chloride 112 mEq/L HI CO2 26 mEq/L Electrolyte Balance 1.0 mEq/L LOW BUN 8.0 mg/dL Creatinine Lvl (s) 0.66 mg/dL BUN/Creatinine Ratio 12.1 ratio Calcium Lvl 8.1 mg/dL LOW Total Protein 4.9 G/dL LOW Albumin Level 2.1 G/dL LOW Globulin 2.8 G/dL A/G Ratio 0.8 ratio LOW Bili Total 0.30 mg/dL Alk Phos 45 U/L AST/SGOT 29 U/L ALT/SGPT 50 U/L HI LDH 201 U/L GFR Non- >60 ml/min/1.73sqm NA GFR >60 ml/min/1.73sqm NA Creatinine Clearance Calc 120.14 mL/min 05/27/2022 0:21 EDT GI Symptoms Nausea 05/27/2022 0:20 EDT Blood Glucose, Capillary 82 mg/dL Blood Glucose Testing Reason Routine 05/27/2022 0:17 EDT ondansetron 4 mg mg 05/26/2022 23:51 EDT ampicillin-sulbactam 3 gram(s) gram(s) 05/26/2022 23:46 EDT Blood Glucose, Capillary 73 mg/dL Blood Glucose Testing Reason Routine Blood Glucose Interventions Administered food/juice Notify date/time 05/26/2022 23:54 Provider Notified YELENA TURNER MD Notification Method Phone Information Communicated Nurse communication Details Communicated patient bleeding from incision again, moderate amount of sanguinous drainage. Blood sugar 73, oral or IV replacement? \\ Notification Outcome Orders received Person Reporting Result(s) BEBA Naqvi Details of Results Received will order medications for bleeding and will come evaluate patient. OK for oral replacements. Results Read Back Yes Temperature Oral 36.9 DegC Heart Rate Monitored 105 bpm HI Respiratory Rate 20 br/min Systolic Blood Pressure NBP 126 mmHg Diastolic Blood Pressure NBP 64 mmHg Mean Arterial Pressure (NBP) 77 mmHg Reason For Taking VItal Signs Routine Oral Care ICU Done Sedation Level 0 Alert and Calm Primary Pain Intensity 0 Primary Pain Pharma Intervention BOOK CUTTER Pump Pain Scale Type 0-10 Pain scale Narcotic Mode of Delivery BOOK CUTTER Pump Narcotic Assessment Type Routine check Number of Actual Injections 7 Number of Patient Attempts 8 Shift Total of Narcotic (mg) 1.7 mg Remaining Narcotic Volume 9.56 mg Narcotic Verification Items Correct medication, Correct Concentration, Correct Dose, Correct Delay, Correct Lockout, Correct Basal Rate Narcotic Name hydromorphone (Dilaudid) Narcotic Concentration 0.2mg/ml Narcotic Dose 0.2 mg Narcotic Delay 8 minute(s) Narcotic Lockout 1.4 mg Narcotic Basal Rate 0 mg Narcotic Pump Activity Pump alarm on, Pump albert pad locked, Narcotic pump locked, Dosage infused volume cleared, # of patient attempts cleared, Reflux valve present, Narcotic pump malfunction Narcotic Sedation Level Alert Monitor Alarms On and Limits Checked Nail Bed Color [place] Capillary Refill < 2 seconds Heart Sounds ICU S1S2 Heart Rhythm Regular Dorsalis Pedis Pulse, Left 1+ Thready Dorsalis Pedis Pulse, Right 1+ Thready Posttibial Pulse, Left 1+ Thready Posttibial Pulse, Right 1+ Thready Radial Pulse, Left 2+ Normal Radial Pulse, Right 2+ Normal Edema Generalized 1+ trace/2mm Cardiac Rhythm Sinus tachycardia Monitoring Lead II, V1/MCL1 Alarms On and Functional Yes Heart Rate Alarm Set At - Low 50 Heart Rate Alarm Set At - High 120 NSBP Alarm Low 90 NSBP Alarm High 160 HI Respirations Unlabored Respiratory Pattern Regular Patient Airway Status Patent without support Breath Sounds Auscultated Anterior only All Lobes Breath Sounds Clear Patient Participation in Treatment Cooperative Cough and Deep Breathe Done Cough Non-Productive, Occasional Oxygen Therapy Humidification, Nasal cannula 0L-6L Oxygen Saturation 99 % Oxygen Flow Rate 2 Tracheal Position Midline GI Symptoms Cramping Abdomen Description Symmetric Abdomen Palpation Tender Abdomen Tender All quadrants Passing Flatus No Bowel Sounds All Quadrants Hypoactive Urinary Elimination Urinary catheter draining Urine Color Yellow Urine Description Medium amount Urinary Elimination Devices Indwelling catheter Urethral Indwelling/Continuous 05/26/2022 Urinary Catheter Indication: Order not to remove Urinary Catheter Activity: Assessed Urinary Catheter Secured: Securement device on Urinary Catheter Drainage System: Dependent drainage bag Urinary Catheter Site Condition: No complications Facial Movement Makes facial grimaces Skin Symptoms Bruising All Extremity Description Normal for ethnicity Skin Temperature Warm Temperature All Extremities Warm Skin Description Normal for ethnicity, Dry Skin Integrity Not intact Skin Turgor Non-Elastic Mucous Membrane Color [place] Mucous Membrane Description Moist Abdomen Midline Skin Abnormality Type: Surgical incision Incision, Wound Dressing/Activity: Assessed Incision, Wound Dressing Assessment: Drainage present Incision, Wound Dressing: ABD dressing pad, Pressure dressing Wound Edge: Approximated with jacinto Wound Exudate Amount: Moderate Wound Exudate Type: Sanguineous Wound Exudate Odor: None Incision, Wound Surrounding Tissue: Normal Wound Status: Unchanged Continuous IV Infusions NS @ 75 Antecubital Right 05/24/2022 18 gauge Peripheral IV Activity: Assessed Peripheral IV Dressing Condition: Clean, Dry, Intact Peripheral IV Dressing Activity: Transparent dressing Peripheral IV Line Status/Patency: Continuous infusion Peripheral IV Site Condition: No complications Peripheral IV Equipment: IV Pump Neurological Language Able to speak clearly Neurological Symptoms Patient denies Extremity Movement Equal Swallowing Difficulty None Characteristics of Communication Appropriate Characteristics of Speech Clear Facial Symmetry Symmetric Level of Consciousness Alert Aspiration Risk None Eye Opening Response Anthony Spontaneously Best Motor Response White Bird Obeys simple commands Best Verbal Response Anthony Oriented Anthony Coma Score 15 GARY Yes Left Pupil Description Regular, Round Right Pupil Description Regular, Round Left Pupil Reaction Brisk Right Pupil Reaction Brisk Pupil Size, Left 3 mm Pupil Size, Right 3 mm Strength All Extremities Moderate Left Upper Extremity Sensation Intact Right Upper Extremity Sensation Intact Left Lower Extremity Sensation Intact Right Lower Extremity Sensation Intact CN V Facial Sensation Corneal reflex present CN VII Facial Expression and Symmetry Facial movement symmetrical CN IX, X Swallowing, Gag Reflex Swallowing present Violence Risk Confused No Violence Risk Irritable No Violence Risk Boisterous No Violence Risk Verbal Threats No Violence Risk Physical Threats No Violence Risk Attacking Objects No Violence Risk Predictor Score 0 Affect/Behavior Appropriate, Calm, Cooperative Orientation Oriented x 4 Orientation Assessment Oriented x 4 Activity Status ADL Awake, Repositioned back Beds/Devices low air loss bed, turn and position xl system Assistive Equipment elevated on pillows Activity Assistance Moderate assistance SCD On/Re-applied bilateral knee high Skin Care Preventative Intervention(s) turn and position xl system Standard Safety ID band on, Call device within reach, Bed in low position, Wheels locked, Upper/Half-Length side-rails up, Phone within reach, personal items within reach, Safety level maintained High Risk Safety Room check performed Demonstrates Correct Call Light Use Yes 05/26/2022 22:51 EDT Abdomen Midline Skin Abnormality Type: Surgical incision Incision, Wound Dressing/Activity: Changed Incision, Wound Dressing Assessment: Saturated Incision, Wound Dressing: ABD dressing pad, Pressure dressing Wound Edge: Approximated with jacinto Wound Exudate Amount: Heavy Wound Exudate Type: Sanguineous Wound Exudate Odor: None Incision, Wound Surrounding Tissue: Normal Wound Status: Unchanged 05/26/2022 21:45 EDT Heart Rate Monitored 118 bpm HI Respiratory Rate 20 br/min Systolic Blood Pressure NBP 113 mmHg Diastolic Blood Pressure NBP 69 mmHg Mean Arterial Pressure (NBP) 81 mmHg Reason For Taking VItal Signs Routine Oral Care ICU Done Sedation Level 0 Alert and Calm Primary Pain Intensity 4 Primary Pain Pharma Intervention BOOK CUTTER Pump Primary Pain Nonverbal Response Nods Yes Pain Scale Type 0-10 Pain scale Monitor Alarms On and Limits Checked Nail Bed Color [place] Capillary Refill < 2 seconds Heart Sounds ICU S1S2 Heart Rhythm Regular Edema Generalized 1+ trace/2mm Cardiac Rhythm Sinus rhythm Monitoring Lead II, V1/MCL1 Alarms On and Functional Yes Heart Rate Alarm Set At - Low 50 Heart Rate Alarm Set At - High 120 NSBP Alarm Low 90 NSBP Alarm High 160 HI Respirations Unlabored Respiratory Pattern Regular Patient Airway Status Patent without support Breath Sounds Auscultated Anterior only All Lobes Breath Sounds Clear Oxygen Therapy Humidification, Nasal cannula 0L-6L Oxygen Saturation 94 % Oxygen Flow Rate 2 GI Symptoms Cramping Abdomen Description Symmetric Abdomen Palpation Tender Abdomen Tender All quadrants Bowel Sounds All Quadrants Hypoactive Urinary Elimination Urinary catheter draining Urinary Elimination Devices Indwelling catheter Urethral Indwelling/Continuous 05/26/2022 Urinary Catheter Activity: Assessed Urinary Catheter Site Condition: No complications All Extremity Description Normal for ethnicity Skin Temperature Warm Temperature All Extremities Warm Skin Description Normal for ethnicity, Dry Mucous Membrane Color [place] Mucous Membrane Description Moist Abdomen Midline Skin Abnormality Type: Surgical incision Incision, Wound Dressing/Activity: Assessed Incision, Wound Dressing Assessment: Intact Wound Exudate Amount: Moderate Wound Exudate Type: Serosanguineous Wound Exudate Odor: None Incision, Wound Surrounding Tissue: Normal Wound Status: Unchanged Continuous IV Infusions NS @ 75 Antecubital Right 05/24/2022 18 gauge Peripheral IV Activity: Assessed Peripheral IV Site Condition: No complications Forearm Left 05/26/2022 18 gauge Peripheral IV Activity: Discontinued Peripheral IV Site Condition: Pain Peripheral IV Removal: Catheter intact, no resistance Peripheral IV Removal Reason: Site change Neurological Language Able to speak clearly Neurological Symptoms Patient denies Swallowing Difficulty None Characteristics of Communication Appropriate Characteristics of Speech Clear Level of Consciousness Alert Aspiration Risk None Eye Opening Response White Bird Spontaneously Best Motor Response White Bird Obeys simple commands Best Verbal Response White Bird Oriented [place] Coma Score 15 GARY Yes Strength All Extremities Moderate Affect/Behavior Appropriate, Calm, Cooperative Orientation Oriented x 4 Orientation Assessment Oriented x 4 Activity Status ADL Awake Beds/Devices bariatric bed, low air loss bed Assistive Equipment elevated on pillows Activity Assistance Moderate assistance SCD On/Re-applied bilateral knee high Standard Safety Safety level maintained High Risk Safety Room check performed Demonstrates Correct Call Light Use Yes 05/26/2022 21:38 EDT acetaminophen 1000 mg mg 05/26/2022 21:03 EDT Notify date/time 05/26/2022 21:03 Provider Notified YELENA TURNER MD Notification Method Phone Information Communicated Nurse communication Details Communicated patient complaining of a headache, could we get a dose of tylenol. Would you like a repeat hgb post transfusion? Patient still NPO? Notification Outcome Orders received Person Reporting Result(s) Keesha larson RN Details of Results Received 1gm x1 tylenol. okay to have clear liquids. hgb at midnight. Results Read Back Yes Narcotic Mode of Delivery BOOK CUTTER Pump Narcotic Assessment Type Bag/Syringe changed Number of Actual Injections 0 Number of Patient Attempts 0 Shift Total of Narcotic (mg) 0 mg Remaining Narcotic Volume 10.56 mg (Modified) Narcotic Verification Nayeil Bautista RN Narcotic Verification Items Correct medication, Correct Concentration, Correct Dose, Correct Delay, Correct Lockout, Correct Basal Rate, 2 Nurse Verification Narcotic Name hydromorphone (Dilaudid) Narcotic Concentration 0.2mg/ml Narcotic Dose 0.2 mg Narcotic Delay 8 minute(s) Narcotic Lockout 1.4 mg Narcotic Basal Rate 0 mg Narcotic Pump Activity Pump alarm on, Pump albert pad locked, Narcotic pump locked, Dosage infused volume cleared, # of patient attempts cleared, Reflux valve present, Narcotic pump malfunction Narcotic Sedation Level Alert 05/26/2022 21:02 EDT Heart Rate Monitored 96 bpm Systolic Blood Pressure NBP 125 mmHg Diastolic Blood Pressure NBP 60 mmHg Mean Arterial Pressure (NBP) 75 mmHg Narcotic Mode of Delivery BOOK CUTTER Pump Narcotic Assessment Type Bag/Syringe changed Number of Actual Injections 5 Number of Patient Attempts 10 Shift Total of Narcotic (mg) 1 mg Remaining Narcotic Volume 0 mg Oxygen Saturation 100 % HYDROmorphone Begin Bag 50 mL mg 05/26/2022 20:49 EDT Temperature Oral 36.7 DegC Heart Rate Monitored 89 bpm Respiratory Rate 20 br/min Systolic Blood Pressure NBP 126 mmHg Diastolic Blood Pressure NBP 61 mmHg Mean Arterial Pressure (NBP) 76 mmHg Reason For Taking VItal Signs 1 hour post transfusion Signs/Symptoms Transfusion Reaction No Oxygen Saturation 100 % 05/26/2022 20:32 EDT External Female external catheter 05/25/2022 Urinary Catheter Secured: Securement device on Urinary Catheter Drainage System: Dependent drainage bag Urinary Catheter Output: 350 mL Urinary Catheter Care Completed: Yes 05/26/2022 19:50 EDT ampicillin-sulbactam 3 gram(s) gram(s) 05/26/2022 19:49 EDT Temperature Oral 36.7 DegC Peripheral Pulse Rate 89 bpm Heart Rate Monitored 92 bpm Respiratory Rate 20 br/min Systolic Blood Pressure 136 mmHg Diastolic Blood Pressure 66 mmHg Mean Arterial Pressure 89 mmHg Systolic Blood Pressure NBP 136 mmHg Diastolic Blood Pressure NBP 66 mmHg Mean Arterial Pressure (NBP) 79 mmHg Reason For Taking VItal Signs Routine Oral Care ICU Done Sedation Level 0 Alert and Calm Primary Pain Location Abdomen Primary Pain Intensity 4 Primary Pain Pharma Intervention BOOK CUTTER Pump Primary Pain Non-Pharma Intervention Splinting, Rest Primary Pain Nonverbal Response Nods Yes Pain Scale Type 0-10 Pain scale Monitor Alarms On and Limits Checked Nail Bed Color [place] Capillary Refill < 2 seconds Heart Sounds ICU S1S2 Heart Rhythm Regular Dorsalis Pedis Pulse, Left 1+ Thready Dorsalis Pedis Pulse, Right 1+ Thready Posttibial Pulse, Left 1+ Thready Posttibial Pulse, Right 1+ Thready Radial Pulse, Left 2+ Normal Radial Pulse, Right 2+ Normal Edema Generalized 1+ trace/2mm Cardiac Rhythm Sinus rhythm Monitoring Lead II, V1/MCL1 Alarms On and Functional Yes Heart Rate Alarm Set At - Low 50 Heart Rate Alarm Set At - High 120 NSBP Alarm Low 90 NSBP Alarm High 160 HI Respirations Unlabored Respiratory Pattern Regular Patient Airway Status Patent without support Breath Sounds Auscultated Anterior only All Lobes Breath Sounds Clear Cough and Deep Breathe Done Cough Occasional Oxygen Therapy Humidification, Nasal cannula 0L-6L Oxygen Saturation 100 % Oxygen Flow Rate 2 Tracheal Position Midline GI Symptoms Cramping Abdomen Description Symmetric Abdomen Palpation Tender Abdomen Tender All quadrants Bowel Sounds All Quadrants Hypoactive Urinary Elimination Urinary catheter draining Urine Color Yellow Urine Description Medium amount Urinary Elimination Devices Indwelling catheter Urethral Indwelling/Continuous 05/26/2022 Urinary Catheter Indication: Order not to remove Urinary Catheter Activity: Assessed Urinary Catheter Secured: Securement device on Urinary Catheter Drainage System: Dependent drainage bag Urinary Catheter Site Condition: No complications Urinary Catheter Care Completed: Yes Facial Movement Symmetric resting/crying Skin Symptoms Bruising All Extremity Description [place] Skin Temperature Warm Temperature All Extremities Warm Skin Description Normal for ethnicity, Dry Skin Integrity Not intact Skin Turgor Non-Elastic Mucous Membrane Color [place] Mucous Membrane Description Moist Abdomen Midline Skin Abnormality Type: Surgical incision Incision, Wound Dressing/Activity: Assessed Incision, Wound Dressing Assessment: Intact Incision, Wound Dressing: ABD dressing pad, Pressure dressing Wound Exudate Amount: Moderate Wound Exudate Type: Serosanguineous Wound Exudate Odor: None Incision, Wound Surrounding Tissue: Normal Wound Status: Unchanged Continuous IV Infusions NS @ 75 Antecubital Right 05/24/2022 18 gauge Peripheral IV Activity: Assessed Peripheral IV Dressing Condition: Clean, Dry, Intact Peripheral IV Dressing Activity: Transparent dressing Peripheral IV Line Status/Patency: Continuous infusion Peripheral IV Site Condition: No complications Peripheral IV Equipment: IV Pump Forearm Left 05/26/2022 18 gauge Peripheral IV Activity: Assessed Peripheral IV Dressing Condition: Clean, Dry, Intact Peripheral IV Dressing Activity: Transparent dressing Peripheral IV Line Status/Patency: Flushes easily Peripheral IV Site Condition: No complications Peripheral IV Equipment: PRN Adaptor Neurological Language Able to speak clearly Neurological Symptoms Patient denies Gait Unable to assess Extremity Movement Equal Swallowing Difficulty None Characteristics of Communication Appropriate Characteristics of Speech Clear Facial Symmetry Symmetric Level of Consciousness Alert Aspiration Risk None Eye Opening Response Anthony Spontaneously Best Motor Response White Bird Obeys simple commands Best Verbal Response Anthony Oriented Anthony Coma Score 15 GARY Yes Left Pupil Description Regular, Round Right Pupil Description Regular, Round Left Pupil Reaction Brisk Right Pupil Reaction Brisk Pupil Size, Left 3 mm Pupil Size, Right 3 mm Strength All Extremities Moderate Left Upper Extremity Sensation Intact Right Upper Extremity Sensation Intact Left Lower Extremity Sensation Intact Right Lower Extremity Sensation Intact CN V Facial Sensation Corneal reflex present CN VII Facial Expression and Symmetry Facial movement symmetrical CN IX, X Swallowing, Gag Reflex Swallowing present CAM Mental Status Change & Fluctuation No CAM Inattention No CAM Disorganized Thinking No CAM Altered Level of Consciousness No Confusion Assessment Method Score Negative Affect/Behavior Appropriate, Calm, Cooperative Orientation Oriented x 4 Activity Status ADL Awake Beds/Devices bariatric bed, low air loss bed Assistive Equipment elevated on pillows Activity Assistance Moderate assistance SCD On/Re-applied bilateral knee high Skin Care Preventative Intervention(s) heel(s)s elevated, padded oxygen tubing, turn and position system Standard Safety ID band on, Allergy Band on, Call device within reach, Bed in low position, Wheels locked, Upper/Half-Length side-rails up, Phone within reach, personal items within reach, Safety level maintained High Risk Safety Room check performed Demonstrates Correct Call Light Use Yes 05/26/2022 19:48 EDT Signs/Symptoms Transfusion Reaction No Blood Unit ID Number END [id number] Blood Product RBC CPD AS1 500 LR Transfusion Stop Time 05/26/2022 19:48 Blood Transfusion End Checks REMINDER: Document 1 hr post VS: Blood product administered via: Peripheral line, Blood Donation Type Volunteer homologous (allogeneic) donor Transfusion User ID Zuleyka Larson Red Blood Cells Amount Transfused 310 mL 05/26/2022 19:24 EDT Heart Rate Monitored 86 bpm Systolic Blood Pressure NBP 131 mmHg Diastolic Blood Pressure NBP 67 mmHg Mean Arterial Pressure (NBP) 82 mmHg Signs/Symptoms Transfusion Reaction No Oxygen Saturation 100 % 05/26/2022 18:54 EDT Heart Rate Monitored 86 bpm Respiratory Rate 16 br/min Systolic Blood Pressure NBP 136 mmHg Diastolic Blood Pressure NBP 63 mmHg Mean Arterial Pressure (NBP) 78 mmHg Oxygen Saturation 100 % 05/26/2022 18:34 EDT Mechanical VTE Prophylaxis Education Not Done: Task Duplication (Not Done) Sequential Compression Device Form Not Done (Not Done) 05/26/2022 18:24 EDT Heart Rate Monitored 87 bpm Respiratory Rate 18 br/min Systolic Blood Pressure NBP 129 mmHg Diastolic Blood Pressure NBP 69 mmHg Mean Arterial Pressure (NBP) 84 mmHg Signs/Symptoms Transfusion Reaction No Oxygen Saturation 100 % 05/26/2022 17:54 EDT Heart Rate Monitored 84 bpm Respiratory Rate 20 br/min Systolic Blood Pressure NBP 126 mmHg Diastolic Blood Pressure NBP 70 mmHg Mean Arterial Pressure (NBP) 79 mmHg Signs/Symptoms Transfusion Reaction No Oxygen Saturation 100 % 05/26/2022 17:39 EDT Heart Rate Monitored 90 bpm Respiratory Rate 20 br/min Systolic Blood Pressure NBP 129 mmHg Diastolic Blood Pressure NBP 66 mmHg Mean Arterial Pressure (NBP) 80 mmHg Reason For Taking VItal Signs 15 min post start of transfusion Signs/Symptoms Transfusion Reaction No Oral Care ICU Done Sedation Level 0 Alert and Calm Primary Pain Location Abdomen Abdominal Pain Location LLQ, LUQ, RLQ, RUQ Primary (more content not included)... [facility] 05-27-2022 Note ORIGINAL EXAMINATION: CT OF THE ABDOMEN AND PELVIS WITH CONTRAST 05/27/2022 1:35 am TECHNIQUE: CT of the abdomen and pelvis was performed with the administration of intravenous contrast. Multiplanar reformatted images are provided for review. Automated exposure control, iterative reconstruction, and/or weight based adjustment of the mA/kV was utilized to reduce the radiation dose to as low as reasonably achievable. COMPARISON: CT abdomen and pelvis on 05/25/2022. Ultrasound of abdomen wall on the 05/26/2022. HISTORY: ORDERING SYSTEM PROVIDED HISTORY: Reason for Exam: bleeding from incision Concern for incisional subcutaneous hematoma/bleed s/p surgery. s/p hysterectomy for demise/placenta increta/hemoperitoneum/uterine rupture. FINDINGS: Lower Chest: There is minimal dependent atelectasis in both lungs. There is no pleural fluid. Organs: The liver, pancreas, spleen, adrenal glands, and kidneys show no sign of acute abnormality. Bilateral renal cysts are present with the largest on the right measuring 7.1 cm, and the largest left renal cyst 3.1 cm. These appear benign and imaging follow-up is not required. GI/Bowel: The stomach is partly distended and partly fluid-filled. There are several dilated loops of small intestine that contain air-fluid levels. There is no localized inflammation. The colon is not dilated and is nearly empty. There is no free intraperitoneal air. The hemoperitoneum seen on scan on 05/25/2022 has resolved. Pelvis: Scans through the pelvis demonstrate patient has had interval hysterectomy. Urinary bladder is empty with a [place] catheter in place. No pelvic hematoma or other abnormal fluid collection is present. Peritoneum/Retroperitoneum: Abdominal aorta and inferior vena cava are normal in size. There is no retroperitoneal hematoma. Bones/Soft Tissues: Attention to the anterior abdominal wall shows no sign of hematoma or hemorrhage. There is mild postoperative edema along the incision line a small amount of subcutaneous air. IMPRESSION: No evidence of incisional hemorrhage. New no hematoma detected. Dilated small intestine with multiple air-fluid levels is likely postoperative ileus. Obstruction is less likely. Interpreted by: Rohit Corbett MD Preliminary Report By: Rohit Corbett MD Electronically signed By Rohit Corbett MD Dictated Date: 05/27/2022 1:42:29 AM Prelim Date: 05/27/2022 1:53:09 AM Sign Date: 05/27/2022 1:53:09 AM Ordering Provider: [facility] 05-27-2022 Note ORIGINAL EXAMINATION: CT OF THE ABDOMEN AND PELVIS WITH CONTRAST 05/27/2022 1:35 am TECHNIQUE: CT of the abdomen and pelvis was performed with the administration of intravenous contrast. Multiplanar reformatted images are provided for review. Automated exposure control, iterative reconstruction, and/or weight based adjustment of the mA/kV was utilized to reduce the radiation dose to as low as reasonably achievable. COMPARISON: CT abdomen and pelvis on 05/25/2022. Ultrasound of abdomen wall on the 05/26/2022. HISTORY: ORDERING SYSTEM PROVIDED HISTORY: Reason for Exam: bleeding from incision Concern for incisional subcutaneous hematoma/bleed s/p surgery. s/p hysterectomy for demise/placenta increta/hemoperitoneum/uterine rupture. FINDINGS: Lower Chest: There is minimal dependent atelectasis in both lungs. There is no pleural fluid. Organs: The liver, pancreas, spleen, adrenal glands, and kidneys show no sign of acute abnormality. Bilateral renal cysts are present with the largest on the right measuring 7.1 cm, and the largest left renal cyst 3.1 cm. These appear benign and imaging follow-up is not required. GI/Bowel: The stomach is partly distended and partly fluid-filled. There are several dilated loops of small intestine that contain air-fluid levels. There is no localized inflammation. The colon is not dilated and is nearly empty. There is no free intraperitoneal air. The hemoperitoneum seen on scan on 05/25/2022 has resolved. Pelvis: Scans through the pelvis demonstrate patient has had interval hysterectomy. Urinary bladder is empty with a [place] catheter in place. No pelvic hematoma or other abnormal fluid collection is present. Peritoneum/Retroperitoneum: Abdominal aorta and inferior vena cava are normal in size. There is no retroperitoneal hematoma. Bones/Soft Tissues: Attention to the anterior abdominal wall shows no sign of hematoma or hemorrhage. There is mild postoperative edema along the incision line a small amount of subcutaneous air. IMPRESSION: No evidence of incisional hemorrhage. New no hematoma detected. Dilated small intestine with multiple air-fluid levels is likely postoperative ileus. Obstruction is less likely. Interpreted by: Rohit Corbett MD Preliminary Report By: Rohit Corbett MD Electronically signed By Rohit Corbett MD Dictated Date: 05/27/2022 1:42:29 AM Prelim Date: 05/27/2022 1:53:09 AM Sign Date: 05/27/2022 1:53:09 AM Ordering Provider: YELENA JOHNNY [facility] 05-26-2022 Note ORIGINAL EXAMINATION: SOFT TISSUE ULTRASOUND05/26/2022 3:40 pm COMPARISON: None HISTORY: ORDERING SYSTEM PROVIDED HISTORY: Reason for Exam: Post-op incisional drainage/bleeding FINDINGS: Scanning of the soft tissues around the midline incision shows no discrete fluid collection. There is minimal fluid underneath the incision. Some shadowing is present from the jacinto. IMPRESSION: There is no drainable fluid collection at the site of the incision. Interpreted by: Pro Sheridan MD Preliminary Report By: Pro Sheridan MD Electronically signed By Pro Sheridan MD Dictated Date: 05/26/2022 4:22:33 PM Prelim Date: 05/26/2022 4:23:41 PM Sign Date: 05/26/2022 4:23:41 PM Ordering Provider: [facility] 05-26-2022 Note ORIGINAL EXAMINATION: SOFT TISSUE ULTRASOUND05/26/2022 3:40 pm COMPARISON: None HISTORY: ORDERING SYSTEM PROVIDED HISTORY: Reason for Exam: Post-op incisional drainage/bleeding FINDINGS: Scanning of the soft tissues around the midline incision shows no discrete fluid collection. There is minimal fluid underneath the incision. Some shadowing is present from the jacinto. IMPRESSION: There is no drainable fluid collection at the site of the incision. Interpreted by: Pro Sheridan MD Preliminary Report By: Pro Sheridan MD Electronically signed By Pro Sheridan MD Dictated Date: 05/26/2022 4:22:33 PM Prelim Date: 05/26/2022 4:23:41 PM Sign Date: 05/26/2022 4:23:41 PM Ordering Provider: [facility] 05-26-2022 Note [facility]ERUS WITH [facility] 05-26-2022 Note [facility]ER[facility] WITH [facility] 05-26-2022 Note . MICRO - Microbiology PROCEDURE: Culture Respiratory with Gram Stain [^1 *1] SOURCE: Tracheal Aspirate BODY SITE: COLLECTED DATE/TIME: 05/24/2022 21:24 EDT RECEIVED DATE/TIME: 05/24/2022 22:07 EDT START DATE/TIME: 05/24/2022 22:07 EDT FREE TEXT SOURCE: FINAL REPORTS Final Report [] Verified Date/Time/Personnel: 05/26/2022 07:28 EDT Normal respiratory ginger present. Sensitivity testing not indicated. PRELIMINARY REPORTS Preliminary Report [] Verified Date/Time/Personnel: 05/25/2022 08:12 EDT Negative for respiratory pathogens at 24 hours. STAINS GS [] Verified Date/Time/Personnel: 05/24/2022 22:56 EDT No organisms seen. Interpretive Data ^1: Culture Respiratory with Gram Stain Requests for Mycoplasma, Legionella, Fungi, Mycobacteria, Chlamydia, and Viruses require ordering of those individual tests. Performing Locations *1: This test was performed at: [facility], [address] [place] [address], [facility] , [facility] ([place]) 05-26-2022 Note Date of Service 05/26/2022 Subjective ICU day #3 for Ms. Carlson, a 32-year-old female past medical history significant for hypertension, obesity BMI 68, Crohn's, gestational diabetes and history of 3 previous C-sections G8, P3 who presented to the hospital via EMS with hypotension and abdominal cramping. When EMS arrived she was a difficult extraction, was stuck between the wall and noncompliance. She was given 4 g of IV magnesium for self-reported preeclampsia and placenta previa. She follows with maternal- medicine. She was taken to labor delivery triage where heart tones were reassuring. She then became dyspneic with chest pain and blood pressure dropped to the 90s over 70s so rapid response was called. She went for CTA which was negative for PE but showed a large amount of abdominal free fluid. She was having abdominal pain located in her right upper quadrant and radiating to her back. Ultimately she required intubation, pH was 7.2 with a PCO2 of 46 and a PO2 of 165. This is primarily metabolic in nature. Her hemoglobin dropped 2 g from 10.4-8.4 and then finally to 6.1. Her potassium was elevated at 5.9 with a lactic acid of 5.7 which trended down to 2.1 but back up to 4.5. She was transfused 3 units packed red blood cells and taken to the OR for emergent exploratory laparotomy with hysterectomy and cystoscopy. Over the last 24 hours she was in liberated from mechanical ventilation on 05/25/2022. No overnight events. Leukocytosis improving. Tolerating clear liquids. Remains on 2 lpm o2. The patient was seen and examined and discussed with the critical care team the critical care note reviewed I agree with those findings. Objective Vitals and Measurements T: 37.0 C (Oral) TMIN: 36.5 C (Oral) TMAX: 37.3 C (Oral) HR: 117 RR: 27 BP: 154/73 BP: 135/67(Line) SpO2: 96% Physical Exam General-Alert oriented. Not in distress HEENT-normocephalic, atraumatic, right IJ triple-lumen catheter in place Pulmonary-relatively clear, no active wheeze Cardiovascular-tachycardic, no appreciable murmurs, gallops or rubs Abdomen-soft, obese, mildly tender to palpation, bowel sounds hypoactive, midline incision site clean dry and intact Extremities-no significant cyanosis, clubbing or edema, left brachial arterial line in place Neurologic-grossly nonfocal Weight Dosing Weight: 198 kg (05/24/22) Medications Medications (15) Active Scheduled: (2) ampicillin-sulbactam MB+ 3 gram(s) 100 mL, IV Piggyback, q6h pantoprazole 40 mg VIAL 40 mg, IV Push, qDayAC Continuous: (6) HYDROmorphone BOOK CUTTER in 50mL NS 10 mg 10 mg 50 mL, Intravenous insulin regular 100 unit(s) + NS Premix Diluent 100 mL 100 mL, Intravenous norepinephrine 8 mg [2 mcg/min] + NS Premix Diluent 250 mL 250 mL, Intravenous, 3.75 mL/hr NS (0.9% nacl) 1,000 mL 1,000 mL, Intravenous, 75 mL/hr NS (0.9% nacl) 500 mL 500 mL, Intravenous, 20 mL/hr vasopressin 20 unit(s) [0.03 unit(s)/min] + Dextrose 5% Premix Diluent 100 mL 100 mL, Intravenous, 9 mL/hr PRN: (7) albuterol - ipratropium 2.5 mg-0.5 mg/3 mL Inhal Bertha UD 3 mL, Inhalation, q6hRT chewing gum, sugar-free 1 EA, Oral, AsDirected dextrose 50% Solution Disp syringe 50 mL 25 g 50 mL, IV Push, AsDirected docusate sodium 100 mg Capsule 100 mg 1 cap(s), Oral, BID insulin regular human recombinant 100 units/mL (3 mL) Soln sliding scale insulin, Subcutaneous, q4h naloxone 0.4 mg/mL (1mL) vial 0.2 mg 0.5 mL, IV Push, AsDirected ondansetron 2 mg/ 1 mL 2 mL INJ 4 mg 2 mL, IV Push, q4h Lab Results 05/26 07:45 Hgb: 7.7 L Hct: 22.4 L Platelet: 144 L 05/26 05:21 WBC: 12.7 H Hgb: 7.4 L Hct: 21.4 L Platelet: 141 L Neutrophil %: 83.4 H Glucose Level: 141 H Sodium Level: 139 Potassium Level: 4.0 BUN: 10.0 Creatinine Lvl (s): 0.74 05/26 01:36 Hgb: 7.3 L Hct: 22.0 L Platelet: 161 Protime: 11.0 PT International Ratio: 0.9 05/25 19:54 Hgb: 6.7 C Hct: 19.7 L Platelet: 152 Protime: 11.3 PT International Ratio: 1.0 Glucose Level: 129 H Sodium Level: 140 Potassium Level: 4.2 BUN: 10.0 Creatinine Lvl (s): 0.88 05/25 09:11 Hgb: 7.6 L Hct: 22.5 L Platelet: 204 Protime: 11.4 PT International Ratio: 1.0 Potassium Level: 4.6 05/25 06:45 Protime: 11.2 PT International Ratio: 0.9 05/25 06:07 WBC: 40.1 H Hgb: 8.8 L Hct: 26.1 L Platelet: 275 Neutrophil %: 89.4 H Glucose Level: 156 H Sodium Level: 140 Potassium Level: 6.1 C BUN: 11.0 Creatinine Lvl (s): 0.90 05/25 02:06 WBC: 38.1 H Hgb: 6.1 C Hct: 18.8 L Platelet: 384 05/24 23:54 Protime: 11.2 PT International Ratio: 0.9 Glucose Level: 164 H Sodium Level: 137 Potassium Level: 5.9 H BUN: 9.0 Creatinine Lvl (s): 0.81 05/24 23:01 Hgb: 8.5 L Hct: 25.0 L Imaging Results and Diagnostics XR Chest 1 View Result Date: May 25, 2022 Verified By: ROHIT CORBETT MD CLINICAL STATEMENT: IMPRESSION: Low lung volumes, otherwise no acute radiographic process. Lines and tubes as above. I have personally reviewed the images of this examination, and agree with theresident's findings and interpretation. CT Abd/Pelvis w/ IV Contrast Only Result Date: May 25, 2022 Verified By: ROHIT CORBETT MD CLINICAL STATEMENT: IMPRESSION: Moderate to large hemoperitoneum with densest hematoma around the graviduterus suggesting this is source of hemorrhage. No active hemorrhage isdetected. No abscess or free intraperitoneal air. Single intrauterine fetus. XR Chest 1 View Result Date: May 24, 2022 Verified By: ROHIT CORBETT MD CLINICAL STATEMENT: IMPRESSION: Interval right IJ approach central venous catheter placement with distal tipoverlying the expected location of the mid SVC. There is no visiblepneumothorax. I have personally reviewed the images of this examination, and agree with theresident's findings and interpretation. XR Chest 1 View Result Date: May 24, 2022 Verified By: BRADLEY MAHONEY MD CLINICAL STATEMENT: IMPRESSION: Endotracheal tube at its expected location. Low lung volumes with hypoventilatory changes. CT Angiography Chest w/ Contrast Result Date: May 24, 2022 Verified By: BRADLEY MAHONEY MD CLINICAL STATEMENT: IMPRESSION: No pulmonary emboli to the level of the segmental arteries. Moderate to large amount of abdominal ascites measuring slightly above simplefluid at 25-30 Hounsfield units. EKG No qualifying data available. Assessment/Plan 1. Postoperative day #1 status post exploratory laparotomy with total abdominal hysterectomy and cystoscopy secondary to uterine rupture with demise and placenta previa 2. Acute respiratory failure now extubated 3. morbid obesity BMI 68 4. Crohn's disease 5. Gestational diabetes 6. Hypertension 7. Asthma 8. Hyperkalemia with mild metabolic acidosis 9. Hemorrhagic shock with mild elevation in transaminases 10. Acute blood loss anemia in setting of uterine rupture with evacuation of approximately 3-1/2 L of blood intraoperatively hemoglobin is now stable Plan: 1. Tolerating nasal cannula at 2 L/min 2. Now off pressors. Hemoglobin has been stable. 3. Transaminases is actually trending down 4. Discontinue triple-lumen catheter and A-line given stability 5. Continue glycemic protocol 6. Continue Unasyn 7. Pain control Digitally Signed by VICTORINO HERNANDEZ MD on 05/26/2022 08:21 AM [facility] 05-25-2022 Note AUTERUS WITH PLACENTA [facility] 05-25-2022 Surgery Consult note Date of Service 05/25/2022 I was asked to evaluate the patient's CT scan last evening due to acute blood loss anemia with hemorrhagic shock CT scan of the abdomen pelvis with IV contrast was reviewed. There is no evidence of solid organ injury or extravasation from the liver or spleen Patient eventually went to the operating room for a delivery at section secondary to uterine rupture. No general surgery needs at this time. Discussed with OB housestaff Digitally Signed by NITESH GAMEZ MD on 05/25/2022 12:26 PM [facility] 05-25-2022 Note PROCEDURE NOTE Preoperative Diagnosis: abdominal pain, hemoperitoneum, concern for uterine rupture, demise. Postoperative Diagnosis: same as above, in addition - placenta accreta, uterine rupture. Procedure: Exploratory Laparotomy, Evacuation of Large Hemoperitoneum, section/Hysterotomy, Supracervical Hysterectomy, Cystoscopy. Surgeon: Dr. Penny (S covering physician). Insurance Healthcare Consultant: Dr. Turner (PGY4), Dr. Mcfarlane ([facility] Attending, Surgeon). EBL: 3000 mL Urine Output: 450 mL IVF: 1000 mL Crystalloids. Complications: See Operative Note. Specimen: Uterus, Placenta. Please see operative note for full details. Digitally Signed by YELENA TURNER MD on 05/25/2022 06:03 AM [facility] 05-25-2022 Note Date of Service 05/25/22 Reason for Consultation Critical care management in the surgical ICU Referring Physician Dr. Penny History of Present Illness This is ICU day #2 for Ms. Carlson, a 32-year-old female past medical history significant for hypertension, obesity BMI 68, Crohn's, gestational diabetes and history of 3 previous C-sections G8, P3 who presented to the hospital via EMS with hypotension and abdominal cramping. When EMS arrived she was a difficult extraction, was stuck between the wall and noncompliance. She was given 4 g of IV magnesium for self-reported preeclampsia and placenta previa. She follows with maternal- medicine. She was taken to labor delivery triage where heart tones were reassuring. She then became dyspneic with chest pain and blood pressure dropped to the 90s over 70s so rapid response was called. She went for CTA which was negative for PE but showed a large amount of abdominal free fluid. She was having abdominal pain located in her right upper quadrant and radiating to her back. Ultimately she required intubation, pH was 7.2 with a PCO2 of 46 and a PO2 of 165. This is primarily metabolic in nature. Her hemoglobin dropped 2 g from 10.4-8.4 and then finally to 6.1. Her potassium was elevated at 5.9 with a lactic acid of 5.7 which trended down to 2.1 but back up to 4.5. She was transfused 3 units packed red blood cells and taken to the OR for emergent exploratory laparotomy with possible hysterectomy. Overnight she required high pressor requirements currently on Levophed at 3 down from 50 mcg/min off vasopressin. She underwent exploratory laparotomy with abdominal hysterectomy and cystoscopy secondary to uterine rupture with an estimated blood loss approximately 3 L. This morning she is on 40% FiO2 and 5 of PEEP, pressor requirement remains minimal 3 Levophed. Review of Systems Unobtainable, currently intubated Physical Exam Vitals and Measurements T: 37 C (Oral) TMIN: 35.7 C (Oral) TMAX: 37.4 C (Oral) HR: 118(Monitored) RR: 29 BP: 104/42 BP: 94/55(Line) SpO2: 100% HT: 170.2 cm BMI: 68.35 Weight Dosing Weight: 198 kg (05/24/22) General-no acute distress, does arouse and seems to nod appropriately HEENT-normocephalic, atraumatic, intubated endotracheally, right IJ triple-lumen catheter in place Pulmonary-relatively clear, no active wheeze Cardiovascular-tachycardic, no appreciable murmurs, gallops or rubs Abdomen-soft, obese, mildly tender to palpation, bowel sounds hypoactive, midline incision site clean dry and intact Extremities-no significant cyanosis, clubbing or edema, left brachial arterial line in place Neurologic-grossly nonfocal Lab Results 05/25 06:45 Protime: 11.2 PT International Ratio: 0.9 05/25 06:07 WBC: 40.1 H Hgb: 8.8 L Hct: 26.1 L Platelet: 275 Glucose Level: 156 H Sodium Level: 140 Potassium Level: 6.1 C BUN: 11.0 Creatinine Lvl (s): 0.90 05/25 02:06 WBC: 38.1 H Hgb: 6.1 C Hct: 18.8 L Platelet: 384 05/24 23:54 Protime: 11.2 PT International Ratio: 0.9 Glucose Level: 164 H Sodium Level: 137 Potassium Level: 5.9 H BUN: 9.0 Creatinine Lvl (s): 0.81 05/24 23:01 Hgb: 8.5 L Hct: 25.0 L 05/24 19:44 WBC: 22.0 H Hgb: 8.4 L Hct: 25.1 L Platelet: 251 Protime: 11.1 PT International Ratio: 0.9 Glucose Level: 136 H Sodium Level: 140 Potassium Level: 4.6 BUN: 8.0 Creatinine Lvl (s): 0.78 05/24 15:51 WBC: 34.1 H Hgb: 10.4 L Hct: 31.0 L Platelet: 438 Neutrophil %: 82.3 H Glucose Level: 224 H Sodium Level: 141 Potassium Level: 4.1 BUN: 10.0 Creatinine Lvl (s): 0.90 Imaging Results and [address]ostics CT ABD PELVIS IMPRESSION: Moderate to large hemoperitoneum with densest hematoma around the gravid uterus suggesting this is source of hemorrhage. No active hemorrhage is detected. No abscess or free intraperitoneal air. Single intrauterine fetus. Assessment/Plan 1. Postoperative day #0 status post exploratory laparotomy with total abdominal hysterectomy and cystoscopy secondary to uterine rupture with demise and placenta previa 2. Acute respiratory failure 3. History of morbid obesity BMI 68 4. Crohn's disease 5. Gestational diabetes 6. Hypertension 7. Asthma 8. Hyperkalemia with mild metabolic acidosis 9. Hemorrhagic shock with mild elevation in transaminases 10. Acute blood loss anemia in setting of uterine rupture with evacuation of approximately 3-1/2 L of blood intraoperatively Plan: 1. Ventilator settings currently minimal on 40% FiO2 and 5 of PEEP. Will interrupt sedation, check weaning parameters and if favorable extubate. Since she is mildly acidotic will check ABG on CPAP. 2. Hemoglobin stable this morning at 8.8, platelet stable at 275. Pressor requirements minimal currently on Levophed at 3 mcg/min off vasopressin. Hopefully wean off pressors throughout the remainder of the morning. Trend H&H 3. Lactic acid downtrending 4. Received a hyperkalemic cocktail with plans to recheck later this morning 5. Continue glycemic protocol 6. Trend LFTs, suspect a component of this is secondary to hypoperfusion in setting of hemorrhagic shock 7. CBC, CMP and ABG in the morning 8. Switch Vanco and Zosyn to Unasyn Overall prognosis guarded. She appears to have stabilized. Her was updated at the bedside. Problem List/Past Medical History Ongoing Asthma Crohn's disease Gestational diabetes mellitus (GDM) History of section Obesity, Class III, BMI 40-49.9 (morbid obesity) Placenta accreta Placenta previa Rh negative, maternal Historical Procedure/Surgical History No qualifying data available. Medications Inpatient Chewing gum (sugar-free), 1 EA, Oral, AsDirected, PRN Colace, 100 mg= 1 cap(s), Oral, BID, PRN Dextrose, 25 gram(s)= 50 mL, IV Push, AsDirected, PRN fentaNYL for IV 1,250 mcg [50 mcg/hr] + NS Premix Diluent 250 mL HumuLIN R, sliding scale insulin, Subcutaneous, q4h, PRN Insulin Regular for IV 100 unit(s) + NS Premix Diluent 100 mL Norepinephrine for IV 8 mg [2 mcg/min] + NS PMX titrate 250 mL NS 1,000 mL, 1000 mL, Intravenous NS 500 mL 500 mL, 500 mL, Intravenous Ofirmev IVPB, 1000 mg= 100 mL, IV Piggyback, q6hr Peridex 0.12% oral rinse liquid, 15 mL, Swish & Spit, QID Pharmacy See ORDER COMMENTS, 1 EA, Miscellaneous, Daily Pharmacy See ORDER COMMENTS, 1 EA, Miscellaneous, Daily Propofol for IV 1,000 mg [10 mcg/kg/min] + IV Premix Diluent 100 mL Protonix, 40 mg, IV Push, qDayAC Puralube ophth solution, 1 drop(s), Eyes, both, q8h Puralube ophth solution, 1 drop(s), Eyes, both, AsDirected, PRN Puralube ophthalmic ointment, 1 lux, Eyes, both, q8h Puralube ophthalmic ointment, 1 lux, Eyes, both, AsDirected, PRN vancomycin IVPB, 1750 mg= 500 mL, IV Piggyback, q8h vasopressin for IV 20 unit(s) [0.03 unit(s)/min] + Dextrose Premix titrate 100 mL Zofran, 4 mg= 2 mL, IV Push, q4h, PRN Zosyn, 3.375 gram(s)= 50 mL, IV Piggyback, q6h Home No active home medications Allergies morphine (Hives) Family History Diabetes: Grandparent. Immunizations No qualifying data available. Digitally Signed by JAMES BETANCOURT MD on 05/25/2022 08:46 AM [facility] 05-25-2022 Note AUTERUS WITH [facility] 05-25-2022 Note AUTERUS WITH [facility] 05-25-2022 Note AUTERUS WITH [facility] 05-25-2022 Note ORIGINAL EXAMINATION: ONE XRAY VIEW OF THE CHEST 05/25/2022 7:14 am COMPARISON: Chest x-ray 05/25/2022 HISTORY: ORDERING SYSTEM PROVIDED HISTORY: Reason for Exam: Respiratory failure FINDINGS: The endotracheal tube terminates 3.7 cm above the kyaw. The enteric tube extends below the diaphragm in terminates in the proximal stomach, however the tip is difficult to visualize. A right internal jugular approach central venous catheter with the distal tip overlying the mid SVC is stable in position. There are low lung volumes. No consolidation or significant vascular congestion. No pneumothorax or pleural effusion. No acute osseous abnormality. IMPRESSION: Low lung volumes, otherwise no acute radiographic process. Lines and tubes as above. I have personally reviewed the images of this examination, and agree with the resident's findings and interpretation. Interpreted by: Rohit Corbett MD Preliminary Report By: Herbert Martin Electronically signed By Rohit Corbett MD Dictated Date: 05/25/2022 7:19:03 AM Prelim Date: 05/25/2022 7:26:10 AM Sign Date: 05/25/2022 7:26:10 AM Ordering Provider: [facility] 05-25-2022 Note ORIGINAL EXAMINATION: ONE XRAY VIEW OF THE CHEST 05/25/2022 7:14 am COMPARISON: Chest x-ray 05/25/2022 HISTORY: ORDERING SYSTEM PROVIDED HISTORY: Reason for Exam: Respiratory failure FINDINGS: The endotracheal tube terminates 3.7 cm above the kyaw. The enteric tube extends below the diaphragm in terminates in the proximal stomach, however the tip is difficult to visualize. A right internal jugular approach central venous catheter with the distal tip overlying the mid SVC is stable in position. There are low lung volumes. No consolidation or significant vascular congestion. No pneumothorax or pleural effusion. No acute osseous abnormality. IMPRESSION: Low lung volumes, otherwise no acute radiographic process. Lines and tubes as above. I have personally reviewed the images of this examination, and agree with the resident's findings and interpretation. Interpreted by: Rohit Corbett MD Preliminary Report By: Herbert Martin Electronically signed By Rohit Corbett MD Dictated Date: 05/25/2022 7:19:03 AM Prelim Date: 05/25/2022 7:26:10 AM Sign Date: 05/25/2022 7:26:10 AM Ordering Provider: [facility] 05-25-2022 Note PROCEDURE NOTE Preoperative Diagnosis: abdominal pain, hemoperitoneum, concern for uterine rupture, demise. Postoperative Diagnosis: same as above, in addition - placenta accreta, uterine rupture. Procedure: Exploratory Laparotomy, Evacuation of Large Hemoperitoneum, section/Hysterotomy, Supracervical Hysterectomy, Cystoscopy. Surgeon: Dr. Penny (S covering physician). Insurance Healthcare Consultant: Dr. Turner (PGY4), Dr. Mcfarlane ([facility] Attending, Surgeon). EBL: 3000 mL Urine Output: 450 mL IVF: 1000 mL Crystalloids. Complications: See Operative Note. Specimen: Uterus, Placenta. Please see operative note for full details. Digitally Signed by YELENA TURNER MD on 05/25/2022 06:03 AM [facility] 05-25-2022 Note PROCEDURE NOTE Preoperative Diagnosis: abdominal pain, hemoperitoneum, concern for uterine rupture, demise. Postoperative Diagnosis: same as above, in addition - placenta accreta, uterine rupture. Procedure: Exploratory Laparotomy, Evacuation of Large Hemoperitoneum, section/Hysterotomy, Supracervical Hysterectomy, Cystoscopy. Surgeon: Dr. Penny (ODS covering physician). Insurance Healthcare Consultant: Dr. Turner (PGY4), Dr. Mcfarlane ([facility] Attending, Surgeon). EBL: 3000 mL Urine Output: 450 mL IVF: 1000 mL Crystalloids. Complications: See Operative Note. Specimen: Uterus, Placenta. Please see operative note for full details. Digitally Signed by YELENA TURNER MD on 05/25/2022 06:03 AM [facility] 05-25-2022 Gynecology Consul t note Date of Service 05/25/2022 Chief Complaint Free fluid in the abdomen History of Present Illness Patient is a 32-year-old G8, P3 at 23 weeks and 6 days gestation with an RYANNE of 09/13/2022 by last menstrual period consistent with a 5-week ultrasound who presented to the labor and delivery via squad for what was initially reported as lower abdominal cramping and elevated blood pressures. Upon arrival to labor delivery report from EMS squad was at the patient had blood pressures at home that were 150s over 140s, squad state the patient reported she was preeclamptic so they gave her 4 g mag bolus and 300 cc of IV fluids. They also reported they found the patient at home, alone, wedged between the wall and some kind of appliance. Had difficulty extracting her from her home and getting her into the ambulance. Patient was evaluated by the obstetric team in the morning and she was found to be profusely diaphoretic and complained of chest pain and shortness of breath. Due to significant hypotension and concern for an acute process patient was in rapid response down to the surgical ICU. A CTA was then ordered at that time which was negative for pulmonary emboli but did show moderate to large amount of fluid in the abdomen around the liver. Gynecology oncology was then consulted due to history of placenta previa with possible and suspected placenta accreta and her current admission for large amount of intra-abdominal fluid with significant leukocytosis. During my evaluation overnight, patient complained of right upper quadrant pain radiating to the shoulder, low back pain as well. She was unable to lay on her back due to significant back pain. Patient ended up requiring intubation for pain control and for further work-up and intervention including a CT abdomen and pelvis which was ordered recently. After she was intubated patient was given paralytics and she was significantly hypotensive and subsequently required pressors-Levophed and vasopressin. Of note has been recently evaluated by M for placenta previa with suspected placenta accreta. Patient also has history of chronic hypertension for which she is on Procardia 30 XL daily, when inquired about her medication patient stated she is unsure whether or not she took her medication today. is complicated by: class III obesity (BMI 65), chronic HTN, GDMA1, placenta previa with possible placenta accreta, history of C/S x3, anxiety/depression, Crohn's disease, Rh negative status, asthma Primary OB: ODS Obstetric History G1) 2011 FT PLTCS failed IOL [id number] G2) 2013 FT RLTCS 3dy28cn G3) 2015 FT RLTCS 6lb2oz G4) 2016 SAB G5) 2017 SAB G6) 2018 SAB G7) 2019 SAB G8) current Review of Systems Negative except as above. Physical Exam Vitals and Measurements T: 37.4 C (Oral) TMIN: 35.7 C (Oral) TMAX: 37.4 C (Oral) HR: 133(Monitored) RR: 26(Total) RR: 0(Spontaneous) BP: 104/57 SpO2: 100% HT: 170.2 cm WT: 198 kg BMI: 68.35 Weight Dosing Weight: 198 kg (05/24/22) GENERAL: Profusely diaphoretic, in apparent distress with abdominal pain and shortness of breath,. NEUROLOGICAL: A&Ox3, CN II-XII grossly intact HEENT: EOMI, mucus membranes moist CARDIOVASCULAR: No JVD. Tachycardic but regular rhythm. RESPIRATORY: Increased respiratory rate. States she feels like she can't catch her breath. Lungs clear to auscultation bilaterally, no wheezes, rales, or crackles appreciated. ABDOMEN: Soft, gravid, obese, diffuse abdominal pain with localization to the right upper quadrant radiating to her shoulder. EXREMETIES: moderate peripheral edema versus obesity. Lab Results 05/24 23:54 Protime: 11.2 PT International Ratio: 0.9 Glucose Level: 164 H Sodium Level: 137 Potassium Level: 5.9 H BUN: 9.0 Creatinine Lvl (s): 0.81 05/24 23:01 Hgb: 8.5 L Hct: 25.0 L 05/24 19:44 WBC: 22.0 H Hgb: 8.4 L Hct: 25.1 L Platelet: 251 Protime: 11.1 PT International Ratio: 0.9 Glucose Level: 136 H Sodium Level: 140 Potassium Level: 4.6 BUN: 8.0 Creatinine Lvl (s): 0.78 05/24 15:51 WBC: 34.1 H Hgb: 10.4 L Hct: 31.0 L Platelet: 438 Neutrophil %: 82.3 H Glucose Level: 224 H Sodium Level: 141 Potassium Level: 4.1 BUN: 10.0 Creatinine Lvl (s): 0.90 Imaging Results and Diagnostics XR Chest 1 View Result Date: May 24, 2022 Verified By: ARIC PLATA, ROHIT Kothari CLINICAL STATEMENT: IMPRESSION: Interval right IJ approach central venous catheter placement with distal tipoverlying the expected location of the mid SVC. There is no visiblepneumothorax. I have personally reviewed the images of this examination, and agree with theresident's findings and interpretation. XR Chest 1 View Result Date: May 24, 2022 Verified By: BRADLEY MAHONEY MD CLINICAL STATEMENT: IMPRESSION: Endotracheal tube at its expected location. Low lung volumes with hypoventilatory changes. CT Angiography Chest w/ Contrast Result Date: May 24, 2022 Verified By: BRADLEY MAHONEY MD CLINICAL STATEMENT: IMPRESSION: No pulmonary emboli to the level of the segmental arteries. Moderate to large amount of abdominal ascites measuring slightly above simplefluid at 25-30 Hounsfield units. 05/24 Echo: 60-65% EF. Normal systolic and diastolic functio Assessment/Plan 1. Intra-abdominal fluid -Concern for intra-abdominal hemorrhage versus organ perforation (SBP vs. hepatic rupture, vs. uterine rupture).. -Patient monitored closely in the surgical ICU -CT abdomen pelvis pending. -Patient may need surgical intervention. Risks benefits and alternatives were discussed with the patient in regards to patient's health and also health and wellbeing. 2. Abdominal pain in , Rh negative, maternal 3. Placenta previa 4. Placenta accreta 5. Gestational diabetes mellitus (GDM) 6. History of section 7. Crohn's disease 8. Obesity, Class III, BMI 40-49.9 (morbid obesity) 9. Asthma Orders: Consult to Physician Consult to Physician Consult to Physician CT Abd/Pelvis w/ IV Contrast Only Problem List/Past Medical History Ongoing Asthma Crohn's disease Gestational diabetes mellitus (GDM) History of section Obesity, Class III, BMI 40-49.9 (morbid obesity) Placenta accreta Placenta previa Rh negative, maternal Historical Procedure/Surgical History No qualifying data available. Medications No qualifying data available Allergies morphine (Hives) Family History Diabetes: Grandparent. Immunizations No qualifying data available. Code Status Code Status - Ordered -- 05/24/22 16:15:00 EDT, Full Code, Constant Order Digitally Signed by YELENA TURNER MD on 05/25/2022 05:58 AM [facility] 05-25-2022 Nurse Progress note Late entry- RN called both residents- Dr. Turner and Dr. Clark in attempt to get FHT on ultrasound around 2029. Also discussed in person once back on the floor. Digitally Signed by Magdalena Perez RN on 05/25/2022 02:57 AM [facility] 05-25-2022 Anesthesiology Consult note Patient: JUDE CARLSON Age: 32 years Sex: Female : 1990 Associated Diagnoses: None Author: ABBEY NEWTON MD Preoperative Information Time of last food or liquid consumption: 05/25/2022 00:00:00 Anesthesia history Patient's history: negative. Family's history: negative. History of Present Illness The patient presents for preanesthesia evaluation with Patient is a complex 32-year-old female who was admitted to the SICU with abdominal pain, cramping, and elevated blood pressures. She has subsequently dropped her blood pressure, requiring vasopressor support, and a CT scan of both her chest and abdomen revealed free fluid in her abdomen. She had a 23-week interuterine gestation, however, recent ultrasound suggests that the fetus is no longer viable, along with a history of an accreta, and now concerns for uterine rupture, prompting abdominal exploration. Patient has become acidotic, with a fall in her hematocrit. She presents for nonelective surgery to address this issue. Earlier this evening, we were consulted for airway management, patient was intubated due to her inability to lie flat due to severe abdominal pain, and need for CT assessment of her abdominal pathology. I spoke with her at that time, prior to intubation, which she provided verbal consent for. Patient is notable to consent for this emergency operation, will proceed and lieu of signed consent due to her hemodynamic instability, and concern for uterine rupture. Health Status Allergies: Allergic Reactions (Selected) Severity Not Documented Morphine- Hives., Allergies (1) ActiveReaction morphineHives Current medications: (Selected) Inpatient Medications Ordered Calcium Chloride: 1,000 mg, 10 mL, 120 mL/hr, IV Piggyback, Once Dextrose: 25 g, 50 mL, IV Push, AsDirected, PRN: Low blood sugar HumuLIN R: sliding scale insulin, Subcutaneous, q4h, PRN: Protocol, glycemic control Insulin Regular for IV 100 unit(s) + NS Premix Diluent 100 mL: Sliding Scale Insulin, Intravenous NS 1,000 mL: 75 mL/hr, Intravenous NS 500 mL 500 mL: 20 mL/hr, Intravenous, Stop: 05/25/22 8:19:00 EDT NS 500 mL 500 mL: 20 mL/hr, Intravenous, Stop: 05/25/22 8:29:00 EDT Norepinephrine for IV 8 mg [2 mcg/min] + NS PMX titrate 250 mL: 3.75 mL/hr, Intravenous Peridex 0.12% oral rinse liquid: 15 mL, Swish & Spit, QID Pharmacy See ORDER COMMENTS: 1 Elida YEE, Daily Pharmacy See ORDER COMMENTS: 1 Elida YEE, Daily Propofol for IV 1,000 mg [10 mcg/kg/min] + IV Premix Diluent 100 mL: 11.88 mL/hr, Intravenous Puralube ophth solution: 1 drop(s), Eyes, both, AsDirected, PRN: Protocol, eye care Puralube ophth solution: 1 drop(s), Eyes, both, q8h Puralube ophthalmic ointment: 1 lux, Eyes, both, AsDirected, PRN: Protocol, eye care Puralube ophthalmic ointment: 1 lxu, Eyes, both, q8h Zosyn: 3.375 gram(s), 50 mL, 100 mL/hr, IV Piggyback, q6h fentaNYL for IV 1,250 mcg [50 mcg/hr] + NS Premix Diluent 250 mL: 10 mL/hr, Intravenous sodium bicarbonate: 100 mEq, 100 mL, IV Push, Once vancomycin IVPB: 1,750 mg, 500 mL, 285.71 mL/hr, IV Piggyback, q8h vasopressin for IV 20 unit(s) [0.03 unit(s)/min] + Dextrose Premix titrate 100 mL: 9 mL/hr, Intravenous, Medications (21) Active Scheduled: (9) calcium chloride 1,000 mg 10 mL, IV Piggyback, Once chlorhexidine topical 0.12% Liquid (60 mL) 15 mL, Swish & Spit, QID Mis communication order 1 EA, Miscellaneous, Daily Misc communication order 1 EA, Miscellaneous, Daily ocular lubricant - Ointment 3.5 gram(s) 1 lux, Eyes, both, q8h ocular lubricant preserved Soln 15 mL 1 drop(s), Eyes, both, q8h piperacillin-tazobactam PMX 3.375 gram(s) 50 mL, IV Piggyback, q6h sodium bicarbonate 8.4% Soln 1 mEq/mL 50 mL SYRINGE 100 mEq 100 mL, IV Push, Once vancomycin PMX 1,750 mg 500 mL, IV Piggyback, q8h Continuous: (8) fentaNYL 1,250 mcg [50 mcg/hr] + NS Premix Diluent 250 mL 250 mL, Intravenous, 10 mL/hr insulin regular 100 unit(s) + NS Premix Diluent 100 mL 100 mL, Intravenous norepinephrine 8 mg [2 mcg/min] + NS Premix Diluent 250 mL 250 mL, Intravenous, 3.75 mL/hr NS (0.9% nacl) 1,000 mL 1,000 mL, Intravenous, 75 mL/hr propofol 1,000 mg [10 mcg/kg/min] + IV Premix Diluent 100 mL 100 mL, Intravenous, 11.88 mL/hr Sodium Chloride 0.9% intravenous solution 500 mL 500 mL, Intravenous, 20 mL/hr Sodium Chloride 0.9% intravenous solution 500 mL 500 mL, Intravenous, 20 mL/hr vasopressin 20 unit(s) [0.03 unit(s)/min] + Dextrose 5% Premix Diluent 100 mL 100 mL, Intravenous, 9 mL/hr PRN: (4) dextrose 50% Solution Disp syringe 50 mL 25 g 50 mL, IV Push, AsDirected insulin regular human recombinant 100 units/mL (3 mL) Soln sliding scale insulin, Subcutaneous, q4h ocular lubricant - Ointment 3.5 gram(s) 1 lux, Eyes, both, AsDirected ocular lubricant preserved Soln 15 mL 1 drop(s), Eyes, both, AsDirected Problem list: Medical Asthma / SNOMED CT 241267749 / Confirmed Obesity, Class III, BMI 40-49.9 (morbid obesity) / SNOMED CT 9330061530 / Confirmed Crohn's disease / SNOMED CT 85135237 / Confirmed Gestational diabetes mellitus (GDM) / SNOMED CT 98755988 / Confirmed History of section / SNOMED CT 604309158 / Confirmed Placenta accreta / SNOMED CT 351690816 / Confirmed Placenta previa / SNOMED CT 64701593 / Confirmed / SNOMED CT 580274653 / Confirmed Rh negative, maternal / SNOMED CT 7696390833 / Confirmed, Active Problems (10) Asthma Crohn's disease Gestational diabetes Gestational diabetes mellitus (GDM) History of section Obesity, Class III, BMI 40-49.9 (morbid obesity) Placenta accreta Placenta previa Rh negative, maternal Histories Past Medical History: Resolved ([id number]): Onset on 04/22/2014 at 24 years. Resolved on 01/20/2015 at 24 years. ([id number]): Onset on 02/26/2013 at 23 years. Resolved on 11/26/2013 at 23 years. ([id number]): Onset on 09/15/2010 at 20 years. Resolved on 06/15/2011 at 21 years. Family History: Diabetes Grandparent Procedure history: No active procedure history items have been selected or recorded. Social History Social & Psychosocial Habits No Data Available . Physical Examination Vital Signs 05/25/2022 2:29 EDT Temperature Oral 37.1 DegC Heart Rate Monitored 141 bpm HI Respiratory Rate 27 br/min HI Systolic Blood Pressure NBP 118 mmHg Diastolic Blood Pressure NBP 97 mmHg HI Mean Arterial Pressure (NBP) 102 mmHg Reason For Taking VItal Signs Pre-transfusion 05/25/2022 1:45 EDT Temperature Oral 37.0 DegC Heart Rate Monitored 112 bpm HI Respiratory Rate 22 br/min HI Systolic Blood Pressure NBP 103 mmHg Diastolic Blood Pressure NBP 80 mmHg Mean Arterial Pressure (NBP) 85 mmHg Reason For Taking VItal Signs Routine 05/25/2022 1:30 EDT Heart Rate Monitored 112 bpm HI Respiratory Rate 28 br/min HI Systolic Blood Pressure NBP 119 mmHg Diastolic Blood Pressure NBP 36 mmHg Mean Arterial Pressure (NBP) 57 mmHg 05/25/2022 1:16 EDT Heart Rate Monitored 116 bpm HI Respiratory Rate 22 br/min HI Systolic Blood Pressure NBP 106 mmHg Diastolic Blood Pressure NBP 63 mmHg Mean Arterial Pressure (NBP) 67 mmHg 05/25/2022 0:45 EDT Heart Rate Monitored 137 bpm HI Respiratory Rate 26 br/min HI 05/25/2022 0:31 EDT Heart Rate Monitored 146 bpm HI Respiratory Rate 26 br/min HI Systolic Blood Pressure NBP 88 mmHg LOW Diastolic Blood Pressure NBP 66 mmHg Mean Arterial Pressure (NBP) 71 mmHg 05/25/2022 0:15 EDT Heart Rate Monitored 138 bpm HI Respiratory Rate 27 br/min HI Systolic Blood Pressure NBP 81 mmHg Diastolic Blood Pressure NBP 59 mmHg LOW Mean Arterial Pressure (NBP) 64 mmHg 05/25/2022 0:02 EDT Heart Rate Monitored 133 bpm HI 05/24/2022 23:57 EDT Temperature Oral 37.4 DegC HI Heart Rate Monitored 144 bpm HI Respiratory Rate 22 br/min HI Systolic Blood Pressure NBP 104 mmHg Diastolic Blood Pressure NBP 57 mmHg LOW Mean Arterial Pressure (NBP) 70 mmHg Reason For Taking VItal Signs Routine 05/24/2022 23:00 EDT Heart Rate Monitored 142 bpm HI Respiratory Rate 21 br/min HI Systolic Blood Pressure NBP 77 mmHg Diastolic Blood Pressure NBP 52 mmHg LOW Mean Arterial Pressure (NBP) 56 mmHg 05/24/2022 21:25 EDT Heart Rate Monitored 112 bpm HI Respiratory Rate 23 br/min HI Systolic Blood Pressure NBP 122 mmHg Diastolic Blood Pressure NBP 94 mmHg HI Mean Arterial Pressure (NBP) 100 mmHg 05/24/2022 19:30 EDT Temperature Oral 35.7 DegC LOW Heart Rate Monitored 85 bpm Respiratory Rate 18 br/min Systolic Blood Pressure NBP 101 mmHg Diastolic Blood Pressure NBP 36 mmHg Mean Arterial Pressure (NBP) 52 mmHg Reason For Taking VItal Signs Routine 05/24/2022 19:00 EDT Heart Rate Monitored 85 bpm Respiratory Rate 23 br/min HI Systolic Blood Pressure NBP 90 mmHg Diastolic Blood Pressure NBP 27 mmHg Mean Arterial Pressure (NBP) 43 mmHg 05/24/2022 18:45 EDT Heart Rate Monitored 89 bpm Respiratory Rate 23 br/min HI Systolic Blood Pressure NBP 80 mmHg Diastolic Blood Pressure NBP 54 mmHg LOW Mean Arterial Pressure (NBP) 44 mmHg 05/24/2022 18:30 EDT Heart Rate Monitored 83 bpm Respiratory Rate 19 br/min Systolic Blood Pressure NBP 94 mmHg Diastolic Blood Pressure NBP 73 mmHg Mean Arterial Pressure (NBP) 78 mmHg 05/24/2022 18:15 EDT Heart Rate Monitored 88 bpm Respiratory Rate 24 br/min HI Systolic Blood Pressure NBP 97 mmHg Diastolic Blood Pressure NBP 43 mmHg Mean Arterial Pressure (NBP) 55 mmHg 05/24/2022 18:00 EDT Temperature Oral 36.6 DegC Heart Rate Monitored 92 bpm Respiratory Rate 20 br/min Systolic Blood Pressure NBP 87 mmHg LOW Diastolic Blood Pressure NBP 48 mmHg Mean Arterial Pressure (NBP) 57 mmHg Reason For Taking VItal Signs Routine 05/24/2022 15:00 EDT Heart Rate Monitored 104 bpm HI Systolic Blood Pressure 92 mmHg Diastolic Blood Pressure 70 mmHg Mean Arterial Pressure 77 mmHg Vital Signs(last 24 hrs) Last Charted Temp Oral37.1 DegC (MAY 25 02:29) Heart Rate MonitoredH 141bpm (MAY 25 02:) Resp Rate H 27br/min (MAY 25 02:) XWA006 mmHg (MAY 25 02:) DBPH 97mmHg (MAY 25 02:) BMI68.35 (MAY 24 18:25) Measurements from flowsheet : Measurements 05/24/2022 18:25 EDT Height 170.2 cm Height in inches 67 inch(es) Admission Weight 198 kg Weight Lbs 435.6 lb [place] Body Weight 61.62 kg BSA Admission 2.82 Body Mass Index 68.35 kg/m2 Pain assessment: Pain Assessment 05/25/2022 1:45 EDT Primary Pain Intensity 3 Primary Pain Nonverbal Response Appears restful Pain Scale Type Behavioral pain scale 05/24/2022 23:57 EDT Primary Pain Nonverbal Response Nods Yes Pain Scale Type 0-10 Pain scale 05/24/2022 19:30 EDT Primary Pain Location Shoulder Primary Pain Laterality Right Primary Pain Intensity 8 Secondary Pain Location Abdomen Secondary Pain Laterality Right Pain Scale Type 0-10 Pain scale 05/24/2022 18:00 EDT Primary Pain Location Generalized Primary Pain Intensity 8 Primary Pain Non-Pharma Intervention Repositioning, Rest Pain Scale Type 0-10 Pain scale . General: Hemodynamically unstable, on vasopressor support, intubated. Airway: Unable to examine: Patient intubated. Head: Normocephalic, Atraumatic. Dentition Evaluation: Missing teeth. Neck: Supple. Respiratory: Lungs are clear to auscultation, Mechanically ventilated. Cardiovascular: Regular rhythm, Tachycardia. Heart Sounds: Normal. Neurologic: Intubated and sedated. Review / Management Results review: Labs (Last four charted values) WBC H 38.1(MAY 25)H 22.0(MAY 24)H 34.1(MAY 24) Hgb C 6.1(MAY 25)C 6.1(MAY 25)L 8.5(MAY 24)L 8.4(MAY 24) Hct L 18.8(MAY 25)L 18.8(MAY 25)L 25.0(MAY 24)L 25.1(MAY 24) Plt 384(MAY 25)384(MAY 25)251(MAY 24)438(MAY 24) Na 137(MAY 24)140(MAY 24)141(MAY 24) K H 5.9(MAY 24)4.6(MAY 24)4.1(MAY 24) CO2 L 18(MAY 24)L 20(MAY 24)L 16(MAY 24) Cl H 112(MAY 24)H 111(MAY 24)109(MAY 24) Cr 0.81(MAY 24)0.78(MAY 24)0.90(MAY 24) BUN 9.0(MAY 24)8.0(MAY 24)10.0(MAY 24) Glucose H 164(MAY 24)H 136(MAY 24)H 224(MAY 24) Mg 2.3(MAY 24)H 2.6(MAY 24) Phos 4.1(MAY 24) Ca L 7.5(MAY 24)L 8.3(MAY 24)8.9(MAY 24) PT 11.2(MAY 24)11.1(MAY 24) INR 0.9(MAY 24)0.9(MAY 24) PTT L 24.0(MAY 24)L 22.0(MAY 24) Total CK 39(MAY 24) , Lab results 05/25/2022 2:29 EDT IPOC Bleeding Precautions Yes 05/25/2022 2:29 EDT Temperature Oral 37.1 DegC Heart Rate Monitored 141 bpm HI Respiratory Rate 27 br/min HI Systolic Blood Pressure NBP 118 mmHg Diastolic Blood Pressure NBP 97 mmHg HI Mean Arterial Pressure (NBP) 102 mmHg Reason For Taking VItal Signs Pre-transfusion Oxygen Saturation 100 % 05/25/2022 2:20 EDT pH 7.178 CRIT pCO2 45.8 mm Hg pO2 165.9 mm Hg HI HCO3 16.6 mmol/L LOW CO2 Totl 18.0 mmol/L LOW Base Excess -10.9 mmol/L NA O2 Sat 98.7 % HI Barometric Pressure 711 mm Hg NA 05/25/2022 2:08 EDT propofol 50 mcg/kg/min mg Premix Diluent IV Premix Diluent mL 05/25/2022 2:06 EDT WBC 38.1 10^3/mcL HI RBC 2.09 10^6/mcL LOW Hgb 6.1 G/dL CRIT Hct 18.8 % LOW MCV 90.0 fL MCH 29.1 pg MCHC 32.4 G/dL RDW 15.5 % Platelet 384 10^3/mcL MPV 9.2 fL Monocyte Distribution Width Not Performed Lactic Acid Lvl 4.5 mmol/L HI Slide Review Man Indicated 05/25/2022 1:48 EDT Vanco Therapy Summary Vanco Therapy Summary Consult to Pharmacist Pharmacist Initial Consult 05/25/2022 1:45 EDT Temperature Oral 37.0 DegC Heart Rate Monitored 112 bpm HI Respiratory Rate 22 br/min HI Systolic Blood Pressure NBP 103 mmHg Diastolic Blood Pressure NBP 80 mmHg Mean Arterial Pressure (NBP) 85 mmHg Reason For Taking VItal Signs Routine Primary Pain Intensity 3 Primary Pain Nonverbal Response Appears restful Pain Scale Type Behavioral pain scale Monitor Alarms On and Limits Checked Nail Bed Color [place] Capillary Refill < 2 seconds Heart Sounds ICU S1S2 Heart Rhythm Regular Radial Pulse, Left 1+ [place] Radial Pulse, Right 1+ Thready Cardiac Rhythm Sinus tachycardia Monitoring Lead II, V1/MCL1 Alarms On and Functional Yes Heart Rate Alarm Set At - Low 50 Heart Rate Alarm Set At - High 120 NSBP Alarm Low 90 NSBP Alarm High 180 HI Respirations Unlabored Respiratory Pattern Regular Respiratory Pattern Detailed Vented Patient Airway Status Patent with support Ventilator Mode (CMV) Continuous Mandatory Ventilation Ventilator Frequency, Mandatory 26 br/min Tidal Volume, Delivered 0.450 L Positive End Expiratory Pressure 5 cmH20 FiO2 50 % Vent FiO2 50 Tidal Volume, Exhaled 0.504 L Resuscitation Bag Available Yes Vent Alarms On and Functional Yes Oxygen Therapy Ventilator Oxygen Saturation 100 % Cuffed endotracheal tube 7.0 Endotracheal Tube Activity: Assessed Endotracheal Tube Placement: Oral, mid ET Tube Insertion cm Suman at Lip: 22 cm Endotracheal Tube Position Confirmation: Breath sounds Endotracheal Tube Status: Patent, Secure, manufactured tube ponce Urinary Elimination Urinary catheter draining Urinary Elimination Devices Indwelling catheter Urethral Indwelling/Continuous 05/25/2022 Urinary Catheter Activity: Assessed Urinary Catheter Secured: Securement device on Urinary Catheter Drainage System: Dependent drainage bag Urinary Catheter Site Condition: No complications Skin Symptoms Bruising All Extremity Description Normal for ethnicity Skin Temperature Cool Temperature All Extremities Warm Skin Description Dry, Mottled Skin Integrity Not intact Skin Turgor Non-Elastic Mucous Membrane Color [place] Mucous Membrane Description Moist Antecubital Left 05/24/2022 18 gauge Peripheral IV Activity: Assessed Peripheral IV Site Condition: No complications Peripheral IV Equipment: PRN Adaptor Upper arm Left 05/24/2022 20 gauge Peripheral IV Activity: Assessed Peripheral IV Site Condition: No complications Peripheral IV Equipment: PRN Adaptor Antecubital Right 05/24/2022 18 gauge Peripheral IV Activity: Assessed Peripheral IV Site Condition: No complications Peripheral IV Equipment: PRN Adaptor Neurological Language Intubated or other physical barrier Neurological Symptoms Sedated Characteristics of Communication Unable to speak, due to vent Characteristics of Speech Unable to assess Level of Consciousness Arousable with minimal stimulation GARY Yes Strength All Extremities Moderate Affect/Behavior Impulsive Orientation Does not interact Soft limb holders (Cloth) Wrist, bilateral Restraint Technique: Non Violent Restraint Restraint Activity Type: Continue restraint, same episode Behavior Requiring Non Violent Restraint Attempts to remove medical management devices Type of Medical Devices: Monitoring equipment, Tubes/drains, IV/arterial access, Airway management equipment Rationale for Restraint: Attempting to remove devices, despite current restraints Range of Motion: Repositioned Restraint Skin Assessment: Skin intact, Pulses intact Restraint Nutrition/Hydration: IV fluid Restraint Hygiene/Elimination: Urinary catheter Other Standard Safety: Call device within reach, ID band check, Allergy Band on Bed Standard Safety: Bed alert on, Bed in low position, Upper/Half-length side rails up, Wheels locked, HOB elevated Restraint DC Readiness Attempts: Pain management, Postitioning/Turning, Reality orientation Restraint DC Intervention Status: Intervention attempted, not successful Activity Status ADL Repositioned back, Resting Beds/Devices low air loss bed Activity Assistance Maximum assistance Standard Safety ID band on, Safety level maintained High Risk Safety Room check performed Special Call Device Unable to use call device Demonstrates Correct Call Light Use No fentaNYL 100 mcg/hr mcg norepinephrine 50 mcg/min mg propofol 40 mcg/kg/min mg vasopressin 0.03 unit(s)/min unit(s) Dextrose 5% Premix Diluent Dextrose 5% Premix Diluent mL Premix Diluent IV Premix Diluent mL NS Premix Diluent NS Premix Diluent mL NS Premix Diluent NS Premix Diluent mL Degrees Head of Bed Elevated 0 Stool Count 0 EA 05/25/2022 1:42 EDT Recommendation - Action Sepsis 05/25/2022 1:39 EDT glucose 25 gram(s) gram(s) insulin regular 5 unit(s) unit(s) sodium bicarbonate 50 mEq mEq 05/25/2022 1:31 EDT chlorhexidine topical 15 mL mL ocular lubricant 1 lux lux ocular lubricant 1 drop(s) drop(s) Sodium Chloride 0.9% 500 mL mL 05/25/2022 1:30 EDT Heart Rate Monitored 112 bpm HI Respiratory Rate 28 br/min HI Systolic Blood Pressure NBP 119 mmHg Diastolic Blood Pressure NBP 36 mmHg Mean Arterial Pressure (NBP) 57 mmHg 05/25/2022 1:25 EDT IPOC Alteration in Urinary Elimination Yes IPOC Impaired Mental Status Yes 05/25/2022 1:16 EDT Heart Rate Monitored 116 bpm HI Respiratory Rate 22 br/min HI Systolic Blood Pressure NBP 106 mmHg Diastolic Blood Pressure NBP 63 mmHg Mean Arterial Pressure (NBP) 67 mmHg Oxygen Saturation 100 % 05/25/2022 1:12 EDT Electrocardiogram - EKG - CV Ordered (In Progress) 05/25/2022 1:00 EDT propofol Begin Bag 100 mL mg Premix Diluent Begin Bag 100 mL mL Sodium Chloride 0.9% 500 mL mL 05/25/2022 0:[address] Abd/Pelvis w/ IV Contrast Only CT ABD/PELVIS W/ IV CONTRAST ONLY 05/25/2022 0:45 EDT Heart Rate Monitored 137 bpm HI Respiratory Rate 26 br/min HI 05/25/2022 0:32 EDT Recommendation - Action Sepsis 05/25/2022 0:31 EDT Heart Rate Monitored 146 bpm HI Respiratory Rate 26 br/min HI Systolic Blood Pressure NBP 88 mmHg LOW Diastolic Blood Pressure NBP 66 mmHg Mean Arterial Pressure (NBP) 71 mmHg norepinephrine 30 mcg/min mg propofol 50 mcg/kg/min mg Premix Diluent IV Premix Diluent mL NS Premix Diluent NS Premix Diluent mL 05/25/2022 0:20 EDT norepinephrine 26 mcg/min mg NS Premix Diluent NS Premix Diluent mL 05/25/2022 0:16 EDT UA Specimen Type Clean Catch UA Color Yellow UA Appear Hazy UA Spec Grav >=1.030 UA Glucose Negative mg/dL UA Bili Negative UA Ketones Trace mg/dL UA Blood Negative UA pH 5.5 UA Protein 30 mg/dL UA Urobilinogen 0.2 E.U./dL UA Nitrite Negative UA Leuk Est Negative UA RBC Rare /HPF UA WBC 0-2 /HPF UA Squam Epithelial 0-2 /HPF UA Mucous Trace /HPF UA Bacteria Trace /HPF UA Hyal Cast 0-2 /LPF U Creatinine 121.9 mg/dL NA U Protein 62.5 mg/dL NA U Ratio Prot/Creat 0.5 ratio NA 05/25/2022 0:15 EDT Heart Rate Monitored 138 bpm HI Respiratory Rate 27 br/min HI Systolic Blood Pressure NBP 81 mmHg Diastolic Blood Pressure NBP 59 mmHg LOW Mean Arterial Pressure (NBP) 64 mmHg Oxygen Saturation 100 % 05/25/2022 0:10 EDT norepinephrine 24 mcg/min mg NS Premix Diluent NS Premix Diluent mL 05/25/2022 0:02 EDT Heart Rate Monitored 133 bpm HI Patient Airway Status Patent with support Oxygen Saturation 100 % Cuffed endotracheal tube 7.0 Endotracheal Tube Activity: Assessed Endotracheal Tube Placement: Oral, mid ET Tube Insertion cm Suman at Lip: 22 cm Endotracheal Tube Position Confirmation: Breath sounds Endotracheal Tube Cuff Pressure Method: Minimum occlusion volume Endotracheal Tube Status: Patent, Secure, manufactured tube ponce propofol 40 mcg/kg/min mg Premix Diluent IV Premix Diluent mL 05/25/2022 0:00 EDT IPOC Risk for Unstable Glucose Yes 05/25/2022 0:00 EDT Ventilator Mode (A/C) Assist/Control Ventilation Ventilator Frequency, Mandatory 26 br/min Tidal Volume, Delivered 0.450 L Positive End Expiratory Pressure 5 cmH20 FiO2 50 % Flow Trigger (range 0.3 - 15 L/min.) 3 L/min Inspiratory to Expiratory (I:E) Ratio 1:1.6 Inspiratory Time (TI) 0.9 second(s) Tube Compensation Off Auto Flow On Ventilator Model Drager [id number] Ventilator ID [id number] Respiratory Rate Total 26 br/min HI Minute Volume 11.3 L/min Respiratory Rate, Spontaneous 0 br/min Tidal Volume, Exhaled 0.439 L Peak Inspiratory Pressure 29 cmH20 Plateau Pressure 29 cmH20 Mean Airway Pressure 14 Resuscitation Bag Available Yes Mask, Obturator, Syringe at bedside Yes Vent Alarms On and Functional Yes Vent Alarm High Pressure 40 cmH20 High Tidal Volume 1.0 Vent Alarm High Rate 40 br/min Vent Alarm Low Minute Volume 4 L/min Vent Alarm High Minute Volume 20 L/min HME (Heat & Moisture Exchanger) On Urethral Indwelling/Continuous 05/25/2022 Urinary Catheter Indication: ICU Patient-Hemodynamic instability Urinary Catheter Activity: Insert new catheter Urinary Catheter Secured: Securement device on Urinary Catheter Drainage System: Dependent drainage bag Urinary Catheter Site Condition: No complications Urinary Catheter Care Completed: Yes norepinephrine 22 mcg/min mg NS Premix Diluent NS Premix Diluent mL 05/24/2022 23:59 EDT OB Progress Note 05/24/2022 23:57 EDT Temperature Oral 37.4 DegC HI Heart Rate Monitored 144 bpm HI Respiratory Rate 22 br/min HI Systolic Blood Pressure NBP 104 mmHg Diastolic Blood Pressure NBP 57 mmHg LOW Mean Arterial Pressure (NBP) 70 mmHg Reason For Taking VItal Signs Routine Primary Pain Nonverbal Response Nods Yes Pain Scale Type 0-10 Pain scale Monitor Alarms On and Limits Checked Nail Bed Color [place] Capillary Refill < 2 seconds Heart Sounds ICU S1S2 Heart Rhythm Regular Dorsalis Pedis Pulse, Left 1+ Thready Dorsalis Pedis Pulse, Right 1+ Thready Posttibial Pulse, Left 1+ Thready Posttibial Pulse, Right 1+ Thready Radial Pulse, Left 1+ Thready Radial Pulse, Right 1+ Thready Central Venous Pressure 1 mmHg LOW Cardiac Rhythm Sinus tachycardia Monitoring Lead II, V1/MCL1 Alarms On and Functional Yes Heart Rate Alarm Set At - Low 50 Heart Rate Alarm Set At - High 120 NSBP Alarm Low 90 NSBP Alarm High 180 HI Respirations Unlabored Respiratory Pattern Regular Respiratory Pattern Detailed Vented Breath Sounds Auscultated Anterior only All Lobes Breath Sounds Clear, Diminished FiO2 50 % Oxygen Therapy Ventilator (Modified) Oxygen Saturation 100 % Cuffed endotracheal tube 7.0 Endotracheal Tube Activity: Assessed Endotracheal Tube Placement: Oral, mid ET Tube Insertion cm Suman at Lip: 22 cm Endotracheal Tube Position Confirmation: Breath sounds Endotracheal Tube Status: Patent, Secure, manufactured tube ponce Abdomen Description Symmetric, Soft Abdomen Palpation Soft Bowel Sounds All Quadrants Hypoactive Urinary Elimination Urinary catheter draining Urine Color Yellow Urine Description Medium amount Urinary Elimination Devices Indwelling catheter Skin Symptoms Bruising All Extremity Description Normal for ethnicity Skin Temperature Cool Temperature All Extremities Warm Skin Description Normal for ethnicity, Dry Skin Integrity Not intact Skin Turgor Non-Elastic Mucous Membrane Color [place] Mucous Membrane Description Moist Radial artery Right 05/24/2022 Arterial Line Activity: Unsuccessful Attempt Antecubital Left 05/24/2022 18 gauge Peripheral IV Activity: Assessed Peripheral IV Site Condition: No complications Peripheral IV Equipment: PRN Adaptor Upper arm Left 05/24/2022 20 gauge Peripheral IV Activity: Assessed Peripheral IV Site Condition: No complications Peripheral IV Equipment: PRN Adaptor Antecubital Right 05/24/2022 18 gauge Peripheral IV Activity: Assessed Peripheral IV Site Condition: No complications Peripheral IV Equipment: PRN Adaptor Neurological Language Intubated or other physical barrier Neurological Symptoms Sedated Gait Unable to assess Extremity Movement Equal Characteristics of Communication Unable to speak, due to vent Characteristics of Speech Unable to assess Facial Symmetry Symmetric Level of Consciousness Arousable with minimal stimulation GARY Yes Left Pupil Description Regular, Round Right Pupil Description Regular, Round Left Pupil Reaction Brisk Right Pupil Reaction Brisk Pupil Size, Left 3 mm Pupil Size, Right 3 mm Strength All Extremities Moderate CN V Facial Sensation Corneal reflex present CN VII Facial Expression and Symmetry Facial movement symmetrical CN IX, X Swallowing, Gag Reflex Gag reflex present Affect/Behavior Impulsive Orientation Does not interact Soft limb holders (Cloth) Wrist, bilateral Restraint Technique: Non Violent Restraint Restraint Activity Type: Continue restraint, same episode Behavior Requiring Non Violent Restraint Attempts to remove medical management devices Type of Medical Devices: Monitoring equipment, Tubes/drains, IV/arterial access, Airway management equipment Rationale for Restraint: Attempting to remove devices, despite current restraints Range of Motion: Repositioned Restraint Skin Assessment: Skin intact, Pulses intact Restraint Nutrition/Hydration: IV fluid Restraint Hygiene/Elimination: Urinary catheter Other Standard Safety: Call device within reach, ID band check Bed Standard Safety: Bed alert on, Bed in low position, Upper/Half-length side rails up, Wheels locked, HOB elevated Restraint DC Readiness Attempts: Pain management, Postitioning/Turning, Reality orientation Restraint DC Intervention Status: Intervention attempted, not successful Activity Status ADL Resting Beds/Devices low air loss bed Assistive Equipment elevated on pillows Activity Assistance Maximum assistance Oral Care Oral care protocol Standard Safety ID band on, Allergy Band on, Call device within reach, Bed in low position, Wheels locked, Upper/Half-Length side-rails up, Safety level maintained High Risk Safety Room check performed Special Call Device Unable to use call device Demonstrates Correct Call Light Use No fentaNYL Begin Bag 1,250 mcg mcg norepinephrine 20 mcg/min mg propofol Begin Bag 1,000 mg mg vasopressin 0.03 unit(s)/min unit(s) Dextrose 5% Premix Diluent Dextrose 5% Premix Diluent mL Premix Diluent Begin Bag 100 mL mL NS Premix Diluent NS Premix Diluent mL NS Premix Diluent Begin Bag 250 mL mL Degrees Head of Bed Elevated 0 Stool Count 0 EA 05/24/2022 23:54 EDT IPOC Risk for Injury Yes 05/24/2022 23:54 EDT Heparin dose (APTT) None APTT 24.0 seconds LOW Protime 11.2 seconds PT International Ratio 0.9 ratio NA Fibrinogen 580 mg/dL HI Glucose Level 164 mg/dL HI Sodium Level 137 mEq/L Potassium Level 5.9 mEq/L HI Chloride 112 mEq/L HI CO2 18 mEq/L LOW Electrolyte Balance 7.0 mEq/L BUN 9.0 mg/dL Creatinine Lvl (s) 0.81 mg/dL BUN/Creatinine Ratio 11.1 ratio Calcium Lvl 7.5 mg/dL LOW Total Protein 5.6 G/dL LOW Albumin Level 2.4 G/dL LOW Globulin 3.2 G/dL A/G Ratio 0.8 ratio LOW Bili Total 0.20 mg/dL Alk Phos 54 U/L AST/SGOT 48 U/L HI ALT/SGPT 84 U/L HI GFR Non- >60 ml/min/1.73sqm NA GFR >60 ml/min/1.73sqm NA Culture Blood See Result (In Progress) Creatinine Clearance Calc 97.89 mL/min 05/24/2022 23:52 EDT IPOC Restraints Yes 05/24/2022 23:50 EDT XR Chest 1 View XR CHEST 1 VIEW 05/24/2022 23:27 EDT vasopressin Begin Bag 1 mL unit(s) Dextrose 5% Premix Diluent Begin Bag 100 mL mL 05/24/2022 23:22 EDT Recommendation - Action Sepsis 05/24/2022 23:15 EDT Soft limb holders (Cloth) Wrist, bilateral Restraint Initiation Time: 05/24/2022 23:15 Restraint Technique: Non Violent Restraint Restraint Activity Type: Apply new restraint Behavior Requiring Non Violent Restraint Attempts to remove medical management devices Type of Medical Devices: Monitoring equipment, Tubes/drains, IV/arterial access, Airway management equipment Rationale for Restraint: Attempting to remove devices, despite current restraints Range of Motion: Repositioned Restraint Skin Assessment: Skin intact, Pulses intact Restraint Nutrition/Hydration: IV fluid Restraint Hygiene/Elimination: Urinary catheter Other Standard Safety: Call device within reach, ID band check, Allergy Band on Bed Standard Safety: Bed in low position, Upper/Half-length side rails up, Wheels locked, HOB elevated Restraint DC Readiness Attempts: Postitioning/Turning, Reality orientation, Verbal limit setting Restraint DC Intervention Status: Intervention attempted, not successful 05/24/2022 23:01 EDT pH 7.271 LOW pCO2 40.4 mm Hg pO2 308.5 mm Hg HI HCO3 18.2 mmol/L LOW CO2 Totl 19.4 mmol/L LOW Base Excess -8.1 mmol/L NA O2 Sat 99.8 % HI Barometric Pressure 710 mm Hg NA Hgb 8.5 G/dL LOW Hct 25.0 % LOW Lactic Acid Lvl 2.1 mmol/L HI 05/24/2022 23:00 EDT Heart Rate Monitored 142 bpm HI Respiratory Rate 21 br/min HI Systolic Blood Pressure NBP 77 mmHg Diastolic Blood Pressure NBP 52 mmHg LOW Mean Arterial Pressure (NBP) 56 mmHg Oxygen Saturation 100 % Affect/Behavior Impulsive, Agitated Soft limb holders (Cloth) Wrist, bilateral Pre-restraint Alternatives Attempted: Enhanced observation, Pain management, Positioning/Turning, Reality orientation, Intervention attempted, not successful Individuals Taught Patient Learning Readiness critical condition Barriers to Learning Cognitive deficits Teaching Method Explanation Preferred Written Language Singaporean Preferred Spoken Language Singaporean Ed-Policy Regarding Use of Restraints Needs further teaching Ed-Reason for Use of Restraint Needs further teaching Ed-Restraint Release Criteria Needs further teaching 05/24/2022 22:37 EDT fentaNYL 50 mcg mcg 05/24/2022 22:11 EDT XR Chest 1 View XR CHEST 1 VIEW 05/24/2022 21:43 EDT fentaNYL 50 mcg mcg 05/24/2022 21:42 EDT fentaNYL 50 mcg mcg 05/24/2022 21:38 EDT rocuronium 50 mg mg 05/24/2022 21:37 EDT propofol 150 mg mg 05/24/2022 21:31 EDT succinylcholine 160 mg mg 05/24/2022 21:25 EDT Heart Rate Monitored 112 bpm HI Respiratory Rate 23 br/min HI Systolic Blood Pressure NBP 122 mmHg Diastolic Blood Pressure NBP 94 mmHg HI Mean Arterial Pressure (NBP) 100 mmHg Patient Airway Status Patent with support Ventilator Mode (A/C) Assist/Control Ventilation Ventilator Frequency, Mandatory 22 br/min Tidal Volume, Delivered 0.450 L Positive End Expiratory Pressure 5 cmH20 FiO2 100 % Flow Trigger (range 0.3 - 15 L/min.) 3.0 L/min Inspiratory to Expiratory (I:E) Ratio 1:2 Inspiratory Time (TI) 0.9 second(s) Tube Compensation Off Auto Flow On Ventilator Model [employer] VN500 Ventilator ID [id number] Respiratory Rate Total 22 br/min Minute Volume 9.99 L/min Respiratory Rate, Spontaneous 0 br/min Tidal Volume, Exhaled 0.466 L Peak Inspiratory Pressure 30 cmH20 Plateau Pressure 30 cmH20 Mean Airway Pressure 13 Resuscitation Bag Available Yes Inline Suction Catheter Changed Yes Mask, Obturator, Syringe at bedside Yes Vent Alarms On and Functional Yes Vent Alarm High Pressure 40 cmH20 High Tidal Volume 1.0 Vent Alarm High Rate 40 br/min Vent Alarm Low Minute Volume 4 L/min Vent Alarm High Minute Volume 20 L/min Oxygen Saturation 100 % HME (Heat & Moisture Exchanger) Installed Cuffed endotracheal tube 7.0 Endotracheal Tube Activity: Intubated Endotracheal Tube Placement: Oral, mid ET Tube Insertion cm Suman at Lip: 22 cm Endotracheal Tube Position Confirmation: Breath sounds, End-tidal CO2 Endotracheal Tube Cuff Pressure Method: Minimum occlusion volume Endotracheal Tube Status: Patent, Secure, manufactured tube ponce Endotracheal Tube Performing Procedure: FAUSTINA OSEGUERA APRN-SECURITY MONITOR Endotracheal Tube Date of Intubation: 05/24/2022 Radial artery Right 05/24/2022 Arterial Line Activity: Insert new site Arterial Line Status: Accurate, optimally damped Arterial Line Care: Connections secured, Correct catheter position confirmed, Square Wave Test, Leveled, zeroed, calibrated, Pressure device 300 mmHg, Secured with tape, Transparent dressing Arterial Line Alarms On: Yes Arterial Line Dressing Condition: Clean, Dry, Intact Arterial Line Dressing/Activity: CHG gel pad all-in-one dressing Arterial Line Site Condition: No complications Arterial Line Distal Pulses: Palpable Arterial Line Performing Procedure: SHARIF OLMOS APRN-TOWER EQUIPMENT INSTALLER Arterial Line Assisting Procedure: BEBA Palacios Arterial Line Procedure Result: Insertion successful, Dressing dated, Sterile dressing applied immediately Antecubital Right 05/24/2022 18 gauge Peripheral IV Activity: Bedside IV start by ultrasound guidance Peripheral IV Dressing Condition: Clean, Dry, Intact Peripheral IV Dressing Activity: Applied, Transparent dressing Peripheral IV Line Status/Patency: Flushes easily, Good blood return Peripheral IV Line Care: Secured with tape Peripheral IV Site Condition: No complications Peripheral IV Equipment: PRN Adaptor Peripheral IV Number of Attempts: 1 05/24/2022 21:24 EDT Culture Respiratory with Gram Stain See Result (In Progress) 05/24/2022 21:22 EDT Recommendation - Action Sepsis 05/24/2022 21:16 EDT Procedure Note Endotracheal Intubation Procedure (Modified) 05/24/2022 20:46 EDT norepinephrine Begin Bag 8 mL mg Lactated Ringers Injection Begin Bag 1,000 mL mL NS Premix Diluent Begin Bag 250 mL mL 05/24/2022 20:32 EDT RBC Product Ready RBC Ready for Pickup 05/24/2022 20:09 EDT ceftriaxone 2 gram(s) gram(s) 05/24/2022 19:53 EDT Upper arm Left 05/24/2022 20 gauge Peripheral IV Activity: Bedside IV start by ultrasound guidance Peripheral IV Dressing Condition: Clean, Dry, Intact Peripheral IV Dressing Activity: Applied, Transparent dressing Peripheral IV Line Status/Patency: Flushes easily, 10ml normal saline flush, Aspirated, Good blood return Peripheral IV Line Care: Secured with tape Peripheral IV Site Condition: No complications Peripheral IV Equipment: PRN Adaptor Peripheral IV Number of Attempts: 1 05/24/2022 19:47 EDT Haptoglobin 67 mg/dL 05/24/2022 19:44 EDT WBC 22.0 10^3/mcL HI RBC 2.81 10^6/mcL LOW Hgb 8.4 G/dL LOW Hct 25.1 % LOW MCV 89.1 fL MCH 29.9 pg MCHC 33.6 G/dL RDW 15.7 % HI Platelet 251 10^3/mcL MPV 8.9 fL Monocyte Distribution Width Not Performed Neutrophil %, Manual 91.0 % HI Lymphocyte %, Manual 6.0 % LOW Monocyte %, Manual 1.0 % LOW Eosinophil %, Manual 0.0 % Basophil %, Manual 0.0 % Bands 2.0 % Nucleated RBC 1.0 /100 WBC NA Neutrophil, Abs Manual 20.0 10^3/mcL HI Lymphocyte, Abs Manual 1.3 10^3/mcL Monocyte, Abs Manual 0.2 10^3/mcL Eosinophil, Abs Manual 0.0 10^3/mcL Basophil, Abs Manual 0.0 10^3/mcL Platelet Estimate Normal Anisocytosis 1+ Polychrom 1+ Heparin dose (APTT) None APTT 22.0 seconds LOW Protime 11.1 seconds PT International Ratio 0.9 ratio NA Fibrinogen 568 mg/dL HI Glucose Level 136 mg/dL HI Sodium Level 140 mEq/L Potassium Level 4.6 mEq/L Chloride 111 mEq/L HI CO2 20 mEq/L LOW Electrolyte Balance 9.0 mEq/L BUN 8.0 mg/dL Creatinine Lvl (s) 0.78 mg/dL BUN/Creatinine Ratio 10.3 ratio Calcium Lvl 8.3 mg/dL LOW Magnesium Lvl 2.3 mg/dL Phosphorus 4.1 mg/dL Total Protein 5.6 G/dL LOW Albumin Level 2.4 G/dL LOW Globulin 3.2 G/dL A/G Ratio 0.8 ratio LOW Bili Total 0.30 mg/dL Alk Phos 52 U/L AST/SGOT 41 U/L HI ALT/SGPT 77 U/L HI LDH 161 U/L GFR Non- >60 ml/min/1.73sqm NA GFR >60 ml/min/1.73sqm NA Hgb A1c 5.2 % Amylase Level 36 U/L Lipase Level 31 U/L Lactic Acid Lvl 3.3 mmol/L HI ABO/Rh Interp B NEG ABSC Interp (Gel) NEG RAINA IgG Interp (Gel) NEG Crossmatch, Immediate Spin Compatible Crossmatch, Immediate Spin Compatible Creatinine Clearance Calc 101.66 mL/min Slide Review Man Indicated 05/24/2022 19:32 EDT Recommendation - Action Sepsis 05/24/2022 19:30 EDT Temperature Oral 35.7 DegC LOW Heart Rate Monitored 85 bpm Respiratory Rate 18 br/min Systolic Blood Pressure NBP 101 mmHg Diastolic Blood Pressure NBP 36 mmHg Mean Arterial Pressure (NBP) 52 mmHg Reason For Taking VItal Signs Routine Primary Pain Location Shoulder Primary Pain Laterality Right Primary Pain Intensity 8 Secondary Pain Location Abdomen Secondary Pain Laterality Right Pain Scale Type 0-10 Pain scale Monitor Alarms On and Limits Checked Nail Bed Color [place] Capillary Refill < 2 seconds Heart Sounds ICU S1S2 Heart Rhythm Regular Dorsalis Pedis Pulse, Left 1+ Thready Dorsalis Pedis Pulse, Right 1+ [place] Radial Pulse, Left 2+ Normal Radial Pulse, Right 2+ Normal Cardiac Rhythm Sinus rhythm Monitoring Lead II, V1/MCL1 Alarms On and Functional Yes Respiratory Symptoms Shortness of breath Respirations Unlabored Respiratory Pattern Regular Nasal Symptoms None Breath Sounds Auscultated Anterior and posterior All Lobes Breath Sounds Clear, Diminished Cough None Oxygen Therapy Room air Oxygen Saturation 97 % Tracheal Position Midline Abdomen Description Soft, Rounded Abdomen Palpation Soft Abdomen Tender All quadrants Bowel Sounds All Quadrants Hypoactive Urinary Elimination Not voiding Urinary Elimination Devices External catheter Facial Movement Makes facial grimaces All Extremity Description [place], Normal for ethnicity Skin Temperature Cool Temperature All Extremities Warm Skin Description Diaphoretic, Pale Skin Integrity Intact Skin Turgor Non-Elastic Mucous Membrane Color [place] Mucous Membrane Description Moist Sensory Perception Mitchell No impairment Moisture Mitchell Occasionally moist Activity Mitchell Bedfast Mobility Mitchell Very limited Nutrition Mitchell Adequate Friction and Shear Mitchell Potential problem Mitchell Score 15 Hospital Acquired Pressure Injury Risk Low risk (score 15-18) Antecubital Left 05/24/2022 18 gauge Peripheral IV Activity: Assessed Peripheral IV Dressing Condition: Clean, Dry, Intact Peripheral IV Dressing Activity: Transparent dressing Peripheral IV Line Status/Patency: Flushes easily Peripheral IV Site Condition: No complications Peripheral IV Equipment: IV Pump Neurological Language Able to speak clearly Neurological Symptoms Headache, Tingling, Weakness Gait Unable to assess Extremity Movement Equal Swallowing Difficulty None Characteristics of Communication Appropriate Characteristics of Speech Clear Level of Consciousness Alert Aspiration Risk None Eye Opening Response [place] Spontaneously Best Motor Response Anthony Obeys simple commands Best Verbal Response Anthony Oriented Anthony [place] Score 15 GARY Yes Left Pupil Description Regular Right Pupil Description Regular Left Pupil Reaction Brisk Right Pupil Reaction Brisk Pupil Size, Left 3 mm Pupil Size, Right 3 mm Strength All Extremities Moderate Left Upper Extremity Sensation Intact Right Upper Extremity Sensation Intact Left Lower Extremity Sensation Intact Right Lower Extremity Sensation Intact CN V Facial Sensation Corneal reflex present CN VII Facial Expression and Symmetry Facial movement symmetrical CN IX, X Swallowing, Gag Reflex Swallowing present Affect/Behavior Calm, Cooperative Orientation Oriented x 4 Orientation Assessment Oriented x 4 Activity Status ADL Repositioned left side Activity Assistance Maximum assistance Standard Safety ID band on, Allergy Band on, Call device within reach, Bed in low position, Wheels locked, Upper/Half-Length side-rails up, Phone within reach, Safety level maintained High Risk Safety Room check performed Demonstrates Correct Call Light Use Yes Degrees Head of Bed Elevated 0 Emesis Count 0 EA Stool Count 0 EA 05/24/2022 19:28 EDT Lactated Ringers Injection Begin Bag 1,000 mL mL 05/24/2022 19:00 EDT Heart Rate Monitored 85 bpm Respiratory Rate 23 br/min HI Systolic Blood Pressure NBP 90 mmHg Diastolic Blood Pressure NBP 27 mmHg Mean Arterial Pressure (NBP) 43 mmHg Oxygen Saturation 99 % 05/24/2022 18:45 EDT Heart Rate Monitored 89 bpm Respiratory Rate 23 br/min HI Systolic Blood Pressure NBP 80 mmHg Diastolic Blood Pressure NBP 54 mmHg LOW Mean Arterial Pressure (NBP) 44 mmHg Oxygen Saturation 95 % 05/24/2022 18:32 EDT Echocardiogram, Adult - CV Signed 05/24/2022 18:30 EDT Heart Rate Monitored 83 bpm Respiratory Rate 19 br/min Systolic Blood Pressure NBP 94 mmHg Diastolic Blood Pressure NBP 73 mmHg Mean Arterial Pressure (NBP) 78 mmHg Oxygen Saturation 100 % 05/24/2022 18:25 EDT Designated Person #1 We May Share PHI Designated Person #1 We May Share PHI (Modified) Designated Person #1 Relationship Significant other Designated Person #2 We May Share PHI Leonardo Underwood Designated Person #2 Relationship Mother Privacy Restrictions Requested None Height 170.2 cm Height in inches 67 inch(es) Admission Weight 198 kg Weight Lbs 435.6 lb [place] Body Weight 61.62 kg BSA Admission 2.82 Body Mass Index 68.35 kg/m2 Patient Type Inpatient Thrombosis Risk Factors (1) Obesity (greater than 20% over ideal body weight or BMI, (1) or post- less than 1 month Th (more content not included)... [facility] 05-25-2022 Note ORIGINAL EXAMINATION: CT OF THE ABDOMEN AND PELVIS WITH CONTRAST 05/25/2022 1:05 am TECHNIQUE: CT of the abdomen and pelvis was performed with the administration of intravenous contrast. Multiplanar reformatted images are provided for review. Automated exposure control, iterative reconstruction, and/or weight based adjustment of the mA/kV was utilized to reduce the radiation dose to as low as reasonably achievable. COMPARISON: CT chest on 05/24/2022 HISTORY: ORDERING SYSTEM PROVIDED HISTORY: Reason for Exam: htn, abn cta chest, abd cramping, pt intubated Fluid in the abdomen, concern for hepatic hemorrhage, HELLP syndrome vs. abscess FINDINGS: Lower Chest: There is mild atelectasis at both lung bases in the dependent portion which has increased since scan done 7 hours earlier. No pleural fluid is present. Organs: The liver is normal in size and enhancing normally. Gallbladder has been removed. The pancreas is normal. The spleen is normal in size and enhancing normally. The liver and spleen are surrounded by fluid with intermediate attenuation of approximately 25 Hounsfield units. Adrenal glands are normal. The kidneys are enhancing normally with no hydronephrosis. There are bilateral renal cysts that appear benign. The largest is in the upper half of the right kidney and measures 7.7 cm. Imaging follow-up of the renal cysts is not required. GI/Bowel: There is no intestinal obstruction. No inflammation of the intestine is detected. There is no free intraperitoneal air. Pelvis: Gravid uterus is present with single fetus in cephalic presentation. There is moderate hematoma around the uterus. No active bleeding is detected. There is subjectively normal amount of amniotic fluid. [place] catheter is in the urinary bladder and the urinary bladder is empty. Peritoneum/Retroperitoneum: There is no retroperitoneal hematoma. No lymph node enlargement is present. Abdominal aorta is normal in diameter. Bones/Soft Tissues: No acute or aggressive osseous lesions. IMPRESSION: Moderate to large hemoperitoneum with densest hematoma around the gravid uterus suggesting this is source of hemorrhage. No active hemorrhage is detected. No abscess or free intraperitoneal air. Single intrauterine fetus. Interpreted by: Rohit Corbett MD Preliminary Report By: Rohit Corbett MD Electronically signed By Rohit Corbett MD Dictated Date: 05/25/2022 1:07:24 AM Prelim Date: 05/25/2022 1:26:02 AM Sign Date: 05/25/2022 1:26:02 AM Ordering Provider: [facility] 05-25-2022 Gynecology Consul t note Date of Service 05/25/2022 Chief Complaint Free fluid in the abdomen History of Present Illness Patient is a 32-year-old G8, P3 at 23 weeks and 6 days gestation with an RYANNE of 09/13/2022 by last menstrual period consistent with a 5-week ultrasound who presented to the labor and delivery via squad for what was initially reported as lower abdominal cramping and elevated blood pressures. Upon arrival to labor delivery report from EMS squad was at the patient had blood pressures at home that were 150s over 140s, squad state the patient reported she was preeclamptic so they gave her 4 g mag bolus and 300 cc of IV fluids. They also reported they found the patient at home, alone, wedged between the wall and some kind of appliance. Had difficulty extracting her from her home and getting her into the ambulance. Patient was evaluated by the obstetric team in the morning and she was found to be profusely diaphoretic and complained of chest pain and shortness of breath. Due to significant hypotension and concern for an acute process patient was in rapid response down to the surgical ICU. A CTA was then ordered at that time which was negative for pulmonary emboli but did show moderate to large amount of fluid in the abdomen around the liver. Gynecology oncology was then consulted due to history of placenta previa with possible and suspected placenta accreta and her current admission for large amount of intra-abdominal fluid with significant leukocytosis. During my evaluation overnight, patient complained of right upper quadrant pain radiating to the shoulder, low back pain as well. She was unable to lay on her back due to significant back pain. Patient ended up requiring intubation for pain control and for further work-up and intervention including a CT abdomen and pelvis which was ordered recently. After she was intubated patient was given paralytics and she was significantly hypotensive and subsequently required pressors-Levophed and vasopressin. Of note has been recently evaluated by [facility] for placenta previa with suspected placenta accreta. Patient also has history of chronic hypertension for which she is on Procardia 30 XL daily, when inquired about her medication patient stated she is unsure whether or not she took her medication today. is complicated by: class III obesity (BMI 65), chronic HTN, GDMA1, placenta previa with possible placenta accreta, history of C/S x3, anxiety/depression, Crohn's disease, Rh negative status, asthma Primary OB: ODS Obstetric History G1) 2010 FT PLTCS failed IOL [id number] G2) 2013 FT RLTCS [id number] G3) 2015 FT RLTCS [id number] G4) 2016 SAB G5) 2017 SAB G6) 2018 SAB G7) 2019 SAB G8) current Review of Systems Negative except as above. Physical Exam Vitals and Measurements T: 37.4 C (Oral) TMIN: 35.7 C (Oral) TMAX: 37.4 C (Oral) HR: 133(Monitored) RR: 26(Total) RR: 0(Spontaneous) BP: 104/57 SpO2: 100% HT: 170.2 cm WT: 198 kg BMI: 68.35 Weight Dosing Weight: 198 kg (05/24/22) GENERAL: Profusely diaphoretic, in apparent distress with abdominal pain and shortness of breath,. NEUROLOGICAL: A&Ox3, CN II-XII grossly intact HEENT: EOMI, mucus membranes moist CARDIOVASCULAR: No JVD. Tachycardic but regular rhythm. RESPIRATORY: Increased respiratory rate. States she feels like she can't catch her breath. Lungs clear to auscultation bilaterally, no wheezes, rales, or crackles appreciated. ABDOMEN: Soft, gravid, obese, diffuse abdominal pain with localization to the right upper quadrant radiating to her shoulder. EXREMETIES: moderate peripheral edema versus obesity. Lab Results 05/24 23:54 Protime: 11.2 PT International Ratio: 0.9 Glucose Level: 164 H Sodium Level: 137 Potassium Level: 5.9 H BUN: 9.0 Creatinine Lvl (s): 0.81 05/24 23:01 Hgb: 8.5 L Hct: 25.0 L 05/24 19:44 WBC: 22.0 H Hgb: 8.4 L Hct: 25.1 L Platelet: 251 Protime: 11.1 PT International Ratio: 0.9 Glucose Level: 136 H Sodium Level: 140 Potassium Level: 4.6 BUN: 8.0 Creatinine Lvl (s): 0.78 05/24 15:51 WBC: 34.1 H Hgb: 10.4 L Hct: 31.0 L Platelet: 438 Neutrophil %: 82.3 H Glucose Level: 224 H Sodium Level: 141 Potassium Level: 4.1 BUN: 10.0 Creatinine Lvl (s): 0.90 Imaging Results and Diagnostics XR Chest 1 View Result Date: May 24, 2022 Verified By: ARIC PLATA, ROHIT Kothari CLINICAL STATEMENT: IMPRESSION: Interval right IJ approach central venous catheter placement with distal tipoverlying the expected location of the mid SVC. There is no visiblepneumothorax. I have personally reviewed the images of this examination, and agree with theresident's findings and interpretation. XR Chest 1 View Result Date: May 24, 2022 Verified By: BRADLEY MAHONEY MD CLINICAL STATEMENT: IMPRESSION: Endotracheal tube at its expected location. Low lung volumes with hypoventilatory changes. CT Angiography Chest w/ Contrast Result Date: May 24, 2022 Verified By: BRADLEY MAHONEY MD CLINICAL STATEMENT: IMPRESSION: No pulmonary emboli to the level of the segmental arteries. Moderate to large amount of abdominal ascites measuring slightly above simplefluid at 25-30 Hounsfield units. 05/24 Echo: 60-65% EF. Normal systolic and diastolic functio Assessment/Plan 1. Intra-abdominal fluid -Concern for intra-abdominal hemorrhage versus organ perforation (SBP vs. hepatic rupture, vs. uterine rupture).. -Patient monitored closely in the surgical ICU -CT abdomen pelvis pending. -Patient may need surgical intervention. Risks benefits and alternatives were discussed with the patient in regards to patient's health and also health and wellbeing. 2. Abdominal pain in , Rh negative, maternal 3. Placenta previa 4. Placenta accreta 5. Gestational diabetes mellitus (GDM) 6. History of section 7. Crohn's disease 8. Obesity, Class III, BMI 40-49.9 (morbid obesity) 9. Asthma Orders: Consult to Physician Consult to Physician Consult to Physician CT Abd/Pelvis w/ IV Contrast Only Problem List/Past Medical History Ongoing Asthma Crohn's disease Gestational diabetes mellitus (GDM) History of section Obesity, Class III, BMI 40-49.9 (morbid obesity) Placenta accreta Placenta previa Rh negative, maternal Historical Procedure/Surgical History No qualifying data available. Medications No qualifying data available Allergies morphine (Hives) Family History Diabetes: Grandparent. Immunizations No qualifying data available. Code Status Code Status - Ordered -- 05/24/22 16:15:00 EDT, Full Code, Constant Order Digitally Signed by YELENA TURNER MD on 05/25/2022 05:58 AM [facility] 05-25-2022 Note ORIGINAL EXAMINATION: CT OF THE ABDOMEN AND PELVIS WITH CONTRAST 05/25/2022 1:05 am TECHNIQUE: CT of the abdomen and pelvis was performed with the administration of intravenous contrast. Multiplanar reformatted images are provided for review. Automated exposure control, iterative reconstruction, and/or weight based adjustment of the mA/kV was utilized to reduce the radiation dose to as low as reasonably achievable. COMPARISON: CT chest on 05/24/2022 HISTORY: ORDERING SYSTEM PROVIDED HISTORY: Reason for Exam: htn, abn cta chest, abd cramping, pt intubated Fluid in the abdomen, concern for hepatic hemorrhage, HELLP syndrome vs. abscess FINDINGS: Lower Chest: There is mild atelectasis at both lung bases in the dependent portion which has increased since scan done 7 hours earlier. No pleural fluid is present. Organs: The liver is normal in size and enhancing normally. Gallbladder has been removed. The pancreas is normal. The spleen is normal in size and enhancing normally. The liver and spleen are surrounded by fluid with intermediate attenuation of approximately 25 Hounsfield units. Adrenal glands are normal. The kidneys are enhancing normally with no hydronephrosis. There are bilateral renal cysts that appear benign. The largest is in the upper half of the right kidney and measures 7.7 cm. Imaging follow-up of the renal cysts is not required. GI/Bowel: There is no intestinal obstruction. No inflammation of the intestine is detected. There is no free intraperitoneal air. Pelvis: Gravid uterus is present with single fetus in cephalic presentation. There is moderate hematoma around the uterus. No active bleeding is detected. There is subjectively normal amount of amniotic fluid. [place] catheter is in the urinary bladder and the urinary bladder is empty. Peritoneum/Retroperitoneum: There is no retroperitoneal hematoma. No lymph node enlargement is present. Abdominal aorta is normal in diameter. Bones/Soft Tissues: No acute or aggressive osseous lesions. IMPRESSION: Moderate to large hemoperitoneum with densest hematoma around the gravid uterus suggesting this is source of hemorrhage. No active hemorrhage is detected. No abscess or free intraperitoneal air. Single intrauterine fetus. Interpreted by: Rohit Corbett MD Preliminary Report By: Rohit Corbett MD Electronically signed By Rohit Corbett MD Dictated Date: 05/25/2022 1:07:24 AM Prelim Date: 05/25/2022 1:26:02 AM Sign Date: 05/25/2022 1:26:02 AM Ordering Provider: YELENA JOHNNY [facility] 05-25-2022 Note ORIGINAL EXAMINATION: ONE XRAY VIEW OF THE CHEST05/24/2022 11:50 pm COMPARISON: Examinations from earlier same day HISTORY: ORDERING SYSTEM PROVIDED HISTORY: Reason for Exam: Central Line Placement FINDINGS: There is a right IJ approach central venous catheter with the distal tip overlying the expected location of the mid SVC. Endotracheal tube appears to be in satisfactory position. Lung volumes are low. Unchanged cardiomediastinal silhouette. No visible pneumothorax. No large pleural effusion. No definite focal pulmonary consolidation. Osseous structures are unchanged. IMPRESSION: Interval right IJ approach central venous catheter placement with distal tip overlying the expected location of the mid SVC. There is no visible pneumothorax. I have personally reviewed the images of this examination, and agree with the resident's findings and interpretation. Interpreted by: Rohit Corbett MD Preliminary Report By: Bhanu Dee Electronically signed By Rohit Corbett MD Dictated Date: 05/24/2022 11:55:17 PM Prelim Date: 05/24/2022 11:59:34 PM Sign Date: 05/25/2022 12:05:10 AM Ordering Provider: SHARIF OLMOS [facility] 05-24-2022 Note ORIGINAL EXAMINATION: ONE XRAY VIEW OF THE CHEST05/24/2022 11:50 pm COMPARISON: Examinations from earlier same day HISTORY: ORDERING SYSTEM PROVIDED HISTORY: Reason for Exam: Central Line Placement FINDINGS: There is a right IJ approach central venous catheter with the distal tip overlying the expected location of the mid SVC. Endotracheal tube appears to be in satisfactory position. Lung volumes are low. Unchanged cardiomediastinal silhouette. No visible pneumothorax. No large pleural effusion. No definite focal pulmonary consolidation. Osseous structures are unchanged. IMPRESSION: Interval right IJ approach central venous catheter placement with distal tip overlying the expected location of the mid SVC. There is no visible pneumothorax. I have personally reviewed the images of this examination, and agree with the resident's findings and interpretation. Interpreted by: Rohit Corbett MD Preliminary Report By: Bhanu Dee Electronically signed By Rohit Corbett MD Dictated Date: 05/24/2022 11:55:17 PM Prelim Date: 05/24/2022 11:59:34 PM Sign Date: 05/25/2022 12:05:10 AM Ordering Provider: [facility] 05-24-2022 Note ORIGINAL EXAMINATION: ONE XRAY VIEW OF THE CHEST05/24/2022 10:11 pm CHEST ONE VIEW AP/PA COMPARISON: None HISTORY: ORDERING SYSTEM PROVIDED HISTORY: Reason for Exam: ET placement FINDINGS: The endotracheal tube is approximately 3.3 cm above level the kyaw. The cardiomediastinal contours are normal. There are low lung volumes with hypoventilatory changes. There is no focal consolidation, pleural effusion, or pneumothorax. No acute osseous abnormality. IMPRESSION: Endotracheal tube at its expected location. Low lung volumes with hypoventilatory changes. Interpreted by: Bradley Mahoney MD Preliminary Report By: Bradley Mahoney MD Electronically signed By Bradley Mahoney MD Dictated Date: 05/24/2022 10:38:44 PM Prelim Date: 05/24/2022 10:41:50 PM Sign Date: 05/24/2022 10:41:50 PM Ordering Provider: [facility] 05-24-2022 Note ORIGINAL EXAMINATION: ONE XRAY VIEW OF THE CHEST05/24/2022 10:11 pm CHEST ONE VIEW AP/PA COMPARISON: None HISTORY: ORDERING SYSTEM PROVIDED HISTORY: Reason for Exam: ET placement FINDINGS: The endotracheal tube is approximately 3.3 cm above level the kyaw. The cardiomediastinal contours are normal. There are low lung volumes with hypoventilatory changes. There is no focal consolidation, pleural effusion, or pneumothorax. No acute osseous abnormality. IMPRESSION: Endotracheal tube at its expected location. Low lung volumes with hypoventilatory changes. 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 Informed consent: signed by patient. Indication: airway protection, Sedation; unable to tolerate necessary medical procedures and tests. Preparation: airway classification (Mallampati) Class IV, oxygenated with 100% oxygen prior to intubation with ambu bag, position neck flexion/head extension, monitoring during procedure (blood pressure monitoring, alarm security or surveillance monitor, pulse ox). Technique: rapid sequence used, Glidescope 3, tube site oral, 7.0 cuffed ETT, Glidescope, taped at 21 cm at incisors, Video laryngoscopy. Confirmation of position: with auscultation of bilateral breath sounds, with capnometry. Findings: bilateral breath sounds on auscultation, cords visualized without difficulty, normal airway, O2 saturation 99 %. Procedure tolerated: well. Complications: None. Patient preoxygenated with 100% O2 via ambu bag; RSI performed without complications; patient sedated and paralyzed with 150 mg propofol and 200mg Succinylcholine. Hemodynamically stable throughout intubation procedure. BP 116/60. SpO2 99%, HR 71. Dr. Mg PLATA present at bedside with ICU team . Impression and Plan Endotracheal Intubation Procedure Procedure Performed Endotracheal intubation Ventilator settings Per ICU team I reviewed the documentation, agree with the assessment and procedure documentation. Digitally Signed by FAUSTINA OSEGUERA on 05/24/2022 09:33 PM Digitally Signed by FAUSTINA OSEGUERA on 05/24/2022 09:34 PM Digitally Signed by ABBEY NEWTON MD on 05/28/2022 06:46 AM [facility] 05-24-2022 Note ORIGINAL EXAMINATION: CTA OF THE CHEST05/24/2022 5:40 pm TECHNIQUE: CTA of the chest was performed after the administration of intravenous contrast. Multiplanar reformatted images are provided for review. MIP images are provided for review. Automated exposure control, iterative reconstruction, and/or weight based adjustment of the mA/kV was utilized to reduce the radiation dose to as low as reasonably achievable. COMPARISON: None. HISTORY: ORDERING SYSTEM PROVIDED HISTORY: Reason for Exam: 23 WKS PREG, SOB, CHEST PAIN RIGHT SIDE, RIGHT ABD PAIN Chest pain, shortness of breath, , obesity FINDINGS: The exam is degraded by patient body habitus and respiratory motion. There is adequate contrast opacification of the pulmonary arterial vasculature. There is no filling defect or vessel cutoff to indicate pulmonary embolus to the level of the segmental arteries. The thoracic aorta is normal in caliber. The heart is normal in size. No pericardial effusion or thickening. The trachea is normal. There is no lymphadenopathy. The lungs are clear. No pneumothorax or pleural fluid. The visualized osseous structures are intact. There is a large amount of free fluid throughout the abdomen measuring approximately 25-30 Hounsfield units IMPRESSION: No pulmonary emboli to the level of the segmental arteries. Moderate to large amount of abdominal ascites measuring slightly above simple fluid at 25-30 Hounsfield units. Interpreted by: Bradley Mahoney MD Preliminary Report By: Bradley Mahoney MD Electronically signed By Bradley Mahoney MD Dictated Date: 05/24/2022 5:51:17 PM Prelim Date: 05/24/2022 6:00:17 PM Sign Date: 05/24/2022 6:00:17 PM Ordering Provider: [facility] 05-24-2022 Note ORIGINAL EXAMINATION: CTA OF THE CHEST05/24/2022 5:40 pm TECHNIQUE: CTA of the chest was performed after the administration of intravenous contrast. Multiplanar reformatted images are provided for review. MIP images are provided for review. Automated exposure control, iterative reconstruction, and/or weight based adjustment of the mA/kV was utilized to reduce the radiation dose to as low as reasonably achievable. COMPARISON: None. HISTORY: ORDERING SYSTEM PROVIDED HISTORY: Reason for Exam: 23 WKS PREG, SOB, CHEST PAIN RIGHT SIDE, RIGHT ABD PAIN Chest pain, shortness of breath, , obesity FINDINGS: The exam is degraded by patient body habitus and respiratory motion. There is adequate contrast opacification of the pulmonary arterial vasculature. There is no filling defect or vessel cutoff to indicate pulmonary embolus to the level of the segmental arteries. The thoracic aorta is normal in caliber. The heart is normal in size. No pericardial effusion or thickening. The trachea is normal. There is no lymphadenopathy. The lungs are clear. No pneumothorax or pleural fluid. The visualized osseous structures are intact. There is a large amount of free fluid throughout the abdomen measuring approximately 25-30 Hounsfield units IMPRESSION: No pulmonary emboli to the level of the segmental arteries. Moderate to large amount of abdominal ascites measuring slightly above simple fluid at 25-30 Hounsfield units. Interpreted by: Bradley Mahoney MD Preliminary Report By: Bradley Mahoney MD Electronically signed By Bradley Mahoney MD Dictated Date: 05/24/2022 5:51:17 PM Prelim Date: 05/24/2022 6:00:17 PM Sign Date: 05/24/2022 6:00:17 PM Ordering Provider: QUAN FELICITA [facility] 05-24-2022 Anesthesiology Consult note Patient: JUDE CARLSON Age: 32 years Sex: Female : 1990 Associated Diagnoses: None Author: CONRADO CHERRY Procedure Peripheral IV cath insertion procedure Performed by: Carla Cherry CRNA. Location: antecubital space left. Preparation and technique: skin prepped with alcohol, catheter size 18 gauge, number of attempts 1, patency (positive blood return, blood aspirated easily, flushed easily), dressing applied (non-occlusive, transparent), saline lock, Ultrasound guidance used. Procedure tolerated: well. Complications: None. Digitally Signed by CONRADO CHERRY on 05/24/2022 04:12 PM [facility] Evaluation + Plan note No data available for this section [facility] Evaluation note Diagnosis IBD (inflammatory bowel disease)- Primary Other and unspecified noninfectious gastroenteritis and colitis [facility] Pre-op evaluation- Primary Preoperative examination, unspecified IBD (inflammatory bowel disease) Other and unspecified noninfectious gastroenteritis and colitis Current smoker Tobacco use disorder Asthma, unspecified asthma severity, unspecified whether complicated, unspecified whether persistent Anxiety and depression Dysthymic disorder Morbid obesity (HCC) Morbid obesity Hidradenitis suppurativa Hidradenitis * Assessment & Plan Note - Jaime Steele APRN.CNP - 07/24/2024 2:31 PM EDT Associated Problem(s): IBD (inflammatory bowel disease) Assessment: surgery scheduled 08/02 * Assessment & Plan Note - Jaime Steele APRN.CNP - 07/24/2024 2:31 PM EDT Associated Problem(s): Hidradenitis suppurativa Assessment: on aldactone and minocycline * Assessment & Plan Note - Jaime Steele APRN.CNP - 07/24/2024 2:30 PM EDT Associated Problem(s): Morbid obesity (HCC) Assessment: BMI 63.25 * Assessment & Plan Note - Jaime Steele APRN.CNP - 07/24/2024 2:30 PM EDT Associated Problem(s): Anxiety and depression Assessment: on tx * Assessment & Plan Note - Jaime Steele APRN.CNP - 07/24/2024 2:30 PM EDT Associated Problem(s): Asthma Assessment: Patient uses albuterol ~ 2 times per month * Assessment & Plan Note - Jaime Steele APRN.CNP - 07/24/2024 2:29 PM EDT Associated Problem(s): Current smoker Assessment: 0.5 PPD for the past 12 years, on an off but is currently smoking ~ 0.5 PPD documented in this encounter [facility] Discharge instructions No data available for this section [facility] Progress note No data available for this section [facility] Reason for referral (narrative)* Outpatient Procedure (Routine) - New Request Specialty Diagnoses / Procedures Referred By Nando t Referred To Contact [facility] Diagnoses IBD (inflammatory bowel disease) Procedures COLONOSCOPY DIAGNOSTIC COLONOSCOPY FLX DX W/COLLJ SPEC WHEN PFRMD Bryce Youssef MD [facility] [address] [place] [address] [facility] [address] [place] [address] Referral ID Status Reason Start Date Expiration Date Visits Requested Visits Authorized [id number] New Request Auto-Generat ed Referral 07/12/2024 07/12/2025 1 1 [facility] Summary Purpose Family History No Family History Records FoundNo Family History Records FoundNo Family History Records FoundNo Family History Records FoundNo Family History Records FoundNo Family History Records FoundNo Family History Records FoundNo Family History Records Found Advance Directives No Advanced Directives Records FoundNo Advanced Directives Records FoundNo Advanced Directives Records FoundNo Advanced Directives Records FoundNo Advanced Directives Records FoundNo Advanced Directives Records FoundNo Advanced Directives Records FoundNo Advanced Directives Records Found Additional Source Comments INFORMATION SOURCE (unrecogn ized section and content) DATE CREATED AUTHOR 04/02/2019 [facility] [facility] DATE CREATED AUTHOR AUTHOR'S ORGANIZ ATION 10/30/2020 [facility] DATE CREATED AUTHOR AUTHOR'S ORGANIZ ATION 04/03/2023 [facility] DATE CREATED AUTHOR AUTHOR'S ORGANIZ ATION 07/17/2024 [facility] DATE CREATED AUTHOR AUTHOR'S ORGANIZ ATION 08/03/2024 [facility] DATE CREATED AUTHOR AUTHOR'S ORGANIZ ATION 07/14/2025 [facility] DATE CREATED AUTHOR AUTHOR'S ORGANIZ ATION 07/15/2025 [facility] DATE CREATED AUTHOR AUTHOR'S ORGANIZ ATION 09/01/2025 [facility] Care Team (unrecognized sect ion and content) [employer] Relationship Specialty Start Date End Date Lucía Hernandez NP [address] [place] [address] PCP - General Family Medicine 06/11/24 [employer] Relationship Specialty Start Date End Date Lucía Hernandez NP [address] [place] [address] PCP - General Family Medicine 06/11/24 [employer] Relationship Specialty Start Date End Date Lucía Hernandez NP [address] [place] [address] PCP - General Family Medicine 06/11/24 [employer] Relationship Specialty Start Date End Date Lucía Hernandez NP [address] [place] [address] PCP - General Family Medicine 06/11/24 [employer] Relationship Specialty Start Date End Date Lucía Hernandez NP [address] [place] [address] PCP - General Family Medicine 06/11/24 Care Team (unrecognized sect ion and content) Care Team Personnel Name: PHYSICIAN, NOT RECORDED Member Role: Primary Care Physician Name: Evelina Gagnon RN Position: OB RN Member Role: RN Name: Janet Soares RN Position: OB RN Member Role: RN Care Team Related Persons Name: GLORIA KEN Source Comments (unrecognize d section and content) In the event this informatio n is protected by the Federal Confidentiality of Alcohol and Drug Abuse Patient Records regulations: The Federal rules restrict any use of the information to criminally investigate or prosecute any alcohol or drug abuse patient.[facility] the event this information is protected by the Federal Confidentiality of Alcohol and Drug Abuse Patient Records regulations: The Federal rules restrict any use of the information to criminally investigate or prosecute any alcohol or drug abuse patient.[facility] the event this information is protected by the Federal Confidentiality of Alcohol and Drug Abuse Patient Records regulations: The Federal rules restrict any use of the information to criminally investigate or prosecute any alcohol or drug abuse patient.[facility] the event this information is protected by the Federal Confidentiality of Alcohol and Drug Abuse Patient Records regulations: The Federal rules restrict any use of the information to criminally investigate or prosecute any alcohol or drug abuse patient.[facility] the event this information is protected by the Federal Confidentiality of Alcohol and Drug Abuse Patient Records regulations: The Federal rules restrict any use of the information to criminally investigate or prosecute any alcohol or drug abuse patient.[facility] the event this information is protected by the Federal Confidentiality of Alcohol and Drug Abuse Patient Records regulations: The Federal rules restrict any use of the information to criminally investigate or prosecute any alcohol or drug abuse patient.[facility] the event this information is protected by the Federal Confidentiality of Alcohol and Drug Abuse Patient Records regulations: The Federal rules restrict any use of the information to criminally investigate or prosecute any alcohol or drug abuse patient.[facility] Reason for Visit (unrecogniz ed section and content) Reason Comments Abdominal Pain Rectal Problem Specialty Diagnoses / Procedures Referred By Contac t Referred To Contact [facility] DEPARTMENT Diagnoses All medically necessary Procedures All medically necessary Self [facility] [place] [address] Referral ID Status Reason Start Date Expiration Date Visits Requested Visits Authorized [id number] Authorized Financial Clearance Required - Self Pay Patient Cleared - Qualified [id number] 05/03/2024 08/01/2024 [id number] [phone] Reason Comments Appointment Reason Comments Patient Update Reason Comments Appointment No show FOR RECORDS PERTAINING TO PATIENTS WHO ARE OR HAVE BEEN ENROLLED IN A CHEMICAL DEPENDENCY/SUBSTANCEABUSE PROGRAM, SOME INFORMATION MAY BE OMITTED. This clinical summary was aggregated from multiple sources. Caution should be exercised in using it in the provision of clinical care. This summary normalizes information from multiple sources, and as a consequence, information in this document may materially change the coding, format and clinical context of patient data. In addition, data may be omitted in some cases. CLINICAL DECISIONS SHOULD BE BASED ON THE PRIMARY CLINICAL RECORDS. [facility]. provides no warranty or guarantee of the accuracy or completeness of information in this document.
[2025-09-25 06:08] LABS: HPV APTIMA, High Risk Negative (Negative)
== END | disposition home or self-care (01) ==
PROVIDERS: PCP Nurse Practitioner Family; Visit Provider Family Medicine
DX: Z01.419 Encounter for gynecological examination (general) (routine) without abnormal findings (principal)
CPT/HCPCS: 87624; 88175; G0145